=== PATIENT | female | born 1950 | race Caucasian/White ===

== ENCOUNTER → 2020-05-26 | Outpatient (CLI) | payer MEDICARE, MEDICAID | LOC: WOUNDCARE 08:15 | PROVIDERS: ATTEND Surgery | DX: E11.621 Type 2 diabetes mellitus with foot ulcer (principal); E11.42 Type 2 diabetes mellitus with diabetic polyneuropathy; E11.52 Type 2 diabetes mellitus with diabetic peripheral angiopathy with gangrene; I70.262 Atherosclerosis of native arteries of extremities with gangrene, left leg; L97.522 Non-pressure chronic ulcer of other part of left foot with fat layer exposed ==

== ENCOUNTER → 2020-05-30 | Outpatient (CLI) | payer MEDICARE, MEDICAID | LOC: WOUNDCARE 09:25 | PROVIDERS: ATTEND Surgery | DX: E11.621 Type 2 diabetes mellitus with foot ulcer (principal); E11.52 Type 2 diabetes mellitus with diabetic peripheral angiopathy with gangrene; E11.42 Type 2 diabetes mellitus with diabetic polyneuropathy; L97.522 Non-pressure chronic ulcer of other part of left foot with fat layer exposed; I70.262 Atherosclerosis of native arteries of extremities with gangrene, left leg | CPT/HCPCS: 11042 ==

== ENCOUNTER → 2020-06-06 | Outpatient (CLI) | payer MEDICARE, MEDICAID | LOC: WOUNDCARE 08:15 | PROVIDERS: ATTEND Surgery | DX: E11.621 Type 2 diabetes mellitus with foot ulcer (principal); E11.42 Type 2 diabetes mellitus with diabetic polyneuropathy; L97.522 Non-pressure chronic ulcer of other part of left foot with fat layer exposed; I70.245 Atherosclerosis of native arteries of left leg with ulceration of other part of foot ==

== ENCOUNTER → 2020-06-16 | Outpatient (CLI) | payer MEDICARE, MEDICAID | LOC: WOUNDCARE 08:15 | PROVIDERS: ATTEND Surgery | DX: E11.621 Type 2 diabetes mellitus with foot ulcer (principal); E11.42 Type 2 diabetes mellitus with diabetic polyneuropathy; L97.522 Non-pressure chronic ulcer of other part of left foot with fat layer exposed; I70.245 Atherosclerosis of native arteries of left leg with ulceration of other part of foot; E11.52 Type 2 diabetes mellitus with diabetic peripheral angiopathy with gangrene ==

== ENCOUNTER → 2020-07-04 | Outpatient (CLI) | payer MEDICARE, MEDICAID | LOC: WOUNDCARE 08:15 | PROVIDERS: ATTEND Surgery | DX: E11.621 Type 2 diabetes mellitus with foot ulcer (principal); E11.42 Type 2 diabetes mellitus with diabetic polyneuropathy; L97.522 Non-pressure chronic ulcer of other part of left foot with fat layer exposed; I70.245 Atherosclerosis of native arteries of left leg with ulceration of other part of foot; I96 Gangrene, not elsewhere classified ==

== ENCOUNTER → 2020-07-13 | Outpatient (CLI) | payer MEDICARE, MEDICAID | LOC: WOUNDCARE 11:05 | PROVIDERS: ATTEND Surgery | DX: E11.621 Type 2 diabetes mellitus with foot ulcer (principal); L97.522 Non-pressure chronic ulcer of other part of left foot with fat layer exposed; E11.42 Type 2 diabetes mellitus with diabetic polyneuropathy; E11.649 Type 2 diabetes mellitus with hypoglycemia without coma; I96 Gangrene, not elsewhere classified; H54.8 Legal blindness, as defined in USA | CPT/HCPCS: 11042; G0463 ==

== ENCOUNTER → 2020-07-21 | Outpatient (CLI) | payer MEDICARE, MEDICAID | LOC: WOUNDCARE 10:54 | PROVIDERS: ATTEND Surgery | DX: E11.621 Type 2 diabetes mellitus with foot ulcer (principal); E11.42 Type 2 diabetes mellitus with diabetic polyneuropathy; E11.65 Type 2 diabetes mellitus with hyperglycemia; I96 Gangrene, not elsewhere classified; L97.522 Non-pressure chronic ulcer of other part of left foot with fat layer exposed; H54.8 Legal blindness, as defined in USA | CPT/HCPCS: 99213 ==

== ENCOUNTER → 2020-11-21 | Outpatient (CLI) | payer MEDICARE, MEDICAID ==
[2020-11-21 11:18] LABS: BASOPHILS % (AUTO) 0 % (0-10); EOSINOPHILS # (AUTO) 0.4 10^3/uL (0.0-0.3); EOSINOPHILS % (AUTO) 3 % (0-10); HEMATOCRIT 39 % (35-52); HEMOGLOBIN 12.7 g/dL (11.5-16.0); LYMPHOCYTES # (AUTO) 4.3 10^3/uL (1.0-4.0); LYMPHOCYTES % (AUTO) 41 % (12-44); MEAN CORPUSCULAR HEMOGLOBIN 31 pg (25-34); MEAN CORPUSCULAR HGB CONC 33 g/dL (32-36); MEAN CORPUSCULAR VOLUME 96 fL (80-99); MEAN PLATELET VOLUME 10.2 fL (9.0-12.2); MONOCYTES # (AUTO) 0.6 10^3/uL (0.0-1.0); MONOCYTES % (AUTO) 6 % (0-12); NEUTROPHILS # (AUTO) 5.2 10^3/uL (1.8-7.8); NEUTROPHILS % (AUTO) 50 % (42-75); PLATELET COUNT 338 10^3/uL (130-400); WHITE BLOOD COUNT 10.5 10^3/uL (4.3-11.0)
--- NOTE | 2020-11-21 11:34 | Diagnostic Imaging Report ---
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 There is no evidence of an acute fracture. No focal bone destruction or periosteal reaction is identified. There is plantar calcaneal spurring. IMPRESSION: No acute osseous abnormality post great toe amputation. Dictated by: Dictated on workstation # [id number]
[2020-11-21 11:43] LABS: ALBUMIN 3.9 GM/DL (3.2-4.5); BILIRUBIN,TOTAL 0.4 MG/DL (0.1-1.0); CALCIUM 8.9 MG/DL (8.5-10.1); CREATININE SERUM 1.33 MG/DL (0.60-1.30); TOTAL PROTEIN 6.8 GM/DL (6.4-8.2)
== END ==
LOC: RAD 10:51
PROVIDERS: ATTEND Surgery
DX: E11.621 Type 2 diabetes mellitus with foot ulcer (principal)
CPT/HCPCS: 36415; 73630; 80053; 83036; 85025

== ENCOUNTER → 2020-11-21 | Outpatient (CLI) | payer MEDICARE, MEDICAID | LOC: WOUNDCARE 08:40 | PROVIDERS: ATTEND Surgery | DX: E11.621 Type 2 diabetes mellitus with foot ulcer (principal); E11.42 Type 2 diabetes mellitus with diabetic polyneuropathy; L97.522 Non-pressure chronic ulcer of other part of left foot with fat layer exposed; I70.245 Atherosclerosis of native arteries of left leg with ulceration of other part of foot | CPT/HCPCS: 11042 ==

== ENCOUNTER → 2020-12-08 | Outpatient (CLI) | payer MEDICARE, MEDICAID | LOC: WOUNDCARE 13:26 | PROVIDERS: ATTEND Surgery | DX: E11.621 Type 2 diabetes mellitus with foot ulcer (principal); E11.42 Type 2 diabetes mellitus with diabetic polyneuropathy; L97.522 Non-pressure chronic ulcer of other part of left foot with fat layer exposed; I70.235 Atherosclerosis of native arteries of right leg with ulceration of other part of foot; E11.52 Type 2 diabetes mellitus with diabetic peripheral angiopathy with gangrene | CPT/HCPCS: 11042; G0463 ==

== ENCOUNTER → 2020-12-15 | Outpatient (CLI) | payer MEDICARE, MEDICAID | LOC: WOUNDCARE 14:00 | PROVIDERS: ATTEND Surgery | DX: E11.621 Type 2 diabetes mellitus with foot ulcer (principal); L97.522 Non-pressure chronic ulcer of other part of left foot with fat layer exposed; E11.42 Type 2 diabetes mellitus with diabetic polyneuropathy; I96 Gangrene, not elsewhere classified; I70.245 Atherosclerosis of native arteries of left leg with ulceration of other part of foot | CPT/HCPCS: 11042; G0463 ==

== ENCOUNTER → 2020-12-22 | Outpatient (CLI) | payer MEDICARE, MEDICAID | LOC: WOUNDCARE 13:45 | PROVIDERS: ATTEND Surgery | DX: E11.621 Type 2 diabetes mellitus with foot ulcer (principal); E11.42 Type 2 diabetes mellitus with diabetic polyneuropathy; L97.522 Non-pressure chronic ulcer of other part of left foot with fat layer exposed; I70.245 Atherosclerosis of native arteries of left leg with ulceration of other part of foot | CPT/HCPCS: 99212 ==

== ENCOUNTER 2021-08-08 18:35 | Emergency (ER) | payer MEDICARE, MEDICAID ==
[2021-08-08 18:36] VITALS: BP 76/40
--- NOTE | 2021-08-08 18:51 | ED General ---
General Stated Complaint: SEIZURE,FALL History of Present Illness Date Seen by Provider: Aug 08, 2021 Time Seen by Provider: 18:51 Initial Comments Patient presenting to emergency department via EMS for evaluation of altered mental status. She is from a care home and reportedly has a history of seizures and may have had a seizure which was partially witnessed. Patient has a history of dementia on her care home paperwork but she appears quite confused as she is completely disoriented initially and she appears to have lost bowel and bladder continence. She is initially hypotensive as well with systolic blood pressures in the 60-70 range. Looking at her care home paperwork it appears that she is a full code and has a history of diabetes hypertension high cholesterol and dementia as well as seizures for which she takes Keppra. The 1st person a call as her contact is Justin and I spoke to [facility] about her presentation medical history and he says she usually is confused but she is able to say her name and give pertinent information when asked. Several minutes after her arrival went back and talked to her again and now she is alert and oriented to herself but is confused on why she is here in the emergency department as she does not know what happened. She is afebrile and has a normal heart rate but is slightly hypoxic with an oxygen saturation of 92% on 2 L and there is no indication that she is on oxygen at the care home. She does have intermittent cough but we are uncertain when that started. Allergies and Home Medications Allergies Coded Allergies: No Known Drug Allergies (Unverified , 08/08/21) Patient Home Medication List Home Medication List Reviewed: Yes Review of Systems Review of Systems Constitutional: no symptoms reported EENTM: no symptoms reported Respiratory: cough Cardiovascular: no symptoms reported Gastrointestinal: no symptoms reported Musculoskeletal: no symptoms reported Skin: no symptoms reported Psychiatric/Neurological: No Symptoms Reported All Other Systems Reviewed Negative Unless Noted: Yes Physical Exam Vital Signs Vital Signs - First Documented 08/08/21 18:36 Temp 36.0 Pulse 60 Resp 18 B/P (MAP) 76/40 (52) Pulse Ox 95 O2 Delivery Nasal Cannula Capillary Refill : Height, Weight, BMI Height: '" Weight: lbs. oz. kg; BMI Method: General Appearance: Other (Ill and confused appearing female) HEENT: Other (Cataracts that appear to be severe in her left eye with responsive pupil in the right eye) Neck: Supple Respiratory: No Respiratory Distress, Other (Coarse breath sounds bilaterally) Cardiovascular: Regular Rate, Rhythm, No Edema Gastrointestinal: Non Tender, Soft Back: Normal Inspection Extremity: No Pedal Edema, Slow Capillary Refill Neurologic/Psychiatric: Alert, No Motor/Sensory Deficits, Disoriented Skin: Warm/Dry Focused Exam Lactate Level 08/08/21 19:20: Lactic Acid Level 3.75*H Lactic Acid Level Laboratory Tests Test 08/08/21 19:20 Lactic Acid Level 3.75 MMOL/L (0.50-2.00) *H Progress/Results/Core Measures Suspected Sepsis SIRS Temperature: Pulse: Respiratory Rate: Laboratory Tests 08/08/21 19:20: White Blood Count 14.3H Blood Pressure / Mean: 08/08/21 19:20: Lactic Acid Level 3.75*H Laboratory Tests 08/08/21 19:12: Creatinine 1.71H, INR Comment 0.9, Total Bilirubin 0.5 08/08/21 19:20: Platelet Count 362 Results/Orders Lab Results Laboratory Tests Test 08/08/21 19:11 08/08/21 19:12 08/08/21 19:20 Range/Units Urine Color YELLOW Urine Clarity CLEAR Urine pH 7.0 5-9 Urine Specific [place] 1.010 L 1.016-1.022 Urine Protein NEGATIVE NEGATIVE Urine Glucose (UA) NEGATIVE NEGATIVE Urine Ketones NEGATIVE NEGATIVE Urine Nitrite NEGATIVE NEGATIVE Urine Bilirubin NEGATIVE NEGATIVE Urine Urobilinogen 0.2 < = 1.0 MG/DL Urine Leukocyte Esterase 1+ H NEGATIVE Urine RBC (Auto) TRACE-I H NEGATIVE Urine RBC 2-5 H /HPF Urine WBC 25-50 H /HPF Urine Squamous Epithelial Cells 2-5 /HPF Urine Crystals NONE /LPF Urine Bacteria TRACE /HPF Urine Casts NONE /LPF Urine Mucus NEGATIVE /LPF Urine Culture Indicated YES Prothrombin Time 12.9 12.2-14.7 SEC INR Comment 0.9 0.8-1.4 Activated Partial Thromboplast Time 24 24-35 SEC Sodium Level 140 135-145 MMOL/L Potassium Level 3.7 3.6-5.0 MMOL/L Chloride Level 99 98-107 MMOL/L Carbon Dioxide Level 22 21-32 MMOL/L Anion Gap 19 H 5-14 MMOL/L Blood Urea Nitrogen 31 H 7-18 MG/DL Creatinine 1.71 H 0.60-1.30 MG/DL Estimat Glomerular Filtration Rate 30 BUN/Creatinine Ratio 18 Glucose Level 156 H 70-105 MG/DL Calcium Level 9.8 8.5-10.1 MG/DL Corrected Calcium 9.9 8.5-10.1 MG/DL Total Bilirubin 0.5 0.1-1.0 MG/DL Aspartate Amino Transf (AST/SGOT) 49 H 5-34 U/L Alanine Aminotransferase (ALT/SGPT) 71 H 0-55 U/L Alkaline Phosphatase 80 40-136 U/L Troponin I < 0.30 <0.30 NG/ML Pro-B-Type Natriuretic Peptide 344.4 H <75.0 PG/ML Total Protein 6.7 6.4-8.2 GM/DL Albumin 3.9 3.2-4.5 GM/DL Lipase 43 8-78 U/L White Blood Count 14.3 H 4.3-11.0 10^3/uL Red Blood Count 3.98 3.80-5.11 10^6/uL Hemoglobin 12.4 11.5-16.0 g/dL Hematocrit 38 35-52 % Mean Corpuscular Volume 95 80-99 fL Mean Corpuscular Hemoglobin 31 25-34 pg Mean Corpuscular Hemoglobin Concent 33 32-36 g/dL Red Cell Distribution Width 14.0 10.0-14.5 % Platelet Count 362 130-400 10^3/uL Mean Platelet Volume 9.6 9.0-12.2 fL Neutrophils (%) (Auto) 50 42-75 % Lymphocytes (%) (Auto) 43 12-44 % Monocytes (%) (Auto) 5 0-12 % Eosinophils (%) (Auto) 1 0-10 % Basophils (%) (Auto) 0 0-10 % Neutrophils # (Auto) 7.1 1.8-7.8 X 10^3 Lymphocytes # (Auto) 6.2 H 1.0-4.0 X 10^3 Monocytes # (Auto) 0.7 0.0-1.0 X 10^3 Eosinophils # (Auto) 0.1 0.0-0.3 10^3/uL Basophils # (Auto) 0.1 0.0-0.1 10^3/uL Immature Granulocyte # (Auto) 0.1 0.0-0.1 10^3/uL Neutrophils % (Manual) 53 % Lymphocytes % (Manual) 10 % Monocytes % (Manual) 6 % Eosinophils % (Manual) 0 % Basophils % (Manual) 0 % Band Neutrophils 4 % Atypical Lymphocytes 27 % Platelet Estimate NORMAL Elliptocytes SLIGHT Lactic Acid Level 3.75 *H 0.50-2.00 MMOL/L My Orders Orders - AIDA MCNEIL DO Iv/Invasive Line Insertion .IV start (08/08/21 18:52) Cbc With Automated Diff (08/08/21 18:52) Comprehensive Metabolic Panel (08/08/21 18:52) Ekg Tracing (08/08/21 18:52) Troponin I Fs (08/08/21 18:52) Ua Culture If Indicated (08/08/21 18:52) Partial Thromboplastin Time (08/08/21 18:52) Probnp Fs (08/08/21 18:52) Protime With Inr (08/08/21 18:52) Ns Iv 1000 Ml (Sodium Chloride 0.9%) (08/08/21 19:00) Ct Head/Cervical Spine Wo (08/08/21 18:52) Blood Culture (08/08/21 19:04) Lactic Acid Analyzer (08/08/21 19:04) Lipase (08/08/21 19:04) Ct Chest/Abdomen/Pelvis Wo (08/08/21 19:16) Mora Cath (08/08/21 19:39) Levetiracetam Injection (Keppra Injectio (08/08/21 21:00) Blood Culture (08/08/21 19:20) Urine Culture (08/08/21 19:11) Ceftriaxone (Rocephin) (08/08/21 20:00) Manual Differential (08/08/21 19:20) Dexamethasone Injection (Decadron Inje (08/08/21 20:00) Levetiracetam Injection (Keppra Injectio (08/08/21 20:00) Azithromycin Injection (Zithromax Inject (08/08/21 20:15) Ns Iv 1000 Ml (Sodium Chloride 0.9%) (08/08/21 20:30) Lactated Ringers (Lr 1000 Ml Iv Solution (08/08/21 21:00) Ed Iv/Invasive Line Start (08/08/21 21:13) Medications Given in ED Current Medications Medications Dose Ordered Sig/Angie Route Start Time Stop Time Status Last Admin Dose Admin Azithromycin 500 mg/Sodium Chloride 250 ml @ 250 mls/hr ONCE ONCE IV 08/08/21 20:15 08/08/21 21:14 DC 08/08/21 20:35 250 MLS/HR Ceftriaxone Sodium 2000 mg/ Sodium Chloride 50 ml @ 100 mls/hr ONCE ONCE IV 08/08/21 20:00 08/08/21 20:29 DC 08/08/21 20:06 100 MLS/HR Dexamethasone Sodium Phosphate 10 mg ONCE ONCE IV 08/08/21 20:00 08/08/21 20:01 DC 08/08/21 20:06 10 MG Vital Signs/I&O 08/08/21 18:36 Temp 36.0 Pulse 60 Resp 18 B/P (MAP) 76/40 (52) Pulse Ox 95 O2 Delivery Nasal Cannula Capillary Refill : Progress Note : Progress Note Patient has abnormal work-up with signs of pneumonia on her CT scan in addition she has possible urinary tract infection with leukocytosis as well as lactic acidosis although the blood work may be abnormal due to her seizures. The CT scan shows a meningioma which the radiologist said is old and he thought that this could be calcification versus hemorrhage I spoke to the neurosurgeon Dr. Morse at [facility] and he said based off the Hounsfield units that this is most likely hemorrhage that likely caused her seizure. [facility] does not have neurology or neurosurgery available for treatment of this patient so I spoke to the brother Justin and he requested the patient be transferred to [facility]. Patient was given Keppra Decadron Rocephin Zithromax in addition to 3 L of fluid and she improved significantly as her systolic blood pressure has been at least 120 but her diastolic blood pressure has been in the lower range in the 50s to 60s but her map has been consistently above 65. She is perfusing her extremities well at this time and does not require pressors. Her mental status has continued to improve throughout her entire emergency department stay as well as she is not confused and continues to follow commands and is asking for something to eat and drink and she denies any complaints. After extensive discussion with Dr. Morse and Dr. Boyd they are willing to accept the patient to the ICU at [facility]. I did ask them regarding transport whether they felt that helicopter transfer is medically necessary and they agreed that it is not necessary given she has been improving throughout her emergency department stay and she is protecting her airway and is not requiring pressors. Of course there is always a small chance of decompensation but they said given that the hemorrhage is very small and she appears stable but they do not recommend helicopter transfer and the ground transfer is safe. Patient will be transferred to [facility] in guarded condition. Of note Covid is a possibility given her x-ray findings and that she is requiring 2 L of oxygen but we do not have the ability to do an in-house Covid test. [facility] will perform further Covid testing. Critical Care Note Critical Care Total Time (minutes) 45 Departure Impression Primary Impression: Hx of meningioma of the brain Additional Impressions: Intracranial hemorrhage Hypotension Qualified Codes: I95.9 - Hypotension, unspecified Renal insufficiency Leukocytosis Lactic acidosis Seizure Pneumonia UTI (urinary tract infection) Hypoxia Disposition: 02 XFER SHT-TRM HOSP Condition: Improved Transfer Transfer Reason: Exceeds level of care Time Spoke to Accepting Phy: 22:00 Transfer Facility: [facility] Method of Transfer: EMS Departure-Patient Inst. Referrals: ARTI MAO MD (PCP/Family) Primary Care Physician AIDA MCNEIL DO Aug 08, 2021 18:51
[2021-08-08] MEDS ORDERED: NS IV 1000 ML 1,000 ML IV SCH ×2 (19:00→20:30)
[2021-08-08 19:26] LABS: BILIRUBIN,URINE NEGATIVE (NEGATIVE); CLARITY,URINE CLEAR; COLOR,URINE YELLOW; GLUCOSE, URINE (UA) NEGATIVE (NEGATIVE); KETONES,URINE NEGATIVE (NEGATIVE); NITRITE,URINE NEGATIVE (NEGATIVE); PROTEIN,URINE NEGATIVE (NEGATIVE)
[2021-08-08 19:32] LABS: INR 0.9 (0.8-1.4); PROTHROMBIN TIME PATIENT 12.9 SEC (12.2-14.7)
[2021-08-08 19:45] LABS: BACTERIA,URINE TRACE /HPF; LEUKOCYTE ESTERASE ,URINE 1+ (NEGATIVE); WBC,URINE 25-50 /HPF
[2021-08-08 19:47] LABS: HEMATOCRIT 38 % (35-52); HEMOGLOBIN 12.4 g/dL (11.5-16.0); MEAN CORPUSCULAR HEMOGLOBIN 31 pg (25-34); MEAN CORPUSCULAR VOLUME 95 fL (80-99); WHITE BLOOD COUNT 14.3 10^3/uL (4.3-11.0)
[2021-08-08 19:48] LABS: BASOPHILS # (AUTO) 0.1 10^3/uL (0.0-0.1); BASOPHILS % (AUTO) 0 % (0-10); EOSINOPHILS # (AUTO) 0.1 10^3/uL (0.0-0.3); EOSINOPHILS % (AUTO) 1 % (0-10); LYMPHOCYTES # (AUTO) 6.2 X 10^3 (1.0-4.0); LYMPHOCYTES % (AUTO) 43 % (12-44); MEAN CORPUSCULAR HGB CONC 33 g/dL (32-36); MEAN PLATELET VOLUME 9.6 fL (9.0-12.2); MONOCYTES # (AUTO) 0.7 X 10^3 (0.0-1.0); MONOCYTES % (AUTO) 5 % (0-12); NEUTROPHILS # (AUTO) 7.1 X 10^3 (1.8-7.8); NEUTROPHILS % (AUTO) 50 % (42-75); PLATELET COUNT 362 10^3/uL (130-400)
[2021-08-08 19:55] LABS: BUN/CREATININE RATIO 18; CARBON DIOXIDE 22 MMOL/L (21-32); CHLORIDE 99 MMOL/L (98-107); CREATININE SERUM 1.71 MG/DL (0.60-1.30); GFR ESTIMATED 30; GLUCOSE 156 MG/DL (70-105); POTASSIUM 3.7 MMOL/L (3.6-5.0); SODIUM 140 MMOL/L (135-145)
[2021-08-08 19:56] LABS: ALANINE AMINOTRANSFERASE 71 U/L (0-55); ALBUMIN 3.9 GM/DL (3.2-4.5); ALKALINE PHOSPHATASE 80 U/L (40-136); BILIRUBIN,TOTAL 0.5 MG/DL (0.1-1.0); CALCIUM 9.8 MG/DL (8.5-10.1); LIPASE 43 U/L (8-78); TOTAL PROTEIN 6.7 GM/DL (6.4-8.2)
[2021-08-08 19:57] LABS: ATYPICAL LYMPHOCYTES 27 %; BAND NEUTROPHILS 4 %; BASOPHILS % (MANUAL) 0 %; EOSINOPHILS % (MANUAL) 0 %; LYMPHOCYTES % (MANUAL) 10 %; MONOCYTES % (MANUAL) 6 %; NEUTROPHILS % (MANUAL) 53 %; PLATELET ESTIMATE NORMAL
[2021-08-08 19:58] LABS: ELLIPT/OVALOCYTES SLIGHT
[2021-08-08] MEDS ORDERED: cefTRIAXone 2,000 MG in NS (IVPB) 50 ML IV ONE (20:00)
--- NOTE | 2021-08-08 20:03 | Diagnostic Imaging Report ---
PROCEDURE: CT head and CT cervical spine without contrast. TECHNIQUE: Multiple contiguous axial images were obtained through the brain and cervical spine without the use of intravenous contrast. Sagittal and coronal reformations through the cervical spine were then performed. Auto Exposure Controls were utilized during the CT exam to meet ALARA standards for radiation dose reduction. INDICATION: Seizures, altered mental status, head and neck injury COMPARISON: 12/28/2018 FINDINGS: CT HEAD: The ventricles and cortical sulci appear normal. There is a right-sided parietal approach ventricular shunt, with the tip to the left of midline near the anterior left lateral ventricle and frontal lobe. There is stable chronic thickening of the posterior calvarium. There is extensive calcification along the dura posteriorly which is stable. There is a calcification in the right temporal lobe. There is increased irregular hyperdensity in the right temporal lobe compared to the CT from 12/28/2018. The MRI brain from 03/25/2019 demonstrates an enhancing neoplasm consistent with meningioma with additional calcification since that time, although given the irregular amorphous nature, this is still concerning for intraparenchymal hemorrhage, measuring up to 2.4 x 1.9 x 1.7 cm in size. There is no significant midline shift or mass effect. There does appear to be mild edema about the hyperdensity in the right temporal lobe. No CT evidence of acute territorial ischemia is seen. The calvarium appears intact. Paranasal sinuses demonstrate no fluid levels. CT CERVICAL SPINE: Alignment of the cervical spine appears normal with no spondylolisthesis. There are severe degenerative changes at C3-C4, C4-C5, C5-C6 and mild degenerative changes elsewhere. No acute fracture is seen. There does appear to be spondylytic spinal canal stenosis. No bony fragments or hyperdense fluid collections are seen in the spinal canal. Soft tissues about the neck demonstrate no acute abnormality. There is calcific atherosclerosis. IMPRESSION: 1. Lesion at the anterior temporal lobe demonstrates a well-defined as well as amorphous irregular hyperdensity, likely calcification but it is concerning for underlying hemorrhage. This area corresponds with a known meningioma from 2019. This appears to be mildly increased in size since that exam and this would be better evaluated with MRI with and without contrast. 2. Right-sided ventricular shunt. No ventriculomegaly. Findings discussed with AIDA MCNEIL, by Dr. Rogers, on 08/08/2021 7:54 PM. Dictated by: Dictated on workstation # [id number]
--- NOTE | 2021-08-08 20:07 | Diagnostic Imaging Report ---
PROCEDURE: CT chest, abdomen, and pelvis without contrast. TECHNIQUE: Multiple contiguous axial images were obtained through the chest, abdomen, and pelvis without the use of intravenous contrast. Auto Exposure Controls were utilized during the CT exam to meet ALARA standards for radiation dose reduction. INDICATION: Seizures, altered mental status, trauma to the torso. COMPARISON: None FINDINGS: CT CHEST: The heart is normal in size. There is mild pericardial fluid without jalyn effusion seen. There is aortic atherosclerosis. Caliber appears normal. There is motion artifact throughout the exam. No mediastinal adenopathy is seen. There is no axillary adenopathy. There is no pleural effusion or pneumothorax. There are airspace opacities in the lung bases, left greater than right. There appears to be mild bronchiectasis and chronic scarring. No acute osseous abnormality is seen. CT ABDOMEN AND PELVIS: The liver demonstrates no focal lesions. Cholecystectomy clips are noted. The spleen appears normal. The pancreas is unremarkable. The adrenal glands appear normal. The kidneys are mildly atrophic with no hydronephrosis or calculi seen. There is marked aortic atherosclerosis. The aorta is normal in caliber. No lymphadenopathy is seen. There is a small fat-containing ventral hernia with no bowel involvement. The bowel loops are nondistended without obstruction. A Mora catheter is seen in the bladder. There is no free fluid or free air. The appendix is normal. No acute osseous abnormality is seen. There are degenerative changes in the spine. IMPRESSION: 1. No acute traumatic injury is seen in the chest, abdomen or pelvis. 2. Bilateral pulmonary opacities, may represent infection superimposed on chronic fibrotic change. Dictated by: Dictated on workstation # [id number]
[2021-08-08] MEDS ORDERED: AZITHROMYCIN INJECTION 500 MG in NS (IVPB) 250 ML IV ONE (20:15)
[2021-08-08] MEDS ORDERED: LACTATED RINGERS 1,000 ML IV SCH (21:00)
== END 2021-08-08 23:30 | disposition short-term general hospital (02) ==
LOC: EDUNIT# 18:35 → ER FS 18:36
DX: I62.9 Nontraumatic intracranial hemorrhage, unspecified (principal); I95.9 Hypotension, unspecified; N28.9 Disorder of kidney and ureter, unspecified; D72.829 Elevated white blood cell count, unspecified; J18.9 Pneumonia, unspecified organism; N39.0 Urinary tract infection, site not specified; R09.02 Hypoxemia; R56.9 Unspecified convulsions; I10 Essential (primary) hypertension; E11.9 Type 2 diabetes mellitus without complications; Z79.899 Other long term (current) drug therapy
CPT/HCPCS: 36415; 51702; 70450; 71250; 72125; 74176; 80053; 81000; 83605; 83690; 83880; 84484; 85007; 85027; 85610; 85730; 87040; 87077; 87088; 87186; 93005

== ENCOUNTER → 2021-09-26 | Outpatient (CLI) | payer MEDICARE, MEDICAID ==
[2021-09-26 18:08] LABS: BILIRUBIN,URINE NEGATIVE (NEGATIVE); CLARITY,URINE SL CLOUDY; COLOR,URINE YELLOW; GLUCOSE, URINE (UA) NEGATIVE (NEGATIVE); KETONES,URINE NEGATIVE (NEGATIVE); LEUKOCYTE ESTERASE ,URINE 2+ (NEGATIVE); NITRITE,URINE POSITIVE (NEGATIVE); PH,URINE 6.5 (5-9); PROTEIN,URINE NEGATIVE (NEGATIVE)
[2021-09-26 18:14] LABS: BACTERIA,URINE MODERATE /HPF; WBC,URINE 50-100 /HPF
[2021-09-26 18:15] LABS: HYALINE CASTS, URINE RARE /LPF; SQUAMOUS EPITHELIAL CELL,UR RARE /HPF
== END ==
LOC: PVFS 17:10
PROVIDERS: ATTEND Family Medicine
DX: Z01.89 Encounter for other specified special examinations (principal)
CPT/HCPCS: 81000; 87077; 87088; 87186

== ENCOUNTER 2023-05-02 20:33 | Inpatient (IN) | payer MEDICAID, MEDICARE ==
[~2023-05-02] VITALS: Ht 149.9 cm; Wt 69.2 kg
[2023-05-02] MEDS ORDERED: ACETAMINOPHEN 500 MG TABLET PO PRN (20:45)
[2023-05-02] MEDS ORDERED: CEFEPIME INJECTION 1,000 MG in NS (IVPB) 50 ML 50 ML IV ONE (20:45)
[2023-05-02] MEDS ORDERED: NS IV 1000 ML 1,000 ML IV SCH (20:45)
--- NOTE | 2023-05-02 20:47 | ED Fever ---
History of Present Illness General Chief Complaint: Post OP Complications/Pain Stated Complaint: FEVER Source: patient, family, EMS Exam Limitations: clinical condition History of Present Illness Date Seen by Provider: May 02, 2023 Time Seen by Provider: 20:35 Initial Comments 73-year-old female with past medical history of diabetes, legal blindness, peripheral vascular disease that had stenting in her legs done at [facility] recently coming in via EMS due to fever and altered mental status. Family noticed fever greater than 102 today. She has not been acting normal as well. They are concerned that she has a wound on her foot on the left side that has not been healing. Allergies and Home Medications Allergies Coded Allergies: No Known Drug Allergies (Unverified , 08/08/21) Patient Home Medication List Home Medication List Reviewed: Yes Review of Systems Review of Systems Constitutional: fever EENTM: no symptoms reported Respiratory: no symptoms reported Cardiovascular: no symptoms reported Gastrointestinal: no symptoms reported Genitourinary: no symptoms reported Musculoskeletal: see HPI Psychiatric/Neurological: See HPI Past Exwurpa-Lakfjn-Dscjac Hx Past Medical History Surgery/Hospitalization HX: stent in leg Surgeries: Yes Physical Exam Vital Signs - First Documented Capillary Refill : Height: '" Weight: lbs. oz. kg; BMI Method: General Appearance: other (Ill-appearing) Eyes: Bilateral Eye Other (Patient likely blind, eyes closed) HEENT: pharynx normal Neck: non-tender, full range of motion, supple, normal inspection Respiratory: chest non-tender, lungs clear, normal breath sounds, no respiratory distress, no accessory muscle use Cardiovascular: no edema, tachycardia Gastrointestinal: normal bowel sounds, non tender, soft; No distended, No guarding, No rebound Extremities: normal range of motion, no calf tenderness, other (Left foot on the plantar surface with a chronic wound with some erythema around it, no drainage noted) Neurologic/Psychiatric: no motor/sensory deficits, alert, other (Oriented to person only) Skin: normal color, warm/dry Focused Exam Lactate Level 05/02/23 20:36: Lactic Acid Level 2.21*H Lactic Acid Level Laboratory Tests Test 05/02/23 20:36 Lactic Acid Level 2.21 MMOL/L (0.50-2.00) *H Progress/Results/Core Measures Suspected Sepsis SIRS Temperature: Pulse: Respiratory Rate: Laboratory Tests 05/02/23 20:36: White Blood Count 16.7H Blood Pressure / Mean: 05/02/23 20:36: Lactic Acid Level 2.21*H Laboratory Tests 05/02/23 20:36: Creatinine 1.37H, INR Comment 1.0, Platelet Count 417H, Total Bilirubin 0.7 Results/Orders Lab Results Laboratory Tests Test 05/02/23 20:36 05/02/23 20:42 05/02/23 20:50 Range/Units White Blood Count 16.7 H 4.3-11.0 10^3/uL Red Blood Count 3.06 L 3.80-5.11 10^6/uL Hemoglobin 9.3 L 11.5-16.0 g/dL Hematocrit 29 L 35-52 % Mean Corpuscular Volume 95 80-99 fL Mean Corpuscular Hemoglobin 30 25-34 pg Mean Corpuscular Hemoglobin Concent 32 32-36 g/dL Red Cell Distribution Width 15.1 H 10.0-14.5 % Platelet Count 417 H 130-400 10^3/uL Mean Platelet Volume 10.4 9.0-12.2 fL Immature Granulocyte % (Auto) 1 % Neutrophils (%) (Auto) 92 H 42-75 % Lymphocytes (%) (Auto) 3 L 12-44 % Monocytes (%) (Auto) 4 0-12 % Eosinophils (%) (Auto) 0 0-10 % Basophils (%) (Auto) 0 0-10 % Neutrophils # (Auto) 15.3 H 1.8-7.8 10^3/uL Lymphocytes # (Auto) 0.5 L 1.0-4.0 10^3/uL Monocytes # (Auto) 0.7 0.0-1.0 10^3/uL Eosinophils # (Auto) 0.0 0.0-0.3 10^3/uL Basophils # (Auto) 0.0 0.0-0.1 10^3/uL Immature Granulocyte # (Auto) 0.2 H 0.0-0.1 10^3/uL Neutrophils % (Manual) 65 % Lymphocytes % (Manual) 5 % Monocytes % (Manual) 4 % Eosinophils % (Manual) 0 % Basophils % (Manual) 0 % Band Neutrophils 26 % Platelet Estimate INCREASED Percent Immature Platelet Fraction 2.0 0.0-7.6 % Polychromasia SLIGHT Hypochromasia 1+ Microcytosis 1+ Macrocytosis 1+ Elliptocytes SLIGHT Prothrombin Time 14.0 12.2-14.7 SEC INR Comment 1.0 0.8-1.4 Activated Partial Thromboplast Time 21 L 24-35 SEC Sodium Level 142 135-145 MMOL/L Potassium Level 3.7 3.6-5.0 MMOL/L Chloride Level 106 98-107 MMOL/L Carbon Dioxide Level 20 L 21-32 MMOL/L Anion Gap 16 H 5-14 MMOL/L Blood Urea Nitrogen 21 H 7-18 MG/DL Creatinine 1.37 H 0.60-1.30 MG/DL Estimat Glomerular Filtration Rate 41 BUN/Creatinine Ratio 15 Glucose Level 129 H 70-105 MG/DL Lactic Acid Level 2.21 *H 0.50-2.00 MMOL/L Calcium Level 8.7 8.5-10.1 MG/DL Corrected Calcium 9.7 8.5-10.1 MG/DL Total Bilirubin 0.7 0.1-1.0 MG/DL Aspartate Amino Transf (AST/SGOT) 37 H 5-34 U/L Alanine Aminotransferase (ALT/SGPT) 62 H 0-55 U/L Alkaline Phosphatase 75 40-136 U/L C-Reactive Protein 5.06 H <0.50 MG/DL Total Protein 6.4 6.4-8.2 GM/DL Albumin 2.8 L 3.2-4.5 GM/DL Influenza Type A (RT-PCR) Not Detected Not Detecte Influenza Type B (RT-PCR) Not Detected Not Detecte SARS-CoV-2 RNA (RT-PCR) Not Detected Not Detecte Urine Color YELLOW Urine Clarity CLOUDY Urine pH 6.0 5-9 Urine Specific Tyler 1.010 L 1.016-1.022 Urine Protein NEGATIVE NEGATIVE Urine Glucose (UA) NEGATIVE NEGATIVE Urine Ketones TRACE H NEGATIVE Urine Nitrite POSITIVE H NEGATIVE Urine Bilirubin NEGATIVE NEGATIVE Urine Urobilinogen 0.2 < = 1.0 MG/DL Urine Leukocyte Esterase 1+ H NEGATIVE Urine RBC (Auto) 1+ H NEGATIVE Urine RBC 5-10 H /HPF Urine WBC 50-100 H /HPF Urine Squamous Epithelial Cells 0-2 /HPF Urine Crystals NONE /LPF Urine Bacteria LARGE H /HPF Urine Casts PRESENT /LPF Urine Hyaline Casts 5-10 H /LPF Urine Mucus MODERATE H /LPF Urine Culture Indicated CULTURE PENDING My Orders Orders - LON LAUREANO MD Cbc With Automated Diff (05/02/23 20:40) Comprehensive Metabolic Panel (05/02/23 20:40) Blood Culture (05/02/23 20:40) Urinalysis (05/02/23 20:40) Urine Culture (05/02/23 20:40) Protime With Inr (05/02/23 20:40) Partial Thromboplastin Time (05/02/23 20:40) Chest 1 View Ap/Pa Only (05/02/23 20:40) Acetaminophen Tablet (Acetaminophen Ta (05/02/23 20:45) Ed Iv/Invasive Line Start (05/02/23 20:40) Ekg Tracing (05/02/23 20:40) Vital Signs Adult Sepsis Patie Q15M (05/02/23 20:40) O2 (05/02/23 20:40) Remove Rings In Anticipation O (05/02/23 20:40) Lactic Acid Analyzer (05/02/23 20:40) Influenza A And B By Pcr (05/02/23 20:40) Ns Iv 1000 Ml (Sodium Chloride 0.9%) (05/02/23 20:45) Cefepime Injection (Cefepime Injection) (05/02/23 20:45) Covid 19 Inhouse Test (05/02/23 20:40) Crp Fs (05/02/23 20:40) Foot 3 View Left (05/02/23 20:40) Catheter(Urinary) Insert & Ass 03,15 (05/02/23 20:47) Manual Differential (05/02/23 20:36) Ed Admission (Communication) (05/02/23 21:48) Medications Given in ED Current Medications Medications Dose Ordered Sig/Angie Route Start Time Stop Time Status Last Admin Dose Admin Acetaminophen 1,000 mg ONCE PRN PO 05/02/23 20:45 05/02/23 20:53 DC 05/02/23 20:53 1,000 MG Cefepime HCl 1000 mg/Sodium Chloride 50 ml @ 100 mls/hr ONCE ONCE IV 05/02/23 20:45 05/02/23 21:14 DC 05/02/23 20:54 100 MLS/HR Vital Signs/I&O 05/02/23 05/02/23 05/02/23 05/02/23 20:36 20:36 20:36 20:45 Temp 39.8 39.8 Pulse 115 115 119 Resp 28 28 21 B/P (MAP) 111/44 (66) 111/44 (66) 109/38 (61) Pulse Ox 90 90 90 92 O2 Delivery Room Air Nasal Cannula Nasal Cannula O2 Flow Rate 2.00 2.00 2.00 2.00 05/02/23 05/02/23 05/02/23 05/02/23 20:53 21:00 21:15 21:30 Temp 39.1 Pulse 111 108 100 Resp 27 22 21 B/P (MAP) 102/39 (60) 116/44 (68) 113/43 (66) Pulse Ox 92 92 92 O2 Delivery Nasal Cannula Nasal Cannula Nasal Cannula O2 Flow Rate 2.00 2.00 2.00 05/02/23 05/02/23 05/02/23 05/02/23 21:45 22:00 22:15 22:30 Temp 39.1 Pulse 95 90 87 87 Resp 24 26 25 25 B/P (MAP) 108/38 (61) 111/44 (66) 111/44 (66) 111/44 Pulse Ox 92 93 93 93 O2 Delivery Nasal Cannula Nasal Cannula Nasal Cannula Nasal Cannula O2 Flow Rate 2.00 2.00 2.00 2.00 2.00 05/02/23 05/02/23 05/02/23 23:00 23:12 23:14 Temp 37.0 Pulse 80 79 83 Resp 19 17 B/P (MAP) 108/48 (68) 108/48 (68) Pulse Ox 94 94 O2 Delivery Nasal Cannula Nasal Cannula O2 Flow Rate 4.00 4.00 05/03/23 00:00 Intake Total 1050 ml Balance 1050 ml Capillary Refill : Progress Note : Progress Note 73-year-old female with above history coming in due to fever and altered mental status. The patient was febrile and tachycardic on arrival. She was reportedly hypoxic per EMS and they placed her on 2 L nasal cannula. An IV was placed and basic labs were obtained including sepsis work-up. Lactic acid slightly elevated, white blood cell count elevated just under 17,000, CRP elevated, creatinine 1.3 which likely is her baseline when I review her prior labs. Chest x-ray with poor inspiratory effort, difficult to fully assess, potentially infiltrate versus pulmonary vascular congestion. Urinalysis obtained and certainly is infected. She was given cefepime empirically followed by IV fluids. She was given a total of 1000 of IV fluids in the ER, I would not want to give her more given her frail status, and I be concerned for respiratory issues. She seems to be euvolemic on reassessment as well. I contacted the physician production support supervisor, and the patient will be admitted to Dr. Hooper to the intensive care unit for further evaluation and management. I then contacted the ICU physician for signout. ECG Initial ECG Impression Date: May 02, 2023 Initial ECG Impression Time: 21:15 Initial ECG Rate: 105 Initial ECG Rhythm: S.Tach Comment Narrow QRS, normal axis, no STEMI Diagnostic Imaging Diagonstic Imaging: Xray (chest, left foot) Comments NAME: PATEL SABILLON MED REC#: [id number] PT STATUS: REG ER : 1950 PHYSICIAN: LON LAUREANO MD ADMIT DATE: 05/02/23/ER FS Draft Date of Exam:05/02/23 CHEST 1 VIEW AP/PA ONLY EXAM: Chest 1 view AP/PA only. INDICATION: Sepsis. COMPARISON: 12/28/2018. FINDINGS: Low lung volumes accentuate the heart size. Mild pulmonary vascular congestion. Left costophrenic angle is not entirely included on the [id number]. Atelectasis or infiltrate in the left lung base. No pleural effusion or pneumothorax. IMPRESSION: 1. Low lung volumes accentuate the cardiomegaly and pulmonary vascular congestion. 2. Atelectasis or infiltrate in the left lung base. Left costophrenic angle is not entirely included in the [id number]. Dictated on workstation # [id number] Dict: 05/02/232120 Trans: 05/02/232124 [facility] [id number] Interpreted by: ALEX ELIZABETH MD Electronically signed by: MIREYA [facility] [facility] [place], [place] NAME: PATEL SABILLON MED REC#: [id number] PT STATUS: REG ER : 1950 PHYSICIAN: LON LAUREANO MD ADMIT DATE: 05/02/23/ER FS Draft Date of Exam:05/02/23 FOOT 3 VIEW LEFT EXAM: Foot 3 view left INDICATION: Nonhealing foot wound. COMPARISON: Left foot radiographs 11/21/2020. FINDINGS/ IMPRESSION: 1. 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 2. Increasing lucencies about the distal aspect of the left 1st metatarsal suspicious for osteomyelitis. There is also a small amount of soft tissue gas overlying the left 1st metatarsal. 3. No fracture. Dictated on workstation # [id number] Dict: 05/02/232119 Trans: 05/02/232121 [facility] [id number] Interpreted by: ALEX ELIZABETH MD Electronically signed by: Departure Impression Primary Impression: Severe sepsis Additional Impression: Cystitis Disposition: 30 STILL A PATIENT Condition: Stable Admissions Decision to Admit Reason: Admit from ER (General) Decision to Admit/Date: May 02, 2023 Time/Decision to Admit Time: 21:45 Transfer Transfer Facility: [facility] Method of Transfer: EMS Departure-Patient Inst. Referrals: ARTI MAO MD (PCP/Family) Primary Care Physician LON LAUREANO MD May 02, 2023 20:47
[2023-05-02 21:18] LABS: BILIRUBIN,URINE NEGATIVE (NEGATIVE); CLARITY,URINE CLOUDY; COLOR,URINE YELLOW; GLUCOSE, URINE (UA) NEGATIVE (NEGATIVE); KETONES,URINE TRACE (NEGATIVE); LEUKOCYTE ESTERASE ,URINE 1+ (NEGATIVE); NITRITE,URINE POSITIVE (NEGATIVE); PROTEIN,URINE NEGATIVE (NEGATIVE)
--- NOTE | 2023-05-02 21:22 | Diagnostic Imaging Report ---
EXAM: Foot 3 view left INDICATION: Nonhealing foot wound. COMPARISON: Left foot radiographs 11/21/2020. FINDINGS/ IMPRESSION: 1. 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 2. Increasing lucencies about the distal aspect of the left 1st metatarsal suspicious for osteomyelitis. There is also a small amount of soft tissue gas overlying the left 1st metatarsal. 3. No fracture. Dictated by: Dictated on workstation # [id number]
[2023-05-02 21:26] LABS: BACTERIA,URINE LARGE /HPF; SQUAMOUS EPITHELIAL CELL,UR 0-2 /HPF; WBC,URINE 50-100 /HPF
--- NOTE | 2023-05-02 21:26 | Diagnostic Imaging Report ---
EXAM: Chest 1 view AP/PA only. INDICATION: Sepsis. COMPARISON: 12/28/2018. FINDINGS: Low lung volumes accentuate the heart size. Mild pulmonary vascular congestion. Left costophrenic angle is not entirely included on the [id number]. Atelectasis or infiltrate in the left lung base. No pleural effusion or pneumothorax. IMPRESSION: 1. Low lung volumes accentuate the cardiomegaly and pulmonary vascular congestion. 2. Atelectasis or infiltrate in the left lung base. Left costophrenic angle is not entirely included in the [id number]. Dictated by: Dictated on workstation # [id number]
[2023-05-02 21:27] LABS: BASOPHILS % (AUTO) 0 % (0-10); EOSINOPHILS % (AUTO) 0 % (0-10); HEMATOCRIT 29 % (35-52); HEMOGLOBIN 9.3 g/dL (11.5-16.0); LYMPHOCYTES # (AUTO) 0.5 10^3/uL (1.0-4.0); LYMPHOCYTES % (AUTO) 3 % (12-44); MEAN CORPUSCULAR HEMOGLOBIN 30 pg (25-34); MEAN CORPUSCULAR HGB CONC 32 g/dL (32-36); MEAN CORPUSCULAR VOLUME 95 fL (80-99); MEAN PLATELET VOLUME 10.4 fL (9.0-12.2); MONOCYTES # (AUTO) 0.7 10^3/uL (0.0-1.0); MONOCYTES % (AUTO) 4 % (0-12); NEUTROPHILS # (AUTO) 15.3 10^3/uL (1.8-7.8); NEUTROPHILS % (AUTO) 92 % (42-75); PLATELET COUNT 417 10^3/uL (130-400); WHITE BLOOD COUNT 16.7 10^3/uL (4.3-11.0)
[2023-05-02 21:28] LABS: BILIRUBIN,TOTAL 0.7 MG/DL (0.1-1.0); CALCIUM 8.7 MG/DL (8.5-10.1); CREATININE SERUM 1.37 MG/DL (0.60-1.30); POTASSIUM 3.7 MMOL/L (3.6-5.0); TOTAL PROTEIN 6.4 GM/DL (6.4-8.2)
[2023-05-02 21:29] LABS: ALBUMIN 2.8 GM/DL (3.2-4.5)
[2023-05-02 21:49] LABS: BAND NEUTROPHILS 26 %; BASOPHILS % (MANUAL) 0 %; EOSINOPHILS % (MANUAL) 0 %; LYMPHOCYTES % (MANUAL) 5 %; MONOCYTES % (MANUAL) 4 %; NEUTROPHILS % (MANUAL) 65 %
[2023-05-02 21:50] LABS: ELLIPT/OVALOCYTES SLIGHT; HYPOCHROMASIA 1+; MICROCYTOSIS 1+; PLATELET ESTIMATE INCREASED; POLYCHROMASIA SLIGHT
[2023-05-02] MEDS ORDERED: ONDANSETRON 4 MG ORAL DISSOLVE TABLET PO PRN (23:30)
[2023-05-02] MEDS ORDERED: ACETAMINOPHEN 325 MG TABLET PO PRN (23:30)
[2023-05-02] MEDS ORDERED: ONDANSETRON INJECTION 4 MG/2 ML (SDV) IV PRN (23:30)
[2023-05-02] MEDS ORDERED: LACTATED RINGERS 1,000 ML 1,000 ML IV ONE (23:37)
--- NOTE | 2023-05-02 23:38 | Tele-ICU Progress Note ---
Subjective Date Seen by a Provider: May 02, 2023 Subjective/Events-last exam This virtual visit was conducted using real time audio/video. Thank you for asking us to see this patient for critical care services due to urosepsis with AMS Recent events: Transferred from [place]. PMH: foot ulcer, ileal stent, DM. PE: VSS. O2 sat 96% on 2 LPM HEENT: No obvious masses, adenopathy or JVD. Chest: clear to auscultation. CV: RRR S1 S2 No murmur or added sounds. Abd: Non-tender. Bowel sounds Y. : Unremarkable. Mora Y. GAUGER CHIEF DELIVERY/psychiatric: Grossly intact. No obvious focal findings. Extremities: No edema. Capillary refill < 3 seconds. Skin: unremarkable. Results: Elevated WCC 16.2, BUN, 1.37, BG 129. Decreased Hb 9.3. CXR: poor quality, possible atel./ infilt. L base.. Available chart/ vitals / labs / images reviewed. Video assessment done using teleICU camera, rest of exam as per RN. A/P: Critical Care: critically ill patient. Cont. IVF, O2, abx, SSI, Madi., Discussed with SHAMIR Munoz and ER MD. Asked RN to reach out to eICU if any questions or concerns later. Time spent with patient/coordination of care with other health professionals (mins): 25 Sepsis Event Evaluation Height, Weight, BMI Height: '" Weight: lbs. oz. kg; BMI Method: Focused Exam Lactate Level 05/02/23 20:36: Lactic Acid Level 2.21*H Lactic Acid Level Laboratory Tests Test 05/02/23 20:36 Lactic Acid Level 2.21 MMOL/L (0.50-2.00) *H Exam Exam Patient acknowledged, consented, and participated in this virtual visit which was conducted using real time audio/video Vital Signs Date Time Temp Pulse Resp B/P (MAP) Pulse Ox O2 Delivery O2 Flow Rate FiO2 05/02/23 23:12 37.0 79 17 108/48 (68) 94 Nasal Cannula 4.00 05/02/23 22:15 87 25 111/44 (66) 93 Nasal Cannula 2.00 05/02/23 22:00 90 26 111/44 (66) 93 Nasal Cannula 2.00 05/02/23 21:45 95 24 108/38 (61) 92 Nasal Cannula 2.00 05/02/23 21:30 100 21 113/43 (66) 92 Nasal Cannula 2.00 05/02/23 21:15 108 22 116/44 (68) 92 Nasal Cannula 2.00 05/02/23 21:00 111 27 102/39 (60) 92 Nasal Cannula 2.00 05/02/23 20:53 39.1 05/02/23 20:45 119 21 109/38 (61) 92 Nasal Cannula 2.00 05/02/23 20:36 90 Nasal Cannula 2.00 05/02/23 20:36 39.8 115 28 111/44 (66) 90 Room Air 2.00 Height & Weight Height: '" Weight: lbs. oz. kg; BMI Method: General Appearance: No Apparent Distress, Obese Capillary Refill: Less Than 3 Seconds Peripheral Pulses: 1+ Dorsalis Pedis (R), 1+ Left Dors-Pedis (L) (See free text.) Gastrointestinal: normal bowel sounds, non tender, soft; No distended, No guarding, No rebound Results Lab Laboratory Tests 05/02/23 20:36 Assessment/Plan Assessment/Plan See free text. Critical Care: Critically Ill Patient GRAEME IRVING MD May 02, 2023 23:38
[2023-05-02] MEDS: LACTATED RINGERS 1,000 ML 1,000 ML IV SCH (23:43)
[2023-05-03 05:11] LABS: BASOPHILS % (AUTO) 0 % (0-10); EOSINOPHILS % (AUTO) 0 % (0-10); HEMATOCRIT 24 % (35-52); HEMOGLOBIN 7.4 g/dL (11.5-16.0); LYMPHOCYTES # (AUTO) 0.5 10^3/uL (1.0-4.0); LYMPHOCYTES % (AUTO) 3 % (12-44); MEAN CORPUSCULAR HEMOGLOBIN 30 pg (25-34); MEAN CORPUSCULAR HGB CONC 31 g/dL (32-36); MEAN CORPUSCULAR VOLUME 97 fL (80-99); MEAN PLATELET VOLUME 10.6 fL (9.0-12.2); MONOCYTES # (AUTO) 0.2 10^3/uL (0.0-1.0); MONOCYTES % (AUTO) 1 % (0-12); NEUTROPHILS # (AUTO) 13.5 10^3/uL (1.8-7.8); NEUTROPHILS % (AUTO) 95 % (42-75); PLATELET COUNT 319 10^3/uL (130-400); WHITE BLOOD COUNT 14.3 10^3/uL (4.3-11.0)
[2023-05-03] MEDS: LACTATED RINGERS 1,000 ML 1,000 ML IV SCH (05:24)
[2023-05-03] MEDS: CEFEPIME INJECTION 1,000 MG in NS (IVPB) 50 ML 50 ML IV SCH ×3 (05:25→21:17)
[2023-05-03 05:31] LABS: ALBUMIN 2.6 GM/DL (3.2-4.5); BILIRUBIN,TOTAL 0.6 MG/DL (0.1-1.0); CALCIUM 7.8 MG/DL (8.5-10.1); CREATININE SERUM 1.2 MG/DL (0.60-1.30); POTASSIUM 3.7 MMOL/L (3.6-5.0); TOTAL PROTEIN 5.7 GM/DL (6.4-8.2)
[2023-05-03] MEDS: inSUlin ASPART 1 UNIT/0.01 ML (PER UNIT) SC SCH ×4 (05:32→21:17)
[2023-05-03] MEDS ORDERED: NS IV 500 ML 500 ML IV PRN (05:45)
[2023-05-03] MEDS ORDERED: POTASSIUM CHLORIDE 20 MEQ TABLET PO SCH (06:00)
[2023-05-03] MEDS ORDERED: POTASSIUM CL 10MEQ/50ML IVPB 50 ML IV SCH (06:00)
[2023-05-03 06:01] LABS: PHOSPHORUS 3.9 MG/DL (2.3-4.7)
[2023-05-03 06:03] LABS: MAGNESIUM 1.9 MG/DL (1.6-2.4)
[2023-05-03] MEDS: MAGNESIUM 1 GM/100 ML IVPB 100 ML IV SCH ×3 (06:04→07:53)
[2023-05-03] MEDS ORDERED: POTASSIUM CHLORIDE 20 MEQ TABLET PO ONE (08:00)
--- NOTE | 2023-05-03 08:53 | History & Physical ---
HPI History of Present Illness: 73 yo female admitted to hospital for concern for severe sepsis, brought from nursing facility. Patient states she is feeling okay. She is not able to provide any history. She knows her name, but any other questions I ask that require more than yes or no, she says "I don't know". Per ER notes, she recently had revascu larization procedure at [facility] and has nonhealing wound on left foot as well as altered mental status. Source: patient Exam Limitations: clinical condition Date seen by provider: May 03, 2023 Time Seen by Provider: 08:45 Attending Physician Timi Issa MD PCP Admitting Physician: Olegario Hooper MD Attending Physician: Olegario Hooper MD Consult Date of Admission May 02, 2023 at 23:15 Home Medications Home Medications Reviewed patient Home Medication Reconciliation performed by pharmacy medication reconciliations agricultural research technician and/or nursing. Patients Allergies have been reviewed. Allergies Coded Allergies: No Known Drug Allergies (Unverified , 08/08/21) [id number] Hx Patient Social History Smoking Status: Never a Smoker Alcohol Use?: No Immunizations Up To Date Influenza Vaccine Up-to-Date: Yes; Up-to-Date First/Initial COVID19 Vaccinat: Unknown status Past Medical History PMHx: (unable to obtain from patient, obtained from outpatient clinic notes) Meningioma Hydrocephalus Blind HTN HLD Chronic pain Mixed stress and urge incontinence Fecal incontinence Esophagitis DMII CKD Bipolar disorder Epilepsy Peripheral neuropathy Dementia Atrial flutter Peripheral arterial disease SurgHx: Cataract Left leg vascular procedure Left great toe amputation Family Medical History Significant Family History: No Pertinent Family Hx Review of Systems ([facility]) Constitutional: other (unable to obtain) Reviewed Test Results Reviewed Test Results Lab Laboratory Tests Test 05/02/23 20:36 05/02/23 20:42 05/02/23 20:50 05/02/23 23:51 Range/Units White Blood Count 16.7 H 4.3-11.0 10^3/uL Red Blood Count 3.06 L 3.80-5.11 10^6/uL Hemoglobin 9.3 L 11.5-16.0 g/dL Hematocrit 29 L 35-52 % Mean Corpuscular Volume 95 80-99 fL Mean Corpuscular Hemoglobin 30 25-34 pg Mean Corpuscular Hemoglobin Concent 32 32-36 g/dL Red Cell Distribution Width 15.1 H 10.0-14.5 % Platelet Count 417 H 130-400 10^3/uL Mean Platelet Volume 10.4 9.0-12.2 fL Immature Granulocyte % (Auto) 1 % Neutrophils (%) (Auto) 92 H 42-75 % Lymphocytes (%) (Auto) 3 L 12-44 % Monocytes (%) (Auto) 4 0-12 % Eosinophils (%) (Auto) 0 0-10 % Basophils (%) (Auto) 0 0-10 % Neutrophils # (Auto) 15.3 H 1.8-7.8 10^3/uL Lymphocytes # (Auto) 0.5 L 1.0-4.0 10^3/uL Monocytes # (Auto) 0.7 0.0-1.0 10^3/uL Eosinophils # (Auto) 0.0 0.0-0.3 10^3/uL Basophils # (Auto) 0.0 0.0-0.1 10^3/uL Immature Granulocyte # (Auto) 0.2 H 0.0-0.1 10^3/uL Neutrophils % (Manual) 65 % Lymphocytes % (Manual) 5 % Monocytes % (Manual) 4 % Eosinophils % (Manual) 0 % Basophils % (Manual) 0 % Band Neutrophils 26 % Platelet Estimate INCREASED Percent Immature Platelet Fraction 2.0 0.0-7.6 % Polychromasia SLIGHT Hypochromasia 1+ Microcytosis 1+ Macrocytosis 1+ Elliptocytes SLIGHT Prothrombin Time 14.0 12.2-14.7 SEC INR Comment 1.0 0.8-1.4 Activated Partial Thromboplast Time 21 L 24-35 SEC Sodium Level 142 135-145 MMOL/L Potassium Level 3.7 3.6-5.0 MMOL/L Chloride Level 106 98-107 MMOL/L Carbon Dioxide Level 20 L 21-32 MMOL/L Anion Gap 16 H 5-14 MMOL/L Blood Urea Nitrogen 21 H 7-18 MG/DL Creatinine 1.37 H 0.60-1.30 MG/DL Estimat Glomerular Filtration Rate 41 BUN/Creatinine Ratio 15 Glucose Level 129 H 70-105 MG/DL Lactic Acid Level 2.21 *H 0.93 0.50-2.00 MMOL/L Calcium Level 8.7 8.5-10.1 MG/DL Corrected Calcium 9.7 8.5-10.1 MG/DL Total Bilirubin 0.7 0.1-1.0 MG/DL Aspartate Amino Transf (AST/SGOT) 37 H 5-34 U/L Alanine Aminotransferase (ALT/SGPT) 62 H 0-55 U/L Alkaline Phosphatase 75 40-136 U/L C-Reactive Protein 5.06 H <0.50 MG/DL Total Protein 6.4 6.4-8.2 GM/DL Albumin 2.8 L 3.2-4.5 GM/DL Influenza Type A (RT-PCR) Not Detected Not Detecte Influenza Type B (RT-PCR) Not Detected Not Detecte SARS-CoV-2 RNA (RT-PCR) Not Detected Not Detecte Urine Color YELLOW Urine Clarity CLOUDY Urine pH 6.0 5-9 Urine Specific [place] 1.010 L 1.016-1.022 Urine Protein NEGATIVE NEGATIVE Urine Glucose (UA) NEGATIVE NEGATIVE Urine Ketones TRACE H NEGATIVE Urine Nitrite POSITIVE H NEGATIVE Urine Bilirubin NEGATIVE NEGATIVE Urine Urobilinogen 0.2 < = 1.0 MG/DL Urine Leukocyte Esterase 1+ H NEGATIVE Urine RBC (Auto) 1+ H NEGATIVE Urine RBC 5-10 H /HPF Urine WBC 50-100 H /HPF Urine Squamous Epithelial Cells 0-2 /HPF Urine Crystals NONE /LPF Urine Bacteria LARGE H /HPF Urine Casts PRESENT /LPF Urine Hyaline Casts 5-10 H /LPF Urine Mucus MODERATE H /LPF Urine Culture Indicated CULTURE PENDING Test 05/03/23 01:15 05/03/23 04:40 05/03/23 05:32 05/03/23 10:30 Range/Units Glucometer 129 H 116 H 87 70-110 MG/DL White Blood Count 14.3 H 4.3-11.0 10^3/uL Red Blood Count 2.47 L 3.80-5.11 10^6/uL Hemoglobin 7.4 #L 11.5-16.0 g/dL Hematocrit 24 L 35-52 % Mean Corpuscular Volume 97 80-99 fL Mean Corpuscular Hemoglobin 30 25-34 pg Mean Corpuscular Hemoglobin Concent 31 L 32-36 g/dL Red Cell Distribution Width 15.4 H 10.0-14.5 % Platelet Count 319 130-400 10^3/uL Mean Platelet Volume 10.6 9.0-12.2 fL Immature Granulocyte % (Auto) 1 % Neutrophils (%) (Auto) 95 H 42-75 % Lymphocytes (%) (Auto) 3 L 12-44 % Monocytes (%) (Auto) 1 0-12 % Eosinophils (%) (Auto) 0 0-10 % Basophils (%) (Auto) 0 0-10 % Neutrophils # (Auto) 13.5 H 1.8-7.8 10^3/uL Lymphocytes # (Auto) 0.5 L 1.0-4.0 10^3/uL Monocytes # (Auto) 0.2 0.0-1.0 10^3/uL Eosinophils # (Auto) 0.0 0.0-0.3 10^3/uL Basophils # (Auto) 0.0 0.0-0.1 10^3/uL Immature Granulocyte # (Auto) 0.1 0.0-0.1 10^3/uL Sodium Level 142 135-145 MMOL/L Potassium Level 3.7 3.6-5.0 MMOL/L Chloride Level 112 H 98-107 MMOL/L Carbon Dioxide Level 22 21-32 MMOL/L Anion Gap 8 5-14 MMOL/L Blood Urea Nitrogen 20 H 7-18 MG/DL Creatinine 1.20 0.60-1.30 MG/DL Estimat Glomerular Filtration Rate 48 BUN/Creatinine Ratio 17 Glucose Level 121 H 70-105 MG/DL Calcium Level 7.8 L 8.5-10.1 MG/DL Corrected Calcium 8.9 8.5-10.1 MG/DL Phosphorus Level 3.9 2.3-4.7 MG/DL Magnesium Level 1.9 1.6-2.4 MG/DL Total Bilirubin 0.6 0.1-1.0 MG/DL Aspartate Amino Transf (AST/SGOT) 33 5-34 U/L Alanine Aminotransferase (ALT/SGPT) 52 0-55 U/L Alkaline Phosphatase 65 40-136 U/L Total Protein 5.7 L 6.4-8.2 GM/DL Albumin 2.6 L 3.2-4.5 GM/DL Radiology CXR 05/02/23: IMPRESSION: 1. Low lung volumes accentuate the cardiomegaly and pulmonary vascular congestion. 2. Atelectasis or infiltrate in the left lung base. Left costophrenic angle is not entirely included in the [id number]. Left foot xray 05/02/23: FINDINGS/ IMPRESSION: 1. 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 2. Increasing lucencies about the distal aspect of the left 1st metatarsal suspicious for osteomyelitis. There is also a small amount of soft tissue gas overlying the left 1st metatarsal. 3. No fracture. Physical Exam-([facility]C) Physical Exam Vital Signs VS - Last 72 Hours, by Label 05/02/23 05/02/23 05/02/23 05/02/23 20:36 20:36 20:36 20:45 Temp 39.8 39.8 Pulse 115 115 119 Resp 28 28 21 B/P (MAP) 111/44 (66) 111/44 (66) 109/38 (61) Pulse Ox 90 90 90 92 O2 Delivery Room Air Nasal Cannula Nasal Cannula O2 Flow Rate 2.00 2.00 2.00 2.00 05/02/23 05/02/23 05/02/23 05/02/23 20:53 21:00 21:15 21:30 Temp 39.1 Pulse 111 108 100 Resp 27 22 21 B/P (MAP) 102/39 (60) 116/44 (68) 113/43 (66) Pulse Ox 92 92 92 O2 Delivery Nasal Cannula Nasal Cannula Nasal Cannula O2 Flow Rate 2.00 2.00 2.00 05/02/23 05/02/23 05/02/23 05/02/23 21:45 22:00 22:15 22:30 Temp 39.1 Pulse 95 90 87 87 Resp 24 26 25 25 B/P (MAP) 108/38 (61) 111/44 (66) 111/44 (66) 111/44 Pulse Ox 92 93 93 93 O2 Delivery Nasal Cannula Nasal Cannula Nasal Cannula Nasal Cannula O2 Flow Rate 2.00 2.00 2.00 2.00 2.00 05/02/23 05/02/23 05/02/23 05/02/23 23:00 23:12 23:14 23:30 Temp 37.0 Pulse 80 79 83 78 Resp 19 17 19 B/P (MAP) 108/48 (68) 108/48 (68) 87/55 (66) Pulse Ox 94 94 95 O2 Delivery Nasal Cannula Nasal Cannula Nasal Cannula O2 Flow Rate 4.00 4.00 4.00 05/02/23 05/03/23 05/03/23 05/03/23 23:46 00:00 00:30 01:00 Pulse 76 72 70 Resp 19 14 B/P (MAP) 91/40 (57) 88/41 (57) Pulse Ox 98 99 O2 Delivery Nasal Cannula Nasal Cannula Nasal Cannula O2 Flow Rate 4.00 4.00 4.00 05/03/23 05/03/23 05/03/23 05/03/23 01:00 02:00 03:00 04:00 Pulse 63 60 60 Resp 16 13 12 B/P (MAP) 96/43 (60) 94/42 (59) 91/44 (60) Pulse Ox 98 98 98 94 O2 Delivery Nasal Cannula Nasal Cannula Nasal Cannula Nasal Cannula O2 Flow Rate 4.00 4.00 4.00 4.00 05/03/23 05/03/23 05/03/23 05/03/23 04:00 05:00 05:28 05:30 Temp 36.2 Pulse 61 59 Resp 16 15 B/P (MAP) 100/50 (67) 103/52 (69) Pulse Ox 94 95 O2 Delivery Nasal Cannula Nasal Cannula Nasal Cannula O2 Flow Rate 4.00 4.00 2.00 05/03/23 05/03/23 05/03/23 05/03/23 06:00 06:49 07:00 07:00 Pulse 59 60 59 Resp 15 20 B/P (MAP) 103/52 (69) 96/49 (66) Pulse Ox 95 97 94 O2 Delivery Nasal Cannula Nasal Cannula Nasal Cannula O2 Flow Rate 2.00 2.00 2.00 05/03/23 05/03/23 05/03/23 05/03/23 08:00 08:00 08:00 09:00 Temp 35.9 Pulse 69 70 Resp 16 22 B/P (MAP) 128/58 (98) 130/71 (86) Pulse Ox 95 94 O2 Delivery Nasal Cannula Nasal Cannula Nasal Cannula O2 Flow Rate 2.00 2.00 2.00 05/03/23 05/03/23 05/03/23 10:00 11:59 12:24 Temp 36.5 Pulse 98 89 91 Resp 13 15 B/P (MAP) 113/78 (90) 130/58 (82) Pulse Ox 92 O2 Delivery Nasal Cannula Room Air O2 Flow Rate 2.00 Capillary Refill : Less Than 3 Seconds General Appearance: no apparent distress HEENT: other (left eye cloudy) Respiratory: rales (bibasilar) Cardiovascular: regular rate, rhythm, no murmur Gastrointestinal: normal bowel sounds, soft; No distended; tenderness (mild diffuse) Extremities: no pedal edema Neurologic/Psychiatric: alert, other (oriented to self only, moving all extremities) Skin: other (left first metatarsal head wound, dry, mild erythema to site of first toe amputation, no drainage, fluctuance) Assessment/Plan Assessment/Plan Admission Status: Inpatient Order (span 2 midnights) Reason for Inpatient Admission: Severe sepsis (1) Severe sepsis Status: Acute Assessment & Plan: Suspect secondary to UTI, also possible pneumonia, possible osteomyelitis. Started on cefepime and doxy, will change doxy to vancomycin due to possible osteomyelitis. Initially with leukocytosis, fever, lactic acidosis, acute on chronic renal insuffiency and elevated LFTs, all of which are improved today. (2) Diabetic foot ulcer Status: Chronic Assessment & Plan: Evaluated by wound nurse, has been seeing Dr. Restrepo outpatient. Wound itself doesn't appear infected, but xray with possible underlying osteo. Will get MRI. Qualifiers: Qualified Codes: E11.621 - Type 2 diabetes mellitus with foot ulcer; L97.521 - Non-pressure chronic ulcer of other part of left foot limited to breakdown of skin (3) UTI (urinary tract infection) Status: Acute Assessment & Plan: Cefepime. Culture pending. Qualifiers: Qualified Codes: N39.0 - Urinary tract infection, site not specified; R31.9 - Hematuria, unspecified (4) Pneumonia Status: Acute Assessment & Plan: Possible, on cefepime and vancomycin for multiple possible infection sources as above. Supplemental oxygen as needed. Qualifiers: Qualified Codes: J18.9 - Pneumonia, unspecified organism (5) CKD (chronic kidney disease) Status: Chronic Qualifiers: (6) Diabetes Status: Chronic Qualifiers: (7) Hypertension Status: Chronic Qualifiers: Qualified Codes: I10 - Essential (primary) hypertension (8) Hyperlipidemia Status: Chronic (9) Peripheral neuropathy Status: Chronic (10) Peripheral arterial disease Status: Chronic (11) Dementia Status: Chronic Assessment & Plan: Uncertain baseline, no family at bedside at time of exam. Treat infection and monitor closely. (12) DVT prophylaxis Status: Acute Assessment & Plan: Enoxaparin OLEGARIO HOOPER MD May 03, 2023 08:52
[2023-05-03] MEDS ORDERED: DOXYCYCLINE INJECTION 100 MG in NS (IVPB) 100 ML 100 ML IV SCH (09:00)
[2023-05-03] MEDS ORDERED: VANCOMYCIN INJECTION 0.1 MG in NS (IVPB) 250 ML 250 ML IV SCH (09:00)
[2023-05-03] MEDS ORDERED: VANCOMYCIN 1500MG/300ML PREMIX IV SCH (09:30)
[2023-05-03] MEDS: ENOXAPARIN 40 MG/0.4 ML SYRINGE SC SCH (09:57)
[2023-05-03] MEDS ORDERED: ACET-2267 PO (10:58)
[2023-05-03] MEDS ORDERED: LUTE20TA PO (10:58)
[2023-05-03] MEDS ORDERED: EZET10TA49 PO (10:58)
[2023-05-03] MEDS ORDERED: MEMA5TAB43 PO (10:58)
[2023-05-03] MEDS ORDERED: GABA300C PO (10:58)
[2023-05-03] MEDS ORDERED: GLMP2T PO (10:58)
[2023-05-03] MEDS ORDERED: GUAI100L13 PO (10:58)
[2023-05-03] MEDS ORDERED: CALC300T4 PO (10:58)
[2023-05-03] MEDS ORDERED: LOSA50TA63 PO (10:58)
[2023-05-03] MEDS ORDERED: GLUC1TAB21 PO (10:58)
[2023-05-03] MEDS ORDERED: ATOR40TA70 PO (10:58)
[2023-05-03] MEDS ORDERED: DIPH25TA65 PO (10:58)
[2023-05-03] MEDS ORDERED: FAMO20TA5 PO (10:58)
[2023-05-03] MEDS ORDERED: ALPR0.254 PO (10:58)
[2023-05-03] MEDS ORDERED: GUAI400T86 PO (10:58)
[2023-05-03] MEDS ORDERED: OMEG100032 PO (10:58)
[2023-05-03] MEDS ORDERED: FURO20TA4 PO (10:58)
[2023-05-03] MEDS ORDERED: ASPI-1238 PO (10:58)
[2023-05-03] MEDS ORDERED: LOPE-175 PO (10:58)
[2023-05-03] MEDS ORDERED: FLAX10004 PO (10:58)
[2023-05-03] MEDS ORDERED: MAGN400O7 PO (10:58)
[2023-05-03] MEDS ORDERED: BETA1TAB15 PO (10:58)
[2023-05-03] MEDS ORDERED: MULT-1136 PO (10:58)
[2023-05-03] MEDS ORDERED: CLOP75TA28 PO (10:58)
[2023-05-03] MEDS ORDERED: L. A1CAP11 PO (10:58)
[2023-05-03] MEDS ORDERED: BENZ-36 PO (10:58)
[2023-05-03] MEDS ORDERED: CALC1CAP21 PO (10:58)
[2023-05-03] MEDS ORDERED: PSYL3.4P5 PO (10:58)
[2023-05-03] MEDS ORDERED: TRAZ150T72 PO (10:58)
[2023-05-03] MEDS ORDERED: LEVE750T5 PO (10:58)
[2023-05-03] MEDS ORDERED: TRAM50TA3 PO (10:58)
[2023-05-03] MEDS ORDERED: CITA20TA9 PO (10:58)
--- NOTE | 2023-05-03 11:14 | Tele-ICU Progress Note ---
Subjective Date Seen by a Provider: May 03, 2023 Time Seen by a Provider: 11:13 Subjective/Events-last exam (Tele-ICU Physician , Progress Note ) Service provided via interactive audio and video telecommunications E-CARE system to a patient admitted to ICU bed in [facility]. Patient is seen today due to persistent need of ICU care Available chart/ vitals / labs / Images reviewed Video assessment done using teleICU camera, rest of exam as per RN Discussed with RN Events overnight : Afebrile hemodynamically stable Respiratory - 2 l I/O =+ Drips: ns Pressors- no Hospital course: (05/02) 73yF Admit cystitis, + UTI, non healing foot wound A/P Sepsis - received IVF , abx started - improved Anemia - no active bleeding , suspect delitional, received LR >3 L IVF Hypoxia - on 2 L UTI. cystitis - on abx DM II - ISS non healing foot wound - as per wound team Lines : periph , (Central Line Necessity Reviewed) Mora: 05/02 OG: Nutrition: po Analgesia: Anxiety/ delirium VTE Prophylaxis: kenyon Stress Ulcer Prophylaxis: Plans in collaboration with bedside consultants and IM MDs. Discussed with RN to reach out if any questions or concerns Case and care daily discussed on multidisciplinary rounds ( RN, PharmD, Broadcast Systems Engineer , Respiratory Therapy, skid worker ) A total of 20 minutes of critical care time was devoted to this patient today, required to treat and/or prevent further deterioration of critical care condition ( as above ) . I am remotely monitoring this patient from another state. I am unable to do the bedside exam, and history/physical and pertinent information is taken from other notes in the computer and bedside staff. Sepsis Event Evaluation Height, Weight, BMI Height: '" Weight: lbs. oz. kg; 33.19 BMI Method: Focused Exam Lactate Level 05/02/23 20:36: Lactic Acid Level 2.21*H 05/02/23 23:51: Lactic Acid Level 0.93 Exam Exam Patient acknowledged, consented, and participated in this virtual visit which wa s conducted using real time audio/video Vital Signs Date Time Temp Pulse Resp B/P (MAP) Pulse Ox O2 Delivery O2 Flow Rate FiO2 05/03/23 10:00 98 13 113/78 (90) Nasal Cannula 2.00 05/03/23 09:00 70 22 130/71 (86) Nasal Cannula 2.00 05/03/23 08:00 94 Nasal Cannula 2.00 05/03/23 08:00 69 16 128/58 (98) 95 Nasal Cannula 2.00 05/03/23 08:00 35.9 05/03/23 07:00 59 20 96/49 (66) 94 Nasal Cannula 2.00 05/03/23 07:00 60 05/03/23 06:49 97 Nasal Cannula 2.00 05/03/23 06:00 59 15 103/52 (69) 95 Nasal Cannula 2.00 05/03/23 05:30 36.2 05/03/23 05:28 Nasal Cannula 2.00 05/03/23 05:00 59 15 103/52 (69) 95 Nasal Cannula 4.00 05/03/23 04:00 61 16 100/50 (67) 94 Nasal Cannula 4.00 05/03/23 04:00 94 Nasal Cannula 4.00 05/03/23 03:00 60 12 91/44 (60) 98 Nasal Cannula 4.00 05/03/23 02:00 60 13 94/42 (59) 98 Nasal Cannula 4.00 05/03/23 01:00 63 16 96/43 (60) 98 Nasal Cannula 4.00 05/03/23 01:00 70 05/03/23 00:30 72 14 88/41 (57) 99 Nasal Cannula 4.00 05/03/23 00:00 76 19 91/40 (57) 98 Nasal Cannula 4.00 05/02/23 23:46 Nasal Cannula 4.00 05/02/23 23:30 78 19 87/55 (66) 95 Nasal Cannula 4.00 05/02/23 23:14 83 05/02/23 23:12 37.0 79 17 108/48 (68) 94 Nasal Cannula 4.00 05/02/23 23:00 80 19 108/48 (68) 94 Nasal Cannula 4.00 05/02/23 22:30 39.1 87 25 111/44 93 Nasal Cannula 2.00 2.00 05/02/23 22:15 87 25 111/44 (66) 93 Nasal Cannula 2.00 05/02/23 22:00 90 26 111/44 (66) 93 Nasal Cannula 2.00 05/02/23 21:45 95 24 108/38 (61) 92 Nasal Cannula 2.00 05/02/23 21:30 100 21 113/43 (66) 92 Nasal Cannula 2.00 05/02/23 21:15 108 22 116/44 (68) 92 Nasal Cannula 2.00 05/02/23 21:00 111 27 102/39 (60) 92 Nasal Cannula 2.00 05/02/23 20:53 39.1 05/02/23 20:45 119 21 109/38 (61) 92 Nasal Cannula 2.00 05/02/23 20:36 90 Nasal Cannula 2.00 05/02/23 20:36 39.8 115 28 111/44 (66) 90 2.00 05/02/23 20:36 39.8 115 28 111/44 (66) 90 Room Air 2.00 I & O 05/03/23 06:59 Intake Total 2275 ml Output Total 260 ml Balance 2015 ml Height & Weight Height: '" Weight: lbs. oz. kg; 33.19 BMI Method: General Appearance: No Apparent Distress, Obese Capillary Refill: Less Than 3 Seconds Peripheral Pulses: 1+ Dorsalis Pedis (R), 1+ Left Dors-Pedis (L) (See free text.) Gastrointestinal: normal bowel sounds, soft; No distended; tenderness (mild diffuse) Results Lab Laboratory Tests 05/02/23 20:36 05/03/23 04:40 Assessment/Plan Assessment/Plan 1 ELSY FREEMAN MD May 03, 2023 11:14
[2023-05-03] MEDS ORDERED: guaiFENesin SYRUP 100 MG/5 ML 10 ML PO PRN (15:00)
[2023-05-03] MEDS ORDERED: FAMOTIDINE 20 MG TABLET PO PRN (15:00)
[2023-05-03] MEDS ORDERED: diphenhydrAMINE 25 MG TABLET PO PRN (15:00)
[2023-05-03] MEDS ORDERED: BENZONATATE 100 MG CAPSULE PO PRN (15:00)
[2023-05-03] MEDS ORDERED: NON-FORMULARY MEDICATION 1 EA EA (Guaifenesin 400 MG) PO PRN (15:00)
[2023-05-03] MEDS ORDERED: MILK OF MAGNESIA 400 MG/5 ML 30 ML UDC PO PRN (15:00)
[2023-05-03] MEDS ORDERED: PSYLLIUM POWDER PACKET PO PRN (15:00)
[2023-05-03] MEDS ORDERED: CALCIUM CARBONATE 500 MG CHEW TABLET PO PRN (15:30)
[2023-05-03] MEDS: ALPRAZolam 0.25 MG TABLET PO PRN (15:44)
[2023-05-03] MEDS: GABAPENTIN 300 MG CAPSULE PO SCH (18:11)
[2023-05-03] MEDS: OMEGA 3 (FISH OIL) 1000 MG CAP PO SCH (18:11)
[2023-05-03] MEDS: LevETIRAcetam 500 MG TABLET PO SCH (18:11)
[2023-05-03] MEDS: MEMANTINE 5 MG TABLET PO SCH (21:16)
[2023-05-03] MEDS: traZODone 150 MG (DESYREL) TABLET PO SCH (21:17)
[2023-05-04] MEDS: CEFEPIME INJECTION 1,000 MG in NS (IVPB) 50 ML 50 ML IV SCH ×3 (05:50→21:48)
[2023-05-04 06:13] LABS: BASOPHILS % (AUTO) 0 % (0-10); EOSINOPHILS # (AUTO) 0.1 10^3/uL (0.0-0.3); EOSINOPHILS % (AUTO) 1 % (0-10); HEMATOCRIT 23 % (35-52); HEMOGLOBIN 7.2 g/dL (11.5-16.0); LYMPHOCYTES # (AUTO) 1.9 10^3/uL (1.0-4.0); LYMPHOCYTES % (AUTO) 17 % (12-44); MEAN CORPUSCULAR HEMOGLOBIN 30 pg (25-34); MEAN CORPUSCULAR HGB CONC 31 g/dL (32-36); MEAN CORPUSCULAR VOLUME 97 fL (80-99); MEAN PLATELET VOLUME 10.7 fL (9.0-12.2); MONOCYTES # (AUTO) 0.5 10^3/uL (0.0-1.0); MONOCYTES % (AUTO) 4 % (0-12); NEUTROPHILS # (AUTO) 8.6 10^3/uL (1.8-7.8); NEUTROPHILS % (AUTO) 78 % (42-75); PLATELET COUNT 295 10^3/uL (130-400); WHITE BLOOD COUNT 11.1 10^3/uL (4.3-11.0)
[2023-05-04 06:36] LABS: ALBUMIN 2.6 GM/DL (3.2-4.5); BILIRUBIN,TOTAL 0.5 MG/DL (0.1-1.0); CALCIUM 7.4 MG/DL (8.5-10.1); CREATININE SERUM 1.09 MG/DL (0.60-1.30); MAGNESIUM 2.2 MG/DL (1.6-2.4); PHOSPHORUS 2.4 MG/DL (2.3-4.7); POTASSIUM 3.4 MMOL/L (3.6-5.0); TOTAL PROTEIN 5.6 GM/DL (6.4-8.2)
[2023-05-04] MEDS: MAGNESIUM 1 GM/100 ML IVPB 100 ML IV SCH (06:50)
[2023-05-04] MEDS: THERAPEUTIC MULTIVITAMIN W/MINERALS TABLET PO SCH (06:55)
[2023-05-04] MEDS: inSUlin ASPART 1 UNIT/0.01 ML (PER UNIT) SC SCH ×4 (06:55→21:48)
--- NOTE | 2023-05-04 07:06 | Progress Note ---
EDUARDO GALAN MD 05/04/23 0706: Subjective Subjective/Events-last exam No acute events overnight. Pt reports doing well this morning. No complaints. Review of Systems General: No Chills, No Night Sweats, No Fatigue, No Malaise, No Appetite, No Other HEENT: No Head Aches, No Visual Changes, No Eye Pain, No Ear Pain, No Dysphasia, No Sinus Congestion, No Post Nasal Drip, No Sore Throat, No Other Pulmonary: No Dyspnea, No Cough, No Pleuritic Chest Pain, No Other Cardiovascular: No: Chest Pain, Palpitations, Orthopnea, Paroxysmal Noc. Dyspnea, Edema, Lt Headedness, Other Gastrointestinal: No: Nausea, Vomiting, Abdominal Pain, Diarrhea, Constipation, Melena, Hematochezia, Other Genitourinary: No Dysuria, No Frequency, No Incontinence, No Hematuria, No Retention, No Other Musculoskeletal: No: other, neck pain, shoulder pain, arm pain, back pain, hand pain, leg pain, foot pain Neurological: No: Weakness, Numbness, Incoordination, Change in speech, Confusion, Seizures, Other Focused Exam Lactate Level 05/02/23 20:36: Lactic Acid Level 2.21*H 05/02/23 23:51: Lactic Acid Level 0.93 Objective Exam Last Set of Vital Signs Vital Signs Date Time Temp Pulse Resp B/P (MAP) Pulse Ox O2 Delivery O2 Flow Rate FiO2 05/04/23 04:43 36.9 72 16 129/69 (89) 90 Room Air 05/03/23 10:00 2.00 Capillary Refill : Less Than 3 Seconds I&O Intake and Output 05/04/23 00:00 Intake Total 2385 ml Output Total 660 ml Balance 1725 ml Intake Oral 835 ml IV Total 1550 ml Output Urine Total 660 ml General: Alert, Cooperative, No Acute Distress HEENT: Atraumatic, EOMI (right eye only. Unable to complete exam on R) Neck: Supple Lungs: Clear to Auscultation Heart: Regular Rate, No Murmurs Abdomen: Soft, No Tenderness Extremities: No Edema, Normal Pulses Skin: Other (No erythema of LLE, clean dry dressing over 1st toe removal site) Neuro: Normal Speech, Other (allodynia of feet BL) Results/Procedures Lab Laboratory Tests 05/03/23 10:30: Glucometer 87 05/03/23 16:57: Glucometer 149H 05/03/23 21:10: Glucometer 105 05/04/23 05:35: White Blood Count 11.1H, Red Blood Count 2.38L, Hemoglobin 7.2L, Hematocrit 23L, Mean Corpuscular Volume 97, Mean Corpuscular Hemoglobin 30, Mean Corpuscular Hemoglobin Concent 31L, Red Cell Distribution Width 15.6H, Platelet Count 295, Mean Platelet Volume 10.7, Immature Granulocyte % (Auto) 1, Neutrophils (%) (Auto) 78H, Lymphocytes (%) (Auto) 17, Monocytes (%) (Auto) 4, Eosinophils (%) (Auto) 1, Basophils (%) (Auto) 0, Neutrophils # (Auto) 8.6H, Lymphocytes # (Auto) 1.9, Monocytes # (Auto) 0.5, Eosinophils # (Auto) 0.1, Basophils # (Auto) 0.0, Immature Granulocyte # (Auto) 0.1, Sodium Level 138, Potassium Level 3.4L, Chloride Level 110H, Carbon Dioxide Level 19L, Anion Gap 9, Blood Urea Nitrogen 15, Creatinine 1.09, Estimat Glomerular Filtration Rate 54, BUN/Creatinine Ratio 14, Glucose Level 162H, Calcium Level 7.4L, Corrected Calcium 8.5, Phosphorus Level 2.4, Magnesium Level 2.2, Total Bilirubin 0.5, Aspartate Amino Transf (AST/SGOT) 31, Alanine Aminotransferase (ALT/SGPT) 43, Alkaline Phosphatase 57, Total Protein 5.6L, Albumin 2.6L Microbiology 05/02/23 MRSA Screen - Final, Complete MRSA not isolated 05/02/23 Blood Culture - Preliminary, Resulted Escherichia coli Radiology CXR 05/02/23: IMPRESSION: 1. Low lung volumes accentuate the cardiomegaly and pulmonary vascular congestion. 2. Atelectasis or infiltrate in the left lung base. Left costophrenic angle is not entirely included in the [id number]. Left foot xray 05/02/23: FINDINGS/ IMPRESSION: 1. 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 2. Increasing lucencies about the distal aspect of the left 1st metatarsal suspicious for osteomyelitis. There is also a small amount of soft tissue gas overlying the left 1st metatarsal. 3. No fracture. Assessment/Plan Assessment/Plan (1) Severe sepsis Status: Acute Assessment & Plan: Suspect secondary to UTI, also possible pneumonia, possible osteomyelitis. Started on cefepime and doxy, will change doxy to vancomycin due to possible osteomyelitis. Initially with leukocytosis, fever, lactic acidosis, acute on chronic renal insuffiency and elevated LFTs, all of which are improved today. (2) Diabetic foot ulcer Status: Chronic Assessment & Plan: Evaluated by wound nurse, has been seeing Dr. Restrepo outpatient. Wound itself doesn't appear infected, but xray with possible under lying osteomyelitis. Obtain ESR, further evaluation of oseto. picture. Plan for MRI 05/06. Qualifiers: Qualified Codes: E11.621 - Type 2 diabetes mellitus with foot ulcer; L97.521 - Non-pressure chronic ulcer of other part of left foot limited to breakdown of skin (3) UTI (urinary tract infection) Status: Acute Assessment & Plan: Cefepime. Culture pending. Qualifiers: Qualified Codes: N39.0 - Urinary tract infection, site not specified; R31.9 - Hematuria, unspecified (4) Pneumonia Status: Acute Assessment & Plan: Possible, on cefepime and vancomycin for multiple possible infection sources as above. Supplemental oxygen as needed. Qualifiers: Qualified Codes: J18.9 - Pneumonia, unspecified organism (5) CKD (chronic kidney disease) Status: Chronic Qualifiers: (6) Diabetes Status: Chronic Qualifiers: (7) Hypertension Status: Chronic Qualifiers: Qualified Codes: I10 - Essential (primary) hypertension (8) Hyperlipidemia Status: Chronic (9) Peripheral neuropathy Status: Chronic (10) Peripheral arterial disease Status: Chronic (11) Dementia Status: Chronic Assessment & Plan: Uncertain baseline, no family at bedside at time of exam. Treat infection and monitor closely. (12) DVT prophylaxis Status: Acute Assessment & Plan: Enoxaparin RHONA WATTERS MD 05/05/23 1209: Addendum Physician Addendum Addendum I personally performed the schroeder portions of the visit, discussed case with resident and concur with resident documentation of history, physical exam, assessment and treatment plan unless otherwise noted. Progress 12:09 EDUARDO GALAN MD May 04, 2023 07:06 RHONA WATTERS MD May 05, 2023 12:09
[2023-05-04 07:25] VITALS: BP 115/54
[2023-05-04] MEDS ORDERED: NON-FORMULARY MEDICATION 1 EA EA (Vit A/Vit C/Vit E/Zinc/Copper (Preservision Areds Tablet PO SCH (09:00)
[2023-05-04] MEDS: MEMANTINE 5 MG TABLET PO SCH ×2 (09:39→21:48)
[2023-05-04] MEDS: CALCIUM CARBONATE 600 MG +VITAMIN D TABLET PO SCH (09:40)
[2023-05-04] MEDS: CITALOPRAM 20 MG TABLET PO SCH (09:40)
[2023-05-04] MEDS: ASPIRIN enteric coated 81MG TABLET PO SCH (09:40)
[2023-05-04] MEDS: CLOPIDOGREL 75 MG TABLET PO SCH (09:40)
[2023-05-04] MEDS: VANCOMYCIN 1 GM/NS 250 ML IVPB IV SCH ×2 (09:41)
[2023-05-04] MEDS: FUROSEMIDE 20 MG TABLET PO SCH (09:41)
[2023-05-04] MEDS: LACTOBACILLUS ACIDOPHILUS (PROBIOTIC) CAPSULE PO SCH (09:41)
[2023-05-04] MEDS: ENOXAPARIN 40 MG/0.4 ML SYRINGE SC SCH (09:41)
[2023-05-04] MEDS: GABAPENTIN 300 MG CAPSULE PO SCH ×3 (09:46→18:39)
[2023-05-04] MEDS: OMEGA 3 (FISH OIL) 1000 MG CAP PO SCH ×3 (09:46→18:39)
[2023-05-04] MEDS: LevETIRAcetam 500 MG TABLET PO SCH ×2 (09:47→18:39)
[2023-05-04 11:20] VITALS: BP 129/66
[2023-05-04 15:38] VITALS: BP 109/62
[2023-05-04 19:31] VITALS: BP 117/65
[2023-05-04] MEDS: traZODone 150 MG (DESYREL) TABLET PO SCH (21:48)
[2023-05-04 23:44] VITALS: BP 124/72
[2023-05-05 03:18] VITALS: BP 120/74
[2023-05-05] MEDS: inSUlin ASPART 1 UNIT/0.01 ML (PER UNIT) SC SCH ×4 (05:21→20:37)
[2023-05-05] MEDS: CEFEPIME INJECTION 1,000 MG in NS (IVPB) 50 ML 50 ML IV SCH ×3 (05:24→20:38)
[2023-05-05] MEDS: THERAPEUTIC MULTIVITAMIN W/MINERALS TABLET PO SCH (05:25)
[2023-05-05 06:06] LABS: BASOPHILS % (AUTO) 0 % (0-10); EOSINOPHILS # (AUTO) 0.1 10^3/uL (0.0-0.3); EOSINOPHILS % (AUTO) 1 % (0-10); HEMATOCRIT 26 % (35-52); HEMOGLOBIN 8.2 g/dL (11.5-16.0); LYMPHOCYTES # (AUTO) 1.8 10^3/uL (1.0-4.0); LYMPHOCYTES % (AUTO) 29 % (12-44); MEAN CORPUSCULAR HEMOGLOBIN 30 pg (25-34); MEAN CORPUSCULAR HGB CONC 31 g/dL (32-36); MEAN CORPUSCULAR VOLUME 96 fL (80-99); MEAN PLATELET VOLUME 10.5 fL (9.0-12.2); MONOCYTES # (AUTO) 0.4 10^3/uL (0.0-1.0); MONOCYTES % (AUTO) 7 % (0-12); NEUTROPHILS # (AUTO) 3.8 10^3/uL (1.8-7.8); NEUTROPHILS % (AUTO) 62 % (42-75); PLATELET COUNT 312 10^3/uL (130-400); WHITE BLOOD COUNT 6.1 10^3/uL (4.3-11.0)
[2023-05-05 06:22] LABS: ERYTHROCYTE SEDIMENTATION RATE > 140 MM/HR (0-30)
[2023-05-05 06:24] LABS: ALBUMIN 2.8 GM/DL (3.2-4.5); BILIRUBIN,TOTAL 0.6 MG/DL (0.1-1.0); CALCIUM 7.9 MG/DL (8.5-10.1); CREATININE SERUM 0.96 MG/DL (0.60-1.30); MAGNESIUM 2.1 MG/DL (1.6-2.4); PHOSPHORUS 2.7 MG/DL (2.3-4.7); POTASSIUM 3.7 MMOL/L (3.6-5.0)
[2023-05-05] MEDS: MAGNESIUM 1 GM/100 ML IVPB 100 ML IV SCH (06:25)
[2023-05-05 06:36] LABS: VANCOMYCIN,TROUGH 15.6 UG/ML (10.0-20.0)
--- NOTE | 2023-05-05 06:50 | Progress Note ---
EDUARDO GALAN MD 05/05/23 0650: Subjective Subjective/Events-last exam No acute events overnight. Pt reports feeling well today. She reports that she does not normally have a rodríguez catheter in place. Focused Exam Lactate Level 05/02/23 20:36: Lactic Acid Level 2.21*H 05/02/23 23:51: Lactic Acid Level 0.93 Objective Exam Last Set of Vital Signs Vital Signs Date Time Temp Pulse Resp B/P (MAP) Pulse Ox O2 Delivery O2 Flow Rate FiO2 05/05/23 03:18 36.8 61 18 120/74 (89) 90 Room Air 05/04/23 11:58 0.00 Capillary Refill : Less Than 3 Seconds I&O Intake and Output 05/05/23 00:00 Intake Total 2030 ml Output Total 3250 ml Balance -1220 ml Intake Oral 2030 ml Output Urine Total 3250 ml # Bowel Movements 2 General: Alert, Cooperative, No Acute Distress HEENT: Atraumatic Neck: Supple Lungs: Clear to Auscultation Heart: Regular Rate, No Murmurs Abdomen: No Tenderness Extremities: No Edema, Other (Dry dressing over left great toe site; no erythema) Neuro: Normal Speech Psych/Mental Status: Mental Status NL Results/Procedures Lab Laboratory Tests 05/04/23 10:48: Glucometer 158H 05/04/23 15:34: Glucometer 138H 05/04/23 20:39: Glucometer 198H 05/05/23 05:16: White Blood Count 6.1, Red Blood Count 2.71L, Hemoglobin 8.2L, Hematocrit 26L, Mean Corpuscular Volume 96, Mean Corpuscular Hemoglobin 30, Mean Corpuscular Hemoglobin Concent 31L, Red Cell Distribution Width 15.2H, Platelet Count 312, Mean Platelet Volume 10.5, Immature Granulocyte % (Auto) 1, Neutrophils (%) (Auto) 62, Lymphocytes (%) (Auto) 29, Monocytes (%) (Auto) 7, Eosinophils (%) (Auto) 1, Basophils (%) (Auto) 0, Neutrophils # (Auto) 3.8, Lymphocytes # (Auto) 1.8, Monocytes # (Auto) 0.4, Eosinophils # (Auto) 0.1, Basophils # (Auto) 0.0, Immature Granulocyte # (Auto) 0.0, Erythrocyte Sedimentation Rate > 140H, Sodium Level 142, Potassium Level 3.7, Chloride Level 114H, Carbon Dioxide Level 23, Anion Gap 5, Blood Urea Nitrogen 11, Creatinine 0.96, Estimat Glomerular Filtration Rate 63, BUN/Creatinine Ratio 11, Glucose Level 102, Calcium Level 7.9L, Corrected Calcium 8.9, Phosphorus Level 2.7, Magnesium Level 2.1, Total Bilirubin 0.6, Aspartate Amino Transf (AST/SGOT) 38H, Alanine Aminotransferase (ALT/SGPT) 56H, Alkaline Phosphatase 60, Total Protein 6.0L, Albumin 2.8L, Vancomycin Level Trough 15.6 05/05/23 05:17: Glucometer 101 Microbiology 05/02/23 MRSA Screen - Final, Complete MRSA not isolated 05/02/23 Urine Culture - Final, Complete Escherichia coli Aerococcus urinaehominis 05/02/23 Blood Culture - Preliminary, Resulted Escherichia coli Radiology CXR 05/02/23: IMPRESSION: 1. Low lung volumes accentuate the cardiomegaly and pulmonary vascular congestion. 2. Atelectasis or infiltrate in the left lung base. Left costophrenic angle is not entirely included in the [id number]. Left foot xray 05/02/23: FINDINGS/ IMPRESSION: 1. 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 2. Increasing lucencies about the distal aspect of the left 1st metatarsal suspicious for osteomyelitis. There is also a small amount of soft tissue gas overlying the left 1st metatarsal. 3. No fracture. Assessment/Plan Assessment/Plan (1) Severe sepsis Status: Acute Assessment & Plan: Suspect secondary to UTI, also possible pneumonia, possible osteomyelitis. Started on cefepime and doxy, will change doxy to vancomycin due to possible osteomyelitis. Initially with leukocytosis, fever, lactic acidosis, acute on chronic renal insuffiency and elevated LFTs, all of which are improved today. Pt has remained afebrile for the last 24 hrs. (2) Diabetic foot ulcer Status: Chronic Assessment & Plan: Evaluated by wound nurse, has been seeing Dr. Restrepo outpatient. Wound itself doesn't appear infected, but xray with possible underlying osteomyelitis. Obtain ESR, further evaluation of oseto. picture. Plan for MRI 05/06. Pt may need 6wk IV abx therapy vs orthopedic consult Qualifiers: Qualified Codes: E11.621 - Type 2 diabetes mellitus with foot ulcer; L97.521 - Non-pressure chronic ulcer of other part of left foot limited to breakdown of skin (3) UTI (urinary tract infection) Status: Acute Assessment & Plan: Cefepime. Culture pending. Qualifiers: Qualified Codes: N39.0 - Urinary tract infection, site not specified; R31.9 - Hematuria, unspecified (4) Pneumonia Status: Acute Assessment & Plan: Possible, on cefepime and vancomycin for multiple possible infection sources as above. Supplemental oxygen as needed. Qualifiers: Qualified Codes: J18.9 - Pneumonia, unspecified organism (5) CKD (chronic kidney disease) Status: Chronic Qualifiers: (6) Diabetes Status: Chronic Qualifiers: (7) Hypertension Status: Chronic Qualifiers: Qualified Codes: I10 - Essential (primary) hypertension (8) Hyperlipidemia Status: Chronic (9) Peripheral neuropathy Status: Chronic (10) Dementia Status: Chronic Assessment & Plan: Uncertain baseline, no family at bedside at time of exam. Treat infection and monitor closely. (11) DVT prophylaxis Status: Acute Assessment & Plan: Enoxaparin Addendum Physician Addendum Progress 12:27 RHONA WATTERS MD 05/05/23 1227: Addendum Physician Addendum Addendum I personally performed the schroeder portions of the visit, discussed case with resident and concur with resident documentation of history, physical exam, assessment and treatment plan unless otherwise noted Progress 12:27 EDUARDO GALAN MD May 05, 2023 06:50 RHONA WATTERS MD May 05, 2023 12:27
[2023-05-05] MEDS ORDERED: TROUGH ORDER-PHARMACY XX ONE (07:00)
[2023-05-05 07:35] VITALS: BP 149/81
[2023-05-05] MEDS: VANCOMYCIN 1 GM/NS 250 ML IVPB IV SCH ×2 (09:47)
[2023-05-05] MEDS: OMEGA 3 (FISH OIL) 1000 MG CAP PO SCH ×3 (09:47→17:52)
[2023-05-05] MEDS: GABAPENTIN 300 MG CAPSULE PO SCH ×3 (09:47→17:52)
[2023-05-05] MEDS: CLOPIDOGREL 75 MG TABLET PO SCH (09:48)
[2023-05-05] MEDS: ASPIRIN enteric coated 81MG TABLET PO SCH (09:48)
[2023-05-05] MEDS: MEMANTINE 5 MG TABLET PO SCH ×2 (09:48→20:37)
[2023-05-05] MEDS: LACTOBACILLUS ACIDOPHILUS (PROBIOTIC) CAPSULE PO SCH (09:48)
[2023-05-05] MEDS: FUROSEMIDE 20 MG TABLET PO SCH (09:48)
[2023-05-05] MEDS: CITALOPRAM 20 MG TABLET PO SCH (09:48)
[2023-05-05] MEDS: CALCIUM CARBONATE 600 MG +VITAMIN D TABLET PO SCH (09:48)
[2023-05-05] MEDS: LevETIRAcetam 500 MG TABLET PO SCH ×2 (09:48→17:52)
[2023-05-05] MEDS: ENOXAPARIN 40 MG/0.4 ML SYRINGE SC SCH (09:48)
[2023-05-05 11:25] VITALS: BP 144/76
[2023-05-05 15:46] VITALS: BP 131/61
[2023-05-05 19:45] VITALS: BP 143/65
[2023-05-05] MEDS: traZODone 150 MG (DESYREL) TABLET PO SCH (20:38)
[2023-05-05 23:26] VITALS: BP 127/62
[2023-05-06 03:35] VITALS: BP 144/72
[2023-05-06] MEDS: CEFEPIME INJECTION 1,000 MG in NS (IVPB) 50 ML 50 ML IV SCH (05:25)
[2023-05-06] MEDS: inSUlin ASPART 1 UNIT/0.01 ML (PER UNIT) SC SCH ×4 (05:26→21:05)
[2023-05-06 05:47] LABS: BASOPHILS % (AUTO) 0 % (0-10); EOSINOPHILS # (AUTO) 0.1 10^3/uL (0.0-0.3); EOSINOPHILS % (AUTO) 1 % (0-10); HEMATOCRIT 27 % (35-52); HEMOGLOBIN 8.5 g/dL (11.5-16.0); LYMPHOCYTES # (AUTO) 1.7 10^3/uL (1.0-4.0); LYMPHOCYTES % (AUTO) 28 % (12-44); MEAN CORPUSCULAR HEMOGLOBIN 31 pg (25-34); MEAN CORPUSCULAR HGB CONC 32 g/dL (32-36); MEAN CORPUSCULAR VOLUME 96 fL (80-99); MEAN PLATELET VOLUME 10.3 fL (9.0-12.2); MONOCYTES # (AUTO) 0.4 10^3/uL (0.0-1.0); MONOCYTES % (AUTO) 6 % (0-12); NEUTROPHILS # (AUTO) 3.8 10^3/uL (1.8-7.8); NEUTROPHILS % (AUTO) 63 % (42-75); PLATELET COUNT 320 10^3/uL (130-400); WHITE BLOOD COUNT 5.9 10^3/uL (4.3-11.0)
[2023-05-06 06:01] LABS: ALBUMIN 2.9 GM/DL (3.2-4.5); BILIRUBIN,TOTAL 0.7 MG/DL (0.1-1.0); CALCIUM 8.2 MG/DL (8.5-10.1); CREATININE SERUM 0.95 MG/DL (0.60-1.30); POTASSIUM 3.8 MMOL/L (3.6-5.0); TOTAL PROTEIN 5.9 GM/DL (6.4-8.2)
[2023-05-06] MEDS: MAGNESIUM 1 GM/100 ML IVPB 100 ML IV SCH (06:13)
[2023-05-06] MEDS: THERAPEUTIC MULTIVITAMIN W/MINERALS TABLET PO SCH (06:23)
[2023-05-06 07:26] VITALS: BP 145/73
--- NOTE | 2023-05-06 08:31 | Diagnostic Imaging Report ---
Exam: MRI left elbow without contrast. Date: May 06, 2023. Indication: 73-year-old female, ulcer in the region of the left great toe. Comparison: Left foot radiographs August 26, 2018. Technique: Multiple noncontrast MRI sequences of the foot were obtained. Findings: There is a skin defect volarly located at the level of the first metatarsal head consistent with provided history of skin ulcer in this region. There is a thin fluid tract extending towards the first metatarsal head and adjacent abnormal signal in the soft tissues. There is T1 marrow signal loss and loss of bone involving the first metatarsal head with marrow signal abnormalities in the first metatarsal extending to the level of the proximal metaphysis approximately 11 mm distal to the base of the first metatarsal. There is a fluid collection surrounding the distal aspect of the first metatarsal likely reflecting abscess measuring approximately 2.1 x 2.4 cm in size as measured on sagittal STIR sequence image 6. There is no additional site of abnormal marrow edema. There is no acute fracture. There is no additional site of osteomyelitis. The joint spaces are well preserved. There is no joint effusion. There is no evidence of septic arthritis. The Lisfranc ligament proper is intact. There is no evidence of tenosynovitis. There is fatty atrophy of the imaged foot musculature most likely reflecting polyneuropathy. Impression: 1. Findings consistent with osteomyelitis of the first metatarsal extending from the level of the metatarsal head to approximately 11 mm distal to the base of the first metatarsal. 2. Abscess surrounding the distal margin of the first metatarsal measuring approximately 2.1 x 2.4 cm in size. 3. No evidence of tenosynovitis. 4. No evidence of septic arthritis. 5. Diffuse fatty muscle atrophy likely reflecting polyneuropathy. Dictated by: Dictated on workstation # [id number]
[2023-05-06] MEDS: CLOPIDOGREL 75 MG TABLET PO SCH (08:45)
[2023-05-06] MEDS: CITALOPRAM 20 MG TABLET PO SCH (08:45)
[2023-05-06] MEDS: LACTOBACILLUS ACIDOPHILUS (PROBIOTIC) CAPSULE PO SCH (08:45)
[2023-05-06] MEDS: ASPIRIN enteric coated 81MG TABLET PO SCH (08:46)
[2023-05-06] MEDS: MEMANTINE 5 MG TABLET PO SCH ×2 (08:46→21:09)
[2023-05-06] MEDS: FUROSEMIDE 20 MG TABLET PO SCH (08:46)
[2023-05-06] MEDS: ENOXAPARIN 40 MG/0.4 ML SYRINGE SC SCH (08:47)
[2023-05-06] MEDS: GABAPENTIN 300 MG CAPSULE PO SCH ×3 (08:53→16:21)
[2023-05-06] MEDS: OMEGA 3 (FISH OIL) 1000 MG CAP PO SCH ×3 (08:53→16:21)
[2023-05-06] MEDS: CALCIUM CARBONATE 600 MG +VITAMIN D TABLET PO SCH (09:00)
[2023-05-06] MEDS: LevETIRAcetam 500 MG TABLET PO SCH ×2 (09:01→16:22)
[2023-05-06 11:37] VITALS: BP 142/78
[2023-05-06] MEDS: CEPHALEXIN 250 MG CAPSULE PO SCH ×3 (12:33→21:10)
--- NOTE | 2023-05-06 13:30 | Progress Note - Hospitalist ---
CLARK 05/06/23 1330: Subjective HPI/CC On Admission Date Seen by Provider: May 06, 2023 Time Seen by Provider: 11:00 CC: Severe sepsis Subjective/Events-last exam Patient said she was feeling okay today and did not feel pain but she was A&O x 1. She was confused about where she was and why she was here, but did remember her name. Her left foot ulcer still was not healing well but patient had no complaints. She seemed slightly agitated but was still willing to answer questions. When she was visited a second time she was hungry and ordering food. Review of Systems General: No Chills, No Night Sweats; Fatigue, Appetite Pulmonary: No Dyspnea, No Cough Cardiovascular: No: Chest Pain Gastrointestinal: Abdominal Pain; No: Nausea, Vomiting, Diarrhea, Constipation Neurological: Weakness (weak in both her legs ) Objective Exam Vital Signs Vital Signs Date Time Temp Pulse Resp B/P (MAP) Pulse Ox O2 Delivery O2 Flow Rate FiO2 05/06/23 11:37 37.0 67 18 142/78 (99) 98 Room Air 05/05/23 23:26 0.00 0.00 Capillary Refill : Less Than 3 Seconds General Appearance: No Apparent Distress, Chronically ill, Obese Respiratory: Chest Non Tender, Lungs Clear, Normal Breath Sounds, No Accessory Muscle Use, No Respiratory Distress Cardiovascular: No Edema, No JVD, No Murmur, Normal Peripheral Pulses Neurologic/Psychiatric: Alert, Disoriented, Sensory Deficit (decreased sensation on lower extremities ) Skin: Normal Color, Warm/Dry Results/Procedures Lab Laboratory Tests 05/06/23 05:15 Patient resulted labs reviewed. Assessment/Plan Assessment and Plan Assess & Plan/Chief Complaint Assessment: Sepsis 2/2 UTI - improved, wbc normal T2DM -diabetic foot ulcer CKD Blind HTN HLD PAD epilepsy bipolar disorder Plan: continue antibiotic tx monitor ulcer ANA RUSSELL DO 05/07/23 3323: Supervisory-Addendum Brief Verification & Attestation Participated in pt care: history, MDM, physical Personally performed: exam, history, MDM, supervision of care Care discussed with: Medical Student Procedures: n/a Results interpretation: Verified all documentation Verification and Attestation of Medical Student E/M Service A medical student performed and documented this service in my presence. I reviewed and verified all information documented by the medical student and made modifications to such information, when appropriate. I personally performed the physical exam and medical decision making. Ana Russell, May 07, 2023,04:53 CLARK May 06, 2023 13:30 ANA RUSSELL DO May 07, 2023 04:53
[2023-05-06] MEDS ORDERED: cefTRIAXone INJECTION 2,000 MG in NS (IVPB) 50 ML 50 ML IV SCH (14:00)
[2023-05-06 15:34] VITALS: BP 116/57
[2023-05-06 19:33] VITALS: BP 128/53
[2023-05-06] MEDS: traZODone 150 MG (DESYREL) TABLET PO SCH (21:09)
[2023-05-06 23:30] VITALS: BP 127/74
[2023-05-07 03:30] VITALS: BP 120/75
[2023-05-07 05:32] LABS: BASOPHILS % (AUTO) 0 % (0-10); EOSINOPHILS # (AUTO) 0.1 10^3/uL (0.0-0.3); EOSINOPHILS % (AUTO) 2 % (0-10); HEMATOCRIT 28 % (35-52); HEMOGLOBIN 8.5 g/dL (11.5-16.0); LYMPHOCYTES # (AUTO) 1.6 10^3/uL (1.0-4.0); LYMPHOCYTES % (AUTO) 33 % (12-44); MEAN CORPUSCULAR HEMOGLOBIN 30 pg (25-34); MEAN CORPUSCULAR HGB CONC 31 g/dL (32-36); MEAN CORPUSCULAR VOLUME 97 fL (80-99); MEAN PLATELET VOLUME 10.2 fL (9.0-12.2); MONOCYTES # (AUTO) 0.4 10^3/uL (0.0-1.0); MONOCYTES % (AUTO) 8 % (0-12); NEUTROPHILS # (AUTO) 2.6 10^3/uL (1.8-7.8); NEUTROPHILS % (AUTO) 56 % (42-75); PLATELET COUNT 332 10^3/uL (130-400); WHITE BLOOD COUNT 4.7 10^3/uL (4.3-11.0)
[2023-05-07 05:49] LABS: BILIRUBIN,TOTAL 0.6 MG/DL (0.1-1.0); CALCIUM 8.3 MG/DL (8.5-10.1); CREATININE SERUM 0.98 MG/DL (0.60-1.30); MAGNESIUM 1.9 MG/DL (1.6-2.4); PHOSPHORUS 3.7 MG/DL (2.3-4.7); POTASSIUM 3.7 MMOL/L (3.6-5.0); TOTAL PROTEIN 5.8 GM/DL (6.4-8.2)
[2023-05-07] MEDS: MAGNESIUM 1 GM/100 ML IVPB 100 ML IV SCH (05:52)
[2023-05-07] MEDS: inSUlin ASPART 1 UNIT/0.01 ML (PER UNIT) SC SCH ×4 (05:53→20:30)
[2023-05-07] MEDS: THERAPEUTIC MULTIVITAMIN W/MINERALS TABLET PO SCH ×2 (05:56→22:39)
[2023-05-07 07:40] VITALS: BP 144/73
[2023-05-07] MEDS: CALCIUM CARBONATE 600 MG +VITAMIN D TABLET PO SCH (08:30)
[2023-05-07] MEDS: LACTOBACILLUS ACIDOPHILUS (PROBIOTIC) CAPSULE PO SCH (08:30)
[2023-05-07] MEDS: CITALOPRAM 20 MG TABLET PO SCH (08:31)
[2023-05-07] MEDS: FUROSEMIDE 20 MG TABLET PO SCH (08:31)
[2023-05-07] MEDS: ASPIRIN enteric coated 81MG TABLET PO SCH (08:31)
[2023-05-07] MEDS: CEPHALEXIN 250 MG CAPSULE PO SCH ×4 (08:32→20:30)
[2023-05-07] MEDS: CLOPIDOGREL 75 MG TABLET PO SCH (08:32)
[2023-05-07] MEDS: MEMANTINE 5 MG TABLET PO SCH ×2 (08:32→20:30)
[2023-05-07] MEDS: ENOXAPARIN 40 MG/0.4 ML SYRINGE SC SCH (08:33)
[2023-05-07] MEDS: LevETIRAcetam 500 MG TABLET PO SCH ×2 (08:37→17:12)
[2023-05-07] MEDS: GABAPENTIN 300 MG CAPSULE PO SCH ×3 (08:37→17:12)
[2023-05-07] MEDS: OMEGA 3 (FISH OIL) 1000 MG CAP PO SCH ×3 (08:39→17:13)
--- NOTE | 2023-05-07 09:26 | Physician Query-Final Dx ---
HALLIE JIM 05/07/23 0926: Final Diagnosis Give Final Diagnosis Please give Final Diagnosis The medical record reflects the following clinical scenario: History/Risk factors: Admitted for sepsis documented to be due to UTI but also has a nonhealing wound to left foot Clinical Findings: Admission WBC 14.3, admission chest x-ray with "atelectasis or infiltrate in the left lung base", RR on admission 28 was mostly above 20 for first 24 hours was on 2 to 4 L oxygen for first 24 to 48 hours, documentation of nonproductive cough, admission temperature 39.8 remain above 39 for several hours then decreased to normal range Treatment: normal saline 1 L, cefepime IV IV vancomycin was added also later added ceftriaxone and cephalexin Question: Is pneumonia a clinically valid diagnosis? "Possible Pneumonia" was documented in the H&P and an additional progress note with no further documentation of pneumonia in the medical record. If yes, please document in the Progress Notes and Discharge Summary. Yes, pneumonia clinically valid, condition resolved No, pneumonia ruled out Other, with explanation of clinical findings Undetermined, no explanation for clinical findings In responding to this query, please exercise your independent professional judgment. The purpose of this communication is to more accurately reflect the complexity of your patients condition. The fact that a question is asked does not imply that any particular answer is desired or expected. Thank you for your timely response to this clarification. Hallie Jim MSN, RN Clinical Special Agent [email or web address] JANIA RUSSELL DO 05/07/23 1111: Final Diagnosis Give Final Diagnosis No PNA HALLIE JIM May 07, 2023 09:26 JANIA RUSSELL DO May 07, 2023 11:11
--- NOTE | 2023-05-07 09:37 | Physician Query-Final Dx ---
HALLIE JIM 05/07/23 0937: Final Diagnosis Give Final Diagnosis Please give Final Diagnosis The medical record reflects the following clinical evidence: Clinical Indicators: Documentation admitted with altered mental status, GCS on admission per nursing assessment was 13 and documenting confusion initially, which did improve to 15 and no confusion after treatment Risk Factor(s): Sepsis with UTI positive urine and blood cultures for E. coli, fevers Treatment: Neuro monitoring, IV fluids and IV antibiotics Metabolic encephalopathy, present on admission, resolved Other explanation of clinical findings Unable to determine (no explanation for clinical findings) Please clarify and document your clinical opinion in the progress notes and discharge summary including the definitive and/or presumptive diagnosis, (suspected or probable), related to the above clinical findings. Please include clinical findings supporting your diagnosis. Hallie Jim, MSN, RN Clinical Wrapper Opener [phone] [email or web address] JANIA RUSSELL DO 05/07/23 1111: Final Diagnosis Give Final Diagnosis metabolic encephalopathy HALLIE IJM May 07, 2023 09:37 JANIA RUSSELL DO May 07, 2023 11:11
--- NOTE | 2023-05-07 11:04 | Consultation - Surgery ---
FLOR WARRENITE 05/07/23 1104: History of Present Illness History of Present Illness Patient Consulted On(ramiro/time) 05/07/23 11:02 Date Seen by Provider: May 07, 2023 Time Seen by Provider: 10:45 History of Present Illness Tara is a 73yo female who, according to ED notes, presented on 05/02 to the ED with AMS, UTI, & fever, and concern for sepsis. There was also concern for L big toe amputation healing. When speaking with her, she was AAOx2. She was not able to provide a complete history. She did say that her L foot was bothering her - right now it is a 3/10, with rest it is a 2/10, and with use it is a 6/10. She does not know her allergies, medications or past medical history, but denies alcohol, drug, and tobacco use. She states she lives in a home of which she does not remember the name. According to chart, pt has a hx of diabetes, peripheral neuropathy, PAD, dementia, meningioma of the brain. XRay of L foot on 05/02 no fracture but increased lucency of distal aspect of first metatarsal and soft tissue gas. LE MRI 05/06 showed concern for osteomyelitis and abscess Pt denies CP, SOB, N/V, headache LE MRI from 05/06: Impression: 1. Findings consistent with osteomyelitis of the first metatarsal extending from the level of the metatarsal head to approximately 11 mm distal to the base of the first metatarsal. 2. Abscess surrounding the distal margin of the first metatarsal measuring approximately 2.1 x 2.4 cm in size. 3. No evidence of tenosynovitis. 4. No evidence of septic arthritis. 5. Diffuse fatty muscle atrophy likely reflecting polyneuropathy Allergies and Home Medications Allergies Coded Allergies: No Known Drug Allergies (Unverified , 08/08/21) Patient Home Medication List Home Medication List Reviewed: No ALPRAZolam (ALPRAZolam) 0.25 Mg Tablet, 0.25 MG PO Q8H PRN for ANXIETY, (Reported) Entered as Reported by: CHANTELLE VERDIN on 05/03/23 1058 Last Action: Continued Acetaminophen (Tylenol Extra Strength) 500 Mg Tablet, 500 MG PO Q4- 6H PRN for PAIN-MILD (1-4) OR TEMPATURE, (Reported) Entered as Reported by: CHANTELLE VERDIN on 05/03/231057 Last Action: Reviewed Aspirin (Aspirin EC) 81 Mg Tablet.dr, 81 MG PO DAILY, (Reported) Entered as Reported by: CHANTELLE VERDIN on 05/03/231057 Last Action: Continued Atorvastatin Calcium (Atorvastatin Calcium) 40 Mg Tablet, 40 MG PO HS, (Reported) Entered as Reported by: CHANTELLE VERDIN on 05/03/231057 Last Action: Continued Benzonatate (Benzonatate) 100 Mg Capsule, 100 MG PO Q8H PRN for COUGH, (Reported) Entered as Reported by: CHANTELLE VERDIN on 05/03/231057 Last Action: Continued Calcium Carbonate (Tums) 300 Mg Calcium (750 Mg) Tab.chew, 2 EA PO Q4H PRN for GAS/INDIGESTION, (Reported) Entered as Reported by: CHANTELLE VERDIN on 05/03/231057 Last Action: Converted Calcium Carbonate/Vitamin D3 (Calcium 600 + Vit D 400 Softgl) 600 Mg Calcium-10 Mcg (400 Unit) Capsule, 1 EACH PO DAILY, (Reported) Entered as Reported by: CHANTELLE VERDIN on 05/03/231057 Last Action: Converted Citalopram Hydrobromide (Citalopram HBr) 20 Mg Tablet, 20 MG PO DAILY, (Reported) Entered as Reported by: CHANTELLE VERDIN on 05/03/231057 Last Action: Continued Clopidogrel Bisulfate (Clopidogrel) 75 Mg Tablet, 75 MG PO DAILY, (Reported) Entered as Reported by: CHANTELLE VERDIN on 05/03/231057 Last Action: Continued Diphenhydramine HCl (Benadryl Allergy) 25 Mg Tablet, 25 MG PO Q6H PRN for ITCHING, (Reported) Entered as Reported by: CHANTELLE VERDIN on 05/03/231057 Last Action: Continued Ezetimibe (Ezetimibe) 10 Mg Tablet, 10 MG PO HS, (Reported) Entered as Reported by: CHANTELLE VERDIN on 05/03/231057 Last Action: Continued Famotidine (Famotidine) 20 Mg Tablet, 20 MG PO DAILY PRN for INDIGESTION, (Reported) Entered as Reported by: CHANTELLE VERDIN on 05/03/231057 Last Action: Continued Flaxseed Oil (Flaxseed Oil) 1,000 Mg Capsule, 1,000 MG PO DAILY, (Reported) Entered as Reported by: CHANTELLE VERDIN on 05/03/231057 Last Action: Held Furosemide (Furosemide) 20 Mg Tablet, 20 MG PO DAILY, (Reported) Entered as Reported by: CHANTELLE VERDIN on 05/03/231057 Last Action: Continued Gabapentin (Neurontin) 300 Mg Capsule, 300 MG PO 0800,1200,1700, (Reported) Entered as Reported by: CHANTELLE VERDIN on 05/03/231057 Last Action: Continued Glimepiride (Amaryl) 2 Mg Tab, 2 MG PO DAILY, (Reported) Entered as Reported by: CHANTELLE VERDIN on 05/03/231057 Last Action: Held Gluc Martinez/Chondro Martinez A/Vit C/Mn (Glucosamine Chondroitin Tab) 750 Mg-600 Mg-55 Mg- 5 Mg Tablet, 1 EACH PO BID, (Reported) Entered as Reported by: CHANTELLE VERDIN on 05/03/231057 Last Action: Held Guaifenesin (Guaifenesin) 400 Mg Tablet, 400 MG PO Q4H PRN for COUGH/CONGESTION, (Reported) Entered as Reported by: CHANTELLE VERDIN on 05/03/231057 Last Action: Converted Guaifenesin (Guaifenesin) 100 Mg/5 Ml Liquid, 5 ML PO Q4H PRN for COUGH/CONGESTION, (Reported) Entered as Reported by: CHANTELLE VERDIN on 05/03/231057 Last Action: Continued L. Acidophilus/Pectin, Mogul (Acidophilus Capsule) 7.5 Mg (30 Million Cell)-100 Mg Capsule, 2 EACH PO DAILY, (Reported) Entered as Reported by: CHANTELLE VERDIN on 05/03/231057 Last Action: Converted Levetiracetam (Levetiracetam) 750 Mg Tablet, 750 MG PO 0800,1700, (Reported) Entered as Reported by: CHANTELLE VERDIN on 05/03/231057 Last Action: Converted Loperamide HCl (Imodium A-D) 2 Mg Capsule, 2 MG PO Q6H PRN for DIARRHEA, (Reported) Entered as Reported by: CHANTELLE VERDIN on 05/03/231057 Last Action: Held Losartan Potassium (Losartan Potassium) 50 Mg Tablet, 50 MG PO DAILY, (Reported) Entered as Reported by: CHANTELLE VERDIN on 05/03/231057 Last Action: Held Lutein (Lutein) 20 Mg Tablet, 20 MG PO DAILY, (Reported) Entered as Reported by: CHANTELLE VERDIN on 05/03/231057 Last Action: Held Magnesium Hydroxide (Milk of Magnesia) 400 Mg/5 Ml Oral.susp, 30 ML PO DAILY PRN for CONSTIPATION-7TH LINE, (Reported) Entered as Reported by: CHANTELLE VERDIN on 05/03/231057 Last Action: Continued Memantine HCl (Memantine HCl) 5 Mg Tablet, 5 MG PO BID, (Reported) Entered as Reported by: CHANTELLE VERDIN on 05/03/231057 Last Action: Continued Multivitamin (Multivitamin) 1 Each Tablet, 1 EACH PO DAILY, (Reported) Entered as Reported by: CHANTELLE VERDIN on 05/03/231057 Last Action: Converted Hanson-3/Dha/Epa/Fish Oil (Fish Oil 1,000 mg Softgel) 1,000 Mg (120 Mg-180 Mg) Capsule, 1,000 MG PO 0800,1200,1700, (Reported) Entered as Reported by: CHANTELLE VERDIN on 05/03/231057 Last Action: Continued Psyllium Husk/Aspartame (Metamucil Fiber Singles Packet) 3.4 Gram Powd.pack, 3.4 GM PO DAILY PRN for CONSTIPATION, (Reported) Entered as Reported by: CHANTELLE VERDIN on 05/03/231057 Last Action: Continued Tramadol HCl (Tramadol HCl) 50 Mg Tablet, 50 MG PO Q6H PRN for PAIN-MODERATE (5- 7), (Reported) Entered as Reported by: CHANTELLE VERDIN on 05/03/231057 Last Action: Continued Trazodone HCl (Trazodone HCl) 150 Mg Tablet, 150 MG PO HS, (Reported) Entered as Reported by: CHANTELLE VERDIN on 05/03/231057 Last Action: Continued Vit A/Vit C/Vit E/Zinc/Copper (Preservision Areds Tablet) 2,148-113 Tablet, 1 EACH PO DAILY, (Reported) Entered as Reported by: CHANTELLE VERDIN on 8/18/23 1058 Last Action: Converted Past Wxkvemn-Nakhsr-Zzwtdl Hx Patient Social History Smoking Status: Never a Smoker Alcohol Use?: No Surgeries History of Surgeries: Yes Surgeries: Amputation (L great toe amputation), Eye Surgery (cataract surgery), Vascular Surgery (L leg vascular procedure) Respiratory History of Respiratory Disorde: No Cardiovascular History of Cardiac Disorders: Yes Cardiac Disorders: High Cholesterol, Hypertension, Irregular Heartbeat (atrial flutter) Neurological History of Neurological Disord: Yes (hydrocephalus) Neurological Disorders: Brain Tumor (meningioma), Dementia, Neuropathy (peripheral neuropathy) Genitourinary History of Genitourinary Disor: Yes (chronic kidney disease, mixed stress and urge incontinence) Gastrointestinal History of Gastrointestinal Di: Yes (fecal incontinence) Gastrointestinal Disorders: Esophagitis Musculoskeletal History of Musculoskeletal Dis: No Endocrine History of Endocrine Disorders: Yes Endocrine Disorders: Diabetes, Insulin dep HEENT History of HEENT Disorders: Yes HEENT Disorders: Cataract Loss of Vision: Bilateral (legal blindness) Cancer Cancer: Brain (meningioma) Psychosocial History of Psychiatric Problem: Yes Behavioral Health Disorders: Bipolar Family Medical History Significant Family History: No Pertinent Family Hx, Heart Disease Review of Systems-General Constitutional: No diaphoresis, No dizziness EENTM: No ear discharge, No ear pain Respiratory: No cough, No dyspnea on exertion Cardiovascular: No chest pain, No syncope Gastrointestinal: No abdominal pain, No constipation Genitourinary: No discharge, No hesitancy Musculoskeletal: No gout, No muscle cramps Skin: No change in color, No change in hair/nails Psychiatric/Neurological: Pre-Existing Deficit (dementia, bipolar) Physical Exam-General Problems Physical Exam Vital Signs Vital Signs - First Documented Capillary Refill : Less Than 3 Seconds General Appearance: mild distress, other (disoriented) HEENT: PERRL/EOMI, pharynx normal Neck: non-tender, full range of motion, normal inspection Respiratory: normal breath sounds, no accessory muscle use Cardiovascular: no JVD; No bradycardia Peripheral Pulses: 2+ Dorsalis Pedis (R), 2+ Left Dors-Pedis (L) Gastrointestinal: non tender, soft Back: no CVA tenderness, no vertebral tenderness Extremities: No normal inspection (amputation of L toe, warm to touch 2 'puncture' looking sites, no erytema, L5 numbness at toe stump) Neurologic/Psychiatric: no motor/sensory deficits (L5 sensation absent at great toe, s1 intact BL), alert Skin: normal color, warm/dry Lymphatic: no adenopathy Data Review Labs Laboratory Tests 05/06/23 15:20: Glucometer 131H 05/07/23 04:55: White Blood Count 4.7, Red Blood Count 2.86L, Hemoglobin 8.5L, Hematocrit 28L, Mean Corpuscular Volume 97, Mean Corpuscular Hemoglobin 30, Mean Corpuscular Hemoglobin Concent 31L, Red Cell Distribution Width 14.9H, Platelet Count 332, Mean Platelet Volume 10.2, Immature Granulocyte % (Auto) 1, Neutrophils (%) (Auto) 56, Lymphocytes (%) (Auto) 33, Monocytes (%) (Auto) 8, Eosinophils (%) (Auto) 2, Basophils (%) (Auto) 0, Neutrophils # (Auto) 2.6, Lymphocytes # (Auto) 1.6, Monocytes # (Auto) 0.4, Eosinophils # (Auto) 0.1, Basophils # (Auto) 0.0, Immature Granulocyte # (Auto) 0.0, Sodium Level 144, Potassium Level 3.7, Chloride Level 112H, Carbon Dioxide Level 22, Anion Gap 10, Blood Urea Nitrogen 12, Creatinine 0.98, Estimat Glomerular Filtration Rate 62, BUN/Creatinine Ratio 12, Glucose Level 106H, Calcium Level 8.3L, Corrected Calcium 9.1, Phosphorus Level 3.7, Magnesium Level 1.9, Total Bilirubin 0.6, Aspartate Amino Transf (AST/SGOT) 39H, Alanine Aminotransferase (ALT/SGPT) 58H, Alkaline Phosphatase 65, Total Protein 5.8L, Albumin 3.0L 05/07/23 10:51: Glucometer 192H Microbiology 05/02/23 MRSA Screen - Final, Complete MRSA not isolated 05/02/23 Urine Culture - Final, Complete Escherichia coli Aerococcus urinaehominis 05/02/23 Blood Culture - Final, Complete Escherichia coli Assessment/Plan Assessment/Plan Assessment/Plan PMHx: (unable to obtain from patient, obtained from outpatient clinic notes) Meningioma Hydrocephalus Blind HTN HLD Chronic pain Mixed stress and urge incontinence Fecal incontinence Esophagitis DMII CKD Bipolar disorder Epilepsy Peripheral neuropathy Dementia Atrial flutter Peripheral arterial disease IV abx surgical debridement discontinue aspirin and plavix for preop JAIMIE SCOTT DO 05/07/23 1537: History of Present Illness History of Present Illness History of Present Illness Consult requested by Dr. Sanders for osteomyelitis of first metatarsal of left foot. 74 year old female, poor historian, with previous amputation of left great toe. Has ulcer plantar surface of foot. MRI from yesterday demonstrating abscess and osteomyelitis of the 1st metatarsal. No family at bedside. On antibiotics and 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 Allergies and Home Medications Allergies Coded Allergies: No Known Drug Allergies (Unverified , 08/08/21) Patient Home Medication List Home Medication List Reviewed: Yes ALPRAZolam (ALPRAZolam) 0.25 Mg Tablet, 0.25 MG PO Q8H PRN for ANXIETY, (Reported) Entered as Reported by: CHANTELLE VERDIN on 05/03/231057 Last Action: Continued Acetaminophen (Tylenol Extra Strength) 500 Mg Tablet, 500 MG PO Q4- 6H PRN for PAIN-MILD (1-4) OR TEMPATURE, (Reported) Entered as Reported by: CHANTELLE VERDIN on 05/03/231057 Last Action: Reviewed Aspirin (Aspirin EC) 81 Mg Tablet.dr, 81 MG PO DAILY, (Reported) Entered as Reported by: CHANTELLE VERDIN on 05/03/231057 Last Action: Continued Atorvastatin Calcium (Atorvastatin Calcium) 40 Mg Tablet, 40 MG PO HS, (Reported) Entered as Reported by: CHANTELLE VERDIN on 05/03/231057 Last Action: Continued Benzonatate (Benzonatate) 100 Mg Capsule, 100 MG PO Q8H PRN for COUGH, (Report ed) Entered as Reported by: CHANTELLE VERDIN on 05/03/231057 Last Action: Continued Calcium Carbonate (Tums) 300 Mg Calcium (750 Mg) Tab.chew, 2 EA PO Q4H PRN for GAS/INDIGESTION, (Reported) Entered as Reported by: CHANTELLE VERDIN on 05/03/231057 Last Action: Converted Calcium Carbonate/Vitamin D3 (Calcium 600 + Vit D 400 Softgl) 600 Mg Calcium-10 Mcg (400 Unit) Capsule, 1 EACH PO DAILY, (Reported) Entered as Reported by: CHANTELLE VERDIN on 05/03/231057 Last Action: Converted Citalopram Hydrobromide (Citalopram HBr) 20 Mg Tablet, 20 MG PO DAILY, (Reported) Entered as Reported by: CHANTELLE VERDIN on 05/03/231057 Last Action: Continued Clopidogrel Bisulfate (Clopidogrel) 75 Mg Tablet, 75 MG PO DAILY, (Reported) Entered as Reported by: CHANTELLE VERDIN on 05/03/231057 Last Action: Continued Diphenhydramine HCl (Benadryl Allergy) 25 Mg Tablet, 25 MG PO Q6H PRN for ITCHING, (Reported) Entered as Reported by: CHANTELLE VERDIN on 05/03/231057 Last Action: Continued Ezetimibe (Ezetimibe) 10 Mg Tablet, 10 MG PO HS, (Reported) Entered as Reported by: CHANTELLE VERDIN on 05/03/231057 Last Action: Continued Famotidine (Famotidine) 20 Mg Tablet, 20 MG PO DAILY PRN for INDIGESTION, (Reported) Entered as Reported by: CHANTELLE VERDIN on 05/03/231057 Last Action: Continued Flaxseed Oil (Flaxseed Oil) 1,000 Mg Capsule, 1,000 MG PO DAILY, (Reported) Entered as Reported by: CHANTELLE VERDIN on 05/03/231057 Last Action: Held Furosemide (Furosemide) 20 Mg Tablet, 20 MG PO DAILY, (Reported) Entered as Reported by: CHANTELLE VERDIN on 05/03/231057 Last Action: Continued Gabapentin (Neurontin) 300 Mg Capsule, 300 MG PO 0800,1200,1700, (Reported) Entered as Reported by: CHANTELLE VERDIN on 05/03/231057 Last Action: Continued Glimepiride (Amaryl) 2 Mg Tab, 2 MG PO DAILY, (Reported) Entered as Reported by: CHANTELLE VERDIN on 05/03/231057 Last Action: Held Gluc Martinez/Chondro Martinez A/Vit C/Mn (Glucosamine Chondroitin Tab) 750 Mg-600 Mg-55 Mg- 5 Mg Tablet, 1 EACH PO BID, (Reported) Entered as Reported by: CHANTELLE VERDIN on 05/03/231057 Last Action: Held Guaifenesin (Guaifenesin) 400 Mg Tablet, 400 MG PO Q4H PRN for COUGH/CONGESTION, (Reported) Entered as Reported by: CHANTELLE VERDIN on 05/03/231057 Last Action: Converted Guaifenesin (Guaifenesin) 100 Mg/5 Ml Liquid, 5 ML PO Q4H PRN for COUGH/CONGESTION, (Reported) Entered as Reported by: CHANTELLE VERDIN on 05/03/231057 Last Action: Continued L. Acidophilus/Pectin, Mogul (Acidophilus Capsule) 7.5 Mg (30 Million Cell)-100 Mg Capsule, 2 EACH PO DAILY, (Reported) Entered as Reported by: CHANTELLE VERDIN on 05/03/231057 Last Action: Converted Levetiracetam (Levetiracetam) 750 Mg Tablet, 750 MG PO 0800,1700, (Reported) Entered as Reported by: CHANTELLE VERDIN on 05/03/231057 Last Action: Converted Loperamide HCl (Imodium A-D) 2 Mg Capsule, 2 MG PO Q6H PRN for DIARRHEA, (Reported) Entered as Reported by: CHANTELLE VERDIN on 05/03/231057 Last Action: Held Losartan Potassium (Losartan Potassium) 50 Mg Tablet, 50 MG PO DAILY, (Reported) Entered as Reported by: CHANTELLE VERDIN on 05/03/231057 Last Action: Held Lutein (Lutein) 20 Mg Tablet, 20 MG PO DAILY, (Reported) Entered as Reported by: CHANTELLE VERDIN on 05/03/231057 Last Action: Held Magnesium Hydroxide (Milk of Magnesia) 400 Mg/5 Ml Oral.susp, 30 ML PO DAILY PRN for CONSTIPATION-7TH LINE, (Reported) Entered as Reported by: CHANTELLE VERDIN on 05/03/231057 Last Action: Continued Memantine HCl (Memantine HCl) 5 Mg Tablet, 5 MG PO BID, (Reported) Entered as Reported by: CHANTELLE VERDIN on 05/03/231057 Last Action: Continued Multivitamin (Multivitamin) 1 Each Tablet, 1 EACH PO DAILY, (Reported) Entered as Reported by: CHANTELLE VERDIN on 05/03/231057 Last Action: Converted Hanson-3/Dha/Epa/Fish Oil (Fish Oil 1,000 mg Softgel) 1,000 Mg (120 Mg-180 Mg) Capsule, 1,000 MG PO 0800,1200,1700, (Reported) Entered as Reported by: CHANTELLE VERDIN on 05/03/231057 Last Action: Continued Psyllium Husk/Aspartame (Metamucil Fiber Singles Packet) 3.4 Gram Powd.pack, 3.4 GM PO DAILY PRN for CONSTIPATION, (Reported) Entered as Reported by: CHANTELLE VERDIN on 05/03/231057 Last Action: Continued Tramadol HCl (Tramadol HCl) 50 Mg Tablet, 50 MG PO Q6H PRN for PAIN-MODERATE (5- 7), (Reported) Entered as Reported by: CHANTELLE VERDIN on 05/03/231057 Last Action: Continued Trazodone HCl (Trazodone HCl) 150 Mg Tablet, 150 MG PO HS, (Reported) Entered as Reported by: CHANTELLE VERDIN on 05/03/231057 Last Action: Continued Vit A/Vit C/Vit E/Zinc/Copper (Preservision Areds Tablet) 2,148-113 Tablet, 1 EACH PO DAILY, (Reported) Entered as Reported by: CHANTELLE VERDIN on 05/03/231057 Last Action: Converted Past Zkrzunr-Penrgm-Bnjvad Hx Reviewed Nursing Assessment Reviewed/Agree w Nursing PMH: Yes Family Medical History Significant Family History: No Pertinent Family Hx, Heart Disease Review of Systems-General ROS-Unable to Obtain: poor historian Constitutional: No diaphoresis, No dizziness EENTM: No ear discharge, No ear pain Respiratory: No cough, No dyspnea on exertion Cardiovascular: No chest pain, No syncope Gastrointestinal: No abdominal pain, No constipation Genitourinary: No discharge, No hesitancy Musculoskeletal: No gout, No muscle cramps Skin: No change in color, No change in hair/nails Psychiatric/Neurological: Denies Pre-Existing Deficit (dementia, bipolar) All Other Systems Reviewed Negative Unless Noted: Yes (Negative excepted noted.) Physical Exam-General Problems Physical Exam General Appearance: no apparent distress, other (slight confusion); No mild distress HEENT: PERRL/EOMI, normal ENT inspection Neck: non-tender, supple Respiratory: chest non-tender, no respiratory distress, no accessory muscle use Cardiovascular: regular rate, rhythm, no JVD Gastrointestinal: non tender, soft Rectal: deferred Back: no CVA tenderness, no vertebral tenderness Extremities: No normal inspection (amputation of L great toe, warm to touch, plantar surface with 2 small open ulcer with drainage. no erytema, L5 numbness at toe stump) Neurologic/Psychiatric: alert, normal mood/affect Skin: normal color, warm/dry Lymphatic: no adenopathy Assessment/Plan Assessment/Plan Assessment/Plan left foot 1st metatarsal osteomyelitis with abscess and ulcer history of left great toe amputation PAD alf current use of 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 Continue IV abx. feel needs ampuatation of the left 1st ray and drainage of abscess higher risk for bleeding due to 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 will need wound care since wound will be open. obtain consent npo aftermidnight. Supervisory-Addendum Brief Verification & Attestation Participated in pt care: history, MDM, physical Personally performed: exam, history, MDM, supervision of care Care discussed with: Medical Student Procedures: n/a Results interpretation: Verified all documentation Verification and Attestation of Medical Student E/M Service A medical student performed and documented this service in my presence. I reviewed and verified all information documented by the medical student and made modifications to such information, when appropriate. I personally performed the physical exam and medical decision making. Jaimie Scott, May 07, 2023,15:49 ANGE WARREN May 07, 2023 11:04 JAIMIE SCOTT DO May 07, 2023 15:37
[2023-05-07 11:33] VITALS: BP 103/58
--- NOTE | 2023-05-07 13:46 | Progress Note - Hospitalist ---
ESCAMILLA,HET 05/07/23 1346: Subjective HPI/CC On Admission Date Seen by Provider: May 07, 2023 Time Seen by Provider: 11:15 CC: Severe sepsis Subjective/Events-last exam Patient was less confused today and was sitting in a chair eating breakfast when I met her. When asked about any symptoms or pain she denied everything. Did not want to engage in conversation too much. Review of Systems General: No Chills, No Night Sweats; Fatigue; No Malaise; Appetite HEENT: No Head Aches Pulmonary: No Dyspnea, No Cough Cardiovascular: No: Chest Pain Gastrointestinal: Constipation; No: Nausea, Vomiting, Abdominal Pain, Diarrhea Genitourinary: No Dysuria, No Incontinence, No Hematuria Objective Exam Vital Signs Vital Signs Date Time Temp Pulse Resp B/P (MAP) Pulse Ox O2 Delivery O2 Flow Rate FiO2 05/07/23 11:33 36.5 68 14 103/58 (73) 96 Room Air 05/05/23 23:26 0.00 0.00 Capillary Refill : Less Than 3 Seconds General Appearance: No Apparent Distress Respiratory: Chest Non Tender, Lungs Clear, Normal Breath Sounds, No Accessory Muscle Use, No Respiratory Distress Cardiovascular: Regular Rate, Rhythm, No Edema, No Murmur Neurologic/Psychiatric: Alert, Oriented x3 Results/Procedures Lab Laboratory Tests 05/07/23 04:55 Patient resulted labs reviewed. Assessment/Plan Assessment and Plan Assess & Plan/Chief Complaint Assessment: Sepsis 2/2 UTI - improved, wbc normal T2DM -diabetic foot ulcer, osteomyelitis in Left 1st metatarsal CKD Blind HTN HLD PAD epilepsy bipolar disorder atrial flutter hydrocephalus meningioma Plan: continue antibiotic tx monitor ulcer ANA RUSSELL DO 05/07/23 1938: Assessment/Plan Assessment and Plan Assess & Plan/Chief Complaint OR tomorrow per Dr Boyd Supervisory-Addendum Brief Verification & Attestation Participated in pt care: history, MDM, physical Personally performed: exam, history, MDM, supervision of care Care discussed with: Medical Student Procedures: n/a Results interpretation: Verified all documentation Verification and Attestation of Medical Student E/M Service A medical student performed and documented this service in my presence. I reviewed and verified all information documented by the medical student and made modifications to such information, when appropriate. I personally performed the physical exam and medical decision making. Ana Russell, May 07, 2023,19:38 CLARK May 07, 2023 13:46 ANA RUSSELL DO May 07, 2023 19:38
[2023-05-07 19:17] VITALS: BP 115/66
[2023-05-07] MEDS: traZODone 150 MG (DESYREL) TABLET PO SCH (20:30)
[2023-05-07 23:05] VITALS: BP 111/65
[2023-05-08] VITALS (10 sets, daily range): BP systolic 91–152; BP diastolic 56–77
[2023-05-08 05:44] LABS: BASOPHILS % (AUTO) 0 % (0-10); EOSINOPHILS # (AUTO) 0.1 10^3/uL (0.0-0.3); EOSINOPHILS % (AUTO) 2 % (0-10); HEMATOCRIT 29 % (35-52); LYMPHOCYTES # (AUTO) 1.7 10^3/uL (1.0-4.0); LYMPHOCYTES % (AUTO) 32 % (12-44); MEAN CORPUSCULAR HEMOGLOBIN 31 pg (25-34); MEAN CORPUSCULAR HGB CONC 31 g/dL (32-36); MEAN CORPUSCULAR VOLUME 98 fL (80-99); MONOCYTES # (AUTO) 0.4 10^3/uL (0.0-1.0); MONOCYTES % (AUTO) 9 % (0-12); NEUTROPHILS # (AUTO) 2.9 10^3/uL (1.8-7.8); NEUTROPHILS % (AUTO) 57 % (42-75); PLATELET COUNT 364 10^3/uL (130-400); WHITE BLOOD COUNT 5.2 10^3/uL (4.3-11.0)
[2023-05-08] MEDS: inSUlin ASPART 1 UNIT/0.01 ML (PER UNIT) SC SCH ×4 (05:58→20:21)
[2023-05-08 06:03] LABS: ALBUMIN 3.2 GM/DL (3.2-4.5); BILIRUBIN,TOTAL 0.6 MG/DL (0.1-1.0); CALCIUM 8.3 MG/DL (8.5-10.1); CREATININE SERUM 1.06 MG/DL (0.60-1.30); MAGNESIUM 1.8 MG/DL (1.6-2.4); PHOSPHORUS 3.6 MG/DL (2.3-4.7); POTASSIUM 3.6 MMOL/L (3.6-5.0); TOTAL PROTEIN 6.2 GM/DL (6.4-8.2)
[2023-05-08] MEDS: MAGNESIUM 1 GM/100 ML IVPB 100 ML IV SCH ×3 (06:18→07:39)
--- NOTE | 2023-05-08 07:49 | Progress Note - Surgery ---
ANGE WARREN 05/08/23 0749: Subjective Date Seen by a Provider: May 08, 2023 Time Seen by a Provider: 07:15 Subjective/Events-last exam Tara says she had a bad night and was not able to sleep. When asked she remembered that she is having surgery to 'cut her foot off' today. She has been NPO since midnight and has had 1 void on her own last night. L foot looks the same as yesterday - possibly slight more erythematous.She wanted to get up and move to her chair and was able to move slowly on her own with little help. She is blind. hx diabetes, peripheral neuropathy, PAD, L great toe amputation Pt denies CP, SOB, N/V Review of Systems General: No Chills, No Night Sweats HEENT: No Head Aches, No Eye Pain Pulmonary: No Dyspnea, No Cough Cardiovascular: No: Chest Pain, Palpitations Gastrointestinal: No: Nausea, Vomiting Genitourinary: No Dysuria, No Frequency Musculoskeletal: No: neck pain, shoulder pain Neurological: No: Weakness, Change in speech Focused Exam Respiratory: Chest Non Tender, Lungs Clear Cardiovascular: Regular Rate, Rhythm, No JVD Peripheral Pulses: 2+ Dorsalis Pedis (R), 2+ Left Dors-Pedis (L) Skin: normal color, warm/dry Objective Exam Vital Signs Date Time Temp Pulse Resp B/P (MAP) Pulse Ox O2 Delivery O2 Flow Rate FiO2 05/08/23 07:06 36.6 65 18 137/75 (95) 96 Room Air 05/08/23 03:28 36.4 66 18 125/67 (86) 95 Room Air 0.00 0.00 05/07/23 23:05 36.6 73 18 111/65 (80) 97 Room Air 05/07/23 20:30 92 Room Air 05/07/23 19:17 36.7 80 18 115/66 (82) 92 Room Air 05/07/23 11:33 36.5 68 14 103/58 (73) 96 Room Air 05/07/23 09:04 Room Air I & O 05/08/23 07:00 Intake Total 2020 ml Output Total 1225 ml Balance 795 ml Capillary Refill : Less Than 3 Seconds General Appearance: No Apparent Distress, Chronically ill HEENT: TMs Normal, Normal ENT Inspection, Pharynx Normal Neck: Full Range of Motion, Normal Inspection Respiratory: Chest Non Tender, Lungs Clear, Normal Breath Sounds, No Accessory Muscle Use, No Respiratory Distress Cardiovascular: Regular Rate, Rhythm, No Edema, No Murmur Peripheral Pulses: 2+ Radial Pulses (R), 2+ Radial Pulses (L) Gastrointestinal: non tender, soft Neurologic/Psychiatric: Alert, No Motor/Sensory Deficits (L5 at great toe - numbness of stump) Skin: Normal Color, Warm/Dry Lymphatic: No Adenopathy Results Lab Laboratory Tests 05/07/23 10:51: Glucometer 192H 05/07/23 16:28: Glucometer 116H 05/07/23 19:16: Glucometer 167H 05/08/23 05:23: White Blood Count 5.2, Red Blood Count 2.92L, Hemoglobin 9.0L, Hematocrit 29L, Mean Corpuscular Volume 98, Mean Corpuscular Hemoglobin 31, Mean Corpuscular Hemoglobin Concent 31L, Red Cell Distribution Width 15.8H, Platelet Count 364, Mean Platelet Volume 10.0, Immature Granulocyte % (Auto) 1, Neutrophils (%) (Auto) 57, Lymphocytes (%) (Auto) 32, Monocytes (%) (Auto) 9, Eosinophils (%) (Auto) 2, Basophils (%) (Auto) 0, Neutrophils # (Auto) 2.9, Lymphocytes # (Auto) 1.7, Monocytes # (Auto) 0.4, Eosinophils # (Auto) 0.1, Basophils # (Auto) 0.0, Immature Granulocyte # (Auto) 0.1 05/08/23 05:29: Sodium Level 142, Potassium Level 3.6, Chloride Level 110H, Carbon Dioxide Level 24, Anion Gap 8, Blood Urea Nitrogen 13, Creatinine 1.06, Estimat Glomerular Filtration Rate 56, BUN/Creatinine Ratio 12, Glucose Level 123H, Calcium Level 8.3L, Corrected Calcium 8.9, Phosphorus Level 3.6, Magnesium Level 1.8, Total Bilirubin 0.6, Aspartate Amino Transf (AST/SGOT) 41H, Alanine Aminotransferase (ALT/SGPT) 60H, Alkaline Phosphatase 67, Total Protein 6.2L, Albumin 3.2 05/08/23 05:32: Glucometer 118H Microbiology 05/02/23 MRSA Screen - Final, Complete MRSA not isolated 05/02/23 Urine Culture - Final, Complete Escherichia coli Aerococcus urinaehominis 05/02/23 Blood Culture - Final, Complete Escherichia coli Assessment/Plan Assessment/Plan Assessment/Plan left foot 1st metatarsal osteomyelitis with abscess and ulcer history of left great toe amputation 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 Continue IV abx. ampuatation of the left 1st ray and drainage of abscess today higher risk for bleeding due to 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 will need wound care since wound will be open. npo JAIMIE BOYD DO 05/08/23 1345: Subjective Subjective/Events-last exam Fatigued. NPO. Ready for surgery. No other complaints. Denies n/v fever sweats chills shortness of breath or chest pain. Objective Exam General Appearance: No Apparent Distress, Anxious HEENT: Normal ENT Inspection, Pharynx Normal Neck: Full Range of Motion, Normal Inspection, Non Tender Respiratory: Chest Non Tender, No Accessory Muscle Use, No Respiratory Distress Cardiovascular: Regular Rate, Rhythm, No JVD Gastrointestinal: non tender, soft Extremity: Other (left great toe absent) Neurologic/Psychiatric: Alert, Normal Mood/Affect Skin: Normal Color, Warm/Dry Lymphatic: No Adenopathy Assessment/Plan Assessment/Plan Assessment/Plan left foot 1st metatarsal osteomyelitis with abscess and ulcer history of left great toe amputation 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 Continue IV abx. amputation of the left 1st ray and drainage of abscess today higher risk for bleeding due to 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 will need wound care since wound will be open. npo Supervisory-Addendum Brief Verification & Attestation Participated in pt care: history, MDM, physical Personally performed: exam, history, MDM, supervision of care Care discussed with: Medical Student Procedures: n/a Results interpretation: Verified all documentation Verification and Attestation of Medical Student E/M Service A medical student performed and documented this service in my presence. I reviewed and verified all information documented by the medical student and made modifications to such information, when appropriate. I personally performed the physical exam and medical decision making. Jaimie Boyd, May 08, 2023,12:00 ANGE WARREN May 08, 2023 07:49 JAIMIE BOYD DO May 08, 2023 13:45
[2023-05-08] MEDS ORDERED: LACTATED RINGERS 1,000 ML 1,000 ML IV PRN (09:45)
[2023-05-08] MEDS: OMEGA 3 (FISH OIL) 1000 MG CAP PO SCH ×3 (09:54→17:43)
[2023-05-08] MEDS: GABAPENTIN 300 MG CAPSULE PO SCH ×3 (09:54→17:43)
[2023-05-08] MEDS: CITALOPRAM 20 MG TABLET PO SCH (09:55)
[2023-05-08] MEDS: CLOPIDOGREL 75 MG TABLET PO SCH (09:55)
[2023-05-08] MEDS: LACTOBACILLUS ACIDOPHILUS (PROBIOTIC) CAPSULE PO SCH (09:55)
[2023-05-08] MEDS: CEPHALEXIN 250 MG CAPSULE PO SCH ×4 (09:55→20:02)
[2023-05-08] MEDS: LevETIRAcetam 500 MG TABLET PO SCH ×2 (09:55→17:43)
[2023-05-08] MEDS: CALCIUM CARBONATE 600 MG +VITAMIN D TABLET PO SCH (09:55)
[2023-05-08] MEDS: MEMANTINE 5 MG TABLET PO SCH ×2 (09:56→20:02)
[2023-05-08] MEDS: FUROSEMIDE 20 MG TABLET PO SCH (09:56)
[2023-05-08] MEDS: ASPIRIN enteric coated 81MG TABLET PO SCH (09:56)
[2023-05-08] MEDS: ENOXAPARIN 40 MG/0.4 ML SYRINGE SC SCH (09:57)
[2023-05-08] MEDS ORDERED: LIDOCAINE 1% INJ 20 ML VIAL ONE (11:37)
[2023-05-08] MEDS ORDERED: BUPIVACAINE 0.5% 10 ML VIAL ONE (11:37)
[2023-05-08] MEDS ORDERED: fentaNYL INJECTION 100 MCG/2 ML VIAL ONE (12:34)
[2023-05-08] MEDS ORDERED: MIDAZOLAM INJ 2 MG/2 ML VIAL ONE (12:34)
[2023-05-08] MEDS ORDERED: ceFAZolin INJECTION 0 MG ONE (12:53)
--- NOTE | 2023-05-08 13:02 | Progress Note - Hospitalist ---
ANDIJOSE DAVID 05/08/23 1302: Subjective HPI/CC On Admission Date Seen by Provider: May 08, 2023 Time Seen by Provider: 11:45 CC: Severe sepsis Subjective/Events-last exam Patient was sitting on chair when I came in. She mentioned terrible sleep because people kept coming in and disturbing her. She dismissed all questions I asked her and replied "No" before I even finished the question. Surgery consult mentioned a bowel movement this morning. Review of Systems General: No Chills, No Night Sweats, No Malaise; Appetite HEENT: No Ear Pain, No Dysphasia Pulmonary: No Dyspnea, No Cough Cardiovascular: No: Chest Pain, Palpitations Gastrointestinal: No: Nausea, Vomiting, Abdominal Pain, Diarrhea, Constipation Genitourinary: No Dysuria Objective Exam Vital Signs Vital Signs Date Time Temp Pulse Resp B/P (MAP) Pulse Ox O2 Delivery O2 Flow Rate FiO2 05/08/23 11:09 36.5 68 18 127/77 (94) 95 Room Air 05/08/23 03:28 0.00 0.00 Capillary Refill : Less Than 3 Seconds General Appearance: No Apparent Distress Respiratory: Chest Non Tender, Lungs Clear, Normal Breath Sounds, No Accessory Muscle Use, No Respiratory Distress Cardiovascular: No Edema, No Murmur Gastrointestinal: Normal Bowel Sounds, Non Tender, Soft Results/Procedures Lab Laboratory Tests 05/08/23 05:23 05/08/23 05:29 Patient resulted labs reviewed. Assessment/Plan Assessment and Plan Assess & Plan/Chief Complaint Assessment: Sepsis 2/2 UTI - improved, wbc normal T2DM -diabetic foot ulcer, osteomyelitis in Left 1st metatarsal CKD Blind HTN HLD PAD anemia of chronic disease epilepsy bipolar disorder atrial flutter hydrocephalus meningioma Plan: continue antibiotic tx monitor ulcer surgery for osteomyelitis ANA URSSELL DO 05/08/23 2011: Subjective Subjective/Events-last exam Patient doing well We will have wound incision and drainage today No more pain Objective Exam General Appearance: No Apparent Distress, WD/WN, Chronically ill Assessment/Plan Assessment and Plan Assess & Plan/Chief Complaint Incision and drainage today Supervisory-Addendum Brief Verification & Attestation Participated in pt care: history, MDM, physical Personally performed: exam, history, MDM, supervision of care Care discussed with: Medical Student Procedures: n/a Results interpretation: Verified all documentation Verification and Attestation of Medical Student E/M Service A medical student performed and documented this service in my presence. I reviewed and verified all information documented by the medical student and made modifications to such information, when appropriate. I personally performed the physical exam and medical decision making. Ana Russell, May 08, 2023,20:10 CLARK May 08, 2023 13:02 ANA RUSSELL DO May 08, 2023 20:11
[2023-05-08] MEDS ORDERED: LIDOCAINE 1% INJ 20 ML VIAL IJ ONE (13:14)
[2023-05-08] MEDS ORDERED: ceFAZolin INJECTION 1,000 MG ONE (13:24)
[2023-05-08] MEDS ORDERED: ONDANSETRON INJECTION 4 MG/2 ML (SDV) IVP PRN (13:30)
[2023-05-08] MEDS ORDERED: morphine INJ 10 MG/ML 1ML (SYR OR VIAL) IVP ONE (13:30)
--- NOTE | 2023-05-08 13:30 | Anesthesia-General Post-Op ---
MAC Patient Condition Mental Status/LOC: Same as Preop Cardiovascular: Satisfactory Nausea/Vomiting: Absent Respiratory: Satisfactory Pain: Controlled Complications: Absent Post Op Complications Complications None Follow Up Care/Instructions Patient Instructions None needed. Anesthesiology Discharge Order Discharge Order Patient is doing well, no complaints, stable vital signs, no apparent adverse anesthesia problems. No complications reported per nursing. GAL WATSON CRNA May 08, 2023 13:30
[2023-05-08] MEDS ORDERED: BUPIVACAINE 0.5% 10 ML VIAL INJ ONE (14:00)
[2023-05-08] MEDS ORDERED: ceFAZolin 1,000 MG VIAL IV ONE (14:00)
[2023-05-08] MEDS: traZODone 150 MG (DESYREL) TABLET PO SCH (20:02)
--- NOTE | 2023-05-08 22:25 | OPERATIVE REPORT ---
DATE OF SERVICE: 05/08/2023 PREOPERATIVE DIAGNOSIS: Osteomyelitis of the left first ray with abscess. POSTOPERATIVE DIAGNOSIS: Osteomyelitis of the left first ray with abscess. PROCEDURE: Left first ray amputation. An ultrasound-guided 20-gauge midline insertion in the left ankle block. SURGEON: Jaimie Boyd DO ANESTHESIA: General. ESTIMATED BLOOD LOSS: Minimal. COMPLICATIONS: None. INDICATIONS: The patient is a 73-year-old female with a previous great toe amputation. She had an MRI with the left first metatarsal consistent with osteomyelitis and also abscess. She also is needing peripheral venous access and so it has been [ ] a midline be placed. Consent was signed in chart. DESCRIPTION OF PROCEDURE: The patient was prepped and draped in sterile fashion. Timeout was performed. A left ankle block was performed. Local anesthetic was infiltrated into the posterior aspect of the medial and lateral malleolus. [ ] across the top of the dorsum of the foot. Once the anesthetic effect took place, the #15 blade scalpel was used to make an incision on the medial aspect of the foot. Cautery was used to dissect down through subcutaneous tissues. The first metatarsal was encountered. The bone had multiple fractures and a deformity to it. Cautery was used to dissect around it all the way down to the base, which was then completely removed. The wound was irrigated with copious amounts of irrigation and hemostasis was achieved. The wound was then packed with iodoform and sterile bandage was applied. The patient was prepped and draped in sterile fashion. The ultrasound was used to locate the cephalic vein, which the 20-gauge midline catheter was inserted and got a flash. The wire was then inserted and the catheter was then advanced over the wire. This was then accessed and flushed without difficulty. The catheter was then secured. The patient tolerated the procedure well without any complications. She was taken to recovery room in stable condition. Job ID: [id number] DocumentID: [id number] Dictated Date: 05/08/2023 14:04:31 Online User Experience Strategist Date: 05/08/2023 22:23:00 Dictated By: JAIMIE BOYD DO
[2023-05-09 04:49] VITALS: BP 144/62
[2023-05-09 05:09] LABS: BASOPHILS % (AUTO) 0 % (0-10); EOSINOPHILS # (AUTO) 0.1 10^3/uL (0.0-0.3); EOSINOPHILS % (AUTO) 1 % (0-10); HEMATOCRIT 29 % (35-52); HEMOGLOBIN 9.2 g/dL (11.5-16.0); LYMPHOCYTES # (AUTO) 1.7 10^3/uL (1.0-4.0); LYMPHOCYTES % (AUTO) 26 % (12-44); MEAN CORPUSCULAR HEMOGLOBIN 31 pg (25-34); MEAN CORPUSCULAR HGB CONC 31 g/dL (32-36); MEAN CORPUSCULAR VOLUME 98 fL (80-99); MEAN PLATELET VOLUME 9.9 fL (9.0-12.2); MONOCYTES # (AUTO) 0.4 10^3/uL (0.0-1.0); MONOCYTES % (AUTO) 6 % (0-12); NEUTROPHILS # (AUTO) 4.2 10^3/uL (1.8-7.8); NEUTROPHILS % (AUTO) 66 % (42-75); PLATELET COUNT 339 10^3/uL (130-400); WHITE BLOOD COUNT 6.4 10^3/uL (4.3-11.0)
[2023-05-09 05:20] LABS: POTASSIUM 3.8 MMOL/L (3.6-5.0)
[2023-05-09 05:21] LABS: CALCIUM 8.2 MG/DL (8.5-10.1)
[2023-05-09 05:22] LABS: TOTAL PROTEIN 5.9 GM/DL (6.4-8.2)
[2023-05-09 05:24] LABS: BILIRUBIN,TOTAL 0.6 MG/DL (0.1-1.0)
[2023-05-09 05:26] LABS: CREATININE SERUM 0.94 MG/DL (0.60-1.30); PHOSPHORUS 3.2 MG/DL (2.3-4.7)
[2023-05-09] MEDS: inSUlin ASPART 1 UNIT/0.01 ML (PER UNIT) SC SCH ×4 (05:26→20:46)
[2023-05-09 05:30] LABS: MAGNESIUM 2.1 MG/DL (1.6-2.4)
[2023-05-09] MEDS: MAGNESIUM 1 GM/100 ML IVPB 100 ML IV SCH (05:34)
[2023-05-09] MEDS: THERAPEUTIC MULTIVITAMIN W/MINERALS TABLET PO SCH (06:05)
[2023-05-09 07:27] VITALS: BP 133/73
--- NOTE | 2023-05-09 07:52 | Progress Note - Surgery ---
ANGE WARREN 05/09/23 0752: Subjective Date Seen by a Provider: May 09, 2023 Time Seen by a Provider: 07:15 Subjective/Events-last exam Tara was sitting in chair with feet up. She states she is not in any pain. Foot was re-wrapped by nursing staff twice overnight. Mild bleeding through sock and change of dressing at 7am. Review of Systems General: No Chills, No Night Sweats HEENT: No Head Aches, No Eye Pain Pulmonary: No Dyspnea, No Cough Gastrointestinal: No: Nausea, Vomiting Genitourinary: No Dysuria, No Frequency Musculoskeletal: No: neck pain, shoulder pain Neurological: No: Weakness, Change in speech Objective Exam Vital Signs Date Time Temp Pulse Resp B/P (MAP) Pulse Ox O2 Delivery O2 Flow Rate FiO2 05/09/23 07:27 36.6 89 18 133/73 (93) Room Air 05/09/23 04:49 36.7 74 20 144/62 (89) 92 Room Air 05/08/23 23:57 36.8 75 20 150/65 (93) 94 Room Air 05/08/23 20:18 36.4 76 20 126/57 (80) 93 Room Air 05/08/23 20:08 97 Room Air 05/08/23 15:51 36.4 76 18 116/63 (80) 97 Room Air 05/08/23 14:06 36.0 56 18 135/74 (94) 96 Room Air 05/08/23 13:50 Room Air 05/08/23 13:40 36.4 16 152/58 (89) 93 Room Air 05/08/23 13:35 OxyMask 2.00 05/08/23 13:30 14 114/57 (76) 96 OxyMask 2.00 05/08/23 13:21 36.4 16 91/56 (68) 96 OxyMask 3.00 05/08/23 13:21 OxyMask 3.00 05/08/23 11:09 36.5 68 18 127/77 (94) 95 Room Air 05/08/23 08:30 92 Room Air I & O 05/09/23 07:00 Intake Total 1182 ml Output Total 200 ml Balance 982 ml Capillary Refill : Less Than 3 Seconds General Appearance: No Apparent Distress, WD/WN, Chronically ill HEENT: Normal ENT Inspection, Pharynx Normal Neck: Full Range of Motion, Normal Inspection, Non Tender Respiratory: Chest Non Tender, No Accessory Muscle Use, No Respiratory Distress Cardiovascular: Regular Rate, Rhythm, No JVD Peripheral Pulses: 2+ Radial Pulses (R), 2+ Radial Pulses (L) Gastrointestinal: non tender, soft Extremity: Other (wound looks clean, mild erythema and bleeding) Neurologic/Psychiatric: Alert, Normal Mood/Affect Skin: Normal Color, Warm/Dry Lymphatic: No Adenopathy Results Lab Laboratory Tests 05/08/23 10:31: Glucometer 121H 05/08/23 15:29: Glucometer 115H 05/08/23 20:09: Glucometer 154H 05/09/23 05:03: White Blood Count 6.4, Red Blood Count 2.99L, Hemoglobin 9.2L, Hematocrit 29L, Mean Corpuscular Volume 98, Mean Corpuscular Hemoglobin 31, Mean Corpuscular Hemoglobin Concent 31L, Red Cell Distribution Width 15.9H, Platelet Count 339, Mean Platelet Volume 9.9, Immature Granulocyte % (Auto) 0, Neutrophils (%) (Auto) 66, Lymphocytes (%) (Auto) 26, Monocytes (%) (Auto) 6, Eosinophils (%) (Auto) 1, Basophils (%) (Auto) 0, Neutrophils # (Auto) 4.2, Lymphocytes # (Auto) 1.7, Monocytes # (Auto) 0.4, Eosinophils # (Auto) 0.1, Basophils # (Auto) 0.0, Immature Granulocyte # (Auto) 0.0, Sodium Level 143, Potassium Level 3.8, Chloride Level 110H, Carbon Dioxide Level 24, Anion Gap 9, Blood Urea Nitrogen 11, Creatinine 0.94, Estimat Glomerular Filtration Rate 65, BUN/Creatinine Ratio 12, Glucose Level 101, Calcium Level 8.2L, Corrected Calcium 9.0, Phosphorus Level 3.2, Magnesium Level 2.1, Total Bilirubin 0.6, Aspartate Amino Transf (AST/SGOT) 41H, Alanine Aminotransferase (ALT/SGPT) 58H, Alkaline Phosphatase 70, Total Protein 5.9L, Albumin 3.0L Microbiology 05/07/23 MRSA Screen - Final, Complete MRSA not isolated 05/02/23 Urine Culture - Final, Complete Escherichia coli Aerococcus urinaehominis 05/02/23 Blood Culture - Final, Complete Escherichia coli Assessment/Plan Assessment/Plan Assessment/Plan left foot 1st metatarsal osteomyelitis with abscess and ulcer amputation of the left 1st ray and drainage of abscess yesterday history of left great toe amputation PAD 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 Continue IV abx pain control higher risk for bleeding due to 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 wound care regular diet JAIMIE BOYD DO 05/09/231924: Subjective Subjective/Events-last exam Doing well. Pain controlled. Denies any new complaints. Denies n/v fever sweats chills shortness of breath or chest pain. Objective Exam General Appearance: No Apparent Distress, Chronically ill HEENT: Normal ENT Inspection, Pharynx Normal Neck: Full Range of Motion Respiratory: Chest Non Tender, No Accessory Muscle Use, No Respiratory Distress Cardiovascular: Regular Rate, Rhythm, No JVD Gastrointestinal: non tender, soft Extremity: Other (wound looks clean, mild erythema and slight bleeding ooze.) Neurologic/Psychiatric: Alert, Normal Mood/Affect Skin: Normal Color, Warm/Dry Lymphatic: No Adenopathy Assessment/Plan Assessment/Plan Assessment/Plan left foot 1st metatarsal osteomyelitis with abscess and ulcer amputation of the left 1st ray and drainage of abscess yesterday history of left great toe amputation PAD 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 Continue IV abx pain control higher risk for bleeding due to 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 wound care regular diet Supervisory-Addendum Brief Verification & Attestation Participated in pt care: history, MDM, physical Personally performed: exam, history, MDM, supervision of care Care discussed with: Medical Student Procedures: n/a Results interpretation: Verified all documentation Verification and Attestation of Medical Student E/M Service A medical student performed and documented this service in my presence. I reviewed and verified all information documented by the medical student and made modifications to such information, when appropriate. I personally performed the physical exam and medical decision making. Jaimie Boyd, May 09, 2023,19:25 ANGE WARREN May 09, 2023 07:52 JAIMIE BOYD DO May 09, 2023 19:25
[2023-05-09] MEDS: OMEGA 3 (FISH OIL) 1000 MG CAP PO SCH ×3 (08:01→17:16)
[2023-05-09] MEDS: CALCIUM CARBONATE 600 MG +VITAMIN D TABLET PO SCH (08:01)
[2023-05-09] MEDS: LACTOBACILLUS ACIDOPHILUS (PROBIOTIC) CAPSULE PO SCH (08:01)
[2023-05-09] MEDS: ASPIRIN enteric coated 81MG TABLET PO SCH (08:01)
[2023-05-09] MEDS: LevETIRAcetam 500 MG TABLET PO SCH ×2 (08:01→17:16)
[2023-05-09] MEDS: CITALOPRAM 20 MG TABLET PO SCH (08:01)
[2023-05-09] MEDS: GABAPENTIN 300 MG CAPSULE PO SCH ×3 (08:01→17:16)
[2023-05-09] MEDS: MEMANTINE 5 MG TABLET PO SCH ×2 (08:01→20:47)
[2023-05-09] MEDS: CEPHALEXIN 250 MG CAPSULE PO SCH ×2 (08:01→11:44)
[2023-05-09] MEDS: CLOPIDOGREL 75 MG TABLET PO SCH (08:02)
[2023-05-09] MEDS: FUROSEMIDE 20 MG TABLET PO SCH (08:02)
[2023-05-09] MEDS: ENOXAPARIN 40 MG/0.4 ML SYRINGE SC SCH (08:02)
[2023-05-09] MEDS ORDERED: HYPOCHLOROUS ACID/NaCl WOUND SOLN 250 ML IR PRN (11:00)
[2023-05-09 11:23] VITALS: BP 112/64
--- NOTE | 2023-05-09 11:38 | Progress Note - Hospitalist ---
Subjective HPI/CC On Admission Date Seen by Provider: May 09, 2023 Time Seen by Provider: 11:00 CC: Severe sepsis Subjective/Events-last exam Patient sleeping in recliner No falls Wound VAC will be placed by wound care physician No pain is reported Review of Systems General: Fatigue, Malaise Objective Exam Vital Signs Vital Signs Date Time Temp Pulse Resp B/P (MAP) Pulse Ox O2 Delivery O2 Flow Rate FiO2 05/09/23 21:03 Room Air 05/09/23 19:50 36.5 70 18 113/72 (86) 94 05/08/23 13:35 2.00 Capillary Refill : Less Than 3 Seconds General Appearance: No Apparent Distress, WD/WN, Chronically ill Respiratory: Lungs Clear, Normal Breath Sounds Cardiovascular: Regular Rate, Rhythm Results/Procedures Lab Laboratory Tests 05/09/23 05:03 Patient resulted labs reviewed. Assessment/Plan Assessment and Plan Assess & Plan/Chief Complaint Assessment: Foot wound status post incision and drainage will place wound VAC on today Cellulitis with abscess Plan: Add Levaquin Wound VAC Wound care physician appreciated Critical Care Critically Ill Patient JANIA RUSSELL DO May 09, 2023 11:38
[2023-05-09] MEDS: LevoFLOXacin 750 MG TABLET PO SCH (12:25)
--- NOTE | 2023-05-09 14:23 | Wound Care Assessment ---
Wound Care Assessment Date Seen by Provider: May 09, 2023 Time Seen by Provider: 12:00 Chief Complaint Surgical wound HPI This 73 year old patient was admitted to the hospital with sepsis symptoms. She was found to have E.Coli bacteremia as well as Osteomyelitis of stump site. She does have a remote h/o osteomyelitis to her 1 toe/MT. She had surgery (L. 1 ray amputation) per Dr. Boyd on 05-08-23. She has been dressing with packing but unfortunately, she is removing the packing. Maria Elena is blind, ambulatory and with poor insight (possible intellectual disability). She has a h/o difficulty with compliance in follow up and wound care. She lives in an assisted living facility in [facility] which will prove of minimal assistance with frequent dressing changes. We will attempt a wound vac while she is admitted to see if this will stay in place so that home health could do dressing changes 3 times weekly upon d/c home with follow up at wound care in [facility]. Her healing will be complicated by underlying DM2, difficulty with off loading, PEM, neuropathy, obesity, anemia and her mental status issues. If she fails wound vac, perhaps hydrofera blue on WMF would be a reasonable alternative as an outpatient. Past Medical History: Admits Diabetes Type II, Admits Peripheral Artery Disease Blindness, Obesity, peripheral neuropathy, Anemia, PEM, meningioma, hydrocephalus, seizure d/o, dementia Smoking Status: Never a Smoker Recreational Drug Use: No Alcohol Use: Denies Use Review of Systems Other systems Unable to obtain due to mental status. All history obtained from records Exam Vital Signs Date Time Temp Pulse Resp B/P (MAP) Pulse Ox O2 Delivery O2 Flow Rate FiO2 05/09/23 11:23 36.6 72 18 112/64 (80) 95 Room Air 05/08/23 13:35 2.00 Capillary Refill : Less Than 3 Seconds General Appearance: no apparent distress, obese HEENT: other (Blind) Neck: full range of motion Respiratory: no respiratory distress, no accessory muscle use Extremities: non-tender, normal inspection Neurologic/Psychiatric: other (Unable to assess, patient declines to participate in conversation) Skin: normal color, warm/dry Wound assessment: 6x3x2.7cm. The epithelialization is none. There is no tunneling or undermining. Drainage is large and serosanguinous. Granulation is none. Necrotic is small and slough. Margins flat. Bone exposed and appears viable Results Laboratory Tests 05/08/23 15:29: Glucometer 115H 05/08/23 20:09: Glucometer 154H 05/09/23 05:03: White Blood Count 6.4, Red Blood Count 2.99L, Hemoglobin 9.2L, Hematocrit 29L, Mean Corpuscular Volume 98, Mean Corpuscular Hemoglobin 31, Mean Corpuscular Hemoglobin Concent 31L, Red Cell Distribution Width 15.9H, Platelet Count 339, Mean Platelet Volume 9.9, Immature Granulocyte % (Auto) 0, Neutrophils (%) (A uto) 66, Lymphocytes (%) (Auto) 26, Monocytes (%) (Auto) 6, Eosinophils (%) (Auto) 1, Basophils (%) (Auto) 0, Neutrophils # (Auto) 4.2, Lymphocytes # (Auto) 1.7, Monocytes # (Auto) 0.4, Eosinophils # (Auto) 0.1, Basophils # (Auto) 0.0, Immature Granulocyte # (Auto) 0.0, Sodium Level 143, Potassium Level 3.8, Chloride Level 110H, Carbon Dioxide Level 24, Anion Gap 9, Blood Urea Nitrogen 11, Creatinine 0.94, Estimat Glomerular Filtration Rate 65, BUN/Creatinine Ratio 12, Glucose Level 101, Calcium Level 8.2L, Corrected Calcium 9.0, Phosphorus Level 3.2, Magnesium Level 2.1, Total Bilirubin 0.6, Aspartate Amino Transf (AST/SGOT) 41H, Alanine Aminotransferase (ALT/SGPT) 58H, Alkaline Phosphatase 70, Total Protein 5.9L, Albumin 3.0L 05/09/23 10:46: Glucometer 199H Microbiology 05/08/23 Gram Stain - Final, Resulted 05/08/23 Anaerobic Culture, Resulted Pending 05/08/23 Surgical Culture - Preliminary, Resulted No growth 05/07/23 MRSA Screen - Final, Complete MRSA not isolated 05/02/23 Urine Culture - Final, Complete Escherichia coli Aerococcus urinaehominis 05/02/23 Blood Culture - Final, Complete Escherichia coli Microbiology 05/08/23 Gram Stain - Final, Resulted 05/08/23 Anaerobic Culture, Resulted Pending 05/08/23 Surgical Culture - Preliminary, Resulted No growth 05/07/23 MRSA Screen - Final, Complete MRSA not isolated Assessment/Plan/Dx Assessment: 1. S/p L 1 MT ray amputation for osteomyelitis/abscess 2. WG3 diabetic foot ulcer 3. Obesity 4. h/o PAD with recent stenting (reported) 5. Anemia 6. PEM 7. E.Coli bacteremia 8. Noncompliance due to mental status Plan: 1. Trial of wound vac. If this is tolerated, would likely be the best option for outpatient care due to transportation and facility limitations with dressing changes. She will need wound care follow up upon discharge. Six weeks of antibiotics recommended. We do not have bone cultures with clear organism. Levaquin reasonable (milind. in light of E. Coli bacteremia) 2. As above. Good glycemic control recommended 3. Per primary physician 4. Per primary team 5. Per primary team 6. On protein supplementation 7. Likely urinary source. Levaquin reasonable 8. Will need close follow up on discharge home. MORENO ROSENTHAL MD May 09, 2023 14:23
[2023-05-09 15:30] VITALS: BP 105/64
[2023-05-09 19:50] VITALS: BP 113/72
[2023-05-09] MEDS: traZODone 150 MG (DESYREL) TABLET PO SCH (20:47)
[2023-05-10 00:22] VITALS: BP 134/63
[2023-05-10] MEDS: inSUlin ASPART 1 UNIT/0.01 ML (PER UNIT) SC SCH ×4 (05:48→21:03)
[2023-05-10] MEDS: THERAPEUTIC MULTIVITAMIN W/MINERALS TABLET PO SCH (05:52)
[2023-05-10] MEDS: MAGNESIUM 1 GM/100 ML IVPB 100 ML IV SCH (07:44)
[2023-05-10 07:58] VITALS: BP 143/63
[2023-05-10] MEDS: ENOXAPARIN 40 MG/0.4 ML SYRINGE SC SCH (08:39)
[2023-05-10] MEDS: CLOPIDOGREL 75 MG TABLET PO SCH (08:39)
[2023-05-10] MEDS: CALCIUM CARBONATE 600 MG +VITAMIN D TABLET PO SCH (08:39)
[2023-05-10] MEDS: FUROSEMIDE 20 MG TABLET PO SCH (08:39)
[2023-05-10] MEDS: LACTOBACILLUS ACIDOPHILUS (PROBIOTIC) CAPSULE PO SCH (08:39)
[2023-05-10] MEDS: ASPIRIN enteric coated 81MG TABLET PO SCH (08:39)
[2023-05-10] MEDS: CITALOPRAM 20 MG TABLET PO SCH (08:39)
[2023-05-10] MEDS: MEMANTINE 5 MG TABLET PO SCH ×2 (08:39→21:02)
[2023-05-10] MEDS: GABAPENTIN 300 MG CAPSULE PO SCH ×3 (08:43→17:51)
[2023-05-10] MEDS: LevETIRAcetam 500 MG TABLET PO SCH ×2 (08:43→17:51)
[2023-05-10] MEDS: OMEGA 3 (FISH OIL) 1000 MG CAP PO SCH ×3 (08:43→17:50)
[2023-05-10] MEDS ORDERED: LevoFLOXacin 750 MG TABLET PO SCH (11:00)
[2023-05-10 11:58] VITALS: BP 131/61
--- NOTE | 2023-05-10 11:58 | Progress Note - Hospitalist ---
Subjective HPI/CC On Admission Date Seen by Provider: May 10, 2023 Time Seen by Provider: 12:00 CC: Severe sepsis Subjective/Events-last exam Patient doing about the same Labs reviewed Wound VAC tolerated Discharge plan on Saturday Objective Exam Vital Signs Vital Signs Date Time Temp Pulse Resp B/P (MAP) Pulse Ox O2 Delivery O2 Flow Rate FiO2 05/10/23 15:58 37.0 62 18 121/58 (79) 93 Room Air 05/08/23 13:35 2.00 Capillary Refill : Less Than 3 Seconds General Appearance: No Apparent Distress, WD/WN, Chronically ill Respiratory: Lungs Clear Cardiovascular: Regular Rate, Rhythm Results/Procedures Lab Patient resulted labs reviewed. Assessment/Plan Assessment and Plan Assess & Plan/Chief Complaint Assessment: Foot wound status post incision and drainage now on wound VAC Cellulitis with abscess Low vision Plan: Add Levaquin Wound VAC Wound care physician appreciated Critical Care Critically Ill Patient JANIA RUSSELL DO May 10, 2023 11:58
--- NOTE | 2023-05-10 13:54 | Progress Note - Surgery ---
ANGE WARREN 05/10/23 1354: Subjective Time Seen by a Provider: 11:00 Subjective/Events-last exam Tara is doing well - moved from bed to chair. 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 She denies any foot pain. Dressing was changed to wound V.A.C. and was changed at time of visit. Wound is clean and dry. Healing well. Pt denies SOB, CP, dysuria, fever Review of Systems General: No Chills, No Night Sweats HEENT: No Head Aches, No Eye Pain Pulmonary: No Dyspnea, No Cough Cardiovascular: No: Chest Pain, Palpitations Gastrointestinal: No: Nausea, Vomiting Genitourinary: No Dysuria, No Frequency Musculoskeletal: No: neck pain, shoulder pain Neurological: No: Weakness, Change in speech Objective Exam Vital Signs Date Time Temp Pulse Resp B/P (MAP) Pulse Ox O2 Delivery O2 Flow Rate FiO2 05/10/23 11:58 36.9 69 18 131/61 (84) 92 Room Air 05/10/23 08:00 Room Air 05/10/23 07:58 36.8 67 20 143/63 (89) 92 Room Air 05/10/23 00:22 36.3 71 21 134/63 (86) 96 Room Air 05/09/23 21:03 Room Air 05/09/23 19:50 36.5 70 18 113/72 (86) 94 Room Air 05/09/23 15:30 37.0 78 18 105/64 (78) 96 Room Air I & O 05/10/23 07:00 Intake Total 2362 ml Balance 2362 ml Capillary Refill : Less Than 3 Seconds General Appearance: No Apparent Distress, Chronically ill HEENT: Normal ENT Inspection, Pharynx Normal Neck: Full Range of Motion, Non Tender Respiratory: Lungs Clear, Normal Breath Sounds Cardiovascular: Regular Rate, Rhythm, No JVD Peripheral Pulses: 2+ Radial Pulses (R), 2+ Radial Pulses (L) Gastrointestinal: non tender, soft Extremity: Other (wound looks clean, mild erythema, some bloody fluid into VAC canister) Neurologic/Psychiatric: Alert, Normal Mood/Affect Skin: Normal Color, Warm/Dry Lymphatic: No Adenopathy Results Lab Laboratory Tests 05/09/23 15:30: Glucometer 104 05/09/23 20:30: Glucometer 198H 05/10/23 05:28: Glucometer 138H 05/10/23 11:43: Glucometer 152H Microbiology 05/08/23 Gram Stain - Final, Resulted 05/08/23 Anaerobic Culture, Resulted Pending 05/08/23 Surgical Culture - Preliminary, Resulted No growth 05/07/23 MRSA Screen - Final, Complete MRSA not isolated 05/02/23 Urine Culture - Final, Complete Escherichia coli Aerococcus urinaehominis 05/02/23 Blood Culture - Final, Complete Escherichia coli Assessment/Plan Assessment/Plan Assessment/Plan left foot 1st metatarsal osteomyelitis with abscess and ulcer amputation of the left 1st ray and drainage of abscess yesterday history of left great toe amputation 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 Continue abx pain control higher risk for bleeding due to 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 wound care VAC regular diet JAIMIE BOYD DO 05/10/23 1552: Subjective Date Seen by a Provider: May 10, 2023 Subjective/Events-last exam Doing well. Pain controlled. Wound vac left foot. No complaints at this time. Denies n/v fever sweats chills shortness of breath or chest pain. Objective Exam General Appearance: No Apparent Distress, Chronically ill HEENT: Normal ENT Inspection, Pharynx Normal Neck: Full Range of Motion, Non Tender Respiratory: Chest Non Tender, No Accessory Muscle Use, No Respiratory Distress Cardiovascular: Regular Rate, Rhythm, No JVD Gastrointestinal: non tender, soft Extremity: Non Tender, Other (wound looks clean, minimal erythema, some bloody fluid into VAC canister) Neurologic/Psychiatric: Alert, Normal Mood/Affect Skin: Normal Color, Warm/Dry Lymphatic: No Adenopathy Assessment/Plan Assessment/Plan Assessment/Plan left foot 1st metatarsal osteomyelitis with abscess and ulcer amputation of the left 1st ray and drainage of abscess yesterday history of left great toe amputation PAD 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 Continue abx pain control higher risk for bleeding due to 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 wound care -VAC regular diet Supervisory-Addendum Brief Verification & Attestation Participated in pt care: history, MDM, physical Personally performed: exam, history, MDM, supervision of care Care discussed with: Medical Student Procedures: n/a Results interpretation: Verified all documentation Verification and Attestation of Medical Student E/M Service A medical student performed and documented this service in my presence. I reviewed and verified all information documented by the medical student and made modifications to such information, when appropriate. I personally performed the physical exam and medical decision making. Jaimie Boyd, May 10, 2023,15:52 ANGE WARREN May 10, 2023 13:54 JAIMIE BOYD DO May 10, 2023 15:52
[2023-05-10 15:58] VITALS: BP 121/58
[2023-05-10 20:27] VITALS: BP 131/60
[2023-05-10] MEDS: traZODone 150 MG (DESYREL) TABLET PO SCH (21:02)
[2023-05-11] VITALS: BP 146/65
[2023-05-11 04:00] VITALS: BP 139/65
[2023-05-11 05:47] LABS: BASOPHILS % (AUTO) 0 % (0-10); EOSINOPHILS # (AUTO) 0.1 10^3/uL (0.0-0.3); EOSINOPHILS % (AUTO) 2 % (0-10); HEMATOCRIT 30 % (35-52); HEMOGLOBIN 9.2 g/dL (11.5-16.0); LYMPHOCYTES # (AUTO) 1.6 10^3/uL (1.0-4.0); LYMPHOCYTES % (AUTO) 35 % (12-44); MEAN CORPUSCULAR HEMOGLOBIN 31 pg (25-34); MEAN CORPUSCULAR HGB CONC 31 g/dL (32-36); MEAN CORPUSCULAR VOLUME 98 fL (80-99); MEAN PLATELET VOLUME 9.7 fL (9.0-12.2); MONOCYTES # (AUTO) 0.4 10^3/uL (0.0-1.0); MONOCYTES % (AUTO) 8 % (0-12); NEUTROPHILS # (AUTO) 2.4 10^3/uL (1.8-7.8); NEUTROPHILS % (AUTO) 53 % (42-75); PLATELET COUNT 332 10^3/uL (130-400); WHITE BLOOD COUNT 4.6 10^3/uL (4.3-11.0)
[2023-05-11] MEDS: inSUlin ASPART 1 UNIT/0.01 ML (PER UNIT) SC SCH ×4 (05:48→21:07)
[2023-05-11 05:59] LABS: ALBUMIN 3.2 GM/DL (3.2-4.5); POTASSIUM 3.6 MMOL/L (3.6-5.0)
[2023-05-11 06:01] LABS: CALCIUM 8.7 MG/DL (8.5-10.1)
[2023-05-11 06:02] LABS: TOTAL PROTEIN 6.2 GM/DL (6.4-8.2)
[2023-05-11 06:03] LABS: BILIRUBIN,TOTAL 0.6 MG/DL (0.1-1.0)
[2023-05-11] MEDS: THERAPEUTIC MULTIVITAMIN W/MINERALS TABLET PO SCH (06:04)
[2023-05-11 06:05] LABS: PHOSPHORUS 3.8 MG/DL (2.3-4.7)
[2023-05-11 06:06] LABS: CREATININE SERUM 1.08 MG/DL (0.60-1.30)
[2023-05-11 06:09] LABS: MAGNESIUM 1.7 MG/DL (1.6-2.4)
--- NOTE | 2023-05-11 06:19 | Progress Note - Hospitalist ---
Subjective HPI/CC On Admission Date Seen by Provider: May 11, 2023 Time Seen by Provider: 11:00 CC: Severe sepsis Subjective/Events-last exam No major problems RN has no concerns Reviewed meds and labs Maintain on Levaquin Wound VAC tolerated Review of Systems General: Fatigue, Malaise Neurological: Confusion Objective Exam Vital Signs Vital Signs Date Time Temp Pulse Resp B/P (MAP) Pulse Ox O2 Delivery O2 Flow Rate FiO2 05/11/23 11:16 36.8 73 20 129/63 (85) 93 Room Air 05/08/23 13:35 2.00 Capillary Refill : Less Than 3 Seconds General Appearance: No Apparent Distress, WD/WN, Chronically ill Respiratory: Lungs Clear, Normal Breath Sounds Cardiovascular: Regular Rate, Rhythm Results/Procedures Lab Laboratory Tests 05/11/23 05:25 Patient resulted labs reviewed. Assessment/Plan Assessment and Plan Assess & Plan/Chief Complaint Assessment: Foot wound status post incision and drainage now on wound VAC Cellulitis with abscess Low vision Plan: Add Levaquin Wound VAC Wound care physician appreciated Critical Care Critically Ill Patient JANIA RUSSELL DO May 11, 2023 06:19
[2023-05-11] MEDS: MAGNESIUM 1 GM/100 ML IVPB 100 ML IV SCH ×5 (06:38→09:55)
[2023-05-11 07:17] VITALS: BP 152/65
--- NOTE | 2023-05-11 07:45 | Progress Note - Surgery ---
ANGE WARREN 05/11/23 0745: Subjective Date Seen by a Provider: May 11, 2023 Time Seen by a Provider: 07:00 Subjective/Events-last exam Tara is doing well, sitting up in chair. She denies pain in her foot and still has VAC dressing. She is in good spirits and says her night was as good as can be expected. Pt has not had bowel movement since 05/06. Urinating in bathroom with help. Abdomen is soft and non-distended. Pt. denies SOB, CP, N/V, dysuria Review of Systems General: No Chills, No Night Sweats HEENT: No Head Aches, No Eye Pain Pulmonary: No Dyspnea, No Cough Cardiovascular: No: Chest Pain, Palpitations Gastrointestinal: No: Nausea, Vomiting Genitourinary: No Dysuria, No Frequency Musculoskeletal: No: neck pain, shoulder pain Neurological: No: Weakness, Change in speech Objective Exam Vital Signs Date Time Temp Pulse Resp B/P (MAP) Pulse Ox O2 Delivery O2 Flow Rate FiO2 05/11/23 07:17 36.7 63 18 152/65 (94) 93 Room Air 05/11/23 04:00 37.3 69 18 139/65 (89) 95 Room Air 05/11/23 00:00 36.8 64 18 146/65 (92) 91 Room Air 05/10/23 20:40 Room Air 05/10/23 20:27 36.8 56 17 131/60 (83) 93 Room Air 05/10/23 15:58 37.0 62 18 121/58 (79) 93 Room Air 05/10/23 11:58 36.9 69 18 131/61 (84) 92 Room Air 05/10/23 08:00 Room Air 05/10/23 07:58 36.8 67 20 143/63 (89) 92 Room Air I & O 05/11/23 07:00 Intake Total 1336 ml Output Total 1050 ml Balance 286 ml Capillary Refill : Less Than 3 Seconds General Appearance: No Apparent Distress, WD/WN, Chronically ill HEENT: Normal ENT Inspection, Pharynx Normal Neck: Full Range of Motion, Non Tender Respiratory: Lungs Clear Cardiovascular: Regular Rate, Rhythm Peripheral Pulses: 2+ Radial Pulses (R), 2+ Radial Pulses (L) Gastrointestinal: non tender, soft Extremity: Non Tender, Other (wound is covered with VAC, no complaint of pain) Neurologic/Psychiatric: Alert, Normal Mood/Affect Skin: Normal Color, Warm/Dry Lymphatic: No Adenopathy Results Lab Laboratory Tests 05/10/23 11:43: Glucometer 152H 05/10/23 16:01: Glucometer 144H 05/10/23 20:32: Glucometer 119H 05/11/23 05:25: Glucometer 124H, White Blood Count 4.6, Red Blood Count 3.02L, Hemoglobin 9.2L, Hematocrit 30L, Mean Corpuscular Volume 98, Mean Corpuscular Hemoglobin 31, Mean Corpuscular Hemoglobin Concent 31L, Red Cell Distribution Width 16.9H, Platelet Count 332, Mean Platelet Volume 9.7, Immature Granulocyte % (Auto) 1, Neutrophils (%) (Auto) 53, Lymphocytes (%) (Auto) 35, Monocytes (%) (Auto) 8, Eosinophils (%) (Auto) 2, Basophils (%) (Auto) 0, Neutrophils # (Auto) 2.4, Lymphocytes # (Auto) 1.6, Monocytes # (Auto) 0.4, Eosinophils # (Auto) 0.1, Basophils # (Auto) 0.0, Immature Granulocyte # (Auto) 0.0, Sodium Level 142, Potassium Level 3.6, Chloride Level 110H, Carbon Dioxide Level 22, Anion Gap 10, Blood Urea Nitrogen 12, Creatinine 1.08, Estimat Glomerular Filtration Rate 55, BUN/Creatinine Ratio 11, Glucose Level 118H, Calcium Level 8.7, Corrected Calcium 9.3, Phosphorus Level 3.8, Magnesium Level 1.7, Total Bilirubin 0.6, Aspartate Amino Transf (AST/SGOT) 28, Alanine Aminotransferase (ALT/SGPT) 42, Alkaline Phosphatase 72, Total Protein 6.2L, Albumin 3.2 Microbiology 05/08/23 Gram Stain - Final, Resulted 05/08/23 Anaerobic Culture - Preliminary, Resulted No anaerobes isolated 05/08/23 Surgical Culture - Preliminary, Resulted No growth 05/07/23 MRSA Screen - Final, Complete MRSA not isolated 05/02/23 Urine Culture - Final, Complete Escherichia coli Aerococcus urinaehominis 05/02/23 Blood Culture - Final, Complete Escherichia coli Assessment/Plan Assessment/Plan Assessment/Plan left foot 1st metatarsal osteomyelitis with abscess and ulcer S/P amputation of the left 1st ray and drainage of abscess history of left great toe amputation 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 Continue abx pain control higher risk for bleeding due to 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 wound care -VAC regular diet JAIMIE BOYD DO 05/11/23 1248: Subjective Subjective/Events-last exam Wound vac in place. Pain controlled. No new complaints. Denies n/v fever sweats chills shortness of breath or chest pain. Objective Exam General Appearance: No Apparent Distress, Chronically ill HEENT: Normal ENT Inspection Neck: Full Range of Motion, Non Tender Respiratory: Chest Non Tender, No Accessory Muscle Use, No Respiratory Distress Cardiovascular: Regular Rate, Rhythm, No JVD Gastrointestinal: non tender, soft Extremity: Non Tender, Other (wound VAC in place) Neurologic/Psychiatric: Alert, Normal Mood/Affect Skin: Normal Color, Warm/Dry Lymphatic: No Adenopathy Assessment/Plan Assessment/Plan Assessment/Plan left foot 1st metatarsal osteomyelitis with abscess and ulcer S/P amputation of the left 1st ray and drainage of abscess history of left great toe amputation 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 Continue abx pain control higher risk for bleeding due to 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 wound care -VAC regular diet Supervisory-Addendum Brief Verification & Attestation Participated in pt care: history, MDM, physical Personally performed: exam, history, MDM, supervision of care Care discussed with: Medical Student Procedures: n/a Results interpretation: Verified all documentation Verification and Attestation of Medical Student E/M Service A medical student performed and documented this service in my presence. I reviewed and verified all information documented by the medical student and made modifications to such information, when appropriate. I personally performed the physical exam and medical decision making. Jaimie Boyd, May 11, 2023,12:46 ANGE WARREN May 11, 2023 07:45 JAIMIE BOYD DO May 11, 2023 12:48
[2023-05-11] MEDS: LevETIRAcetam 500 MG TABLET PO SCH ×2 (09:56→18:11)
[2023-05-11] MEDS: GABAPENTIN 300 MG CAPSULE PO SCH ×3 (09:56→18:11)
[2023-05-11] MEDS: CALCIUM CARBONATE 600 MG +VITAMIN D TABLET PO SCH (09:56)
[2023-05-11] MEDS: LACTOBACILLUS ACIDOPHILUS (PROBIOTIC) CAPSULE PO SCH (09:56)
[2023-05-11] MEDS: OMEGA 3 (FISH OIL) 1000 MG CAP PO SCH ×3 (09:56→18:12)
[2023-05-11] MEDS: ASPIRIN enteric coated 81MG TABLET PO SCH (09:56)
[2023-05-11] MEDS: FUROSEMIDE 20 MG TABLET PO SCH (09:56)
[2023-05-11] MEDS: CITALOPRAM 20 MG TABLET PO SCH (09:56)
[2023-05-11] MEDS: MEMANTINE 5 MG TABLET PO SCH ×2 (09:56→19:44)
[2023-05-11] MEDS: CLOPIDOGREL 75 MG TABLET PO SCH (09:56)
[2023-05-11] MEDS: ENOXAPARIN 40 MG/0.4 ML SYRINGE SC SCH (09:57)
[2023-05-11 11:16] VITALS: BP 129/63
[2023-05-11] MEDS: LevoFLOXacin 750 MG TABLET PO SCH (11:42)
[2023-05-11 15:46] VITALS: BP 150/66
[2023-05-11 19:37] VITALS: BP 126/79
[2023-05-11] MEDS: traZODone 150 MG (DESYREL) TABLET PO SCH (19:43)
[2023-05-11] MEDS: MELATONIN 3 MG TABLET PO PRN (19:43)
[2023-05-12] VITALS (7 sets, daily range): BP systolic 126–147; BP diastolic 60–82
[2023-05-12] MEDS: inSUlin ASPART 1 UNIT/0.01 ML (PER UNIT) SC SCH ×4 (05:48→21:18)
[2023-05-12] MEDS: THERAPEUTIC MULTIVITAMIN W/MINERALS TABLET PO SCH (05:49)
--- NOTE | 2023-05-12 06:20 | Progress Note - Hospitalist ---
Subjective HPI/CC On Admission Date Seen by Provider: May 12, 2023 Time Seen by Provider: 11:00 CC: Severe sepsis Subjective/Events-last exam Patient doing well Denies any complaints Reviewed meds Objective Exam Vital Signs Vital Signs Date Time Temp Pulse Resp B/P (MAP) Pulse Ox O2 Delivery O2 Flow Rate FiO2 05/12/23 12:25 37.0 87 19 126/68 (87) 92 Room Air 05/12/23 04:00 2.00 Capillary Refill : Less Than 3 Seconds General Appearance: No Apparent Distress, WD/WN, Chronically ill Respiratory: Lungs Clear Cardiovascular: Regular Rate, Rhythm Results/Procedures Lab Patient resulted labs reviewed. Assessment/Plan Assessment and Plan Assess & Plan/Chief Complaint Assessment: Foot wound status post incision and drainage now on wound VAC Cellulitis with abscess Low vision Plan: Add Levaquin Wound VAC Wound care physician appreciated Critical Care Critically Ill Patient JANIA RUSSELL DO May 12, 2023 06:20
[2023-05-12] MEDS: MAGNESIUM 1 GM/100 ML IVPB 100 ML IV SCH (07:23)
--- NOTE | 2023-05-12 07:27 | Progress Note - Surgery ---
ANGE WARREN 05/12/23726: Subjective Date Seen by a Provider: May 12, 2023 Time Seen by a Provider: 07:00 Subjective/Events-last exam Tara is doing fine - was lying in bed. She denies foot pain. Still has VAC dressing and levofloxacin was added to her regimen. She is able to move from her bed to chair (with help due to blindness). Pt denies CP, SOB, N/V Objective Exam Vital Signs Date Time Temp Pulse Resp B/P (MAP) Pulse Ox O2 Delivery O2 Flow Rate FiO2 05/12/23 04:00 36.5 68 16 147/82 (103) 96 Nasal Cannula 2.00 05/12/23 00:00 37.5 79 18 134/61 (85) 92 Nasal Cannula 2.00 05/11/23 19:45 Room Air 05/11/23 19:37 37.4 102 20 126/79 (95) 92 Room Air 05/11/23 15:46 37.4 90 19 150/66 (94) 93 Room Air 05/11/23 11:16 36.8 73 20 129/63 (85) 93 Room Air 05/11/23 08:00 Room Air I & O 05/12/23 07:00 Intake Total 2470 ml Output Total 300 ml Balance 2170 ml Capillary Refill : Less Than 3 Seconds General Appearance: No Apparent Distress, WD/WN, Chronically ill HEENT: Normal ENT Inspection Neck: Full Range of Motion, Non Tender Respiratory: Lungs Clear, Normal Breath Sounds Cardiovascular: Regular Rate, Rhythm Peripheral Pulses: 2+ Radial Pulses (R), 2+ Radial Pulses (L) Gastrointestinal: non tender, soft Extremity: Non Tender, Other (VAC dressing on L foot, no lymphedema or lymphangitis) Neurologic/Psychiatric: Alert, Normal Mood/Affect Skin: Normal Color, Warm/Dry Lymphatic: No Adenopathy Results Lab Laboratory Tests 05/11/23 10:21: Glucometer 250H 05/11/23 11:25: Glucometer 169H 05/11/23 16:00: Glucometer 125H 05/11/23 20:26: Glucometer 190H 05/12/23 05:36: Glucometer 160H 05/12/23 06:26: Magnesium Level 2.1 Microbiology 05/08/23 Gram Stain - Final, Resulted 05/08/23 Anaerobic Culture - Preliminary, Resulted No anaerobes isolated 05/08/23 Surgical Culture - Final, Resulted No growth 05/07/23 MRSA Screen - Final, Complete MRSA not isolated 05/02/23 Urine Culture - Final, Complete Escherichia coli Aerococcus urinaehominis 05/02/23 Blood Culture - Final, Complete Escherichia coli Assessment/Plan Assessment/Plan Assessment/Plan left foot 1st metatarsal osteomyelitis with abscess and ulcer S/P amputation of the left 1st ray and drainage of abscess history of left great toe amputation 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 Continue abx pain control higher risk for bleeding due to 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 wound care -VAC regular diet JAIMIE BOYD DO 05/13/23 1556: Subjective Subjective/Events-last exam No complaints. wound vac functioning. Denies n/v fever sweats chills shortness of breath or chest pain. Objective Exam General Appearance: No Apparent Distress, Chronically ill HEENT: PERRL/EOMI, Normal ENT Inspection Neck: Full Range of Motion, Non Tender Respiratory: Chest Non Tender, No Accessory Muscle Use, No Respiratory Distress Cardiovascular: Regular Rate, Rhythm, No JVD Gastrointestinal: non tender, soft Extremity: Non Tender, Other (VAC dressing on L foot, no lymphedema or lymphangitis) Neurologic/Psychiatric: Alert, Normal Mood/Affect Skin: Normal Color, Warm/Dry Lymphatic: No Adenopathy Assessment/Plan Assessment/Plan Assessment/Plan left foot 1st metatarsal osteomyelitis with abscess and ulcer S/P amputation of the left 1st ray and drainage of abscess history of left great toe amputation 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 Continue abx pain control higher risk for bleeding due to 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 wound care -VAC regular diet Supervisory-Addendum Brief Verification & Attestation Participated in pt care: history, MDM, physical Personally performed: exam, history, MDM, supervision of care Care discussed with: Medical Student Procedures: n/a Results interpretation: Verified all documentation Verification and Attestation of Medical Student E/M Service A medical student performed and documented this service in my presence. I reviewed and verified all information documented by the medical student and made modifications to such information, when appropriate. I personally performed the physical exam and medical decision making. Jaimie Boyd, May 12, 2023,12:56 ANGE WARREN May 12, 2023 07:27 JAIMIE BOYD DO May 13, 2023 15:56
[2023-05-12] MEDS: OMEGA 3 (FISH OIL) 1000 MG CAP PO SCH ×3 (07:53→16:40)
[2023-05-12] MEDS: CLOPIDOGREL 75 MG TABLET PO SCH (07:53)
[2023-05-12] MEDS: LACTOBACILLUS ACIDOPHILUS (PROBIOTIC) CAPSULE PO SCH (07:53)
[2023-05-12] MEDS: FUROSEMIDE 20 MG TABLET PO SCH (07:53)
[2023-05-12] MEDS: CITALOPRAM 20 MG TABLET PO SCH (07:53)
[2023-05-12] MEDS: ASPIRIN enteric coated 81MG TABLET PO SCH (07:53)
[2023-05-12] MEDS: ENOXAPARIN 40 MG/0.4 ML SYRINGE SC SCH (07:53)
[2023-05-12] MEDS: MEMANTINE 5 MG TABLET PO SCH ×2 (07:53→19:28)
[2023-05-12] MEDS: GABAPENTIN 300 MG CAPSULE PO SCH ×3 (07:53→16:40)
[2023-05-12] MEDS: LevETIRAcetam 500 MG TABLET PO SCH ×2 (07:53→16:40)
[2023-05-12] MEDS: CALCIUM CARBONATE 600 MG +VITAMIN D TABLET PO SCH (07:53)
[2023-05-12] MEDS: ALPRAZolam 0.25 MG TABLET PO PRN (19:28)
[2023-05-12] MEDS: traZODone 150 MG (DESYREL) TABLET PO SCH (19:28)
[2023-05-12] MEDS: MELATONIN 3 MG TABLET PO PRN (19:28)
[2023-05-13] MEDS: THERAPEUTIC MULTIVITAMIN W/MINERALS TABLET PO SCH (05:06)
[2023-05-13] MEDS: inSUlin ASPART 1 UNIT/0.01 ML (PER UNIT) SC SCH ×4 (05:06→21:05)
--- NOTE | 2023-05-13 07:41 | Progress Note - Surgery ---
ANGE WARREN 05/13/23 0741: Subjective Date Seen by a Provider: May 13, 2023 Time Seen by a Provider: 07:15 Subjective/Events-last exam Tara up and sitting in chair. No complaints of L foot pain. Wound VAC on. Mild cough while in room. Plan to review dressing change with custodial nurse tomorrow. Home likely. Pt denies N/V, SOB, CP Review of Systems General: No Chills, No Night Sweats HEENT: No Head Aches, No Eye Pain Pulmonary: No Dyspnea; Cough (slight) Cardiovascular: No: Chest Pain, Palpitations Gastrointestinal: No: Nausea, Vomiting Genitourinary: No Dysuria, No Frequency Musculoskeletal: No: neck pain, shoulder pain Neurological: No: Weakness, Change in speech Objective Exam Vital Signs Date Time Temp Pulse Resp B/P (MAP) Pulse Ox O2 Delivery O2 Flow Rate FiO2 05/12/23 23:34 37.4 98 20 138/64 (88) 93 Room Air 05/12/23 20:01 37.6 103 20 135/60 (85) 92 Room Air 05/12/23 19:30 Room Air 05/12/23 16:22 37.5 87 18 127/60 (82) 90 Room Air 05/12/23 12:25 37.0 87 19 126/68 (87) 92 Room Air 05/12/23 08:00 Room Air 05/12/23 08:00 37.5 83 19 128/70 (89) 90 Room Air I & O 05/13/23 07:00 Intake Total 3160 ml Output Total 300 ml Balance 2860 ml Capillary Refill : Less Than 3 Seconds General Appearance: No Apparent Distress, WD/WN, Chronically ill HEENT: Normal ENT Inspection Neck: Full Range of Motion, Non Tender Respiratory: Chest Non Tender, No Accessory Muscle Use, No Respiratory Distress Cardiovascular: Regular Rate, Rhythm Peripheral Pulses: 2+ Radial Pulses (R), 2+ Radial Pulses (L) Gastrointestinal: non tender, soft Extremity: Non Tender, Other (VAC dressing on L foot, no lymphedema or lymphangitis) Neurologic/Psychiatric: Alert, Normal Mood/Affect Skin: Normal Color, Warm/Dry Lymphatic: No Adenopathy Results Lab Laboratory Tests 05/12/23 10:48: Glucometer 197H 05/12/23 16:30: Glucometer 140H 05/12/23 20:10: Glucometer 244H 05/13/23 05:03: Glucometer 138H Microbiology 05/08/23 Gram Stain - Final, Resulted 05/08/23 Anaerobic Culture - Preliminary, Resulted No anaerobes isolated 05/08/23 Surgical Culture - Final, Resulted No growth 05/07/23 MRSA Screen - Final, Complete MRSA not isolated 05/02/23 Urine Culture - Final, Complete Escherichia coli Aerococcus urinaehominis 05/02/23 Blood Culture - Final, Complete Escherichia coli Assessment/Plan Assessment/Plan Assessment/Plan left foot 1st metatarsal osteomyelitis with abscess and ulcer S/P amputation of the left 1st ray and drainage of abscess history of left great toe amputation 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 pain control higher risk for bleeding due to 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 wound care -VAC regular diet home likely tomorrow JAIMIE BOYD DO 05/13/23 1558: Subjective Subjective/Events-last exam No new complaints, except slight cough. Wound vac in place. To be changed later today. Objective Exam General Appearance: No Apparent Distress, WD/WN, Chronically ill HEENT: PERRL/EOMI, Normal ENT Inspection Neck: Full Range of Motion, Non Tender Respiratory: Chest Non Tender, No Accessory Muscle Use, No Respiratory Distress Cardiovascular: Regular Rate, Rhythm, No JVD Gastrointestinal: non tender, soft Extremity: Non Tender, Other (VAC dressing on L foot, no lymphedema or lymphangitis) Neurologic/Psychiatric: Alert, Normal Mood/Affect Skin: Normal Color, Warm/Dry Lymphatic: No Adenopathy Assessment/Plan Assessment/Plan Assessment/Plan left foot 1st metatarsal osteomyelitis with abscess and ulcer S/P amputation of the left 1st ray and drainage of abscess history of left great toe amputation 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 pain control higher risk for bleeding due to 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 wound care -VAC regular diet home soon Supervisory-Addendum Brief Verification & Attestation Participated in pt care: history, MDM, physical Personally performed: exam, history, MDM, supervision of care Care discussed with: Medical Student Procedures: n/a Results interpretation: Verified all documentation Verification and Attestation of Medical Student E/M Service A medical student performed and documented this service in my presence. I reviewed and verified all information documented by the medical student and made modifications to such information, when appropriate. I personally performed the physical exam and medical decision making. Jaimie Boyd, May 13, 2023,15:58 ANGE WARREN May 13, 2023 07:41 JAIMIE BOYD DO May 13, 2023 15:58
[2023-05-13 08:42] VITALS: BP 132/77
[2023-05-13] MEDS: FUROSEMIDE 20 MG TABLET PO SCH (09:29)
[2023-05-13] MEDS: CALCIUM CARBONATE 600 MG +VITAMIN D TABLET PO SCH (09:29)
[2023-05-13] MEDS: MEMANTINE 5 MG TABLET PO SCH ×2 (09:29→19:59)
[2023-05-13] MEDS: ENOXAPARIN 40 MG/0.4 ML SYRINGE SC SCH (09:29)
[2023-05-13] MEDS: LACTOBACILLUS ACIDOPHILUS (PROBIOTIC) CAPSULE PO SCH (09:29)
[2023-05-13] MEDS: ASPIRIN enteric coated 81MG TABLET PO SCH (09:30)
[2023-05-13] MEDS: LevETIRAcetam 500 MG TABLET PO SCH ×2 (09:30→17:28)
[2023-05-13] MEDS: GABAPENTIN 300 MG CAPSULE PO SCH ×3 (09:30→17:28)
[2023-05-13] MEDS: CLOPIDOGREL 75 MG TABLET PO SCH (09:30)
[2023-05-13] MEDS: OMEGA 3 (FISH OIL) 1000 MG CAP PO SCH ×3 (09:30→17:28)
[2023-05-13] MEDS: ALPRAZolam 0.25 MG TABLET PO PRN (09:30)
[2023-05-13] MEDS: CITALOPRAM 20 MG TABLET PO SCH (09:33)
--- NOTE | 2023-05-13 10:59 | Progress Note ---
Subjective Subjective/Events-last exam Patient states that she is ready to get out of the hospital. Pain well controlled. Tolerating PO diet. Wound vac in place Review of Systems General: Fatigue Pulmonary: No Dyspnea, No Cough Cardiovascular: Edema; No: Chest Pain, Palpitations Gastrointestinal: No: Nausea, Vomiting, Abdominal Pain, Diarrhea Neurological: Weakness, Incoordination, Confusion Objective Exam Last Set of Vital Signs Vital Signs Date Time Temp Pulse Resp B/P (MAP) Pulse Ox O2 Delivery O2 Flow Rate FiO2 05/13/23 08:42 37.4 97 20 132/77 (95) 92 Room Air 05/12/23 04:00 2.00 Capillary Refill : Less Than 3 Seconds I&O Intake and Output 05/13/23 00:00 Intake Total 3260 ml Output Total 600 ml Balance 2660 ml Intake Oral 3260 ml Output Urine Total 600 ml # Voids 6 General: Alert, No Acute Distress Lungs: Clear to Auscultation, Normal Air Movement Heart: Regular Rate, No Murmurs Abdomen: Normal Bowel Sounds, Soft, No Tenderness Extremities: Other (Wound vac in place on Right foot) Neuro: Normal Speech Results/Procedures Lab Laboratory Tests 05/12/23 16:30: Glucometer 140H 05/12/23 20:10: Glucometer 244H 05/13/23 05:03: Glucometer 138H 05/13/23 08:01: Magnesium Level 1.6 Microbiology 05/08/23 Gram Stain - Final, Resulted 05/08/23 Anaerobic Culture - Preliminary, Resulted No anaerobes isolated 05/08/23 Surgical Culture - Final, Resulted No growth 05/07/23 MRSA Screen - Final, Complete MRSA not isolated 05/02/23 Urine Culture - Final, Complete Escherichia coli Aerococcus urinaehominis 05/02/23 Blood Culture - Final, Complete Escherichia coli Radiology CXR 05/02/23: IMPRESSION: 1. Low lung volumes accentuate the cardiomegaly and pulmonary vascular congestion. 2. Atelectasis or infiltrate in the left lung base. Left costophrenic angle is not entirely included in the [id number]. Left foot xray 05/02/23: FINDINGS/ IMPRESSION: 1. 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 2. Increasing lucencies about the distal aspect of the left 1st metatarsal suspicious for osteomyelitis. There is also a small amount of soft tissue gas overlying the left 1st metatarsal. 3. No fracture. Assessment/Plan Assessment/Plan (1) Severe sepsis Status: Resolved Assessment & Plan: Suspect secondary to UTI, also possible pneumonia, possible osteomyelitis. Started on cefepime and doxy, will change doxy to vancomycin due to possible osteomyelitis. Initially with leukocytosis, fever, lactic acidosis, acute on chronic renal insuffiency and elevated LFTs, all of which are improved today. Pt has remained afebrile for the last 24 hrs. 05/13: S/p Right great toe amputuation, wound vac in place (2) Diabetic foot ulcer Status: Chronic Assessment & Plan: Evaluated by wound nurse, has been seeing Dr. Restrepo outpatient. Wound itself doesn't appear infected, but xray with possible underlying osteomyelitis. Obtain ESR, further evaluation of oseto. picture. Plan for MRI 05/06. Pt may need 6wk IV abx therapy vs orthopedic consult Qualifiers: Qualified Codes: E11.621 - Type 2 diabetes mellitus with foot ulcer; L97.521 - Non-pressure chronic ulcer of other part of left foot limited to breakdown of skin (3) UTI (urinary tract infection) Status: Resolved Assessment & Plan: Cefepime. Culture pending. Qualifiers: Qualified Codes: N39.0 - Urinary tract infection, site not specified; R31.9 - Hematuria, unspecified (4) Pneumonia Status: Acute Assessment & Plan: Possible, on cefepime and vancomycin for multiple possible infection sources as above. Supplemental oxygen as needed. 05/13: On RA Qualifiers: Qualified Codes: J18.9 - Pneumonia, unspecified organism (5) CKD (chronic kidney disease) Status: Chronic Qualifiers: (6) Diabetes Status: Chronic Qualifiers: (7) Hypertension Status: Chronic Qualifiers: Qualified Codes: I10 - Essential (primary) hypertension (8) Hyperlipidemia Status: Chronic Qualifiers: Qualified Codes: E78.49 - Other hyperlipidemia (9) Peripheral neuropathy Status: Chronic (10) Dementia Status: Chronic Assessment & Plan: Uncertain baseline, no family at bedside at time of exam. Treat infection and monitor closely. (11) DVT prophylaxis Status: Acute Assessment & Plan: Enoxaparin SHIKHA SANTOS MD May 13, 2023 10:59
[2023-05-13] MEDS: MAGNESIUM 1 GM/100 ML IVPB 100 ML IV SCH (11:21)
[2023-05-13] MEDS: LevoFLOXacin 750 MG TABLET PO SCH (12:41)
[2023-05-13 16:00] VITALS: BP 127/80
[2023-05-13] MEDS: traZODone 150 MG (DESYREL) TABLET PO SCH (19:59)
[2023-05-13 23:35] VITALS: BP 129/73
[2023-05-14] MEDS: MAGNESIUM 1 GM/100 ML IVPB 100 ML IV SCH (06:24)
[2023-05-14] MEDS: inSUlin ASPART 1 UNIT/0.01 ML (PER UNIT) SC SCH ×2 (06:24→11:24)
[2023-05-14] MEDS: THERAPEUTIC MULTIVITAMIN W/MINERALS TABLET PO SCH (06:24)
--- NOTE | 2023-05-14 07:13 | Progress Note - Surgery ---
ANGE WARREN 05/14/23 0713: Subjective Date Seen by a Provider: May 14, 2023 Time Seen by a Provider: 07:00 Subjective/Events-last exam Tara lying in bed. No new complaints. No L foot pain. VAC dressing changed yesterday. residential nurse learned dressing change. Home soon. PT denies N/V, SOB, CP Review of Systems General: No Chills, No Night Sweats HEENT: No Head Aches, No Eye Pain Pulmonary: No Dyspnea, No Cough Cardiovascular: No: Chest Pain, Palpitations Gastrointestinal: No: Nausea, Vomiting Genitourinary: No Dysuria, No Frequency Musculoskeletal: No: neck pain, shoulder pain Neurological: No: Weakness, Change in speech Objective Exam Vital Signs Date Time Temp Pulse Resp B/P (MAP) Pulse Ox O2 Delivery O2 Flow Rate FiO2 05/13/23 23:35 36.5 94 17 129/73 (91) 94 Room Air 05/13/23 20:00 Room Air 05/13/23 16:00 36.6 75 17 127/80 (96) 93 Room Air 05/13/23 08:42 37.4 97 20 132/77 (95) 92 Room Air 05/13/23 08:00 Room Air I & O 05/14/23 07:00 Intake Total 2620 ml Balance 2620 ml Capillary Refill : Less Than 3 Seconds General Appearance: No Apparent Distress, WD/WN, Chronically ill HEENT: PERRL/EOMI, Normal ENT Inspection Neck: Full Range of Motion, Non Tender Respiratory: Chest Non Tender, No Accessory Muscle Use, No Respiratory Distress Cardiovascular: Regular Rate, Rhythm, No JVD Peripheral Pulses: 2+ Radial Pulses (R), 2+ Radial Pulses (L) Gastrointestinal: non tender, soft Extremity: Non Tender, Other (VAC dressing on L foot, no lymphedema or lymphangitis) Neurologic/Psychiatric: Alert, Normal Mood/Affect Skin: Normal Color, Warm/Dry Lymphatic: No Adenopathy Results Lab Laboratory Tests 05/13/23 08:01: Magnesium Level 1.6 05/13/23 11:20: Glucometer 153H 05/13/23 17:37: Glucometer 196H 05/13/23 20:50: Glucometer 203H 05/14/23 05:08: Magnesium Level 1.6 05/14/23 05:45: Glucometer 214H Microbiology 05/08/23 Gram Stain - Final, Complete 05/08/23 Anaerobic Culture - Final, Complete No anaerobes isolated 05/08/23 Surgical Culture - Final, Complete No growth 05/07/23 MRSA Screen - Final, Complete MRSA not isolated 05/02/23 Urine Culture - Final, Complete Escherichia coli Aerococcus urinaehominis 05/02/23 Blood Culture - Final, Complete Escherichia coli Assessment/Plan Assessment/Plan Assessment/Plan left foot 1st metatarsal osteomyelitis with abscess and ulcer S/P amputation of the left 1st ray and drainage of abscess history of left great toe amputation 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 pain control higher risk for bleeding due to 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 wound care -VAC regular diet home soon JAIMIE BOYD DO 05/14/23 1343: Subjective Subjective/Events-last exam No new complaints. Wound vac in place. Denies n/v fever sweats chills shortness of breath or chest pain. Objective Exam General Appearance: No Apparent Distress, Chronically ill HEENT: PERRL/EOMI, Normal ENT Inspection Neck: Full Range of Motion, Non Tender Respiratory: Chest Non Tender, No Accessory Muscle Use, No Respiratory Distress Cardiovascular: Regular Rate, Rhythm, No JVD Gastrointestinal: non tender, soft Extremity: Normal Inspection, Non Tender, Other (VAC dressing on L foot) Neurologic/Psychiatric: Alert, Normal Mood/Affect Skin: Normal Color, Warm/Dry Lymphatic: No Adenopathy Assessment/Plan Assessment/Plan Assessment/Plan left foot 1st metatarsal osteomyelitis with abscess and ulcer S/P amputation of the left 1st ray and drainage of abscess history of left great toe amputation 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 pain control higher risk for bleeding due to 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 wound care -VAC regular diet home soon Supervisory-Addendum Brief Verification & Attestation Participated in pt care: history, MDM, physical Personally performed: exam, history, MDM, supervision of care Care discussed with: Medical Student Procedures: n/a Results interpretation: Verified all documentation Verification and Attestation of Medical Student E/M Service A medical student performed and documented this service in my presence. I reviewed and verified all information documented by the medical student and made modifications to such information, when appropriate. I personally performed the physical exam and medical decision making. Jaimie Boyd, May 14, 2023,13:42 ANGE WARREN May 14, 2023 07:13 JAIMIE BOYD DO May 14, 2023 13:43
[2023-05-14 07:46] VITALS: BP 124/74
[2023-05-14] MEDS: CITALOPRAM 20 MG TABLET PO SCH (08:16)
[2023-05-14] MEDS: LACTOBACILLUS ACIDOPHILUS (PROBIOTIC) CAPSULE PO SCH (08:16)
[2023-05-14] MEDS: CLOPIDOGREL 75 MG TABLET PO SCH (08:16)
[2023-05-14] MEDS: FUROSEMIDE 20 MG TABLET PO SCH (08:16)
[2023-05-14] MEDS: LevETIRAcetam 500 MG TABLET PO SCH (08:16)
[2023-05-14] MEDS: CALCIUM CARBONATE 600 MG +VITAMIN D TABLET PO SCH (08:16)
[2023-05-14] MEDS: ASPIRIN enteric coated 81MG TABLET PO SCH (08:16)
[2023-05-14] MEDS: OMEGA 3 (FISH OIL) 1000 MG CAP PO SCH ×2 (08:16→11:36)
[2023-05-14] MEDS: MEMANTINE 5 MG TABLET PO SCH (08:16)
[2023-05-14] MEDS: GABAPENTIN 300 MG CAPSULE PO SCH ×2 (08:16→11:36)
[2023-05-14] MEDS: ENOXAPARIN 40 MG/0.4 ML SYRINGE SC SCH (08:17)
[2023-05-14 11:40] VITALS: BP 178/71
--- NOTE | 2023-05-14 11:59 | Discharge Summary ---
Diagnosis/Chief Complaint Date of Admission May 02, 2023 at 23:15 Date of Discharge 05/14/23 Admission Diagnosis Admission Diagnosis See problem list Discharge Diagnosis See problem list Problems/Diagnosis: (1) Severe sepsis Assessment & Plan: Suspect secondary to UTI, also possible pneumonia, possible osteomyelitis. Started on cefepime and doxy, will change doxy to vancomycin due to possible osteomyelitis. Initially with leukocytosis, fever, lactic acidosis, acute on chronic renal insuffiency and elevated LFTs, all of which are improved today. Pt has remained afebrile for the last 24 hrs. Status: Resolved Resolution Date/Time: 05/10/23 @ 11:54 (2) Diabetic foot ulcer Assessment & Plan: Evaluated by wound nurse, has been seeing Dr. Restrepo outpatient. Wound itself doesn't appear infected, but xray with possible underlying osteomyelitis. Obtain ESR, further evaluation of oseto. picture. Plan for MRI 05/06. Pt may need 6wk IV abx therapy vs orthopedic consult 05/14: - s/p amputation, currently has wound vac in place, wound care nurse has provided education to facility, will have outpatient wound care appt with Dr Colon Qualifiers: Qualified Codes: E11.621 - Type 2 diabetes mellitus with foot ulcer; L97.521 - Non-pressure chronic ulcer of other part of left foot limited to breakdown of skin Status: Chronic (3) UTI (urinary tract infection) Assessment & Plan: Cefepime. Culture pending. Qualifiers: Qualified Codes: N39.0 - Urinary tract infection, site not specified; R31.9 - Hematuria, unspecified Status: Resolved Resolution Date/Time: 05/10/23 @ 11:55 (4) Pneumonia Assessment & Plan: Possible, on cefepime and vancomycin for multiple possible infection sources as above. Supplemental oxygen as needed. Qualifiers: Qualified Codes: J18.9 - Pneumonia, unspecified organism Status: Acute (5) CKD (chronic kidney disease) Qualifiers: Status: Chronic (6) Diabetes Qualifiers: Status: Chronic (7) Hypertension Qualifiers: Qualified Codes: I10 - Essential (primary) hypertension Status: Chronic (8) Hyperlipidemia Qualifiers: Qualified Codes: E78.49 - Other hyperlipidemia Status: Chronic (9) Peripheral neuropathy Status: Chronic (10) Dementia Assessment & Plan: Uncertain baseline, no family at bedside at time of exam. Treat infection and monitor closely. 05/14: Patient at baseline and ready to get out of hospital Status: Chronic (11) DVT prophylaxis Assessment & Plan: Enoxaparin Status: Acute Chief Complaint/HPI Chief Complaint/HPI 73 yo female admitted to hospital for concern for severe sepsis, brought from nursing facility. Patient states she is feeling okay. She is not able to provide any history. She knows her name, but any other questions I ask that require more than yes or no, she says "I don't know". Per ER notes, she recently had revascularization procedure at [place] and has nonhealing wound on left foot as well as altered mental status. Discharge Summary-Simple/Stand Consultations General Surgery Wound Care Discharge Physical Examination Allergies: Coded Allergies: No Known Drug Allergies (Unverified , 08/08/21) Vitals & I&Os Vital Sign - Last 12Hours Date Time Temp Pulse Resp B/P (MAP) Pulse Ox O2 Delivery O2 Flow Rate FiO2 05/14/23 11:40 37.2 100 16 178/71 (106) 91 Room Air 05/12/23 04:00 2.00 Intake and Output 05/14/23 00:00 Intake Total 2220 ml Balance 2220 ml General Appearance: Alert, Oriented X3, No Acute Distress Respiratory: Clear to Auscultation, Normal Air Movement Cardiovascular: Regular Rate, No Murmurs Abdominal: Normal Bowel Sounds, Soft, No Tenderness, No Masses Extremities: No Edema, No Tenderness/Swelling Neuro: Normal Speech, Cranial Nerves 3-12 NL Psych/Mental Status: Mental Status NL, Mood NL Hospital Course See final discharge diagnosis. Radiology Reviewed CXR 05/02/23: IMPRESSION: 1. Low lung volumes accentuate the cardiomegaly and pulmonary vascular congestion. 2. Atelectasis or infiltrate in the left lung base. Left costophrenic angle is not entirely included in the [id number]. Left foot xray 05/02/23: FINDINGS/ IMPRESSION: 1. 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 2. Increasing lucencies about the distal aspect of the left 1st metatarsal suspicious for osteomyelitis. There is also a small amount of soft tissue gas overlying the left 1st metatarsal. 3. No fracture. Discharge Condition at discharge stable Instructions to patient/family Please see electronic discharge instructions given to patient. Discharge Medications Reviewed and agree with Discharge Medication list on patient's Discharge I nstruction sheet SHIKHA SANTOS MD May 14, 2023 11:59
[2023-05-14] MEDS ORDERED: SODI475I IR (12:14)
[2023-05-14] MEDS ORDERED: LEVO750T PO (12:14)
--- NOTE | 2023-05-14 12:15 | Discharge Summary ---
Discharge [facility] Discharge Medications New, Converted or Re-Newed RX: Transmitted to Pharmacy New Medications: Levofloxacin (Levofloxacin) 750 Mg Tablet 750 MG PO Q48H, #7 TAB Sodium Chlor/Hypochlorous Acid (Vashe Wound Therapy Solution) 0.033 % Irrig.soln 10 ML IR UD PRN for DRESSING CHANGE, #100 ML Continued Medications: Acetaminophen (Tylenol Extra Strength) 500 Mg Tablet 500 MG PO Q4- 6H PRN for PAIN-MILD (1-4) OR TEMPATURE, TAB ALPRAZolam (ALPRAZolam) 0.25 Mg Tablet 0.25 MG PO Q8H PRN for ANXIETY, TAB Aspirin (Aspirin EC) 81 Mg Tablet.dr 81 MG PO DAILY, TAB Atorvastatin Calcium (Atorvastatin Calcium) 40 Mg Tablet 40 MG PO HS, TAB Benzonatate (Benzonatate) 100 Mg Capsule 100 MG PO Q8H PRN for COUGH, CAP Calcium Carbonate (Tums) 300 Mg Calcium (750 Mg) Tab.chew 2 EA PO Q4H PRN for GAS/INDIGESTION, TAB Calcium Carbonate/Vitamin D3 (Calcium 600 + Vit D 400 Softgl) 600 Mg Calcium-10 Mcg (400 Unit) Capsule 1 EACH PO DAILY, CAP Citalopram Hydrobromide (Citalopram HBr) 20 Mg Tablet 20 MG PO DAILY, TAB Clopidogrel Bisulfate (Clopidogrel) 75 Mg Tablet 75 MG PO DAILY, TAB Diphenhydramine HCl (Benadryl Allergy) 25 Mg Tablet 25 MG PO Q6H PRN for ITCHING, TAB Ezetimibe (Ezetimibe) 10 Mg Tablet 10 MG PO HS, TAB Famotidine (Famotidine) 20 Mg Tablet 20 MG PO DAILY PRN for INDIGESTION, TAB Flaxseed Oil (Flaxseed Oil) 1,000 Mg Capsule 1000 MG PO DAILY, CAP Furosemide (Furosemide) 20 Mg Tablet 20 MG PO DAILY, TAB Gabapentin (Neurontin) 300 Mg Capsule 300 MG PO 0800,1200,1700, CAP Gluc Martinez/Chondro Martinez A/Vit C/Mn (Glucosamine Chondroitin Tab) 750 Mg-600 Mg-55 Mg- 5 Mg Tablet 1 EACH PO BID, TAB Guaifenesin (Guaifenesin) 400 Mg Tablet 400 MG PO Q4H PRN for COUGH/CONGESTION, TAB Guaifenesin (Guaifenesin) 100 Mg/5 Ml Liquid 5 ML PO Q4H PRN for COUGH/CONGESTION, EA L. Acidophilus/Pectin, [place] (Acidophilus Capsule) 7.5 Mg (30 Million Cell)-100 Mg Capsule 2 EACH PO DAILY, CAP Levetiracetam (Levetiracetam) 750 Mg Tablet 750 MG PO 0800,1700, TAB Loperamide HCl (Imodium A-D) 2 Mg Capsule 2 MG PO Q6H PRN for DIARRHEA, CAP Lutein (Lutein) 20 Mg Tablet 20 MG PO DAILY, TAB Magnesium Hydroxide (Milk of Magnesia) 400 Mg/5 Ml Oral.susp 30 ML PO DAILY PRN for CONSTIPATION-7TH LINE, ML Memantine HCl (Memantine HCl) 5 Mg Tablet 5 MG PO BID, TAB Multivitamin (Multivitamin) 1 Each Tablet 1 EACH PO DAILY, TAB Parthenon-3/Dha/Epa/Fish Oil (Fish Oil 1,000 mg Softgel) 1,000 Mg (120 Mg-180 Mg) Capsule 1000 MG PO 0800,1200,1700, CAP Psyllium Husk/Aspartame (Metamucil Fiber Singles Packet) 3.4 Gram Powd.pack 3.4 GM PO DAILY PRN for CONSTIPATION, EACH Tramadol HCl (Tramadol HCl) 50 Mg Tablet 50 MG PO Q6H PRN for PAIN-MODERATE (5-7), TAB Trazodone HCl (Trazodone HCl) 150 Mg Tablet 150 MG PO HS, TAB Vit A/Vit C/Vit E/Zinc/Copper (Preservision Areds Tablet) 2,148-113 Tablet 1 EACH PO DAILY, TAB Discontinued Medications: Glimepiride (Amaryl) 2 Mg Tab 2 MG PO DAILY, TAB Losartan Potassium (Losartan Potassium) 50 Mg Tablet 50 MG PO DAILY, TAB Patient Instructions Goal/Follow Up Appt: Wendy PCP 1 week Keep appt with wound care doctor Activity & Diet Discharge Diet: ADA Diet Activity as Tolerated: Yes SHIKHA SANTOS MD May 14, 2023 12:15
[2023-05-14 16:30] VITALS: BP 178/71
== END 2023-05-14 16:30 | DRG 853 ==
LOC: EDUNIT# 20:33 → ER FS 20:34 → ICU 23:15 → 4TH 05-03 17:16
PROVIDERS: ADMIT Family Medicine; ATTEND Family Medicine
PROC: 0Y6N0Z4 Detachment at Left Foot, Complete 1st Ray, Open Approach (ICD-10-PCS; principal; 2023-05-08 12:36)
DX: A41.51 Sepsis due to Escherichia coli [E. coli] (principal); G93.41 Metabolic encephalopathy; J18.9 Pneumonia, unspecified organism; T87.44 Infection of amputation stump, left lower extremity; M86.9 Osteomyelitis, unspecified; I48.92 Unspecified atrial flutter; E46 Unspecified protein-calorie malnutrition; G91.9 Hydrocephalus, unspecified; R65.20 Severe sepsis without septic shock; N30.90 Cystitis, unspecified without hematuria; E11.42 Type 2 diabetes mellitus with diabetic polyneuropathy; E11.51 Type 2 diabetes mellitus with diabetic peripheral angiopathy without gangrene; E11.22 Type 2 diabetes mellitus with diabetic chronic kidney disease; I12.9 Hypertensive chronic kidney disease with stage 1 through stage 4 chronic kidney disease, or unspecified chronic kidney disease; N18.9 Chronic kidney disease, unspecified; Z79.84 Long term (current) use of oral hypoglycemic drugs; Z20.822 Contact with and (suspected) exposure to COVID-19; H54.8 Legal blindness, as defined in USA; E11.69 Type 2 diabetes mellitus with other specified complication; E11.621 Type 2 diabetes mellitus with foot ulcer; L97.529 Non-pressure chronic ulcer of other part of left foot with unspecified severity; Z68.30 Body mass index [BMI] 30.0-30.9, adult; E66.9 Obesity, unspecified; D63.8 Anemia in other chronic diseases classified elsewhere; D32.0 Benign neoplasm of cerebral meninges
CPT/HCPCS: 36415; 51702; 71045; 73630; 80053; 80202; 81000; 82947; 83605; 83735; 84100; 85007; 85025; 85027; 85610; 85652; 85730; 86141; 87040; 87070; 87075; 87077; 87081; 87088; 87186; 87205; 87636; 88305; 88311; 93005; 96365; 96367; 96368

== ENCOUNTER 2023-05-20 09:28 | Inpatient (IN) | payer MEDICARE, MEDICAID ==
[~2023-05-20] VITALS: Ht 149.9 cm; Wt 76.2 kg
[2023-05-20] VITALS (9 sets, daily range): BP systolic 96–147; BP diastolic 53–79
[~2023-05-20 09:28] MED LIST: ACET-2267 PO; ALPR0.254 PO; ASPI-1238 PO; ATOR40TA70 PO; BENZ-36 PO; BETA1TAB15 PO; CALC1CAP21 PO; CALC300T4 PO; CITA20TA9 PO; CLOP75TA28 PO; DIPH25TA65 PO; EZET10TA49 PO; FAMO20TA5 PO; FLAX10004 PO; FURO20TA4 PO; GABA300C PO; GLMP2T PO; GLUC1TAB21 PO; GUAI100L13 PO; GUAI400T86 PO; L. A1CAP11 PO; LEVE750T5 PO; LEVO750T PO; LOPE-175 PO; LOSA50TA63 PO; LUTE20TA PO; MAGN400O7 PO; MEMA5TAB43 PO; MULT-1136 PO; OMEG100032 PO; PSYL3.4P5 PO; SODI475I IR; TRAM50TA3 PO; TRAZ150T72 PO
--- NOTE | 2023-05-20 09:41 | ED General ---
General Chief Complaint: Fever-Adult/Adol Stated Complaint: FEVER Source of Information: Patient, EMS, Old Records, RN/MD Exam Limitations: No Limitations History of Present Illness Date Seen by Provider: May 20, 2023 Time Seen by Provider: 09:29 Initial Comments 73-year-old female with past medical history of diabetes, dementia, blindness, chronic wound to her left foot c/b osteomyelitis now s/p partial amputatiotn with a wound VAC, and recent urosepsis coming in via EMS from her her care facility due to fever. Reportedly her temperature was 100.7 this morning. She received Tylenol at 8 AM. She denies any pain, she did not feel like she had a fever, she denies any cough, although she is coughing while she states this, no nausea, vomiting, diarrhea, rash, or any other concerns. She believes she is getting her wound VAC changed every other day. She states her foot feels well and only hurts when she tries to walk on it. Of note, she has been on antibiotics since May 02. She finished her last dose of Levaquin yesterday. Allergies and Home Medications Allergies Coded Allergies: Tetracyclines (Verified Allergy, Unknown, 05/20/23) Patient Home Medication List Home Medication List Reviewed: Yes ALPRAZolam (ALPRAZolam) 0.25 Mg Tablet, 0.25 MG PO Q8H PRN for ANXIETY, (Reported) Entered as Reported by: CHANTELLE VERDIN on 05/03/23 1058 Acetaminophen (Tylenol Extra Strength) 500 Mg Tablet, 500 MG PO Q4- 6H PRN for PAIN-MILD (1-4) OR TEMPATURE, (Reported) Entered as Reported by: CHANTELLE VERDIN on 05/03/23 1058 Aspirin (Aspirin EC) 81 Mg Tablet.dr, 81 MG PO DAILY, (Reported) Entered as Reported by: CHANTELLE VERDIN on 05/03/23 1058 Atorvastatin Calcium (Atorvastatin Calcium) 40 Mg Tablet, 40 MG PO HS, (Reported) Entered as Reported by: CHANTELLE VERDIN on 05/03/23 1058 Benzonatate (Benzonatate) 100 Mg Capsule, 100 MG PO Q8H PRN for COUGH, (Reported) Entered as Reported by: CHANTELLE VERDIN on 05/03/23 1058 Calcium Carbonate (Tums) 300 Mg Calcium (750 Mg) Tab.chew, 2 EA PO Q4H PRN for GAS/INDIGESTION, (Reported) Entered as Reported by: CHANTELLE VERDIN on 05/03/231057 Calcium Carbonate/Vitamin D3 (Calcium 600 + Vit D 400 Softgl) 600 Mg Calcium-10 Mcg (400 Unit) Capsule, 1 EACH PO DAILY, (Reported) Entered as Reported by: CHANTELLE VERDIN on 05/03/231057 Citalopram Hydrobromide (Citalopram HBr) 20 Mg Tablet, 20 MG PO DAILY, (Reported) Entered as Reported by: CHANTELLE VERDIN on 05/03/231057 Clopidogrel Bisulfate (Clopidogrel) 75 Mg Tablet, 75 MG PO DAILY, (Reported) Entered as Reported by: CHANTELLE VERDIN on 05/03/231057 Diphenhydramine HCl (Benadryl Allergy) 25 Mg Tablet, 25 MG PO Q6H PRN for ITCHING, (Reported) Entered as Reported by: CHANTELLE VERDIN on 05/03/231057 Ezetimibe (Ezetimibe) 10 Mg Tablet, 10 MG PO HS, (Reported) Entered as Reported by: CHANTELLE VERDIN on 05/03/231057 Famotidine (Famotidine) 20 Mg Tablet, 20 MG PO DAILY PRN for INDIGESTION, (Reported) Entered as Reported by: CHANTELLE VERDIN on 05/03/231057 Flaxseed Oil (Flaxseed Oil) 1,000 Mg Capsule, 1,000 MG PO DAILY, (Reported) Entered as Reported by: CHANTELLE VERDIN on 05/03/231057 Furosemide (Furosemide) 20 Mg Tablet, 20 MG PO DAILY, (Reported) Entered as Reported by: CHANTELLE VERDIN on 05/03/231057 Gabapentin (Neurontin) 300 Mg Capsule, 300 MG PO 0800,1200,1700, (Reported) Entered as Reported by: CHANTELLE VERDIN on 05/03/231057 Gluc Martinez/Chondro Martinez A/Vit C/Mn (Glucosamine Chondroitin Tab) 750 Mg-600 Mg-55 Mg- 5 Mg Tablet, 1 EACH PO BID, (Reported) Entered as Reported by: CHANTELLE VERDIN on 05/03/231057 Guaifenesin (Guaifenesin) 400 Mg Tablet, 400 MG PO Q4H PRN for COUGH/CONGESTION, (Reported) Entered as Reported by: CHANTELLE VERDIN on 05/03/23 105 Guaifenesin (Guaifenesin) 100 Mg/5 Ml Liquid, 5 ML PO Q4H PRN for COUGH/CONGESTION, (Reported) Entered as Reported by: CHANTELLE VERDIN on 05/03/23 105 L. Acidophilus/Pectin, Plumas (Acidophilus Capsule) 7.5 Mg (30 Million Cell)-100 Mg Capsule, 2 EACH PO DAILY, (Reported) Entered as Reported by: CHANTELLE VERDIN on 05/03/23 105 Levetiracetam (Levetiracetam) 750 Mg Tablet, 750 MG PO 0800,1700, (Reported) Entered as Reported by: CHANTELLE VERDIN on 05/03/23 105 Levofloxacin (Levofloxacin) 750 Mg Tablet, 750 MG PO Q48H Prescribed by: SHIKHA SANTOS on 05/14/23 1214 Loperamide HCl (Imodium A-D) 2 Mg Capsule, 2 MG PO Q6H PRN for DIARRHEA, (Reported) Entered as Reported by: CHANTELLE VERDIN on 05/03/23 105 Lutein (Lutein) 20 Mg Tablet, 20 MG PO DAILY, (Reported) Entered as Reported by: CHANTELLE VERDIN on 05/03/23 105 Magnesium Hydroxide (Milk of Magnesia) 400 Mg/5 Ml Oral.susp, 30 ML PO DAILY PRN for CONSTIPATION-7TH LINE, (Reported) Entered as Reported by: CHANTELLE VERDIN on 05/03/23 105 Memantine HCl (Memantine HCl) 5 Mg Tablet, 5 MG PO BID, (Reported) Entered as Reported by: CHANTELLE VERDIN on 05/03/23 105 Multivitamin (Multivitamin) 1 Each Tablet, 1 EACH PO DAILY, (Reported) Entered as Reported by: CHANTELLE VERDIN on 05/03/23 105 [place]-3/Dha/Epa/Fish Oil (Fish Oil 1,000 mg Softgel) 1,000 Mg (120 Mg-180 Mg) Capsule, 1,000 MG PO 0800,1200,1700, (Reported) Entered as Reported by: CHANTELLE VERDIN on 05/03/23 105 Psyllium Husk/Aspartame (Metamucil Fiber Singles Packet) 3.4 Gram Powd.pack, 3.4 GM PO DAILY PRN for CONSTIPATION, (Reported) Entered as Reported by: CHANTELLE VERDIN on 05/03/23 1058 Sodium Chlor/Hypochlorous Acid (Vashe Wound Therapy Solution) 0.033 % Irrig.soln, 10 ML IR UD PRN for DRESSING CHANGE Prescribed by: SHIKHA SANTOS on 05/14/23 1214 Tramadol HCl (Tramadol HCl) 50 Mg Tablet, 50 MG PO Q6H PRN for PAIN-MODERATE (5- 7), (Reported) Entered as Reported by: CHANTELLE VERDIN on 05/03/23 1058 Trazodone HCl (Trazodone HCl) 150 Mg Tablet, 150 MG PO HS, (Reported) Entered as Reported by: CHANTELLE VERDIN on 05/03/23 1058 Vit A/Vit C/Vit E/Zinc/Copper (Preservision Areds Tablet) 2,148-113 Tablet, 1 EACH PO DAILY, (Reported) Entered as Reported by: CHANTELLE VERDIN on 05/03/23 105 Discontinued Medications Glimepiride (Amaryl) 2 Mg Tab, 2 MG PO DAILY, (Reported) Entered as Reported by: CHANTELLE VERDIN on 05/03/23 105 Losartan Potassium (Losartan Potassium) 50 Mg Tablet, 50 MG PO DAILY, (Reported) Entered as Reported by: CHANTELLE VERDIN on 05/03/23 1058 Review of Systems Review of Systems Constitutional: fever EENTM: no symptoms reported Respiratory: no symptoms reported Cardiovascular: no symptoms reported Gastrointestinal: no symptoms reported Genitourinary: no symptoms reported Musculoskeletal: see HPI Skin: no symptoms reported Psychiatric/Neurological: No Symptoms Reported Hematologic/Lymphatic: No Symptoms Reported Past Akqvube-Exblwd-Nlnnbj Hx Patient Social History Substance use?: No Immunizations Up To Date First/Initial COVID19 Vaccinat: Unknown status Past Medical History Surgery/Hospitalization HX: stent in leg Surgeries: Yes Amputation, Eye Surgery, Vascular Surgery Respiratory: No Currently Using CPAP: No Currently Using BIPAP: No Cardiac: Yes High Cholesterol, Hypertension, Irregular Heartbeat Neurological: Yes (hydrocephalus) Brain Tumor, Dementia, Neuropathy Genitourinary: Yes (chronic kidney disease, mixed stress and urge incontinence) Gastrointestinal: Yes (fecal incontinence) Esophagitis Musculoskeletal: No Endocrine: Yes Diabetes, Insulin dep HEENT: Yes Cataract Loss of Vision: Bilateral Brain Psychosocial: Yes Bipolar Family Medical History No Pertinent Family Hx, Heart Disease Physical Exam Vital Signs Vital Signs - First Documented 05/20/23 09:32 Temp 37.2 Pulse 96 Resp 18 B/P (MAP) 128/59 (82) Pulse Ox 93 O2 Delivery Room Air Capillary Refill : Height, Weight, BMI Height: '" Weight: lbs. oz. kg; 31.28 BMI Method: General Appearance: No Apparent Distress, WD/WN Eyes: Bilateral Eye Normal Inspection HEENT: Normal ENT Inspection, Pharynx Normal Neck: Full Range of Motion, Normal Inspection, Non Tender, Supple Respiratory: Chest Non Tender, Lungs Clear, Normal Breath Sounds, No Accessory Muscle Use, No Respiratory Distress Cardiovascular: Regular Rate, Rhythm, Normal Peripheral Pulses Gastrointestinal: Normal Bowel Sounds, Non Tender, Soft; No Distended, No Guarding Back: Normal Inspection, No CVA Tenderness Extremity: Normal Capillary Refill, Normal Range of Motion, Non Tender, No Calf Tenderness, No Pedal Edema, Other (Wound VAC to left foot with good suction) Neurologic/Psychiatric: Alert, No Motor/Sensory Deficits, Normal Mood/Affect, Other (Oriented to person and place, does not know the date) Skin: Normal Color, Warm/Dry Focused Exam Lactate Level 05/20/23 09:38: Lactic Acid Level 2.95*H Lactic Acid Level Laboratory Tests Test 05/20/23 09:38 Lactic Acid Level 2.95 MMOL/L (0.50-2.00) *H Progress/Results/Core Measures Suspected Sepsis SIRS Temperature: Pulse: Respiratory Rate: Laboratory Tests 05/20/23 09:39: White Blood Count 5.6 Blood Pressure / Mean: 05/20/23 09:38: Lactic Acid Level 2.95*H Laboratory Tests 05/20/23 09:39: Creatinine 1.33H, INR Comment 1.0, Platelet Count 374, Total Bilirubin 0.5 Results/Orders Lab Results Laboratory Tests Test 05/20/23 09:38 05/20/23 09:39 05/20/23 09:50 05/20/23 10:15 Range/Units Lactic Acid Level 2.95 *H 0.50-2.00 MMOL/L White Blood Count 5.6 4.3-11.0 10^3/uL Red Blood Count 3.27 L 3.80-5.11 10^6/uL Hemoglobin 10.0 L 11.5-16.0 g/dL Hematocrit 32 L 35-52 % Mean Corpuscular Volume 98 80-99 fL Mean Corpuscular Hemoglobin 31 25-34 pg Mean Corpuscular Hemoglobin Concent 31 L 32-36 g/dL Red Cell Distribution Width 16.2 H 10.0-14.5 % Platelet Count 374 130-400 10^3/uL Mean Platelet Volume 9.8 9.0-12.2 fL Immature Granulocyte % (Auto) 0 % Neutrophils (%) (Auto) 54 42-75 % Lymphocytes (%) (Auto) 38 12-44 % Monocytes (%) (Auto) 7 0-12 % Eosinophils (%) (Auto) 0 0-10 % Basophils (%) (Auto) 0 0-10 % Neutrophils # (Auto) 3.0 1.8-7.8 10^3/uL Lymphocytes # (Auto) 2.1 1.0-4.0 10^3/uL Monocytes # (Auto) 0.4 0.0-1.0 10^3/uL Eosinophils # (Auto) 0.0 0.0-0.3 10^3/uL Basophils # (Auto) 0.0 0.0-0.1 10^3/uL Immature Granulocyte # (Auto) 0.0 0.0-0.1 10^3/uL Percent Immature Platelet Fraction 1.5 0.0-7.6 % Erythrocyte Sedimentation Rate 88 H 0-30 MM/HR Prothrombin Time 14.1 12.2-14.7 SEC INR Comment 1.0 0.8-1.4 Activated Partial Thromboplast Time 28 24-35 SEC Sodium Level 137 135-145 MMOL/L Potassium Level 4.2 3.6-5.0 MMOL/L Chloride Level 99 98-107 MMOL/L Carbon Dioxide Level 24 21-32 MMOL/L Anion Gap 14 5-14 MMOL/L Blood Urea Nitrogen 15 7-18 MG/DL Creatinine 1.33 H 0.60-1.30 MG/DL Estimat Glomerular Filtration Rate 43 BUN/Creatinine Ratio 11 Glucose Level 219 H 70-105 MG/DL Calcium Level 9.0 8.5-10.1 MG/DL Corrected Calcium 9.6 8.5-10.1 MG/DL Total Bilirubin 0.5 0.1-1.0 MG/DL Aspartate Amino Transf (AST/SGOT) 26 5-34 U/L Alanine Aminotransferase (ALT/SGPT) 24 0-55 U/L Alkaline Phosphatase 77 40-136 U/L C-Reactive Protein 12.42 H <0.50 MG/DL Pro-B-Type Natriuretic Peptide 343.0 H <125.0 PG/ML Total Protein 6.6 6.4-8.2 GM/DL Albumin 3.2 3.2-4.5 GM/DL Influenza Type A (RT-PCR) Not Detected Not Detecte Influenza Type B (RT-PCR) Not Detected Not Detecte SARS-CoV-2 RNA (RT-PCR) Detected H Not Detecte Urine Color YELLOW Urine Clarity CLEAR Urine pH 7.0 5-9 Urine Specific [place] 1.010 L 1.016-1.022 Urine Protein NEGATIVE NEGATIVE Urine Glucose (UA) NEGATIVE NEGATIVE Urine Ketones NEGATIVE NEGATIVE Urine Nitrite NEGATIVE NEGATIVE Urine Bilirubin NEGATIVE NEGATIVE Urine Urobilinogen 0.2 < = 1.0 MG/DL Urine Leukocyte Esterase NEGATIVE NEGATIVE Urine RBC (Auto) NEGATIVE NEGATIVE Urine RBC 2-5 H /HPF Urine WBC 2-5 /HPF Urine Squamous Epithelial Cells 2-5 /HPF Urine Crystals NONE /LPF Urine Bacteria NEGATIVE /HPF Urine Casts NONE /LPF Urine Mucus NEGATIVE /LPF Urine Culture Indicated CULTURE PENDING Test 05/20/23 10:49 Range/Units My Orders Orders - LON LAUREANO MD Influenza A And B By Pcr (05/20/23 09:36) Covid 19 Inhouse Test (05/20/23 09:36) Cbc With Automated Diff (05/20/23 09:36) Comprehensive Metabolic Panel (05/20/23 09:36) Blood Culture (05/20/23 09:36) Sputum Culture (05/20/23 09:36) Urinalysis (05/20/23 09:36) Urine Culture (05/20/23 09:36) Protime With Inr (05/20/23 09:36) Partial Thromboplastin Time (05/20/23 09:36) Chest 1 View Ap/Pa Only (05/20/23 09:36) Ed Iv/Invasive Line Start (05/20/23 09:36) Vital Signs Adult Sepsis Patie Q15M (05/20/23 09:36) O2 (05/20/23 09:36) Remove Rings In Anticipation O (05/20/23 09:36) Lactic Acid Analyzer (05/20/23 09:36) Cefepime Injection (Cefepime Injection) (05/20/23 09:45) Erythrocyte Sedimentation Rate (05/20/23 09:36) Crp Fs (05/20/23 09:36) Foot 3 View Left (05/20/23 09:36) Straight Cath For Spec.-Adult (05/20/23 09:50) Ns Iv 1000 Ml (Ns Iv 1000 Ml) (05/20/23 09:51) Probnp Fs (05/20/23 10:16) Dexamethasone Injection (Dexamethasone (05/20/23 10:45) Arterial Blood Gas (05/20/23 10:46) Ed Admission (Communication) (05/20/23 10:47) Medications Given in ED Current Medications Medications Dose Ordered Sig/Angie Route Start Time Stop Time Status Last Admin Dose Admin Cefepime HCl 1000 mg/Sodium Chloride 50 ml @ 100 mls/hr ONCE ONCE IV 05/20/23 09:45 05/20/23 10:14 DC 05/20/23 10:14 100 MLS/HR Dexamethasone Sodium Phosphate 6 mg ONCE ONCE IV 05/20/23 10:45 05/20/23 10:46 DC 05/20/23 11:00 6 MG Vital Signs/I&O 05/20/23 09:32 Temp 37.2 Pulse 96 Resp 18 B/P (MAP) 128/59 (82) Pulse Ox 93 O2 Delivery Room Air Capillary Refill : Progress Note : Progress Note 73-year-old female coming in via EMS due to fever. ABCs were intact and vitals are stable on presentation. Initial blood pressure 1 teens over 40s. Second blood pressure 89 over 40s. An IV was placed and she was given a bolus of IV fluids as well as cefepime. Chest x-ray ordered and interpreted by me showing bibasilar infiltrates versus likely atelectasis as well. Labs were significant for normal white blood cell count, slightly elevated lactic acid, slightly elevated creatinine which she does have CKD, urinalysis without evidence of infection, elevated CRP. X-ray of the left foot with no new signs of osteomy elitis now that she is post partial amputation. COVID test was positive and this does fit her symptoms. She has had a productive cough while in the ER as well. Oxygen went as low as 84% and she has needed to between 2 to 3 L oxygen to maintain her saturation. I contacted Dr. Sanders who will admit her under inpatient status to the cardiac stepdown unit for further evaluation and management. Diagnostic Imaging Diagonstic Imaging: Xray (chest and left foot) Comments [facility] [place] [place] NAME: PATEL SABILLON [facility] REC#: [id number] PT STATUS: REG ER : 1950 PHYSICIAN: LON LAUREANO MD ADMIT DATE: 05/20/23/ER FS Draft Date of Exam:05/20/23 CHEST 1 VIEW AP/PA ONLY INDICATION: Fever. TIME OF EXAM: 9:43 AM. COMPARISON: Correlation is made with the prior chest of 05/02/2023. FINDINGS: The heart is enlarged. There appear to be bibasilar infiltrates or atelectasis. No effusion or pneumothorax is identified. IMPRESSION: Cardiomegaly with bibasilar infiltrates or atelectasis. Dictated on workstation # [id number] Dict: 05/20/23 1018 Trans: 05/20/[address] [place] [address] [phone] Interpreted by: JOSE VERGARA MD Electronically signed by: [facility] [place] NAME: PATEL SABILLON [facility] REC#: [id number] PT STATUS: REG ER : 1950 PHYSICIAN: LON LAUREANO MD ADMIT DATE: 05/20/23/ER FS Draft Date of Exam:05/20/23 FOOT 3 VIEW LEFT INDICATION: Fever, questioned osteomyelitis. EXAMINATION: Left foot on 05/20/2023. COMPARISON: 05/02/2023. FINDINGS: There are post-amputation changes at the base of the 1st metatarsal. Overlying soft tissue irregularity is likely post operative. A few densities in the residual soft tissues are likely small residual osseous fragments. There is no destructive change within the residual osseous structures. No fractures or dislocations. Diffuse soft tissue prominence is noted. IMPRESSION: Post amputation changes as noted. If there is concern for osteomyelitis, an MRI would be recommended. Dictated on workstation # [id number] Dict: 05/20/23 1011 Trans: 05/20/23 1025 [id number] Interpreted by: MALLY GOFF MD Electronically signed by: Departure Impression Primary Impression: COVID-19 Additional Impression: Respiratory failure Qualified Codes: J96.01 - Acute respiratory failure with hypoxia Disposition: 30 STILL A PATIENT Condition: Stable Admissions Decision to Admit Reason: Admit from ER (General) Decision to Admit/Date: May 20, 2023 Time/Decision to Admit Time: 10:45 Departure-Patient Inst. Referrals: ARTI MAO MD (PCP/Family) Primary Care Physician LON LAUREANO MD May 20, 2023 09:41
[2023-05-20] MEDS ORDERED: CEFEPIME INJECTION 1,000 MG in NS (IVPB) 50 ML 50 ML IV ONE (09:45)
[2023-05-20] MEDS ORDERED: NS IV 1000 ML 1,000 ML IV STA (09:51)
[2023-05-20 09:56] LABS: BASOPHILS % (AUTO) 0 % (0-10); EOSINOPHILS % (AUTO) 0 % (0-10); HEMATOCRIT 32 % (35-52); LYMPHOCYTES # (AUTO) 2.1 10^3/uL (1.0-4.0); LYMPHOCYTES % (AUTO) 38 % (12-44); MEAN CORPUSCULAR HEMOGLOBIN 31 pg (25-34); MEAN CORPUSCULAR HGB CONC 31 g/dL (32-36); MEAN CORPUSCULAR VOLUME 98 fL (80-99); MEAN PLATELET VOLUME 9.8 fL (9.0-12.2); MONOCYTES # (AUTO) 0.4 10^3/uL (0.0-1.0); MONOCYTES % (AUTO) 7 % (0-12); NEUTROPHILS % (AUTO) 54 % (42-75); PLATELET COUNT 374 10^3/uL (130-400); WHITE BLOOD COUNT 5.6 10^3/uL (4.3-11.0)
[2023-05-20 10:22] LABS: BILIRUBIN,TOTAL 0.5 MG/DL (0.1-1.0); CREATININE SERUM 1.33 MG/DL (0.60-1.30); POTASSIUM 4.2 MMOL/L (3.6-5.0); PROTHROMBIN TIME PATIENT 14.1 SEC (12.2-14.7)
[2023-05-20 10:23] LABS: ALBUMIN 3.2 GM/DL (3.2-4.5); TOTAL PROTEIN 6.6 GM/DL (6.4-8.2)
--- NOTE | 2023-05-20 10:24 | Diagnostic Imaging Report ---
INDICATION: Fever. TIME OF EXAM: 9:43 AM. COMPARISON: Correlation is made with the prior chest of 05/02/2023. FINDINGS: The heart is enlarged. There appear to be bibasilar infiltrates or atelectasis. No effusion or pneumothorax is identified. IMPRESSION: Cardiomegaly with bibasilar infiltrates or atelectasis. Dictated by: Dictated on workstation # [id number]
--- NOTE | 2023-05-20 10:26 | Diagnostic Imaging Report ---
INDICATION: Fever, questioned osteomyelitis. EXAMINATION: Left foot on 05/20/2023. COMPARISON: 05/02/2023. FINDINGS: There are post-amputation changes at the base of the 1st metatarsal. Overlying soft tissue irregularity is likely post operative. A few densities in the residual soft tissues are likely small residual osseous fragments. There is no destructive change within the residual osseous structures. No fractures or dislocations. Diffuse soft tissue prominence is noted. IMPRESSION: Post amputation changes as noted. If there is concern for osteomyelitis, an MRI would be recommended. Dictated by: Dictated on workstation # [id number]
[2023-05-20 10:29] LABS: BILIRUBIN,URINE NEGATIVE (NEGATIVE); CLARITY,URINE CLEAR; COLOR,URINE YELLOW; GLUCOSE, URINE (UA) NEGATIVE (NEGATIVE); KETONES,URINE NEGATIVE (NEGATIVE); LEUKOCYTE ESTERASE ,URINE NEGATIVE (NEGATIVE); NITRITE,URINE NEGATIVE (NEGATIVE); PROTEIN,URINE NEGATIVE (NEGATIVE)
[2023-05-20 10:35] LABS: BACTERIA,URINE NEGATIVE /HPF
[2023-05-20] MEDS ORDERED: dexAMETHasone INJ 10 MG/ML 1 ML VIAL IV ONE (10:45)
[2023-05-20 11:02] LABS: ERYTHROCYTE SEDIMENTATION RATE 88 MM/HR (0-30)
[2023-05-20 11:32] LABS: ALLENS TEST OK; INSPIRED O2 2L; PATIENT TEMP 99; VENTILATOR NO
[2023-05-20 11:33] LABS: ABG BASE EXCESS 4.4 MMOL/L (-2.5-2.5); ABG OXYGEN SATURATION 96 % (94-100); ABG PCO2 39 MMHG (35-45); ABG PH 7.47 (7.37-7.43); ABG PO2 75 MMHG (79-93); ABG TCO2 29.6 MMOL/L (21.0-31.0)
--- NOTE | 2023-05-20 12:51 | History & Physical-Hospitalist ---
History of Present Illness HPI/Chief Complaint CC: COVID induced acute respiratory failure HPI: This is a 73yoWF clinic patient of [facility] who resides [place] and is low vision who is known to us due to recent severe sepsis from UTI and foot cellulitis maintained on woundvac recently after recent DC from hospital who presented to the ER in [facility] with AMS and found to have hypoxia from COVID. Currently she is hungry and will be placed on protocol COVID meds. Source: patient, RN/MD Exam Limitations: clinical condition Date Seen 05/20/23 Time Seen by a Provider: 13:00 Attending Physician Timi Issa MD PCP Admitting Physician: Ana Sanders DO Attending Physician: Ana Sanders DO Referring Physician Date of Admission May 20, 2023 at 12:30 Home Medications & Allergies Home Medications Reviewed patient Home Medication Reconciliation performed by pharmacy medication reconciliations management technician and/or nursing. Patients Allergies have been reviewed. Allergies Allergies Coded Allergies Tetracyclines (Verified Allergy, Unknown, 05/20/23) Past Ouxmjiu-Ndxsxa-Nunxhi Hx Patient Social History Marrital Status: single Employed/Student: unemployed Tobacco Use?: No Smoking Status: Unknown if Ever Smoked Use of E-Cig and/or Vaping dev: No Substance use?: No Alcohol Use?: No Pt feels they are or have been: No Immunizations Up To Date First/Initial COVID19 Vaccinat: Unknown status Second COVID19 Vaccination Aureliano: Unknown status Tetanus Booster (TDap): Unknown Hepatitis A: No Hepatitis B: No Current Status Advance Directives: No Primary Language: Djib[place]ian Preferred Spoken Language: [place]iboutian Past Medical History Surgeries: Amputation, Eye Surgery, Vascular Surgery Currently Using CPAP: No Currently Using BIPAP: No High Cholesterol, Hypertension, Irregular Heartbeat Brain Tumor, Dementia, Neuropathy Esophagitis Diabetes, Insulin dep Cataract Loss of Vision: Bilateral Brain Bipolar PMHx: (unable to obtain from patient, obtained from outpatient clinic notes) Meningioma Hydrocephalus Blind HTN HLD Chronic pain Mixed stress and urge incontinence Fecal incontinence Esophagitis DMII CKD Bipolar disorder Epilepsy Peripheral neuropathy Dementia Atrial flutter Peripheral arterial disease SurgHx: Cataract Left leg vascular procedure Left great toe amputation Family Medical History No Pertinent Family Hx, Heart Disease Review of Systems ROS-Unable to Obtain: lethargy Constitutional: see HPI Physical Exam Physical Exam Vital Signs Vital Signs - First Documented 05/20/23 05/20/23 09:32 11:53 Temp 37.2 Pulse 96 Resp 18 B/P (MAP) 128/59 (82) Pulse Ox 93 O2 Delivery Room Air O2 Flow Rate 2.00 Capillary Refill : Less Than 3 Seconds Height, Weight, BMI Height: '" Weight: lbs. oz. kg; 31.28 BMI Method: General Appearance: No Apparent Distress, WD/WN, Chronically ill Respiratory: No Accessory Muscle Use, No Respiratory Distress, Decreased Breath Sounds Cardiovascular: Regular Rate, Rhythm Neurologic/Psychiatric: Alert, Oriented x3, Depressed Affect, Disoriented Results Results/Procedures Labs Laboratory Tests 05/20/23 09:39 Patient resulted labs reviewed. Assessment/Plan Admission Diagnosis Assessment: COVID induced acute respiratory failure Low vision Recent UTI with sepsis but no evidence of infection of urine today Hypoxia Debilitated Plan: IV abx IV decadron IVF gentle Admission Status: Inpatient Order (span 2 midnights) Reason for Inpatient Admission: COVID induced resp failure ANA SANDERS DO May 20, 2023 12:51
[2023-05-20] MEDS ORDERED: MELATONIN 3 MG TABLET PO PRN (13:00)
[2023-05-20] MEDS ORDERED: ANTACID SUSPENSION 30 ML UDC PO PRN (13:00)
[2023-05-20] MEDS ORDERED: guaiFENesin SYRUP 100 MG/5 ML 10 ML PO PRN (13:00)
[2023-05-20] MEDS ORDERED: HYDROmorphone INJECTION 2 MG/ML VIAL IV PRN (13:00)
[2023-05-20] MEDS ORDERED: diphenhydrAMINE INJ 50 MG/ML VIAL IVP PRN (13:00)
[2023-05-20] MEDS ORDERED: LACTULOSE SYRUP 10GM/15ML 30ML UDC PO PRN (13:00)
[2023-05-20] MEDS ORDERED: oxyCODONE IMMEDIATE RELEASE 5 MG TABLET PO PRN (13:00)
[2023-05-20] MEDS ORDERED: ONDANSETRON 4 MG ORAL DISSOLVE TABLET PO PRN (13:00)
[2023-05-20] MEDS ORDERED: AZITHROMYCIN INJECTION 500 MG in NS (IVPB) 250 ML 250 ML IV SCH (13:00)
[2023-05-20] MEDS ORDERED: diphenhydrAMINE 25 MG TABLET PO PRN (13:00)
[2023-05-20] MEDS ORDERED: ONDANSETRON INJECTION 4 MG/2 ML (SDV) IV PRN (13:00)
[2023-05-20] MEDS ORDERED: BISACODYL 10 MG SUPPOSITORY PR PRN (13:00)
[2023-05-20] MEDS ORDERED: ACETAMINOPHEN 325 MG TABLET PO PRN (13:00)
[2023-05-20] MEDS: NS IV 1000 ML 1,000 ML IV SCH (13:22)
[2023-05-20] MEDS: ENOXAPARIN 40 MG/0.4 ML SYRINGE SC SCH (13:22)
[2023-05-20] MEDS ORDERED: RT-ALBUTEROL HFA 8.5 GM INHALER IH PRN (14:15)
[2023-05-20] MEDS: inSUlin ASPART 1 UNIT/0.01 ML (PER UNIT) SC SCH ×2 (16:32→20:14)
[2023-05-20] MEDS: DOCUSATE SODIUM 100 MG CAPSULE PO SCH (20:12)
[2023-05-21] VITALS (7 sets, daily range): BP systolic 95–135; BP diastolic 54–74
[2023-05-21] MEDS: NS IV 1000 ML 1,000 ML IV SCH ×3 (04:24→20:23)
[2023-05-21 05:23] LABS: BASOPHILS % (AUTO) 0 % (0-10); EOSINOPHILS % (AUTO) 0 % (0-10); HEMATOCRIT 31 % (35-52); HEMOGLOBIN 9.6 g/dL (11.5-16.0); LYMPHOCYTES # (AUTO) 1.3 10^3/uL (1.0-4.0); LYMPHOCYTES % (AUTO) 26 % (12-44); MEAN CORPUSCULAR HEMOGLOBIN 30 pg (25-34); MEAN CORPUSCULAR HGB CONC 31 g/dL (32-36); MEAN CORPUSCULAR VOLUME 97 fL (80-99); MEAN PLATELET VOLUME 9.9 fL (9.0-12.2); MONOCYTES # (AUTO) 0.4 10^3/uL (0.0-1.0); MONOCYTES % (AUTO) 9 % (0-12); NEUTROPHILS # (AUTO) 3.1 10^3/uL (1.8-7.8); NEUTROPHILS % (AUTO) 64 % (42-75); PLATELET COUNT 297 10^3/uL (130-400); WHITE BLOOD COUNT 4.8 10^3/uL (4.3-11.0)
[2023-05-21] MEDS: inSUlin ASPART 1 UNIT/0.01 ML (PER UNIT) SC SCH ×4 (05:45→20:42)
[2023-05-21 06:09] LABS: BILIRUBIN,TOTAL 0.3 MG/DL (0.1-1.0); CALCIUM 8.2 MG/DL (8.5-10.1); CREATININE SERUM 1.04 MG/DL (0.60-1.30); POTASSIUM 3.8 MMOL/L (3.6-5.0); TOTAL PROTEIN 6.2 GM/DL (6.4-8.2)
[2023-05-21] MEDS: DOCUSATE SODIUM 100 MG CAPSULE PO SCH ×2 (08:42→20:23)
[2023-05-21] MEDS ORDERED: dexAMETHasone INJ 10 MG/ML 1 ML VIAL IV SCH (09:00)
--- NOTE | 2023-05-21 09:46 | Progress Note - Hospitalist ---
PAULASMILEY 05/21/2346: Subjective HPI/CC On Admission Date Seen by Provider: May 21, 2023 Time Seen by Provider: 08:45 CC: COVID induced acute respiratory failure HPI: This is a 73yoWF clinic patient of [facility] who resides at [place] and is low vision who is known to us due to recent severe sepsis from UTI and foot cellulitis maintained on woundvac recently after recent DC from hospital who presented to the ER in [facility] with AMS and found to have hypoxia from COVID. Currently she is hungry and will be placed on protocol COVID meds. Patient is also constipated, not being able to recall her last bowel movement. Subjective/Events-last exam 05/21/2023: Tara is a 73 y/o female that is in hospital due to continued COVID induced acute respiratory failure. Tara states that she is breathing well, denies any SOB, and is feeling better. She is also constipated but denies wanting any medications for this. She cannot recall the last time that she had a BM. Tara has acute cellulitis in L-foot on the distal dorsal aspect. There is a wound-vac in place for this along with ABX. She denies any pain in her foot. Nurse is going to consult the wound nurse today about how to proceed. Focused Exam Lactate Level 05/20/23 09:38: Lactic Acid Level 2.95*H 05/20/23 11:37: Lactic Acid Level 1.28 Respiratory: No Accessory Muscle Use, No Respiratory Distress; Wheezing Cardiovascular: Bradycardia; No Diastolic Murmur, No Systolic Murmur, No Irregularly Irregular Capillary Refill: Less Than 3 Seconds Skin: normal color; No diaphoresis, No jaundice Within 3hrs of presentation: Admin ABX, Blood cultures prior to ABX's, Focus exam, Lactate level Objective Exam Vital Signs Vital Signs Date Time Temp Pulse Resp B/P (MAP) Pulse Ox O2 Delivery O2 Flow Rate FiO2 05/21/23 08:00 97 Nasal Cannula 2.00 05/21/23 08:00 36.0 64 16 123/60 (81) Capillary Refill : Less Than 3 Seconds General Appearance: No Apparent Distress HEENT: No Pale Conjunctivae (L), No Pale Conjunctivae (R) Neck: No JVD Respiratory: No Accessory Muscle Use, No Stridor; Wheezing Cardiovascular: Bradycardia; No Diastolic Murmur, No Systolic Murmur, No Irregularly Irregular, No Tachycardia Gastrointestinal: Mass (LLQ fullness) Extremity: Swelling, Other (Wound-vac on dorsal aspect of L-foot) Neurologic/Psychiatric: Alert, Oriented x3, Sensory Deficit (blind) Results/Procedures Lab Laboratory Tests 05/21/23 04:40 Patient resulted labs reviewed. ABG: reviewed elevated pH, decreased O2, and elevated bicarb. Lactic acid reviewed Imaging: Reviewed Imaging Films Assessment/Plan Assessment and Plan Assess & Plan/Chief Complaint 05/21/2023: Assessment: * COVID-19 with acute respiratory failure * Cystitis * Constipation * L-Foot Cellulitis/Wound-Vac * DVT Prophylaxis Plan: For respiratory concerns, continue to support oxygenation with supplemental O2 via nasal cannula. Patient currently using 2L, this can be elevated if O2 saturation changes or if patient notes any respiratory distress. Continue decadron for COVID-19 and to reduce chance of respiratory decompensation. For cystitis, continue of cefepime and azithromycin while culture is pending. If culture comes back and reveals lack of coverage, modulate ABX to cover etiology of infection. Monitor for any changes in mental status, fever, or complaints of pain from patient. For foot concerns, continue ABX for cellulitis and using the wound-vac. 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 Diagnosis/Problems Diagnosis/Problems (1) COVID-19 Onset Date: ~ 05/20/2023 Status: Acute Assessment & Plan: Continue oxygen supplementation with 2L of 100% O2 via nasal cannula Continue dexamethasone (2) Respiratory failure Status: Acute Assessment & Plan: continue treating for covid and monitor for signs of respiratory distress and elevate care if necessary. Qualifiers: (3) Constipation Status: Acute Assessment & Plan: Patient denies wanting any treatment despite noting how constipation is abnormal for her. Qualifiers: Qualified Codes: K59.01 - Slow transit constipation (4) Cystitis Onset Date: ~ 05/20/2023 Status: Acute Assessment & Plan: Continue ABX and modify treatment plan if urine culture supports different ABX choice (5) Left foot amputee Status: Chronic (6) Diabetic foot ulcer Status: Acute Assessment & Plan: Continue ABX Qualifiers: Qualified Codes: E11.621 - Type 2 diabetes mellitus with foot ulcer; L97.428 - Non-pressure chronic ulcer of left heel and midfoot with other specified severity (7) Diabetes Status: Chronic Assessment & Plan: Continue Insulin Aspart as directed (8) DVT prophylaxis Status: Acute Assessment & Plan: Continue enoxaparin due to limited ambulation and risk (9) halfway resident Status: Chronic Clinical Quality Measures Admission Status Admission Status: Inpatient Order (span 2 midnights) Reason for Inpatient Admission: COVID infection along with need for continued oxygen support due to comorbidities. ABX treatment for cystitis/foot ulcer DVT/VTE Prophylaxis Comfirm.Dx Mechanical not ordered: Pharmacological PPX Sepsis: Within 3hrs of presentation: Admin fluids, Admin ABX, Blood cultures prior to ABX's, Focus exam, Lactate level Pneumonia: HCAP with risk for mulit-drug: [facility] Resident ANA RUSSELL DO 05/21/232113: Subjective Subjective/Events-last exam Patient doing a little better Eating and drinking well Wound VAC changed per wound care team Review of Systems General: Fatigue, Malaise Objective Exam General Appearance: No Apparent Distress, WD/WN, Chronically ill Respiratory: Lungs Clear, Normal Breath Sounds Cardiovascular: Regular Rate, Rhythm Neurologic/Psychiatric: Alert, Oriented x3 Assessment/Plan Assessment and Plan Assess & Plan/Chief Complaint Acute hypoxic respiratory failure due to COVID Moved down to fourth floor Supervisory-Addendum Brief Verification & Attestation Participated in pt care: history, MDM, physical Personally performed: exam, history, MDM, supervision of care Care discussed with: Medical Student Procedures: n/a Results interpretation: Verified all documentation Verification and Attestation of Medical Student E/M Service A medical student performed and documented this service in my presence. I reviewed and verified all information documented by the medical student and made modifications to such information, when appropriate. I personally performed the physical exam and medical decision making. Ana Russell May 21, 2023,21:14 SMILEY MITCHELL May 21, 2023 09:46 ANA RUSSELL DO May 21, 2023 21:14
[2023-05-21] MEDS: CEFEPIME INJECTION 2,000 MG in NS (IVPB) 50 ML 50 ML IV SCH (10:37)
[2023-05-21] MEDS ORDERED: HYPOCHLOROUS ACID/NaCl WOUND SOLN 250 ML IR SCH (11:15)
--- NOTE | 2023-05-21 11:30 | Wound Care Assessment ---
Wound Care Assessment Date Seen by Provider: May 21, 2023 Time Seen by Provider: 11:23 Chief Complaint Surgical wound HPI This 73 year old returns to our facility with COVID-19 infection. On last admit she underwent L. 1 ray amputation for L. 1 MT osteomyelitis and abscess. She was discharged home on wound vac therapy. 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 She appears to be tolerating her wound vac well. She is due for a dressing change today. Measurements appear slightly improved from last discharge. We will continue with wound vac during her stay again. Past Medical History: Admits Diabetes Type II, Admits Peripheral Artery Disease Smoking Status: Unknown if Ever Smoked Recreational Drug Use: No Alcohol Use: Denies Use Review of Systems Other systems Limited ROS due to mental status Exam Vital Signs Date Time Temp Pulse Resp B/P (MAP) Pulse Ox O2 Delivery O2 Flow Rate FiO2 05/21/23 08:00 97 Nasal Cannula 2.00 05/21/23 08:00 36.0 64 16 123/60 (81) Capillary Refill : Less Than 3 Seconds General Appearance: obese HEENT: other (Blind) Neck: full range of motion Respiratory: no respiratory distress, no accessory muscle use Extremities: no pedal edema Neurologic/Psychiatric: alert, normal mood/affect Skin: normal color, warm/dry Wound Assessment: 1. L. 1 MTH surgical wound: 6x2x2.5cm. The epithelialization is none. There is no tunneling or undermining. Drainage is large and serosanguinous. Granulation is medium and pink. Necrotic is medium and slough. Margins flat. Bone is exposed. Results Laboratory Tests 05/20/23 11:30: Blood Gas Puncture Site RT WRIST, Blood Gas Patient Temperature 99, Arterial Blood pH 7.47H, Arterial Blood Partial Pressure CO2 39, Arterial Blood Partial Pressure O2 75L, Arterial Blood HCO3 28H, Arterial Blood Total CO2 29.6, Arterial Blood Oxygen Saturation 96, Arterial Blood Base Excess 4.4H, Philip Test OK, Blood Gas Ventilator Setting NO, Blood Gas Inspired Oxygen 2L 05/20/23 11:37: Lactic Acid Level 1.28 05/20/23 16:28: Glucometer 269H 05/20/23 20:09: Glucometer 338H 05/21/23 04:40: White Blood Count 4.8, Red Blood Count 3.20L, Hemoglobin 9.6L, Hematocrit 31L, Mean Corpuscular Volume 97, Mean Corpuscular Hemoglobin 30, Mean Corpuscular Hemoglobin Concent 31L, Red Cell Distribution Width 15.5H, Platelet Count 297, Mean Platelet Volume 9.9, Immature Granulocyte % (Auto) 0, Neutrophils (%) (Auto) 64, Lymphocytes (%) (Auto) 26, Monocytes (%) (Auto) 9, Eosinophils (%) (Auto) 0, Basophils (%) (Auto) 0, Neutrophils # (Auto) 3.1, Lymphocytes # (Auto) 1.3, Monocytes # (Auto) 0.4, Eosinophils # (Auto) 0.0, Basophils # (Auto) 0.0, Immature Granulocyte # (Auto) 0.0, Sodium Level 140, Potassium Level 3.8, Chloride Level 109H, Carbon Dioxide Level 21, Anion Gap 10, Blood Urea Nitrogen 15, Creatinine 1.04, Estimat Glomerular Filtration Rate 57, BUN/Creatinine Ratio 14, Glucose Level 162H, Calcium Level 8.2L, Corrected Calcium 9.0, Total Bilirubin 0.3, Aspartate Amino Transf (AST/SGOT) 32, Alanine Aminotransferase (ALT/SGPT) 31, Alkaline Phosphatase 61, Total Protein 6.2L, Albumin 3.0L 05/21/23 05:45: Glucometer 150H 05/21/23 10:35: Glucometer 176H Microbiology 05/20/23 Gram Stain, Resulted Pending 05/20/23 Sputum Culture - Preliminary, Resulted Usual upper respiratory becca 05/20/23 Urine Culture - Preliminary, Resulted NO GROWTH Microbiology 05/20/23 Gram Stain, Resulted Pending 05/20/23 Sputum Culture - Preliminary, Resulted Usual upper respiratory becca 05/20/23 Urine Culture - Preliminary, Resulted NO GROWTH Assessment/Plan/Dx Assessment: 1. Surgical wound 2. Recent WG3 DFU L. 1 MTH/toe 3. DM2 4. Obesity 5. PAD 6. Anemia 7. PEM 8. Intellectual disability 9. COVID 19 infection Plan: 1. Cleanse with Vashe. Wound vac with white foam to base. 2. Defer to primary team. Discharged home on Levaquin 3. Good glycemic control is warranted for wound healing 4. Defer to primary 5. Defer to primary 6. Defer to primary 7. Defer to primary 8. Defer to primary 9. Defer to primary MORENO ROSENTHAL MD May 21, 2023 11:30
[2023-05-21] MEDS: AZITHROMYCIN 250 MG TABLET PO SCH (12:48)
[2023-05-21] MEDS: ENOXAPARIN 40 MG/0.4 ML SYRINGE SC SCH ×2 (12:48→12:49)
[2023-05-22 00:11] VITALS: BP 122/76
[2023-05-22 03:49] VITALS: BP 132/61
[2023-05-22] MEDS: inSUlin ASPART 1 UNIT/0.01 ML (PER UNIT) SC SCH ×2 (05:23→10:58)
[2023-05-22 08:19] LABS: BASOPHILS % (AUTO) 0 % (0-10); EOSINOPHILS % (AUTO) 0 % (0-10); HEMATOCRIT 31 % (35-52); HEMOGLOBIN 9.9 g/dL (11.5-16.0); LYMPHOCYTES # (AUTO) 2.2 10^3/uL (1.0-4.0); LYMPHOCYTES % (AUTO) 33 % (12-44); MEAN CORPUSCULAR HEMOGLOBIN 30 pg (25-34); MEAN CORPUSCULAR HGB CONC 32 g/dL (32-36); MEAN CORPUSCULAR VOLUME 95 fL (80-99); MEAN PLATELET VOLUME 9.4 fL (9.0-12.2); MONOCYTES # (AUTO) 0.5 10^3/uL (0.0-1.0); MONOCYTES % (AUTO) 7 % (0-12); NEUTROPHILS # (AUTO) 3.9 10^3/uL (1.8-7.8); NEUTROPHILS % (AUTO) 59 % (42-75); PLATELET COUNT 360 10^3/uL (130-400); WHITE BLOOD COUNT 6.7 10^3/uL (4.3-11.0)
[2023-05-22 08:30] VITALS: BP 144/70
[2023-05-22 08:41] LABS: BILIRUBIN,TOTAL 0.4 MG/DL (0.1-1.0); CALCIUM 8.3 MG/DL (8.5-10.1); CREATININE SERUM 0.92 MG/DL (0.60-1.30); POTASSIUM 3.9 MMOL/L (3.6-5.0)
[2023-05-22] MEDS: DOCUSATE SODIUM 100 MG CAPSULE PO SCH ×2 (08:48→20:45)
[2023-05-22] MEDS: dexAMETHasone 6 MG TABLET PO SCH (08:50)
[2023-05-22] MEDS ORDERED: LEVO750T PO (10:12)
[2023-05-22] MEDS: CEFEPIME INJECTION 2,000 MG in NS (IVPB) 50 ML 50 ML IV SCH (10:55)
[2023-05-22 12:30] VITALS: BP 123/106
[2023-05-22] MEDS: AZITHROMYCIN 250 MG TABLET PO SCH (12:54)
[2023-05-22] MEDS: ENOXAPARIN 40 MG/0.4 ML SYRINGE SC SCH (12:55)
[2023-05-22] MEDS ORDERED: PSYLLIUM POWDER PACKET PO PRN (13:15)
[2023-05-22] MEDS ORDERED: ACETAMINOPHEN 500 MG TABLET PO PRN (13:15)
[2023-05-22] MEDS ORDERED: LOPERAMIDE 2 MG CAPSULE PO PRN (13:15)
[2023-05-22] MEDS ORDERED: diphenhydrAMINE 25 MG TABLET PO PRN (13:15)
[2023-05-22] MEDS ORDERED: MILK OF MAGNESIA 400 MG/5 ML 30 ML UDC PO PRN (13:15)
[2023-05-22] MEDS ORDERED: CALCIUM CARBONATE PO PRN (13:15)
[2023-05-22] MEDS ORDERED: guaiFENesin SYRUP 100 MG/5 ML 10 ML PO PRN (13:15)
[2023-05-22] MEDS ORDERED: FAMOTIDINE 20 MG TABLET PO PRN (13:15)
[2023-05-22] MEDS ORDERED: NON-FORMULARY MEDICATION 1 EA EA (Guaifenesin 400 MG) PO PRN (13:15)
[2023-05-22] MEDS ORDERED: BENZONATATE 100 MG CAPSULE PO PRN (13:15)
[2023-05-22] MEDS ORDERED: ALPRAZolam 0.25 MG TABLET PO PRN (13:15)
[2023-05-22] MEDS ORDERED: CALCIUM CARBONATE 500 MG CHEW TABLET PO PRN (13:30)
[2023-05-22] MEDS: LevETIRAcetam 500 MG TABLET PO SCH (16:54)
[2023-05-22] MEDS: GABAPENTIN 300 MG CAPSULE PO SCH (16:54)
[2023-05-22] MEDS ORDERED: NON-FORMULARY MEDICATION 1 EA EA (Levetiracetam 750 MG) PO SCH (17:00)
[2023-05-22] MEDS: MEMANTINE 5 MG TABLET PO SCH (20:45)
[2023-05-22] MEDS: traZODone 150 MG (DESYREL) TABLET PO SCH (20:45)
[2023-05-22 20:48] VITALS: BP 148/65
[2023-05-23] VITALS (7 sets, daily range): BP systolic 130–150; BP diastolic 60–67
[2023-05-23] MEDS: THERAPEUTIC MULTIVITAMIN W/MINERALS TABLET PO SCH (06:12)
[2023-05-23 08:16] LABS: BASOPHILS % (AUTO) 0 % (0-10); EOSINOPHILS % (AUTO) 0 % (0-10); HEMATOCRIT 31 % (35-52); HEMOGLOBIN 9.5 g/dL (11.5-16.0); LYMPHOCYTES # (AUTO) 2.2 10^3/uL (1.0-4.0); LYMPHOCYTES % (AUTO) 38 % (12-44); MEAN CORPUSCULAR HEMOGLOBIN 30 pg (25-34); MEAN CORPUSCULAR HGB CONC 31 g/dL (32-36); MEAN CORPUSCULAR VOLUME 97 fL (80-99); MEAN PLATELET VOLUME 9.4 fL (9.0-12.2); MONOCYTES # (AUTO) 0.5 10^3/uL (0.0-1.0); MONOCYTES % (AUTO) 8 % (0-12); NEUTROPHILS # (AUTO) 3.1 10^3/uL (1.8-7.8); NEUTROPHILS % (AUTO) 53 % (42-75); PLATELET COUNT 354 10^3/uL (130-400); WHITE BLOOD COUNT 5.8 10^3/uL (4.3-11.0)
[2023-05-23 08:26] LABS: ALBUMIN 2.9 GM/DL (3.2-4.5); POTASSIUM 3.5 MMOL/L (3.6-5.0)
[2023-05-23] MEDS: FUROSEMIDE 20 MG TABLET PO SCH (08:27)
[2023-05-23] MEDS: CALCIUM CARBONATE 600 MG +VITAMIN D TABLET PO SCH (08:27)
[2023-05-23] MEDS: DOCUSATE SODIUM 100 MG CAPSULE PO SCH ×2 (08:27→21:04)
[2023-05-23] MEDS: dexAMETHasone 6 MG TABLET PO SCH (08:27)
[2023-05-23] MEDS: CLOPIDOGREL 75 MG TABLET PO SCH (08:27)
[2023-05-23] MEDS: MEMANTINE 5 MG TABLET PO SCH ×2 (08:27→21:04)
[2023-05-23] MEDS: GABAPENTIN 300 MG CAPSULE PO SCH ×3 (08:27→17:23)
[2023-05-23] MEDS: CITALOPRAM 20 MG TABLET PO SCH (08:27)
[2023-05-23] MEDS: LevETIRAcetam 500 MG TABLET PO SCH ×2 (08:27→17:24)
[2023-05-23] MEDS: ASPIRIN enteric coated 81MG TABLET PO SCH (08:27)
[2023-05-23 08:28] LABS: CALCIUM 8.3 MG/DL (8.5-10.1)
[2023-05-23 08:29] LABS: TOTAL PROTEIN 5.6 GM/DL (6.4-8.2)
[2023-05-23 08:31] LABS: BILIRUBIN,TOTAL 0.5 MG/DL (0.1-1.0)
[2023-05-23 08:32] LABS: CREATININE SERUM 0.88 MG/DL (0.60-1.30)
[2023-05-23] MEDS ORDERED: NON-FORMULARY MEDICATION 1 EA EA (Calcium Carbonate/Vitamin D3 (Calcium 600 + Vit D 400 So PO SCH (09:00)
[2023-05-23] MEDS ORDERED: NON-FORMULARY MEDICATION 1 EA EA (Vit A/Vit C/Vit E/Zinc/Copper (Preservision Areds Tablet PO SCH (09:00)
[2023-05-23] MEDS ORDERED: NON-FORMULARY MEDICATION 1 EA EA (Lutein 20 MG) PO SCH (09:00)
[2023-05-23] MEDS ORDERED: LevoFLOXacin 750 MG TABLET PO SCH (11:00)
--- NOTE | 2023-05-23 12:20 | Progress Note - Hospitalist ---
Subjective HPI/CC On Admission Date Seen by Provider: May 23, 2023 Time Seen by Provider: 12:00 CC: COVID induced acute respiratory failure HPI: This is a 73yoWF clinic patient of [facility] who resides at [place] and is low vision who is known to us due to recent severe sepsis from UTI and foot cellulitis maintained on woundvac recently after recent DC from hospital who presented to the ER in [place] with AMS and found to have hypoxia from COVID. Currently she is hungry and will be placed on protocol COVID meds. Patient is also constipated, not being able to recall her last bowel movement. Subjective/Events-last exam Patient doing about the same Assisted living can't take her back for a while Reviewed meds and labs Objective Exam Vital Signs Vital Signs Date Time Temp Pulse Resp B/P (MAP) Pulse Ox O2 Delivery O2 Flow Rate FiO2 05/24/23 04:17 67 18 155/65 (95) 94 Room Air 05/23/23 19:41 36.4 05/22/23 20:48 1.00 Capillary Refill : Less Than 3 Seconds General Appearance: No Apparent Distress, WD/WN, Chronically ill Respiratory: Lungs Clear, Normal Breath Sounds Cardiovascular: Regular Rate, Rhythm Neurologic/Psychiatric: Alert, Oriented x3 Results/Procedures Lab Laboratory Tests 05/23/23 08:00 Patient resulted labs reviewed. Imaging: Reviewed Imaging Films Assessment/Plan Assessment and Plan Assess & Plan/Chief Complaint Assessment: COVID infection Foot osteomyelitis Low vision Plan: Supportive care Antibiotics Clinical Quality Measures DVT/VTE Prophylaxis Comfirm.Dx Mechanical not ordered: Pharmacological PPX Pneumonia: HCAP with risk for mulit-drug: Penitentiary Resident JANIA RUSSELL DO May 23, 2023 12:20
[2023-05-23] MEDS: ENOXAPARIN 40 MG/0.4 ML SYRINGE SC SCH (14:04)
[2023-05-23] MEDS: traZODone 150 MG (DESYREL) TABLET PO SCH (21:04)
[2023-05-24] VITALS: BP 137/63
[2023-05-24 04:17] VITALS: BP 155/65
[2023-05-24 05:13] LABS: BASOPHILS % (AUTO) 0 % (0-10); EOSINOPHILS % (AUTO) 0 % (0-10); HEMATOCRIT 31 % (35-52); HEMOGLOBIN 9.8 g/dL (11.5-16.0); LYMPHOCYTES # (AUTO) 1.9 10^3/uL (1.0-4.0); LYMPHOCYTES % (AUTO) 36 % (12-44); MEAN CORPUSCULAR HEMOGLOBIN 30 pg (25-34); MEAN CORPUSCULAR HGB CONC 32 g/dL (32-36); MEAN CORPUSCULAR VOLUME 95 fL (80-99); MEAN PLATELET VOLUME 9.2 fL (9.0-12.2); MONOCYTES # (AUTO) 0.4 10^3/uL (0.0-1.0); MONOCYTES % (AUTO) 8 % (0-12); NEUTROPHILS % (AUTO) 56 % (42-75); PLATELET COUNT 330 10^3/uL (130-400); WHITE BLOOD COUNT 5.4 10^3/uL (4.3-11.0)
[2023-05-24 05:23] LABS: POTASSIUM 3.8 MMOL/L (3.6-5.0)
[2023-05-24 05:24] LABS: CALCIUM 8.4 MG/DL (8.5-10.1)
[2023-05-24 05:25] LABS: TOTAL PROTEIN 5.7 GM/DL (6.4-8.2)
[2023-05-24 05:27] LABS: BILIRUBIN,TOTAL 0.4 MG/DL (0.1-1.0)
[2023-05-24 05:29] LABS: CREATININE SERUM 0.92 MG/DL (0.60-1.30)
[2023-05-24] MEDS: THERAPEUTIC MULTIVITAMIN W/MINERALS TABLET PO SCH (05:53)
[2023-05-24 07:45] VITALS: BP 146/67
--- NOTE | 2023-05-24 08:01 | Progress Note - Hospitalist ---
Subjective HPI/CC On Admission Date Seen by Provider: May 24, 2023 Time Seen by Provider: 11:00 CC: COVID induced acute respiratory failure HPI: This is a 73yoWF clinic patient of [facility] who resides at [place] and is low vision who is known to us due to recent severe sepsis from UTI and foot cellulitis maintained on woundvac recently after recent DC from hospital who presented to the ER in [facility] with AMS and found to have hypoxia from COVID. Currently she is hungry and will be placed on protocol COVID meds. Patient is also constipated, not being able to recall her last bowel movement. Objective Exam Vital Signs Vital Signs Date Time Temp Pulse Resp B/P (MAP) Pulse Ox O2 Delivery O2 Flow Rate FiO2 05/24/23 08:00 Room Air 05/24/23 07:45 36.9 64 17 146/67 (93) 93 05/22/23 20:48 1.00 Capillary Refill : Less Than 3 Seconds Results/Procedures Lab Laboratory Tests 05/24/23 04:52 Patient resulted labs reviewed. Imaging: Reviewed Imaging Films Assessment/Plan Assessment and Plan Assess & Plan/Chief Complaint Assessment: COVID infection Foot osteomyelitis Low vision Plan: Supportive care Antibiotics Clinical Quality Measures DVT/VTE Prophylaxis Comfirm.Dx Mechanical not ordered: Pharmacological PPX Pneumonia: HCAP with risk for mulit-drug: Detention Resident JANIA RUSSELL DO May 24, 2023 08:01
--- NOTE | 2023-05-24 08:06 | Physician Query-Final Dx ---
HALLIE JIM 05/24/23 0806: Final Diagnosis Give Final Diagnosis Please give Final Diagnosis The medical record reflects the following clinical evidence: Clinical Indicators: Admission VS/Labs: HR 96, RR 18, BP 128/59, SpO2 93% sat on room air, T 37.2, WBC 5.6, lactic acid 2.95 then 1.28 COVID-19 positive, "Acute Respiratory failure" Risk Factor(s): Covid 19, Recent Hospitalization for Sepsis due to UTI, DM with Wounds with Osteomylitis Treatment: ER/Day of admission: Cefepime IV, Dexamethasone IV, Azithromycin IV, Normal saline 2 L Sepsis, unspecified organism, present on admission Other explanation of clinical findings Unable to determine (no explanation for clinical findings) Please clarify and document your clinical opinion in the progress notes and discharge summary including the definitive and/or presumptive diagnosis, (suspected or probable), related to the above clinical findings. Please include clinical findings supporting your diagnosis. Hallie Jim, MSN, RN [employer] [phone] JANIA RUSSELL DO 05/24/23 0949: Final Diagnosis Give Final Diagnosis sepsis HALLIE JIM May 24, 2023 08:06 JANIA RUSSELL DO May 24, 2023 09:49
[2023-05-24] MEDS: CALCIUM CARBONATE 600 MG +VITAMIN D TABLET PO SCH (09:39)
[2023-05-24] MEDS: FUROSEMIDE 20 MG TABLET PO SCH (09:39)
[2023-05-24] MEDS: MEMANTINE 5 MG TABLET PO SCH (09:40)
[2023-05-24] MEDS: dexAMETHasone 6 MG TABLET PO SCH (09:40)
[2023-05-24] MEDS: LevETIRAcetam 500 MG TABLET PO SCH (09:40)
[2023-05-24] MEDS: ASPIRIN enteric coated 81MG TABLET PO SCH (09:40)
[2023-05-24] MEDS: GABAPENTIN 300 MG CAPSULE PO SCH (09:40)
[2023-05-24] MEDS: CLOPIDOGREL 75 MG TABLET PO SCH (09:40)
[2023-05-24] MEDS: CITALOPRAM 20 MG TABLET PO SCH (09:40)
[2023-05-24] MEDS: DOCUSATE SODIUM 100 MG CAPSULE PO SCH (09:40)
--- NOTE | 2023-05-24 09:46 | Discharge Summary ---
Discharge Summary Hospital Course Was the Problem List Reviewed?: Yes Problems/Dx: (1) COVID-19 Status: Acute (2) Respiratory failure Status: Acute Qualifiers: (3) Constipation Status: Acute Qualifiers: Qualified Codes: K59.01 - Slow transit constipation (4) Cystitis Status: Acute (5) Left foot amputee Status: Chronic (6) Diabetic foot ulcer Status: Acute Qualifiers: Qualified Codes: E11.621 - Type 2 diabetes mellitus with foot ulcer; L97.428 - Non-pressure chronic ulcer of left heel and midfoot with other specified severity (7) Diabetes Status: Chronic (8) DVT prophylaxis Status: Acute (9) detention resident Status: Chronic Hospital Course Date of Admission: May 20, 2023 at 12:30 Admission Diagnosis : Family Physician/Provider: Timi Issa MD Date of Discharge: 05/24/23 Discharge Diagnosis: [ ] Hospital Course: Patient had an uneventful hospital course for COVID infection causing acute hypoxic respiratory failure. She was maintained on antibiotics for wound osteomyelitis per wound care physician. Due to COVID and assisted living restrictions she was placed on swing bed to complete her COVID isolation. Labs and Pending Lab Test: Laboratory Tests 05/24/23 04:52: White Blood Count 5.4, Red Blood Count 3.24L, Hemoglobin 9.8L, Hematocrit 31L, Mean Corpuscular Volume 95, Mean Corpuscular Hemoglobin 30, Mean Corpuscular Hemoglobin Concent 32, Red Cell Distribution Width 15.9H, Platelet Count 330, Mean Platelet Volume 9.2, Immature Granulocyte % (Auto) 1, Neutrophils (%) (Auto) 56, Lymphocytes (%) (Auto) 36, Monocytes (%) (Auto) 8, Eosinophils (%) (Auto) 0, Basophils (%) (Auto) 0, Neutrophils # (Auto) 3.0, Lymphocytes # (Auto) 1.9, Monocytes # (Auto) 0.4, Eosinophils # (Auto) 0.0, Basophils # (Auto) 0.0, Immature Granulocyte # (Auto) 0.0, Sodium Level 139, Potassium Level 3.8, Chloride Level 109H, Carbon Dioxide Level 20L, Anion Gap 10, Blood Urea Nitrogen 16, Creatinine 0.92, Estimat Glomerular Filtration Rate 67, BUN/Creatinine Ratio 17, Glucose Level 114H, Calcium Level 8.4L, Corrected Calcium 9.2, Total Bilirubin 0.4, Aspartate Amino Transf (AST/SGOT) 21, Alanine Aminotransferase (ALT/SGPT) 32, Alkaline Phosphatase 61, Total Protein 5.7L, Albumin 3.0L Microbiology 05/20/23 Gram Stain - Final, Resulted 05/20/23 Sputum Culture - Preliminary, Resulted Usual upper respiratory becca 05/20/23 Urine Culture - Final, Complete NO GROWTH 05/20/23 Blood Culture - Preliminary, Resulted No growth Home Meds Active Reported Levofloxacin 750 Mg Tablet 750 Mg PO Q48H FILLED 05-14-2023 #03/29 DAY SUPPLY Aspirin EC (Aspirin) 81 Mg Tablet.dr 81 Mg PO DAILY Clopidogrel (Clopidogrel Bisulfate) 75 Mg Tablet 75 Mg PO DAILY Benadryl Allergy (Diphenhydramine HCl) 25 Mg Tablet 25 Mg PO Q6H PRN Benzonatate 100 Mg Capsule 100 Mg PO Q8H PRN ALPRAZolam 0.25 Mg Tablet 0.25-0.5 Mg PO Q8H PRN TAKES 1 TO 2 (0.25MG) TABS Tramadol HCl 50 Mg Tablet 50 Mg PO Q6H PRN Imodium A-D (Loperamide HCl) 2 Mg Capsule 2 Mg PO Q6H PRN Famotidine 20 Mg Tablet 20 Mg PO DAILY PRN Tylenol Extra Strength (Acetaminophen) 500 Mg Tablet 500 Mg PO Q4- 6H PRN Guaifenesin 100 Mg/5 Ml Liquid 5 Ml PO Q4H PRN Guaifenesin 400 Mg Tablet 400 Mg PO Q4H PRN Tums (Calcium Carbonate) 300 Mg Calcium (750 Mg) Tab.chew 2 Ea PO Q4H PRN Milk of Magnesia (Magnesium Hydroxide) 400 Mg/5 Ml Oral.susp 30 Ml PO DAILY PRN Metamucil Fiber Singles Packet (Psyllium Husk/Aspartame) 3.4 Gram Powd.pack 3.4 Gm PO DAILY PRN Memantine HCl 5 Mg Tablet 5 Mg PO BID Atorvastatin Calcium 40 Mg Tablet 40 Mg PO HS Lutein 20 Mg Tablet 20 Mg PO DAILY Furosemide 20 Mg Tablet 20 Mg PO DAILY Ezetimibe 10 Mg Tablet 10 Mg PO HS Citalopram HBr (Citalopram Hydrobromide) 20 Mg Tablet 20 Mg PO DAILY Calcium 600 + Vit D 400 Softgl (Calcium Carbonate/Vitamin D3) 600 Mg Calcium-10 Mcg (400 Unit) Capsule 1 Each PO DAILY Levetiracetam 750 Mg Tablet 750 Mg PO 0800,1700 Trazodone HCl 150 Mg Tablet 150 Mg PO HS Neurontin (Gabapentin) 300 Mg Capsule 300 Mg PO 0800,1200,1700 Preservision Areds Tablet (Vit A/Vit C/Vit E/Zinc/Copper) 2,148-113 Tablet 1 Each PO DAILY Assessment/Pt Instructions PCP in 1 week Discharge Planning: <30 minutes discharge planning Discharge Instructions Discharge Diet: No Restrictions Discharge Physical Examination Vital Signs Vital Signs Date Time Temp Pulse Resp B/P (MAP) Pulse Ox O2 Delivery O2 Flow Rate FiO2 05/24/23 08:00 Room Air 05/24/23 07:45 36.9 64 17 146/67 (93) 93 05/22/23 20:48 1.00 General Appearance: No Apparent Distress, WD/WN, Chronically ill Allergies: Coded Allergies: Tetracyclines (Verified Allergy, Unknown, 05/20/23) Discharge Summary Date of Admission May 20, 2023 at 12:30 Date of Discharge Discharge Date: May 24, 2023 Admission Diagnosis Assessment: COVID induced acute respiratory failure Low vision Recent UTI with sepsis but no evidence of infection of urine today Hypoxia Debilitated Plan: IV abx IV decadron IVF gentle Discharge Diagnosis Assessment: COVID infection Foot osteomyelitis Low vision Plan: Supportive care Antibiotics (1) COVID-19 Onset Date: ~ 05/20/2023 Status: Acute Assessment & Plan: Continue oxygen supplementation with 2L of 100% O2 via nasal cannula Continue dexamethasone (2) Respiratory failure Status: Acute Assessment & Plan: continue treating for covid and monitor for signs of respiratory distress and elevate care if necessary. Qualifiers: (3) Constipation Status: Acute Assessment & Plan: Patient denies wanting any treatment despite noting how constipation is abnormal for her. Qualifiers: Qualified Codes: K59.01 - Slow transit constipation (4) Cystitis Onset Date: ~ 05/20/2023 Status: Acute Assessment & Plan: Continue ABX and modify treatment plan if urine culture supports different ABX choice (5) Left foot amputee Status: Chronic (6) Diabetic foot ulcer Status: Acute Assessment & Plan: Continue ABX Qualifiers: Qualified Codes: E11.621 - Type 2 diabetes mellitus with foot ulcer; L97.428 - Non-pressure chronic ulcer of left heel and midfoot with other specified severity (7) Diabetes Status: Chronic Assessment & Plan: Continue Insulin Aspart as directed (8) DVT prophylaxis Status: Acute Assessment & Plan: Continue enoxaparin due to limited ambulation and risk (9) detention resident Status: Chronic Clinical Quality Measures DVT/VTE Prophylaxis Comfirm.Dx Mechanical not ordered: Pharmacological PPX Pneumonia: HCAP with risk for mulit-drug: [facility] Resident JANIA RUSSELL DO May 24, 2023 09:46
== END 2023-05-24 10:32 | disposition swing bed (61) | DRG 871 ==
LOC: EDUNIT# 09:28 → ER FS 09:29 → CSD 12:30 → 4TH 05-22 14:48
PROVIDERS: ADMIT Internal Medicine; ATTEND Internal Medicine
PROC: 8E0ZXY6 Isolation (ICD-10-PCS; principal; 2023-05-20)
DX: A41.89 Other specified sepsis (principal); J96.01 Acute respiratory failure with hypoxia; U07.1 COVID-19; N30.00 Acute cystitis without hematuria; L97.428 Non-pressure chronic ulcer of left heel and midfoot with other specified severity; M86.8X7 Other osteomyelitis, ankle and foot; E46 Unspecified protein-calorie malnutrition; K59.01 Slow transit constipation; E11.621 Type 2 diabetes mellitus with foot ulcer; H54.3 Unqualified visual loss, both eyes; R53.81 Other malaise; E11.69 Type 2 diabetes mellitus with other specified complication; E66.9 Obesity, unspecified; E11.51 Type 2 diabetes mellitus with diabetic peripheral angiopathy without gangrene; F79 Unspecified intellectual disabilities; Z79.82 Long term (current) use of aspirin; Z79.899 Other long term (current) drug therapy; E78.00 Pure hypercholesterolemia, unspecified; F03.90 Unspecified dementia, unspecified severity, without behavioral disturbance, psychotic disturbance, mood disturbance, and anxiety; E11.40 Type 2 diabetes mellitus with diabetic neuropathy, unspecified; N18.9 Chronic kidney disease, unspecified; E11.22 Type 2 diabetes mellitus with diabetic chronic kidney disease; I12.9 Hypertensive chronic kidney disease with stage 1 through stage 4 chronic kidney disease, or unspecified chronic kidney disease; F31.9 Bipolar disorder, unspecified; Z68.33 Body mass index [BMI] 33.0-33.9, adult; D63.1 Anemia in chronic kidney disease
CPT/HCPCS: 36410; 36415; 51702; 71045; 73630; 76937; 80053; 81000; 82805; 82947; 83605; 83880; 85025; 85610; 85652; 85730; 86141; 87040; 87070; 87088; 87205; 87636; 94760

== ENCOUNTER 2023-05-24 09:22 | Inpatient (IN) | payer MEDICARE, MEDICAID ==
[~2023-05-24] VITALS: Ht 149.9 cm; Wt 76.2 kg
[2023-05-24] MEDS ORDERED: LOPERAMIDE 2 MG CAPSULE PO PRN (10:45)
[2023-05-24] MEDS ORDERED: diphenhydrAMINE INJ 50 MG/ML VIAL IVP PRN (10:45)
[2023-05-24] MEDS ORDERED: oxyCODONE IMMEDIATE RELEASE 5 MG TABLET PO PRN (10:45)
[2023-05-24] MEDS ORDERED: CALCIUM CARBONATE 500 MG CHEW TABLET PO PRN (10:45)
[2023-05-24] MEDS ORDERED: PSYLLIUM POWDER PACKET PO PRN (10:45)
[2023-05-24] MEDS ORDERED: ACETAMINOPHEN 325 MG TABLET PO PRN (10:45)
[2023-05-24] MEDS ORDERED: diphenhydrAMINE 25 MG TABLET PO PRN ×2 (10:45→11:30)
[2023-05-24] MEDS ORDERED: FAMOTIDINE 20 MG TABLET PO PRN (10:45)
[2023-05-24] MEDS ORDERED: BISACODYL 10 MG SUPPOSITORY PR PRN (10:45)
[2023-05-24] MEDS ORDERED: LACTULOSE SYRUP 10GM/15ML 30ML UDC PO PRN (10:45)
[2023-05-24] MEDS ORDERED: ONDANSETRON INJECTION 4 MG/2 ML (SDV) IV PRN (10:45)
[2023-05-24] MEDS ORDERED: ACETAMINOPHEN 500 MG TABLET PO PRN (10:45)
[2023-05-24] MEDS ORDERED: ENOXAPARIN 40 MG/0.4 ML SYRINGE SC SCH (10:45)
[2023-05-24] MEDS ORDERED: MILK OF MAGNESIA 400 MG/5 ML 30 ML UDC PO PRN (10:45)
[2023-05-24] MEDS ORDERED: ONDANSETRON 4 MG ORAL DISSOLVE TABLET PO PRN (10:45)
[2023-05-24] MEDS ORDERED: HYDROmorphone INJECTION 2 MG/ML VIAL IV PRN (10:45)
[2023-05-24] MEDS ORDERED: guaiFENesin SYRUP 100 MG/5 ML 10 ML PO PRN (10:45)
[2023-05-24] MEDS ORDERED: ANTACID SUSPENSION 30 ML UDC PO PRN (10:45)
[2023-05-24] MEDS ORDERED: BENZONATATE 100 MG CAPSULE PO PRN (10:45)
--- OUTSIDE RECORDS SUMMARY | 2023-05-24 11:07 | XMS REPORT | Clinical Summary ---
Author Author [facility] Organization [facility] Address Unknown Phone Unavailable Care Team Providers Care Music Orchestrator Name Role Phone Timi Issa MD PCP Allergies Active Allergy Reactions Criticality Noted Date Comments Tetracyclines Rash Low 08/09/2021 Medications Medication Sig Dispensed Refills Start Date End Date Status acetaminophen (TYLENOL) 325 MG tablet Take 2 tablets (650 mg total) by mouth every 6 (six) hours as needed for pain. 0 08/16/2021 Active atorvastatin (LIPITOR) 40 MG tablet Take 1 tablet (40 mg total) by mouth nightly. 0 08/16/2021 Active citalopram (CELEXA) 10 mg tablet Take 2 tablets (20 mg total) by mouth daily. 0 08/16/2021 Active gabapentin (NEURONTIN) 300 MG capsule Take 1 capsule (300 mg total) by mouth 3 (three) times a day. 0 08/16/2021 Active losartan (COZAAR) 50 MG tablet Take 1 tablet (50 mg total) by mouth daily. 0 08/16/2021 Active trazodone (DESYREL) 100 MG tablet Take 1 tablet (100 mg total) by mouth nightly as needed for sleep. 0 08/16/2021 Active metformin (GLUCOPHAGE) 500 mg tablet Take 1 tablet (500 mg total) by mouth 2 (two) times a day with meals. 0 08/16/2021 Active levETIRAcetam (KEPPRA) 750 MG tabletIndications:par tial epilepsy treatment adjunct Take 1 tablet (750 mg total) by mouth 2 (two) times a day. 60 tablet 2 08/16/2021 Active Active Problems Problem Noted Date Diagnosed Date Abnormal thyroid function test 08/14/2021 Overview: Very mildly elevated T4 and very mildly decreased TSH. Does have tremor and some confusion. Will order thyrotropin receptor antibodies and will consult endocrinology at this time. Last Assessment & Plan: Very mildly elevated T4 and very mildly decreased TSH. Does have tremor and some confusion. Will order thyrotropin receptor antibodies and will consult endocrinology at this time. Endo recommends repeating labs outpatient in 4 weeks Acute encephalopathy 08/14/2021 Diabetic polyneuropathy 08/14/2021 Tremor 08/14/2021 Dysphagia 08/13/2021 Last Assessment & Plan: Since arrival to the floor - concerns for dysphagia. Likely had aspiration event the evening of 08/12 Speech evaluated - s/p video swallow and passed - advanced diet Dyslipidemia 08/12/2021 Last Assessment & Plan: Reports taking medication for this Trying to get home medication list Seizure 08/12/2021 Last Assessment & Plan: Patient with witnessed seizure by EMS at facility. No known prior seizure history. Unclear if UTI, meningioma, hemorrhage, etc caused seizure - neurology consulted - currently on keppra, continue Prolonged EEG without seizure noted but she remains altered cognitively and has new tremor Meningioma 08/09/2021 Last Assessment & Plan: MRI showed a R lateral sphenoid wing meningioma with calcification and hemorrhage within it and some edema She has had this Meningioma since NSG recommends 6 month follow up ICH (intracerebral hemorrhage) 08/09/2021 Last Assessment & Plan: Noted associated with meningioma. NS consulted. Reported to be stable. Essential hypertension 08/09/2021 Last Assessment & Plan: Stable. Monitor Type 2 diabetes mellitus 08/09/2021 Last Assessment & Plan: A1C 6.4. with neuropathy and prior toe amputations Patient reports taking oral medications Will monitor for now on SSI and consistent carb diet Currently not requiring any correction - also states she is on gabapentin 300 mg TID for neuropathy Bradycardia 08/09/2021 Family History Medical History Relation Name Comments Heart disease Father No Known Problems Mother "old age - at 97" Relation Name Status Comments Father Mother Social History Tobacco Use Types Packs/Day Years Used Date Smoking Tobacco: Never Smokeless Tobacco: Never Alcohol Use Standard Drinks/Week Comments Never 0 (1 standard drink = 0.6 oz pur e alcohol) PHQ-2 Answer Date Recorded Part 1 Score: 0 08/12/2021 [facility] Transportation Needs Answer Date R ecorded Transportation Needs Not on file In the next 24 hours or afte r discharge, are you in a situation where housing, food, or transportation is a concern, or does the patient demonstrate the inability to care for self that could result in imminent harm No 08/12 [facility] Food Insecurity Answer Date Record ed Food Insecurity Not on file In the next 24 hours or afte r discharge, are you in a situation where housing, food, or transportation is a concern, or does the patient demonstrate the inability to care for self that could result in imminent harm No 08/12 [facility] Housing Answer Date Recorded Housing Insecurity Not on file In the next 24 hours or afte r discharge, are you in a situation where housing, food, or transportation is a concern, or does the patient demonstrate the inability to care for self that could result in imminent harm No 08/12 Sex and Gender Information Value Date Recorded Sex Assigned at Not on file Gender Identity Not on file Sexual Orientation Not on file Last Filed Vital Signs Vital Sign Reading Time Taken Comments Blood Pressure 141/58 08/16/2021 12:13 PM AUTOMOTIVE ENGINEER Notified Ivon BARK[place] Pulse 86 08/16/2021 12:13 PM AUTOMOTIVE ENGINEER Temperature 37.4 C (99.3 F) 08/16/2021 1 2:13 PM AUTOMOTIVE ENGINEER Respiratory Rate 18 08/16/2021 12:1 3 PM AUTOMOTIVE ENGINEER Oxygen Saturation 96% 08/16/2021 12: 13 PM AUTOMOTIVE ENGINEER Inhaled Oxygen Concentration - - Weight 79.4 kg (175 lb) 08/16/2021 6:0 7 AM AUTOMOTIVE ENGINEER Height 149.9 cm (4' 11") 08/12/2021 12: 31 AM AUTOMOTIVE ENGINEER Body Mass Index 35.35 08/12/2021 12:31 AM AUTOMOTIVE ENGINEER Plan of Treatment Health Maintenance Due Date Last Done Comments Colonoscopy 1952 Colorectal Cancer Screening 1952 Diabetes Mellitus Ophthalmol ogy Exam 1952 FIT-DNA 1952 Fecal Occult Blood or FIT 1952 Hepatitis C Screen 1952 Sigmoidoscopy 1952 Td/Tdap# 1952 Diabetes Mellitus Foot Exam 1962 Mammogram Screening 2002 Zoster Vaccine# (2 of 3) 11/11/2012 09/16/2012, 02/15 Depression Screening PHQ-9 # 2017 Osteoporosis Screening 2017 Pneumococcal Vaccine: 65+ Ye ars (3 - PPSV23 or PCV20) 2017 05/24/2015, 09/16/2011 COVID-19 Vaccine (3 - Modern a series) 01/10/2021 11/15/2020, 10/18/2020 Diabetes Mellitus Hemoglobin A1C 02/06/2022 08/09/20 21 Lipid Screening 08/09/2022 08/09/2021 Fall Risk Assessment # 08/16/2022 08/16/2021 Advance Care Planning Conversation# 09/16/2022 Kidney Health DM (eGFR + uACR) 09/16/2022 Medicare Annual Wellness 09/16/2022 Social Determinants of Health# 09/16/2022 Influenza Vaccine (#1) 2023 8, 10/03/2017, 06/15/2016, Additional history exists Advance Directives For more information, please contact: [phone] Latest Code Status on File Code Status Date Activated Date Inactivated Comments Full Code 08/09/2021 1:04 AM Care Teams Music Orchestrator Relationship Specialty Start Date End Date Timi Issa MD [address] [place] [address] Komal Guzman [place] [id number] PCP - General Family Medicine 08/08/21
--- OUTSIDE RECORDS SUMMARY | 2023-05-24 11:08 | XMS REPORT | Encounter Summary ---
Author Author [facility] Organization [facility] Address Unknown Phone Unavailable Care Team Providers Care Chinese Teacher Name Role Phone Timi Issa MD PCP [phone] Encounter Details Date Type Department Care Team Description 11/08/2021 Telephone [facility] [address] [place] [id number] Lena Chaney RN Social History Tobacco Use Types Packs/Day Years Used Date Smoking Tobacco: Never Smokeless Tobacco: Never Alcohol Use Standard Drinks/Week Comments Never 0 (1 standard drink = 0.6 oz pur e alcohol) PHQ-2 Answer Date Recorded Part 1 Score: 0 08/12/2021 [facility] Transportation Needs Answer Date R ecorded Transportation Needs Not on file In the next 24 hours or afte r discharge, are you in a situation where housing, food, or transportation is a concern, or does the patient demonstrate the inability to care for self that could result in imminent harm No 08/12 [facility] Food Insecurity Answer Date Record ed Food Insecurity Not on file In the next 24 hours or afte r discharge, are you in a situation where housing, food, or transportation is a concern, or does the patient demonstrate the inability to care for self that could result in imminent harm No 08/12 [facility] Housing Answer Date Recorded Housing Insecurity Not [...] on file Sexual Orientation Not on file documented as of this encounter Miscellaneous Notes * Telephone Encounter - Lena Chaney RN - 11/08/2021 12:00 PM UTILITY DIVISION PROJECT MANAGER Images from the original note were not included. [facility] Skylar completed with caregiver, Karen. 90 Day Modified [place] PT Survey Call Attempt : [place] Survey call #1 (11/08/21 1159) 90 Day Modified [place] Score: 4-Moderately severe disability: unable to walk without assist (11/08/21 1159) ITY DIVISION PROJECT MANAGER documented in this encounter Plan of Treatment Not on file documented as of this encounter Visit Diagnoses Not on filedocumented in this encounter Care Teams Chinese Teacher Relationship Specialty Start Date End Date Timi Issa MD [address] [place] [id number] PCP - General Family Medicine 08/08/21 documented as of this encounter
--- OUTSIDE RECORDS SUMMARY | 2023-05-24 11:09 | XMS REPORT | Encounter Summary ---
Author Author [facility] Organization [facility] Address Unknown Phone Unavailable Care Team Providers Care Campaign Worker Name Role Phone Timi Issa MD PCP [phone] Encounter Details Date Type Department Care Team Description 08/08/2021 9:45 PM HISTOLOGY AIDE Imaging Appointment [facility] Social History Tobacco Use Types Packs/Day Years Used Date Smoking Tobacco: Never Assessed PHQ-2 Answer Date Recorded Part 1 Score: 0 08/12/[address] [facility] Transportation Needs Answer Date R ecorded Transportation Needs Not on file In the next 24 hours or afte r discharge, are you in a situation where housing, food, or transportation is a concern, or does the patient demonstrate the inability to care for self that could result in imminent harm No 08/[address] [facility] Food Insecurity Answer Date Record ed Food Insecurity Not on file In the next 24 hours or afte r discharge, are you in a situation where housing, food, or transportation is a concern, or does the patient demonstrate the inability to care for self that could result in imminent harm No 08/[address] [facility] Housing Answer Date Recorded Housing Insecurity Not [...] on file documented as of this encounter Plan of Treatment Not on file documented as of this encounter Procedures Procedure Name Priority Date/Time Associated Diagnosis Comments CT HEAD OUTSIDE IMAGES FOR PACS Routine 08/08/2021 9:43 PM HISTOLOGY AIDE Trauma documented in this encounter Results * CT Outside images for PACS Head (08/08/2021 9:43 PM HISTOLOGY AIDE) Ordering D No DO IMG OUTSIDE IMAGES Performing Organization Address City/State/ZIP Co [place]s Phone Number [facility] documented in this encounter Visit Diagnoses Diagnosis Trauma Injury, other and unspecified, unspecified site documented in this encounter Care Teams Campaign Worker Relationship Specialty Start Date End Date Timi Issa MD [address] [place] [id number] PCP - General Family Medicine 08/08/21 documented as of this encounter
--- OUTSIDE RECORDS SUMMARY | 2023-05-24 11:09 | XMS REPORT | Encounter Summary ---
Author Author [facility] Organization [facility] Address Unknown Phone Unavailable Care Team Providers Care Lumber Yard Worker Name Role Phone Timi Issa MD PCP [phone] Encounter Details Date Type Department Care Team Description 08/08/2021 8:50 PM CMO Imaging Appointment [facility] Social History Tobacco Use Types Packs/Day Years Used Date Smoking Tobacco: Never Assessed PHQ-2 Answer Date Recorded Part 1 Score: 0 08/12/2021 [facility] Transportation Needs Answer Date R ecorded Transportation Needs Not on file In the next 24 hours or afte r discharge, are you in a situation where housing, food, or transportation is a concern, or does the patient demonstrate the inability to care for self that could result in imminent harm No 08/12 [facility] Food Insecurity Answer Date Record ed Food Insecurity Not on file In the next 24 hours or afte r discharge, are you in a situation where housing, food, or transportation is a concern, or does the patient demonstrate the inability to care for self that could result in imminent harm No 08/12 [facility] Housing Answer Date Recorded Housing Insecurity [...] Name Priority Date/Time Associated Diagnosis Comments CT CHEST OUTSIDE IMAGES FOR PACS Routine 08/08/2021 8:41 PM CMO Trauma documented in this encounter Results * CT Outside images for PACS Chest (08/08/2021 8:41 PM CMO) Ordering D No DO IMG OUTSIDE IMAGES Performing Organization Address City/State/ZIP Co [place] Phone Number [facility] documented in this encounter Visit Diagnoses Diagnosis Trauma Injury, other and unspecified, unspecified site documented in this encounter Care Teams Lumber Yard Worker Relationship Specialty Start Date End Date Timi Issa MD [address] [place] [id number] PCP - General Family Medicine 08/08/21 documented as of this encounter
--- OUTSIDE RECORDS SUMMARY | 2023-05-24 11:09 | XMS REPORT | Encounter Summary ---
Author Author [facility] Organization [facility] Address Unknown Phone Unavailable Care Team Providers Care Personnel Associate Name Role Phone Timi Issa MD PCP [phone] Encounter Details Date Type Department Care Team Description 08/08/2021 8:45 PM JAVA SOFTWARE Imaging Appointment [facility] Social History Tobacco Use Types Packs/Day Years Used Date Smoking Tobacco: Never Assessed PHQ-2 Answer Date Recorded Part 1 Score: 0 08/12/2021 [facility] Transportation Needs Answer Date R ecorded Transportation Needs Not on file In the next 24 hours or afte r discharge, are you in a situation where housing, food, or transportation is a concern, or does the patient demonstrate the inability to care for self that could result in imminent harm No 08/12 [facility] Food Insecurity Answer Date Record ed Food Insecurity Not on file In the next 24 hours or afte r discharge, are you in a situation where housing, food, or transportation is a concern, or does the patient demonstrate the inability to care for self that could result in imminent harm No 08/12 [facility] Housing Answer Date Recorded Housing Insecurity [...] HEAD OUTSIDE IMAGES FOR PACS Routine 08/08/2021 8:41 PM JAVA SOFTWARE Trauma documented in this encounter Results * CT Outside images for PACS Head (08/08/2021 8:41 PM JAVA SOFTWARE) Ordering D No DO IMG OUTSIDE IMAGES Performing Organization Address City/State/ZIP [place] Phone Number [facility] documented in this encounter Visit Diagnoses Diagnosis Trauma Injury, other and unspecified, unspecified site documented in this encounter Care Teams Personnel Associate Relationship Specialty Start Date End Date Timi Issa MD [address] [place] [id number] PCP - General Family Medicine 08/08/21 documented as of this encounter
--- OUTSIDE RECORDS SUMMARY | 2023-05-24 11:09 | XMS REPORT | Encounter Summary ---
Author Author [facility] Organization [facility] Address Unknown Phone Unavailable Care Team Providers Care Construction Rep Name Role Phone Timi Issa MD PCP [phone] Reason for Referral * MRI/CAT/PET Scan (Routine) - Canceled Specialty Diagnoses / Procedures Referred By Contac t Referred To Contact Diagnoses Brain mass Procedures MRI Head w wo contrast Lyn Taylor PA [address] [facility] [address] [place] [address] Referral ID Status Reason Start Date Expiration Date V isits Requested Visits Authorized [id number] Canceled 08/11/2021 08/11/2022 1 1 REPAIR TECHNICIAN Encounter Details Date Type Department Care Team Description 08/11/2021 Orders Only [facility] [address] [facility] [address] [place] [address] Lyn Taylor PA [address] [facility] [address] [place] [address] Brain mass (Primary Dx) Social History Tobacco Use Types Packs/Day Years Used Date Smoking Tobacco: Never Smokeless Tobacco: Never Alcohol Use Standard Drinks/Week Comments Never 0 (1 standard drink = 0.6 oz pur e alcohol) PHQ-2 Answer Date Recorded Part 1 Score: 0 08/12/2021 [facility] Transportation Needs Answer Date R ecorded Transportation Needs Not on file In the next 24 hours or afte r discharge, are you in a situation where housing, food, or transportation is a concern, or does the patient demonstrate the inability to care for self that could result in imminent harm No 08/12 [facility] Food Insecurity Answer Date Record ed Food Insecurity Not on file In the next 24 hours or afte r discharge, are you in a situation where housing, food, or transportation is a concern, or does the patient demonstrate the inability to care for self that could result in imminent harm No 08/12 [facility] Housing Answer Date Recorded Housing Insecurity [...] as of this encounter Plan of Treatment Scheduled Orders Name Type Priority Associated Diagnoses Orde r Schedule MRI Head w wo contrast Imaging Routine Brain mass 1 Occurrences starting 08/11/2021 until 08/11/2022 documented as of this encounter Visit Diagnoses Diagnosis Brain mass- Primary Unspecified condition of brain documented in this encounter Care Teams Construction Rep Relationship Specialty Start Date End Date Timi Issa MD [address] [place] [address] PCP - General Family Medicine 08/08/21 documented as of this encounter
--- OUTSIDE RECORDS SUMMARY | 2023-05-24 11:13 | XMS REPORT | Referral Summary ---
Author Author Via [facility] Organization Via [facility] Address Unknown Phone Unavailable Care Team Providers Care Alternative Medicine Practitioner Name Role Phone Sven Wen PCP Encounter VC Date(s): 01/17/15 - 01/17/15 [facility] [address] [place] [address] Discharge Diagnosis: Hypertension Discharge Diagnosis: Fatigue Discharge Disposition: 01-Home or Self Care Attending Physician: Medhat Allen MD Admitting Physician: Ari Denney DO Vital Signs Most recent to oldest [Reference Range]: 1 Temperature Oral [35.8-37.3 degC] 37.8 d egC *HI* (01/17/15 8:19 AM) Peripheral Pulse Rate [60-100 bpm] 60 bp m (01/17/15 8:19 AM) Respiratory Rate [14-20 br/min] 16 br/mi n (01/17/15 8:19 AM) Blood Pressure [90-140/60-90 mmHg] 100/6 0mmHg (01/17/15 8:19 AM) Problem List Condition Effective Dates Status Health Status Inform ant Chronic back pain(Confirmed) Active Depression(Confirmed) Active Fibromyalgia(Confirmed) Active Bilateral foot pain(Confirmed) Active History of bladder cancer(Confirmed) Active History of colon polyps(Confirmed) Active Hyperlipidemia(Confirmed) Active Hypertension(Confirmed) Active Elevated fasting glucose(Confirmed) Active Insomnia(Confirmed) Active Obesity(Confirmed) Active patien t Allergies, Adverse Reactions, Alerts Substance Reaction Severity Status tetracycline Eczema (rash) Active Medications Faviola Allergy 180 mg, Oral, Daily, 0 Refill(s) Start Date: 01/17/15 Status: Ordered Calcium 600+D oral tablet 1 tabs, Oral, TID, 0 Refill(s) Start Date: 01/17/15 Status: Ordered Centrum Silver oral tablet 1 tabs, Oral, BID, 0 Refill(s) Start Date: 01/17/15 Status: Ordered cinnamon 1,000 mg, Oral, BID, 0 Refill(s) Start Date: 01/17/15 Status: Ordered citalopram 20 mg oral tablet 1 tabs, Oral, Daily, # 90 tabs, 0 Refill(s) Start Date: 01/18/15 Status: Ordered Colace 100 mg oral capsule 1 caps, Oral, BID, as needed for constipation, 0 Refill(s) Start Date: 01/17/15 Status: Ordered Fish Oil oral capsule 1 caps, Oral, BID, 0 Refill(s) Start Date: 01/17/15 Status: Ordered gabapentin 600 mg oral tablet 600 mg 1 tabs, Oral, TID, Changed to 90 day supply per patient request, # 270 tabs, 0 Refill(s), Pharmacy: [facility], 1 tabs Oral TID,Instr:Changed to 90 day supply per patient request Start Date: 03/28/15 Status: Ordered garlic oral capsule 1,000 mg, Oral, Daily, 0 Refill(s) Start Date: 01/17/15 Status: Ordered glucosamine 1,500 mg, Oral, Daily, 0 Refill(s) Start Date: 01/17/15 Status: Ordered losartan-hydrochlorothiazide 100 mg-25 mg oral tablet 1 tabs, Oral, Daily, # 90 tabs, 0 Refill(s), Pharmacy: [facility] Start Date: 03/25/15 Status: Ordered magnesium oxide 400 mg (241.3 mg elemental magnesium) oral tablet 1 tabs, Oral, Daily, 0 Refill(s) Start Date: 01/17/15 Status: Ordered oxaprozin 600 mg oral tablet 1 tabs, Oral, BID, 0 Refill(s) Start Date: 01/17/15 Status: Ordered traZODone 100 mg oral tablet 1 tabs, Oral, Bedtime (once a day), 0 Refill(s) Start Date: 01/17/15 Status: Ordered ursodiol 300 mg oral capsule 1 caps, Oral, TID, # 270 caps, 0 Refill(s) Start Date: 01/18/15 Status: Ordered Vitamin C 100 mg, Oral, Daily, 0 Refill(s) Start Date: 01/17/15 Status: Ordered vitamin E 100 Intl_Units, Oral, Daily, 0 Refill(s) Start Date: 01/17/15 Status: Ordered Welchol 625 mg oral tablet 3 tabs, Oral, BID, # 540 tabs, 0 Refill(s) Start Date: 01/18/15 Status: Ordered Zetia 10 mg oral tablet 1 tabs, Oral, Daily, # 90 tabs, 0 Refill(s) Start Date: 01/18/15 Status: Ordered Results Hematology Most recent to oldest [Reference Range]: 1 WBC [4.8-10.8 10*3/uL] 7.4 10*3/uL (01/17/15 9:30 AM) RBC [4.00-5.20 10*6/uL] 4.53 10*6/uL (01/17/15 9:30 AM) Hgb [12.0-16.0 gm/dL] 13.8 gm/dL (01/17/15 9:30 AM) Hct [37.0-47.0 %] 42.2 % (01/17/15 9:30 AM) MCV [82.0-99.0 fL] 93.2 fL (01/17/15 9:30 AM) MCH [27.0-32.0 pg] 30.5 pg (01/17/15 9:30 AM) MCHC [32.0-36.0 gm/dL] 32.7 gm/dL (01/17/15 9:30 AM) RDW [11.5-14.5 %] 13.0 % (01/17/15 9:30 AM) Platelet [150-400 10*3/uL] 361 10*3/uL (01/17/15 9:30 AM) MPV [8.8-14.8 fL] 10.3 fL (01/17/15 9:30 AM) Chemistry Most recent to oldest [Reference Range]: 1 Sodium Lvl [135-144 mEq/L] 143 mEq/L (01/17/15 9:30 AM) Potassium Lvl [3.5-5.2 mEq/L] 4.2 mEq/L (01/17/15 9:30 AM) Chloride [99-111 mEq/L] 106 mEq/L (01/17/15 9:30 AM) CO2 [22-31 mEq/L] 27 mEq/L (01/17/15 9:30 AM) AGAP [3-20] 10 (01/17/15 9:30 AM) BUN [10-20 mg/dL] 17 mg/dL (01/17/15 9:30 AM) Glucose Lvl [70-99 mg/dL] 110 mg/dL *HI* (01/17/15 930 AM) Creatinine Lvl [0.57-1.11 mg/dL] 0.79 mg /dL (01/17/15 9:30 AM) eGFR [>60 mL/min] >60 mL/min 1 (01/17/1530 AM) Calcium Lvl [8.9-10.5 mg/dL] 9.6 mg/dL (01/17/15:30 AM) Albumin Lvl [3.4-4.8 gm/dL] 4.2 gm/dL (01/17/15:30 AM) Total Protein [6.2-8.1 gm/dL] 6.4 gm/dL (01/17/15 9:30 AM) Globulin [1.8-4.0 gm/dL] 2.2 gm/dL (01/17/15 9:30 AM) ALT [0-55 U/L] 45 U/L (01/17/15 9:30 AM) AST [5-34 U/L] 29 U/L (01/17/15 9:30 AM) Alk Phos [40-150 U/L] 85 U/L (01/17/15 9:30 AM) Bili Total [0.2-1.2 mg/dL] 0.4 mg/dL (01/17/15 9:30 AM) Chol [0-199 mg/dL] 269 mg/dL *HI* (01/17/15 9:30 AM) Trig [0-149 mg/dL] 332 mg/dL *HI* (01/17/15 9:30 AM) HDL [40-84 mg/dL] 42 mg/dL (01/17/15 9:30 AM) LDL [0-130 mg/dL] 161 mg/dL *HI* (01/17/15 9:30 AM) VLDL Cholesterol [0-28 mg/dL] 66 mg/dL *HI* (01/17/15 9:30 AM) Cardiac Risk [0.0-5.0] 6.4 *HI* (01/17/15 9:30 AM) TSH with Reflex Free T4 [0.35-4.94] 1.36 (01/17/15 9:30 AM) 1Result Comment: Multiply eGFR results by 1.21 for race. Urinalysis Most recent to oldest [Reference Range]: 1 UA Color Yellow (01/17/15 9:30 AM) UA Appear Clear (01/17/15 9:30 AM) UA pH [5.0-8.0] 6.0 (01/17/15 9:30 AM) UA Leuk Est [Negative] Negative (01/17/15 9:30 AM) UA Nitrite [Negative] Negative (01/17/15 9:30 AM) UA Protein [Negative] Negative (01/17/15 9:30 AM) UA Glucose [Negative] Negative (01/17/15 9:30 AM) UA Ketones [Negative] Negative (01/17/15 9:30 AM) UA Urobilinogen 0.2 mg/dL (01/17/15 9:30 AM) UA Bili [Negative] Negative (01/17/15 9:30 AM) UA Blood Negative (01/17/15 9:30 AM) UA Spec Grav [1.003-1.030] 1.020 (01/17/15 9:30 AM) Type Cl Catch (01/17/15 9:30 AM) Immunizations Vaccine Date Refusal Reason pneumococcal 13-valent conjugate vaccine 05/24/15 pneumococcal 23-polyvalent vaccine 09/16/11 zoster vaccine live 09/16/12 Procedures Procedure Date Related Diagnosis Body Site Cholecystectomy 1992 Bladder surgery H/O total hysterectomy with bilateral salpingo-oophorectomy (BSO) Hx of hernia repair Hysterectomy Shunt 1 Tonsillectomy and adenoidectomy; younger than age 12 1V-P Social History Social History Type Response Smoking Status Never smoker Assessment and Plan Extracted from: Title:Ambulatory Patient Education Author:Ari Denney DO Date:01/17/15 Family Medicine Exercise to Lose Weight Exercise and a healthy diet may help you lose weight. Your doctor may suggest specific exercises. EXERCISE IDEAS AND TIPS Choose low-cost things you enjoy doing, such as walking, bicycling, or exercising to workout videos. Take stairs instead of the elevator. Walk during your lunch break. Park your car further away from work or school. Go to a gym or an exercise class. Start with 5 to 10 minutes of exercise each day. Build up to 30 minutes of exercise 4 to 6 days a week. Wear shoes with good support and comfortable clothes. Stretch before and after working out. Work out until you breathe harder and your heart beats faster. Drink extra water when you exercise. Do not do so much that you hurt yourself, feel dizzy, or get very short of breath. Exercises that burn about 150 calories: Running 1 miles in 15 minutes. Playing volleyball for 45 to 60 minutes. Washing and waxing a car for 45 to 60 minutes. Playing touch football for 45 minutes. Walking 1 miles in 35 minutes. Pushing a stroller 1 miles in 30 minutes. Playing basketball for 30 minutes. Raking leaves for 30 minutes. Bicycling 5 miles in 30 minutes. Walking 2 miles in 30 minutes. Dancing for 30 minutes. Shoveling snow for 15 minutes. Swimming laps for 20 minutes. Walking up stairs for 15 minutes. Bicycling 4 miles in 15 minutes. Gardening for 30 to 45 minutes. Jumping rope for 15 minutes. Washing windows or floors for 45 to 60 minutes. Document Released: 10/05/2011 Document Revised: 11/24/2012 Document Reviewed: 10/05/2011 [facility]. Preventive Medicine Exercise to Stay Healthy Exercise helps you become and stay healthy. EXERCISE IDEAS AND TIPS Choose exercises that: You enjoy. Fit into your day. You do not need to exercise really hard to be healthy. You can do exercises at a slow or medium level and stay healthy. You can: Stretch before and after working out. Try yoga, Pilates, or timi chi. Lift weights. Walk fast, swim, jog, run, climb stairs, bicycle, dance, or rollerskate. Take aerobic classes. Exercises that burn about 150 calories: Running 1 miles in 15 minutes. Playing volleyball for 45 to 60 minutes. Washing and waxing a car for 45 to 60 minutes. Playing touch football for 45 minutes. Walking 1 miles in 35 minutes. Pushing a stroller 1 miles in 30 minutes. Playing basketball for 30 minutes. Raking leaves for 30 minutes. Bicycling 5 miles in 30 minutes. Walking 2 miles in 30 minutes. Dancing for 30 minutes. Shoveling snow for 15 minutes. Swimming laps for 20 minutes. Walking up stairs for 15 minutes. Bicycling 4 miles in 15 minutes. Gardening for 30 to 45 minutes. Jumping rope for 15 minutes. Washing windows or floors for 45 to 60 minutes. Document Released: 10/05/2011 Document Revised: 11/24/2012 Document Reviewed: 10/05/2011 [employer] Patient Information 2014 [employer] [facility]. No follow up information was provided. Extracted from: Title:Est. Care Author:Ari Denney DO Date:01/17/15 Assessment/Plan HTN Chronic Pain Cough DLD Historical: OA, fibromyalgia, osteoporosis, hydrocephalus, pseudotumor cerebri, small bowel obstruction Plan Pt. needs a colonoscopy, CMP, UA, TSH, Lipids, CBC. Extensive education given regarding low cholesterol diets and proper foods to eat. Education printed and given to patient. Recommend patient take zantac for her cough as it appears to be reflux. Explained our clinic policy regarding chronic pain. If patient abruptly stopped her narcotics, she would not go into withdrawal. See HPI. No narcotics. Will follow-up with chronic pain appointment if patient desires. BP was low today, will need records. No dizziness. May take off BP medication. Follow-up in 2 weeks. Pt. verbalized understanding of above plan. Discussed with Dr. Allen who agrees. I have discussed this patient with the resident and I agree with the Care Plan presented by the resident. Sukhdeep Allen MD
--- OUTSIDE RECORDS SUMMARY | 2023-05-24 11:13 | XMS REPORT | Referral Summary ---
Author Author [facility] Organization [facility] Address Unknown Phone Unavailable Care Team Providers Care Terrazzo Laborer Name Role Phone Sven Wen PCP Encounter VC Date(s): 06/09/15 - 06/09/15 [facility] [id number] [place] [id number] [place] Discharge Diagnosis: Insomnia Discharge Diagnosis: Elevated fasting glucose Discharge Diagnosis: Chronic back pain Discharge Diagnosis: Hyperlipidemia Discharge Diagnosis: Fibromyalgia Discharge Diagnosis: Hypertension Discharge Diagnosis: History of bladder cancer Discharge Diagnosis: Depression Discharge Diagnosis: Rash Discharge Diagnosis: Insomnia Discharge Diagnosis: 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 Discharge Diagnosis: Rash Discharge Diagnosis: Fibromyalgia Discharge Diagnosis: Depression Discharge Diagnosis: History of bladder cancer Discharge Diagnosis: Hypertension Discharge Diagnosis: History of colon polyps Discharge Diagnosis: Bilateral foot pain Discharge Disposition: 01-Home or Self Care Attending Physician: Sven Wen DO Admitting Physician: Sven Wen DO Vital Signs Most recent to oldest [Reference Range]: 1 Peripheral Pulse Rate [60-100 bpm] 67 bp m (06/09/15 1:23 PM) Blood Pressure [90-140/60-90 mmHg] 136/7 4mmHg (06/09/15 1:23 PM) SpO2 99 % (06/09/15 1:23 PM) Problem List Condition Effective Dates Status Health Status Inform ant Chronic back pain(Confirmed) Active Depression(Confirmed) Active Fibromyalgia(Confirmed) Active Bilateral foot pain(Confirmed) Active History of bladder cancer(Confirmed) Active History of colon polyps(Confirmed) Active Hyperlipidemia(Confirmed) Active Hypertension(Confirmed) Active Elevated fasting glucose(Confirmed) Active IGT (impaired glucose tolerance)(Confirmed) Active Insomnia(Confirmed) Active Myalgia(Confirmed) Active Nonalcoholic fatty liver disease(Confirmed) Active Obesity(Confirmed) Active patien t Osteoporosis(Confirmed) Active Allergies, Adverse Reactions, Alerts Substance Reaction Severity Status tetracycline Eczema (rash) Active Medications alendronate 5 mg oral tablet See Instructions, TAKE 1 TABLET EVERY DAY, # 60 tabs, 3 Refill(s), eRx: [facility], TAKE 1 TABLET EVERY DAY Start Date: 10/06/15 Status: Ordered Faviola Allergy 180 mg, Oral, Daily, 0 Refill(s) Start Date: 01/17/15 Status: Ordered atorvastatin 10 mg oral tablet 10 mg 1 tabs, Oral, Bedtime (once a day), # 90 tabs, 0 Refill(s), Pharmacy: [facility], 1 tabs Oral Bedtime (once a day) Start Date: 10/29/15 Status: Ordered Calcium 600+D oral tablet 1 tabs, Oral, TID, 0 Refill(s) Start Date: 01/17/15 Status: Ordered Centrum Silver oral tablet 1 tabs, Oral, BID, 0 Refill(s) Start Date: 01/17/15 Status: Ordered cinnamon 1,000 mg, Oral, BID, 0 Refill(s) Start Date: 01/17/15 Status: Ordered citalopram 20 mg oral tablet See Instructions, TAKE 1 TABLET EVERY DAY, # 90 tabs, eRx: [facility], TAKE 1 TABLET EVERY DAY Start Date: 12/13/15 Status: Ordered Colace 100 mg oral capsule 1 caps, Oral, BID, as needed for constipation, 0 Refill(s) Start Date: 01/17/15 Status: Ordered Fish Oil oral capsule 1 caps, Oral, BID, 0 Refill(s) Start Date: 01/17/15 Status: Ordered fluticasone 50 mcg/inh nasal spray See Instructions, USE 1 SPRAY NASALLY TWICE DAILY (SUBSTITUTED FOR FLONASE), # 48 g, 3 Refill(s), eRx: [facility], USE 1 SPRAY NASALLY TWICE DAILY (SUBSTITUTED FOR FLONASE) Start Date: 10/10/15 Status: Ordered gabapentin 600 mg oral tablet See Instructions, TAKE 1 TABLET THREE TIMES DAILY, # 270 tabs, eRx: [facility], TAKE 1 TABLET THREE TIMES DAILY Start Date: 12/13/15 Status: Ordered garlic oral capsule 1,000 mg, Oral, Daily, 0 Refill(s) Start Date: 01/17/15 Status: Ordered glucosamine 1,500 mg, Oral, Daily, 0 Refill(s) Start Date: 01/17/15 Status: Ordered losartan-hydrochlorothiazide 100 mg-25 mg oral tablet See Instructions, TAKE 1 TABLET EVERY DAY, # 90 tabs, eRx: [facility], TAKE 1 TABLET EVERY DAY Start Date: 12/12/15 Status: Ordered magnesium oxide 400 mg (241.3 mg elemental magnesium) oral tablet 1 tabs, Oral, Daily, 0 Refill(s) Start Date: 01/17/15 Status: Ordered oxaprozin 600 mg oral tablet 600 mg 1 tabs, Oral, BID, # 60 tabs, 0 Refill(s), Pharmacy: [id number], 1 tabs OralBID Start Date: 08/31/15 Status: Ordered PreserVision AREDS 2 caps, Oral, Daily, 0 Refill(s) Start Date: 10/17/15 Status: Ordered traZODone 100 mg oral tablet See Instructions, TAKE 1 TABLET ONE TIME DAILY AT BEDTIME, # 90 tabs, 3 Refill(s), eRx: [facility], TAKE 1 TABLET ONE TIME DAILY AT BEDTIME Start Date: 10/06/15 Status: Ordered ursodiol 300 mg oral capsule 300 mg 1 caps, Oral, TID, # 270 caps, 0 Refill(s), Pharmacy: [id number], 1 caps Oral TID Start Date: 09/19/15 Status: Ordered Vitamin C 100 mg, Oral, Daily, 0 Refill(s) Start Date: 01/17/15 Status: Ordered vitamin E 100 Intl_Units, Oral, Daily, 0 Refill(s) Start Date: 01/17/15 Status: Ordered Welchol 625 mg oral tablet See Instructions, TAKE 3 TABLETS TWICE DAILY, # 540 tabs, eRx: [facility], TAKE 3 TABLETS TWICE DAILY Start Date: 10/10/15 Status: Ordered Zetia 10 mg oral tablet See Instructions, TAKE 1 TABLET EVERY DAY, # 90 tabs, eRx: [facility], TAKE 1 TABLET EVERY DAY Start Date: 12/12/15 Status: Ordered Results No data available for this section Immunizations Vaccine Date Refusal Reason influenza virus vaccine, inactivated 09/19/15 pneumococcal 13-valent conjugate vaccine 05/24/15 pneumococcal 23-polyvalent vaccine 09/16/11 zoster vaccine live 09/16/12 Procedures Procedure Date Related Diagnosis Body Site Colonoscopy 1 12/15/15 Procedure with Anesthesia 2 12/15/15 Cholecystectomy 1992 Bladder surgery H/O total hysterectomy with bilateral salpingo-oophorectomy (BSO) Hx of hernia repair Hysterectomy Shunt 3 Tonsillectomy and adenoidect jj; younger than age 12 1auto-populated from documented surgical case 2auto-populated from documented surgical case 3V-P Social History Social History Type Response Smoking Status Never smoker Assessment and Plan Extracted from: Title:Ambulatory Patient Education Author:Sven Dolan DO Date:06/09/15 Family Medicine Cholesterol Cholesterol is a white, waxy, fat-like substance needed by your body in small amounts. The liver makes all the cholesterol you need. Cholesterol is carried from the liver by the blood through the blood vessels. Deposits of cholesterol (plaque) may build up on blood vessel triana. These make the arteries narrower and stiffer. Cholesterol plaques increase the risk for heart attack and stroke. You cannot feel your cholesterol level even if it is very high. The only way to know it is high is with a blood test. Once you know your cholesterol levels, you should keep a record of the test results. Work with your health care provider to keep your levels in the desired range. WHAT DO THE RESULTS MEAN? Total cholesterol is a rough measure of all the cholesterol in your blood. LDL is the so-called bad cholesterol. This is the type that deposits cholesterol in the triana of the arteries. You want this level to be low. HDL is the good cholesterol because it cleans the arteries and carries the LDL away. You want this level to be high. Triglycerides are fat that the body can either burn for energy or store. High levels are closely linked to heart disease. WHAT ARE THE DESIRED LEVELS OF CHOLESTEROL? Total cholesterol below 200. LDL below 100 for people at risk, below 70 for those at very high risk. HDL above 50 is good, above 60 is best. Triglycerides below 150. HOW CAN I LOWER MY CHOLESTEROL? Diet. Follow your diet programs as directed by your health care provider. Choose fish or white meat chicken and turkey, roasted or baked. Limit fatty cuts of red meat, fried foods, and processed meats, such as sausage and lunch meats. Eat lots of fresh fruits and vegetables. Choose whole grains, beans, pasta, potatoes, and cereals. Use only small amounts of olive, corn, or canola oils. Avoid butter, mayonnaise, shortening, or palm kernel oils. Avoid foods with trans fats. Drink skim or nonfat milk and eat low-fat or nonfat yogurt and cheeses. Avoid whole milk, cream, ice cream, egg yolks, and full-fat cheeses. Healthy desserts include ashley food cake, samantha snaps, animal crackers, hard candy, popsicles, and low-fat or nonfat frozen yogurt. Avoid pastries, cakes, pies, and cookies. Exercise. Follow your exercise programs as directed by your health care provider. A regular program helps decrease LDL and raise HDL. A regular program helps with weight control. Do things that increase your activity level like gardening, walking, or taking the stairs. Ask your health care provider about how you can be more active in your daily life. Medicine. Take medicine only as directed by your health care provider. Medicine may be prescribed by your health care provider to help lower cholesterol and decrease the risk for heart disease. If you have several risk factors, you may need medicine even if your levels are normal. Document Released: 05/28/2002 Document Revised: 01/17/2015 Document Reviewed: 06/16/2014 [employer] Patient Information 2015 [facility]. This information is not intended to replace advice given to you by your health care provider. Make sure you discuss any questions you have with your health care provider. No follow up information was provided. Extracted from: Title:Well Woman Exam and CDM Author:Jon Wen am DO Date:06/09/15 Impression and Plan Diagnosis Rash (ICD9 782.1, Discharge, Medical). Elevated fasting glucose (ICD9 790.21, Discharge, Medical). Insomnia (ICD9 780.52, Discharge, Medical). Hypertension (ICD9 401.9, Discharge, Medical). Hyperlipidemia (ICD9 272.4, Discharge, Medical). History of bladder cancer (ICD9 V10.51, Discharge, Medical). Fibromyalgia (ICD9 729.1, Discharge, Medical). Depression (ICD9 311, Discharge, Medical). Chronic back pain (ICD9 724.5, Discharge, Medical). Bilateral foot pain (ICD9 729.5, Discharge, Medical). Orders Orders (Selected) Outpatient Orders Future (On Hold) CMP: DEXA Axial Skeleton, BD Bone Density: Fasting Lipid Profile: Hgb A1c: MG Mammogram Routine Screening Bilat: . Repeat well woman exam in one year. Patient would like screening colonoscopy performed by myself and Dr. Alpesh Shaw and we will get this scheduled. Based on her most recent lipid profile, we will repeat this in a couple of months after she tries lysed on modifications. Significant counseling done today on left on modifications. I will also check an A1c to follow-up on the elevated fasting blood glucose. Continue current medications for the hypertension and insomnia. Continue to follow with [facility] for her pain management. If the rash worsens, I can send a prescription for steroid cream or ointment if she would like. She will contact me if she wants to do this. It sounds like she is being referred by her pain management physician to a bulldozer mechanic to examine her feet. This is fine. Outside records reviewed and I do not have her previous colonoscopy report. We will attempt to obtain this. Continue to monitor for her history of bladder cancer. Call with any questions or concerns, otherwise I will see her in a couple of months. Patient will schedule mammogram and DEXA scan today.
--- OUTSIDE RECORDS SUMMARY | 2023-05-24 11:13 | XMS REPORT | Referral Summary ---
Author Author [facility] Organization [facility] Address Unknown Phone Unavailable Care Team Providers Care Complaint Supervisor Name Role Phone Sven Wen PCP Encounter VC Date(s): 03/20/16 - 03/20/16 [facility] [id number] [address] Discharge Diagnosis: Hyperlipidemia Discharge Diagnosis: Obesity... Discharge Diagnosis: Diabetes Discharge Diagnosis: Hypertension Discharge Diagnosis: Elevated LFTs Discharge Disposition: 01-Home or Self Care Attending Physician: Sven Wen DO Admitting Physician: Sven Wen DO Vital Signs Most recent to oldest [Reference Range]: 1 Temperature Oral [35.8-37.3 degC] 36.9 d egC (03/20/16 9:20 AM) Apical Heart Rate [60-100 bpm] 65 bpm (03/20/16 9:20 AM) Blood Pressure [90-140/60-90 mmHg] 128/6 8mmHg (03/20/16 9:20 AM) SpO2 95 % (03/20/16 9:20 AM) Problem List Condition Effective Dates Status Health Status Inform ant Chronic back pain(Confirmed) Active Depression(Confirmed) Active Diabetes(Confirmed) Active Fibromyalgia(Confirmed) Active Bilateral foot pain(Confirmed) Active History of bladder cancer(Confirmed) Active History of colon polyps(Confirmed) Active Hyperlipidemia(Confirmed) Active Hypertension(Confirmed) Active Elevated fasting glucose(Confirmed) Active IGT (impaired glucose tolerance)(Confirmed) < 09/19/15 Resolved Insomnia(Confirmed) Active Myalgia(Confirmed) Active Nonalcoholic fatty liver disease(Confirmed) Active Obesity(Confirmed) Active patien t Osteoporosis(Confirmed) Active Allergies, Adverse Reactions, Alerts Substance Reaction Severity Status tetracycline Eczema (rash) Active Medications albuterol CFC free 90 mcg/inh inhalation aerosol 1 puffs, Inhalation, q4hr, as needed for wheezing, # 18 g, 0 Refill(s), Pharmacy: [facility] [id number] Start Date: 03/02/16 Status: Ordered alendronate 5 mg oral tablet See Instructions, TAKE 1 TABLET EVERY DAY, # 60 tabs, 3 Refill(s), eRx: [facility], TAKE 1 TABLET EVERY DAY Start Date: 10/06/15 Status: Ordered Faviola Allergy 180 mg, Oral, Daily, 0 Refill(s) Start Date: 01/17/15 Status: Ordered atorvastatin 10 mg oral tablet 10 mg 1 tabs, Oral, Bedtime (once a day), # 90 tabs, 1 Refill(s), Pharmacy: [facility], 1 tabs Oral Bedtime (once a day) Start Date: 03/01/16 Status: Ordered Calcium 600+D oral tablet 1 tabs, Oral, TID, 0 Refill(s) Start Date: 01/17/15 Status: Ordered Centrum Silver oral tablet 1 tabs, Oral, BID, 0 Refill(s) Start Date: 01/17/15 Status: Ordered cinnamon 1,000 mg, Oral, BID, 0 Refill(s) Start Date: 01/17/15 Status: Ordered citalopram 20 mg oral tablet See Instructions, TAKE 1 TABLET EVERY DAY, # 90 tabs, 1 Refill(s), Pharmacy: [facility], TAKE 1 TABLET EVERY DAY Start Date: 03/01/16 Status: Ordered Colace 100 mg oral capsule 1 caps, Oral, BID, as needed for constipation, 0 Refill(s) Start Date: 01/17/15 Status: Ordered Fish Oil oral capsule 1 caps, Oral, BID, 0 Refill(s) Start Date: 01/17/15 Status: Ordered fluticasone 50 mcg/inh nasal spray See Instructions, USE 1 SPRAY NASALLY TWICE DAILY (SUBSTITUTED FOR FLONASE), # 48 g, 3 Refill(s), eRx: [facility], USE 1 SPRAY NASALLY TWICE DAILY (SUBSTITUTED FOR FLONASE) Start Date: 10/10/15 Status: Ordered gabapentin 600 mg oral tablet 600 mg 1 tabs, Oral, TID, # 270 tabs, 1 Refill(s), Pharmacy: [facility], 1 tabs Oral TID Start Date: 03/01/16 Status: Ordered garlic oral capsule 1,000 mg, Oral, Daily, 0 Refill(s) Start Date: 01/17/15 Status: Ordered glucosamine 1,500 mg, Oral, Daily, 0 Refill(s) Start Date: 01/17/15 Status: Ordered losartan-hydrochlorothiazide 100 mg-25 mg oral tablet See Instructions, TAKE 1 TABLET EVERY DAY, # 90 tabs, eRx: [facility], TAKE 1 TABLET EVERY DAY Start Date: 02/10/16 Status: Ordered magnesium oxide 400 mg (241.3 mg elemental magnesium) oral tablet 1 tabs, Oral, Daily, 0 Refill(s) Start Date: 01/17/15 Status: Ordered oxaprozin 600 mg oral tablet 600 mg 1 tabs, Oral, BID, # 60 tabs, 0 Refill(s), Pharmacy: [id number], 1 tabs OralBID Start Date: 08/31/15 Status: Ordered PreserVision AREDS 2 caps, Oral, Daily, 0 Refill(s) Start Date: 10/17/15 Status: Ordered traZODone 100 mg oral tablet See Instructions, TAKE 1 TABLET ONE TIME DAILY AT BEDTIME, # 90 tabs, 3 Refill(s), eRx: [facility], TAKE 1 TABLET ONE TIME DAILY AT BEDTIME Start Date: 10/06/15 Status: Ordered ursodiol 300 mg oral capsule 300 mg 1 caps, Oral, TID, # 270 caps, 0 Refill(s), Pharmacy: [id number], 1 caps Oral TID Start Date: 09/19/15 Status: Ordered Vitamin C 100 mg, Oral, Daily, 0 Refill(s) Start Date: 01/17/15 Status: Ordered vitamin E 100 Intl_Units, Oral, Daily, 0 Refill(s) Start Date: 01/17/15 Status: Ordered Welchol 625 mg oral tablet 1,875 mg 3 tabs, Oral, BID, # 540 tabs, 4 Refill(s), Pharmacy: [facility], 3 tabs Oral BID Start Date: 03/20/16 Status: Ordered Zetia 10 mg oral tablet 10 mg 1 tabs, Oral, Daily, # 30 tabs, 1 Refill(s), [facility], 1 tabs Oral Daily Start Date: 03/01/16 Status: Ordered Results Chemistry Most recent to oldest [Reference Range]: 1 Sodium Lvl [135-144 mEq/L] 140 mEq/L (03/20/16 10:50 AM) Potassium Lvl [3.5-5.2 mEq/L] 4.0 mEq/L (03/20/16 10:50 AM) Chloride [99-111 mEq/L] 104 mEq/L (03/20/16 10:50 AM) CO2 [22-31 mEq/L] 27 mEq/L (03/20/16 10:50 AM) AGAP [3-20] 9 (03/20/16 10:50 AM) BUN [10-20 mg/dL] 13 mg/dL (03/20/16 10:50 AM) Glucose Lvl [70-99 mg/dL] 104 mg/dL *HI* (03/20/16 10:50 AM) Creatinine Lvl [0.57-1.11 mg/dL] 0.78 mg /dL (03/20/16 10:50 AM) eGFR [>60 mL/min] >60 mL/min 1 (03/20/16 10:50 AM) Calcium Lvl [8.9-10.5 mg/dL] 9.4 mg/dL (03/20/16 10:50 AM) Albumin Lvl [3.4-4.8 gm/dL] 4.0 gm/dL (03/20/16 10:50 AM) Total Protein [6.0-7.6 gm/dL] 5.8 gm/dL 2 *LOW* (03/20/16 10:50 AM) Globulin [1.8-4.0 gm/dL] 1.8 gm/dL (03/20/16 10:50 AM) ALT [0-55 U/L] 87 U/L *HI* (03/20/16 10:50 AM) AST [5-34 U/L] 46 U/L *HI* (03/20/16 10:50 AM) Alk Phos [40-150 U/L] 88 U/L (03/20/16 10:50 AM) Bili Total [0.2-1.2 mg/dL] 0.4 mg/dL (03/20/16 10:50 AM) Hgb A1c [4.1-5.6 %] 6.7 % *HI* (03/20/16 10:50 AM) eAvg Glucose 145.6 mg/dL (03/20/16 10:50 AM) 1Result Comment: Multiply eGFR results by 1.21 for race. 2Result Comment: Please note new reference range for adult Protein. Immunizations Vaccine Date Refusal Reason influenza virus [...] from: Title:Ambulatory Patient Education Author:Sven Dolan DO Date:03/20/16 Family Medicine Diabetes and Foot Care Diabetes may cause you to have problems because of poor blood supply (circulation) to your feet and legs. This may cause the skin on your feet to become thinner, break easier, and heal more slowly. Your skin may become dry, and the skin may peel and crack. You may also have nerve damage in your legs and feet causing decreased feeling in them. You may not notice minor injuries to your feet that could lead to infections or more serious problems. Taking care of your feet is one of the most important things you can do for yourself. HOME CARE INSTRUCTIONS Wear shoes at all times, even in the house. Do not go barefoot. Bare feet are easily injured. Check your feet daily for blisters, cuts, and redness. If you cannot see the bottom of your feet, use a mirror or ask someone for help. Wash your feet with warm water (do not use hot water) and mild soap. Then pat your feet and the areas between your toes until they are completely dry. Do not soak your feet as this can dry your skin. Apply a moisturizing lotion or petroleum jelly (that does not contain alcohol and is unscented) to the skin on your feet and to dry, brittle toenails. Do not apply lotion between your toes. Trim your toenails straight across. Do not dig under them or around the cuticle. File the edges of your nails with an emery board or nail file. Do not cut corns or calluses or try to remove them with medicine. Wear clean socks or stockings every day. Make sure they are not too tight. Do not wear knee-high stockings since they may decrease blood flow to your legs. Wear shoes that fit properly and have enough cushioning. To break in new shoes, wear them for just a few hours a day. This prevents you from injuring your feet. Always look in your shoes before you put them on to be sure there are no objects inside. Do not cross your legs. This may decrease the blood flow to your feet. If you find a minor scrape, cut, or break in the skin on your feet, keep it and the skin around it clean and dry. These areas may be cleansed with mild soap and water. Do not cleanse the area with peroxide, alcohol, or iodine. When you remove an adhesive bandage, be sure not to damage the skin around it. If you have a wound, look at it several times a day to make sure it is healing. Do not use heating pads or hot water bottles. They may burn your skin. If you have lost feeling in your feet or legs, you may not know it is happening until it is too late. Make sure your health care provider performs a complete foot exam at least annually or more often if you have foot problems. Report any cuts, sores, or bruises to your health care provider immediately. SEEK MEDICAL CARE IF: You have an injury that is not healing. You have cuts or breaks in the skin. You have an ingrown nail. You notice redness on your legs or feet. You feel burning or tingling in your legs or feet. You have pain or cramps in your legs and feet. Your legs or feet are numb. Your feet always feel cold. SEEK IMMEDIATE MEDICAL CARE IF: There is increasing redness, swelling, or pain in or around a wound. There is a red line that goes up your leg. Pus is coming from a wound. You develop a fever or as directed by your health care provider. You notice a bad smell coming from an ulcer or wound. This information is not intended to replace advice given to you by your health care provider. Make sure you discuss any questions you have with your health care provider. Document Released: 08/30/2001 Document Revised: 05/05/2014 Document Reviewed: 02/09/2014 ExitCare Patient Information 2016 [employer] [facility]. No follow up information was provided. Extracted from: Title:OV CDM Author:Sven Wen DO Date: Impression and Plan Diagnosis Diabetes (ILU51-GA E11.9, Discharge, Medical). Elevated LFTs (FNB52-IB R79.89, Discharge, Medical). Hyperlipidemia (RAO50-RR E78.4, Discharge, Medical). Hypertension (LTI17-VU I10, Discharge, Medical). Obesity... (LZT18-OT E66.09, Discharge, Medical). Orders Orders (Selected) Outpatient Orders Ordered CMP: Hgb A1c: eGFR: . Patient will have her blood work drawn today as above. Encourage dietary modifications. We will follow-up on her weight at the next visit as well as her blood sugars. I will tentatively plan on getting repeat lab work about a week prior to her next appointment which will be in about 4 months. Patient voices understanding to the current instructions. She had elevated LFTs on her last blood work and I will get these again to follow-up.
--- OUTSIDE RECORDS SUMMARY | 2023-05-24 11:13 | XMS REPORT | Referral Summary ---
Author Author [facility] Organization [facility] Address Unknown Phone Unavailable Care Team Providers Care Concierge Manager Name Role Phone Sven Wen PCP Encounter [facility] [phone] Date(s): 01/17/15 - 01/17/15 [facility] [address] [place] [address] Discharge Diagnosis: Hypertension Discharge Diagnosis: Fatigue Discharge [...] 10/05/2011 Document Revised: 11/24/2012 Document Reviewed: 10/05/2011 [facility]. Preventive Medicine Exercise to Stay Healthy [...] Document Reviewed: 10/05/2011 ExitCare Patient Information 2014 [employer] [facility]. No follow up information was provided. [...]
--- OUTSIDE RECORDS SUMMARY | 2023-05-24 11:13 | XMS REPORT ---
Author Author Tara Gomez Organization [employer] Address Unknown Phone Unavailable Care Team Providers Care Allergist/Md Name Role Phone Noel Gomez CP Unavailable Allergies No Known Allergies Problems Problem Type Condition ICD-9 Code Onset Dates Condition S tatus Problem Closed fracture of sternum 807.2 Active Problem Bronchitis 490 Active Problem Peripheral neuropathy 356.9 Act aimee Problem Allergic rhinitis 477.9 Active Problem Generalized osteoart hrosis, unspecified site 715.00 Active Problem Mixed hyperlipidemia 272.2 Acti ve Problem Menopausal and postm enopausal disorder 627.9 Active Problem Degeneration of lumb ar or lumbosacral intervertebral disc 722.52 Active Medications No Known Medications Results No Known Results Summary Purpose [employer] Submission
--- OUTSIDE RECORDS SUMMARY | 2023-05-24 11:14 | XMS REPORT ---
Author Author Tara Gomez [facility] Address [address] [place] [address] Care Team Providers Care Economic History Teacher Name Role Phone Noel Gomez Unavailable PROBLEMS Type Condition ICD9-CM Code [id number] Code Onset Dates Condition Status SNOMED Code Problem Mixed hyperlipidemia 272.2 Active 095204798 Problem Closed fracture of sternum 807.2 Active 08517410 Problem Allergic rhinitis 477.9 Active 615787 04 Problem Bronchitis 490 Active 71957150 Problem Degeneration of lumbar or lumbosacral intervertebral disc 722.52 Active 01788737 Problem Generalized osteoarthrosis, unspecified site 715.00 Active 309974520 Problem Peripheral neuropathy 356.9 Active 749289995 Problem Menopausal and postmenopausal disorder 627.9 Active [id number] ALLERGIES No Information SOCIAL HISTORY Never Assessed PLAN OF CARE VITAL SIGNS MEDICATIONS Unknown Medications RESULTS No Results PROCEDURES No Known procedures IMMUNIZATIONS No Known Immunizations MEDICAL (GENERAL) HISTORY Type Description Date Medical History hypertension Medical History Arthritis Medical History fibromyalgia Medical History irritable bowel syndrome Medical History hyperlipidemia Medical History fatty liver Medical History Peripheral neuropathy Surgical History PEDIATRIC REGISTERED NURSE shunt 1994 Surgical History cholecystectomy 1992 Surgical History hysterectomy, total with bilateral salpingo-oophorectomy (BSO)--fibroids/bldg 1999 Surgical History herniorrhaphy--ventral '06 & '0 7 Surgical History Colonoscopy (Dr Scales) marin 3yr s ~2008
--- OUTSIDE RECORDS SUMMARY | 2023-05-24 11:14 | XMS REPORT | Referral Summary ---
Author Author [facility] Organization [facility] Address Unknown Phone Unavailable Care Team Providers Care Business Attorney Name Role Phone Harris Perez PCP Encounter VC Date(s): 04/16/18 - 04/21/18 [facility] [address] [place] [address] Discharge Disposition: [facility] Attending Physician: Ed Castrejon MD Admitting Physician: Ed Castrejon MD Vital Signs Most recent to oldest [Reference Range]: 1 Temperature Oral [35.8-37.3 degC] 36.7 d egC (04/21/18 4:00 PM) Temperature Temporal Artery [36.3-37.8 d egC] 36.4 degC (04/16/18 1:55 PM) Peripheral Pulse Rate [60-100 bpm] 85 bp m (04/21/18 4:00 PM) Heart Rate Monitored [60-100 bpm] 70 bpm (04/19/18 3:49 AM) Respiratory Rate [14-20 br/min] 16 br/mi n (04/21/18 4:00 PM) Blood Pressure [90-140/60-90 mmHg] 154/8 1mmHg *HI* (04/21/18 4:00 PM) Mean Arterial Pressure, Cuff 82 mmHg (04/20/18 3:00 PM) SpO2 95 % (04/21/18 4:00 PM) Problem List Condition Effective Dates Status Health Status Inform ant Acute pain(Confirmed) Active At risk for activity intolerance(Confirmed) 1 Active At risk for infection(Confirmed) 2 Active Chronic back pain(Confirmed) Active Depression(Confirmed) Active Diabetes(Confirmed) Active Fibromyalgia(Confirmed) Active Bilateral foot pain(Confirmed) Active History of bladder cancer(Confirmed) Active History of colon polyps(Confirmed) Active Hyperlipidemia(Confirmed) Active Hypertension(Confirmed) Active Elevated fasting glucose(Confirmed) Active IGT (impaired glucose tolerance)(Confirmed) < 09/19/15 Resolved Impaired skin integrity(Confirmed) 3 Active Insomnia(Confirmed) Active Methicillin resistant Staphy lococcus aureus(Confirmed) 4 Active Myalgia(Confirmed) Active Nonalcoholic fatty liver disease(Confirmed) Active Obesity(Confirmed) Active patien t Osteoporosis(Confirmed) Active Chronic insomnia(Confirmed) Active 1Problem added automatically by system based on initiation of At Risk for Activity Intolerance Plan of Care 2Problem added automatically by system based on initiation of At Risk for Infection in Nutrition Plan of Care 3Problem added automatically by system based on initiation of Impaired Skin Integrity Plan of Care 4Tissue-Surgical, collected in OR from NOT FOUND collected 04/16/18 11:15:00 CDT Allergies, Adverse Reactions, Alerts Substance Reaction Severity Status tetracycline Eczema (rash) Active Medications alendronate 5 mg oral tablet 5 mg 1 tabs, Oral, Daily, 0 Refill(s) Start Date: 06/13/16 Status: Ordered Faviola Allergy 180 mg, Oral, Daily, 0 Refill(s) Start Date: 01/17/15 Status: Ordered Calcium 600+D oral tablet 1 tabs, Oral, TID, 0 Refill(s) Start Date: 01/17/15 Status: Ordered Centrum Silver oral tablet 1 tabs, Oral, BID, 0 Refill(s) Start Date: 01/17/15 Status: Ordered citalopram 40 mg oral tablet 40 mg 1 tabs, Oral, Daily, # 30 tabs, 0 Refill(s) Start Date: 10/02/17 Status: Ordered Flonase 50 mcg/inh nasal spray 2 sprays, Nasal, BID, 0 Refill(s) Start Date: 06/13/16 Status: Ordered gabapentin 600 mg, Oral, TID, 0 Refill(s) Start Date: 06/13/16 Status: Ordered glucosamine 1 tabs, Oral, BID, 1 tab, 0 Refill(s) Start Date: 01/17/15 Status: Ordered losartan-hydrochlorothiazide 100 mg-25 mg oral tablet 1 tabs, Oral, Daily, # 30 tabs, 0 Refill(s) Start Date: 10/02/17 Status: Ordered lutein 4 mg, Oral, Daily, 0 Refill(s) Start Date: 10/02/17 Status: Ordered metaxalone 800 mg oral tablet 800 mg 1 tabs, Oral, TID, Muscle Pain, 0 Refill(s) Start Date: 10/02/17 Status: Ordered metFORMIN 500 mg oral tablet 500 mg 1 tabs, Oral, Daily, with meals, # 30 tabs, 0 Refill(s) Start Date: 04/16/18 Status: Ordered metroNIDAZOLE 500 mg oral tablet 500 mg 1 tabs, Oral, BID, 0 Refill(s) Start Date: 10/03/17 Status: Ordered oxaprozin 600 mg oral tablet 600 mg 1 tabs, Oral, BID, # 30 tabs, 0 Refill(s) Start Date: 10/02/17 Status: Ordered Percocet 5/325 oral tablet 1 tabs, Oral, q4hr, Pain Moderate (4-6), 1-2 tabs PO q 4 hours PRN pain, not to exceed 6 tabs per day., # 61 tabs, 0 Refill(s) Start Date: 04/19/18 Status: Ordered traZODone 100 mg, Oral, Bedtime (once a day), 0 Refill(s) Start Date: 06/13/16 Status: Ordered Vitamin C 1,000 mg, Oral, Daily, 3 tabs, 0 Refill(s) Start Date: 01/17/15 Status: Ordered Vitamin D3 2000 intl units oral tablet 2,000 Intl_Units 1 tabs, Oral, Daily, 0 Refill(s) Start Date: 10/02/17 Status: Ordered vitamin E 400 Intl_Units, Oral, Daily, 0 Refill(s) Start Date: 01/17/15 Status: Ordered Welchol 625 mg oral tablet 1,875 mg 3 tabs, Oral, BID, 0 Refill(s) Start Date: 06/13/16 Status: Ordered Zantac 150 mg, Oral, Daily, 1 tab, 0 Refill(s) Start Date: 06/13/16 Status: Ordered Zetia 10 mg, Oral, Bedtime (once a day), 0 Refill(s) Start Date: 06/13/16 Status: Ordered Results Hematology Most recent to oldest [Reference Range]: 1 WBC [4.8-10.8 10*3/uL] 4.9 10*3/uL (04/21/18 5:14 AM) RBC [4.00-5.20] 3.73 *LOW* (04/21/18 5:14 AM) Hgb [12.0-16.0 gm/dL] 10.8 gm/dL *LOW* (04/21/18 5:14 AM) Hct [37.0-47.0 %] 32.9 % *LOW* (04/21/18 5:14 AM) MCV [82.0-99.0 fL] 88.2 fL (04/21/18 5:14 AM) MCH [27.0-32.0 pg] 29.0 pg (04/21/18 5:14 AM) MCHC [32.0-36.0 gm/dL] 32.8 gm/dL (04/21/18 5:14 AM) RDW [11.5-14.5 %] 15.9 % *HI* (04/21/18 5:14 AM) Platelet [150-400 10*3/uL] 260 10*3/uL (04/21/18 5:14 AM) MPV [9.4-12.4 fL] 10.0 fL (04/21/18 5:14 AM) Immature Granulocytes [0.0-1.0 %] 0.0 % (04/21/18 5:14 AM) Neutrophils [51-75 %] 47 % *LOW* (04/21/18 5:14 AM) Band Man [0-8 %] 3 % (04/20/18 5:39 AM) Lymphocytes [20-46 %] 41 % (04/21/18 5:14 AM) Monocytes [4-11 %] 9 % (04/21/18 5:14 AM) Eosinophils [0-4 %] 4 % (04/21/18 5:14 AM) Basophils [0-2 %] 0 % (04/21/18 5:14 AM) Neutro Absolute [1.90-7.00] 2.31 (04/21/18 5:14 AM) Lymph Absolute [0.80-3.30] 2.00 (04/21/18 5:14 AM) Barren Absolute [0.30-1.00] 0.43 (04/21/18 5:14 AM) Eos Absolute [0.00-0.50] 0.17 (04/21/18 5:14 AM) Baso Absolute [0.00-0.20] 0.01 (04/21/18 5:14 AM) Nucleated RBC Automated [0 /100 WBC] 0.0 /100 WBC (04/21/18 5:14 AM) Differential Reviewed (04/20/18 5:39 AM) Chemistry Most recent to oldest [Reference Range]: 1 Sodium Lvl [136-144 mEq/L] 139 mEq/L (04/21/18 5:14 AM) Potassium Lvl [3.6-5.1 mEq/L] 4.2 mEq/L (04/21/18 5:14 AM) Chloride [99-109 mEq/L] 109 mEq/L (04/21/18 5:14 AM) CO2 [22-32 mEq/L] 20 mEq/L *LOW* (04/21/18 5:14 AM) AGAP [3-20 mEq/L] 10 mEq/L (04/21/18 5:14 AM) BUN [4-20 mg/dL] 16 mg/dL (04/21/18 5:14 AM) Glucose Lvl [70-100 mg/dL] 106 mg/dL *HI* (04/21/18 5:14 AM) Creatinine Lvl [0.44-1.03 mg/dL] 0.88 mg /dL (04/21/18 5:14 AM) eGFR [>60 mL/min] >60 mL/min 1 (04/21/18 5:14 AM) Calcium Lvl [8.6-10.0 mg/dL] 8.6 mg/dL (04/21/18 5:14 AM) Blood Glucose, Capillary [70-100 mg/dL] 111 mg/dL *HI* (04/21/18 9:28 AM) Hgb A1c [4.1-5.6 %] 6.3 % *HI* (04/17/18 5:22 AM) eAvg Glucose 134.1 mg/dL (04/17/18 5:22 AM) 1Result Comment: Multiply eGFR results by 1.21 for race. Therapeutic Drug Monitoring Most recent to oldest [Reference Range]: 1 Vancomycin Tr [10.0-20.0 ug/mL] 8.9 ug/m L 1 *LOW* (04/20/18 8:00 AM) 1Result Comment: Trough vancomycin concentrations of 15-20 ug/mL are recommended for complicated infections such as bacteremia, osteomyelitis, endocarditis, meningitis, and hospital acquired pneumonia. Microbiology Reports TEST:Tissue Culture and Smear STATUS:Auth (Verified) BODY SITE: SOURCE:Tissue-Surgical, collected in OR COLLECTED DATE/TIME:04/16/18 11:15 AM Tissue Culture and Smear Staphylococcus aureus - Methicillin Resistant scant amount Staphylococcus, coagulase negative scant amount ORGANISM:Methicillin-Resistant Staphylococcus aureus ORGANISM:Staphylococcus coagulase negative TEST:Tissue Culture and Smear STATUS:Modified/Amended/Cor BODY SITE: SOURCE:Tissue-Surgical, collected in OR COLLECTED DATE/TIME:04/16/18 11:15 AM Tissue Culture - ORGANISM:Methicillin-Resistant Staphylococcus aureus ORGANISM:Staphylococcus coagulase negative TEST:Anaerobic Culture STATUS:Auth (Verified) BODY SITE: SOURCE:Tissue-Surgical, collected in OR COLLECTED DATE/TIME:04/16/18 11:15 AM Anaerobic Culture No anaerobes isolated TEST:Anaerobic Culture STATUS:Auth (Verified) BODY SITE: SOURCE:Tissue-Surgical, collected in OR COLLECTED DATE/TIME:04/16/18 11:15 AM Anaerobic Culture No anaerobes isolated Immunizations Given and Recorded Vaccine Date Status Refusal Reason influenza virus vaccine, inactivated 10/03/17 Give n influenza virus vaccine, inactivated 1 06/15/16 Gi lashawn influenza virus vaccine, inactivated 09/19/15 Give n pneumococcal 13-valent conjugate vaccine 05/24/15 Given zoster vaccine live 09/16/12 Recorded pneumococcal 23-polyvalent vaccine 09/16/11 Record ed 1Result Comment: 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 Procedures Procedure Date Related Diagnosis Body Site Status Insertion of peripherally in serted central venous catheter (PICC), without subcutaneous port or pump; age 5 years or older.. 04/17/18 Completed Amputation Toe 1 04/16/18 Complete d Repair Hernia Incisional Laparoscopic 2 10/02/17 Completed Open Reduction Internal Fixa tion Ankle (Right) 3 06/14/16 Completed Colonoscopy 4 12/15/15 Completed Procedure with Anesthesia 5 12/15/15 Completed Cholecystectomy 1992 Completed Bladder surgery Completed H/O total hysterectomy with bilateral salpingo-oophorectomy (BSO) Comp leted Hx of hernia repair Compl eted Hysterectomy Completed Shunt 6 Completed Tonsillectomy and adenoidect jj; younger than age 12 Completed 1auto-populated from documented surgical case 2auto-populated from documented surgical case 3auto-populated from documented surgical case 4auto-populated from documented surgical case 5auto-populated from documented surgical case 6V-P Social History Social History Type Response Smoking Status Never smoker entered on: 03/02/16
--- OUTSIDE RECORDS SUMMARY | 2023-05-24 11:14 | XMS REPORT | Referral Summary ---
Author Author [facility] Organization [facility] Address Unknown Phone Unavailable Care Team Providers Care Retail Agent Name Role Phone Sven Wen PCP Encounter VC Date(s): 06/09/15 - 06/09/15 [facility] [address] [address] Discharge Diagnosis: Insomnia Discharge Diagnosis: Elevated fasting glucose Discharge Diagnosis: Chronic back pain Discharge Diagnosis: Hyperlipidemia Discharge Diagnosis: Fibromyalgia Discharge Diagnosis: Hypertension Discharge Diagnosis: History of bladder cancer Discharge Diagnosis: Depression Discharge Diagnosis: Rash Discharge Diagnosis: Insomnia 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 Discharge Diagnosis: Rash Discharge Diagnosis: Fibromyalgia [...] request, # 270 tabs, 0 Refill(s), Pharmacy: [facility], 1 tabs Oral TID,Instr:Changed to 90 day supply per patient request Start Date: 03/28/15 Status: Ordered garlic oral capsule 1,000 mg, Oral, Daily, 0 Refill(s) Start Date: 01/17/15 Status: Ordered glucosamine 1,500 mg, Oral, Daily, 0 Refill(s) Start Date: 01/17/15 Status: Ordered losartan-hydrochlorothiazide 100 mg-25 mg oral tablet 1 tabs, Oral, Daily, # 90 tabs, 0 Refill(s), Pharmacy: [facility] Start Date: 03/25/15 Status: [...] Refill(s) Start Date: 01/18/15 Status: Ordered Results No data available for this section Immunizations Vaccine Date Refusal Reason pneumococcal 13-valent [...] Document Reviewed: 06/16/2014 ExitCare Patient Information 2015 [employer]. This information is not intended to replace [...] by her pain management physician to a research subject to examine her feet. This is fine. [...]
--- OUTSIDE RECORDS SUMMARY | 2023-05-24 11:14 | XMS REPORT | Referral Summary ---
Author Author [facility] Leighton salvador [facility] Organization [facility] Leighton salvador [facility] Address Unknown Phone Unavailable Care Team Providers Care Medication Assistant Name Role Phone Sven Wen PCP Encounter [facility] [phone] Date(s): 01/17/15 - 01/17/15 [facility] Leighton Mcbride [facility] [address] [place] [address] Discharge Diagnosis: Hypertension Discharge Diagnosis: Fatigue Discharge [...] 10/05/2011 Document Revised: 11/24/2012 Document Reviewed: 10/05/2011 [facility] 2014 [facility]. Preventive Medicine Exercise to Stay Healthy Exercise [...] Document Reviewed: 10/05/2011 ExitCare Patient Information 2014 [employer] [facility]. No follow up information was provided. Extracted [...]
--- OUTSIDE RECORDS SUMMARY | 2023-05-24 11:14 | XMS REPORT ---
Author Author [facility] ter of [facility] ter of [facility] Address Unknown Phone Unavailable Care Team Providers Care Personnel Arbitrator Name Role Phone ARTI MAO Unavailable PROBLEMS Type Condition ICD9-CM Code [id number] Code Onset Dates Condition Status W/U Status Risk SNOMED Code Notes Problem Elevated cholesterol E78.00 confirmed 639028532 Problem Incontinence of feces, unspecified fecal incontinence type R15.9 confirmed 16627349 Problem Urinary incontinence, unspecified type R32 confirmed 846019596 Problem Hypercholeste rolemia E78.00 confirmed 74528664 Problem Blindness right eye category 3, 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 confirmed 174163522 Problem Peripheral vascular disease, unspecified I73.9 confirmed 948097042 Problem Hydrocephalus , unspecified type G91.9 confirmed 228630384 Problem Benign neoplasm of brain, unspecified brain region D33.2 confirmed 94008817 Problem Other chronic pain G89.29 confirmed 45050772 Problem Bipolar 1 disorder F31.9 confirmed 517612387 Problem Mixed stress and urge urinary incontinence N39.46 confirmed 748546697 Problem Meningioma D32.9 confirmed 510562086 Problem Type 2 diabetes mellitus with other specified complication, without long-term current use of insulin E11.69 confirmed 92323426 Problem Chronic kidney disease, stage 3a N18.31 confirmed 021814709 Problem Pressure ulcer of other site, stage 3 L89.893 confirmed 8555717629 Problem 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, unspecified epilepsy type G40.909 confirmed 150870442 Problem History of amputation of left great toe Z89.412 confirmed [id number] 7803445 Problem Diabetic foot ulcer E11.621 confirmed 747470860 Problem Atrial flutter, unspecified type I48.92 confirmed 5318434 Problem Reflux esophagitis K21.0 confirmed 022520529 Problem 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 I70.245 confirmed 546072991 Problem Essential hypertension I10 confirmed 82740673 Problem Lumbago with sciatica, unspecified side M54.40 confirmed 452584666 Problem Diabetic peripheral neuropathy E11.42 confirmed 385275324 Problem 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 confirmed 687871183 Problem Pressure ulcer of left heel, stage 2 L89.622 confirmed 808183629 Problem Dementia without behavioral disturbance, psychotic disturbance, mood disturbance, or anxiety, unspecified dementia severity, unspecified dementia type F03.90 confirmed 19046326 ALLERGIES Allergen (clinical drug ingredient) Drug/Non Drug Allergy documented on EMR Reaction Allergy Type Onset Date Status Chlortetracycline HCl rash/redde jayden skin Drug Allergy 03/10/2020 Active ENCOUNTERS from 1952 to 2023-03-13 Encounter Location Date Provider Diagnosis [address] [address] 16 Mar, 2021 ARTI MAO Essential hypertension I10 ; Blindness right eye category 3, 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 ; Hypercholesterolemia E78.00 ; Lives in assisted living facility Z59.3 and Type 2 diabetes mellitus with other specified complication, without long-term current use of insulin E11.69 IMMUNIZATIONS Vaccine Route Administration Date Status PRIVATE MMR Unknown Jul 03, 2017 Administered PRIVATE MMR Unknown Jun 03, 2017 Administered zostavax (history) Unknown March 08, 2012 Administ ered pneumovax ppsv 23 (history) Unknown Sep 16, 2011 Administered prevnar pcv 13 (history) Unknown May 24, 2015 Ad ministered zostavax (history) Unknown Sep 16, 2012 Administe ammy tdap (history) Unknown Jul 16, 2018 Administered 1st Booster MODERNA Bivalent , COVID-19, 0.5mL IM Intramuscular Jun 13, 2022 Administered PRIVATE HIGH DOSE FLU 22-23 (FLUZONE HD) AGE 65YRS AND UP IM Intramuscular Jun 13, 2022 Administer ed PRIVATE FLUZONE HIGH DOSE QU AD 0.7ML (65 and UP) 2020 IM Intramuscular Jul 10, 2021 Administered COVID-19 Moderna (history) Unknown Aug 28, 2021 A dministered COVID-19 Moderna (history) Unknown November 15, 2020 Administered COVID-19 Moderna (history) Unknown Oct 18, 2020 A dministered PRIVATE FLUZONE HIGH DOSE QU AD 0.7ML (65 and UP) 2019 IM Intramuscular Jul 06, 2020 Administered SOCIAL HISTORY Sex Assigned At : Social History Observation Description Sex Assigned At Unknown Alcohol Screen (Audit-C) Question Answer Notes Did you have a drink containing alcohol in the p ast year? No Points 0 Interpretation Negative PHQ2 Question Answer Notes In the last 2 weeks, how oft en have you had little interest or pleasure in doing things? Not at all In the last 2 weeks, how oft en have you been feeling down, depressed, or hopeless? Not at all Total PHQ2 Score 0 REASON FOR REFERRAL No Information MEDICATIONS Medication SIG (Take, Route, Frequency, Duration) Notes Start Date End Date Status Cholecalciferol 25 MCG (1000 UT) 1 capsule Orally Once a day for 30 day(s) Feb, Not-Taking Vitamin C 1000 MG 1 tablet Orally Once a day for 30 day(s) Feb, Not-Taking traZODone HCl 150 MG 1 tablet at bedtime Orally Once a day for 30 days Active Accu-Chek Isidra w/Device as directed In Vitro Once a day for 50 days Feb, Not-Taking Biotin 1 MG 1 tablet Orally Once a day for 30 day(s) Feb, Not-Taking metFORMIN HCl 500 MG 1 tablet with a meal Orally 2 times a day for 30 day(s) Feb, Not-Taking Calcium + D3 600-200 MG-UNIT 1 tablet with a meal Orally Once a day for 30 day(s) Feb, Active Famotidine 20 MG 1 tablet at bedtime as needed Orally Once a day for 30 day(s) Feb, Not-Taking Neurontin 300 MG 1 capsule Orally Once a day Active Tums 500 MG 2 tablet Orally every 4 hours as needed for 30 day(s) Feb, Active Acetaminophen 500 MG 1 tablet as needed Orally every 4-6 hours for 30 days Aug, Active Multi Complete - as directed Orally 2 times a day for 30 days Feb, Active Citalopram Hydrobromide 20 MG TAKE 1 TABLET BY MOUTH ONCE A DAY for 28 Active Tessalon Perles 100 MG 1 capsule as needed Orally Three times a day for 7 days Aug, Not-Taking Tussin 100 MG/5ML 5 ml as needed Orally every 4 hrs for 30 days Feb, Active Fosamax 5 mg 1 tablet 30 minutes before the first food, beverage or medicine of the day with plain water Orally Once a day for 30 day(s) Feb, Not-Taking ALPRAZolam 0.25 MG 1 tablet as needed Orally every 8 hours for [address] Mao 01/01/22 January, Active Fish Oil 1000 MG 1 capsule Orally Once a day for 30 day(s) Feb, Active Zetia 10 MG 1 tablet Orally Once a day for 30 day(s) Feb, Active Benadryl 25 mg 1 capsule Orally every 6 hours as needed for itching for 30 day(s) Oct, Active Flax Oil Xtra - 1 capsule Orally Once a day for 30 days Feb, Not-Taking Lutein 20 MG 1 capsule with a meal Orally Once a day for 30 day(s) Feb, Active Losartan Potassium 50 MG TAKE 1 TABLET B Y MOUTH ONCE A DAY for 28 Active Lactobacillus - 2 tablets Orally Once a day for 30 days Feb, Not-Taking Metamucil - 1 packet with 8 ounces of liquid as needed Orally once daily as needed for 30 days Feb, Not-Taking hydroCHLOROthiazide 25 MG 1 tablet in morning Orally Once a day for 30 day(s) Feb, Not-Taking levETIRAcetam 750 MG 1 tablet Orally Twice a day for 30 days Not-Taking Memantine HCl 5 MG TAKE 1 TABLET BY MOUTH TWICE A DAY for 28 Not-Taking Gabapentin 400 MG 1 capsule Orally Once a day for 30 day(s) Decreased to 400mg TID per Dr. Mao 03/10. Feb, Not-Taking Macrobid 100 MG 1 capsule Orally twice a day for 7 days Nov, Not-Taking traMADol HCl 50 MG 1 tablet as needed Orally every 6 hours for [address] Mao 01/01/22 January, Active Lasix 20 mg 1 tablet Orally Once a day for 30 day(s) Not-Taking Milk of Magnesia 400 MG/5ML 30 ml at least 4 hours between doses as needed Orally once daily as needed for 30 days Feb, Not-Taking Lipitor 40 MG 1 tablet Orally Once a day for 30 day(s) Feb, Active Imodium A-D 2 MG 1 tablet as needed Orally Four times a day for 30 days Feb, Not-Taking Glucosamine Chondro Complex - 1 tablet Orally 2 times a day for 30 days Feb, Active guaiFENesin 200 MG 2 tablet as needed Orally every 4 hrs for 30 days Feb, Not-Taking Furosemide 20 MG TAKE ONE TABLET BY MOUTH IN THE MORNING for 28 days Active Acetaminophen 325 MG 2 tablet as needed Orally every 4 hrs for 30 days Feb, Not-Taking Glimepiride 2 MG TAKE 1 TABLET BY MOUTH ONCE A DAY WITH BREAKFAST OR THE FIRST MAIN MEAL OF THE DAY for 28 Active REASON FOR VISIT TX Visit (BAIRON Zavala) MEDICAL (GENERAL) HISTORY Type Description Date Medical History Hydrocephalus Medical History Dementia in other di seases classified elsewhere with behavioral disturbance Medical History Lumbago with sciatica, unspecifi ed side Medical History Recurrent major depr essive disorder, remission status unspecified Medical History Sedative, hypnotic o r anxiolytic use, unspecified with sedative, 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 Hospitalization History [facility]'s for seizure an d meningioma 08/09-08/16/2021 MENTAL STATUS No Information ASSESSMENTS Encounter Date Diagnosis Assessment Notes Treatment Notes Treatment Clinical Notes Mar, Blindness right eye category 3, blindness left eye category 4 (ICD-10 - H54.0X34) Mar, Essential hypertensi on (ICD-10 - I10) Mar, Hypercholesterolemia (ICD-10 - E78.00) Mar, Lives in assisted ving facility (ICD-10 - Z59.3) Mar, Type 2 diabetes james itus with other specified complication, without long-term current use of insulin (ICD-10 - E11.69) PLAN OF TREATMENT Next Appt Details prn Reason: Provider Name:ESCOBAR Dos Santos, 2023-03-20 11:40:00 AM, [address] [place], [address], Insurance Providers Payer Name Payer Address Payer Phone Insured Name Patient Relationship to Insured Coverage Start Date Coverage End Date Subscriber Number Group Number WPS [facility] PART A [address] [facility] [address] Tae wilton Self - patient is the insured [id number] [place] [address] [address] [facility] [address] Do Tae wilton Self - patient is the insured [id number] [facility] Missing insurance scan copy of card into pt doc Do Tae wilton Self - patient is the insured [id number] [facility] Missing insurance scan copy of card into pt doc Do pk Stronges Self - patient is the insured [id number]
--- OUTSIDE RECORDS SUMMARY | 2023-05-24 11:14 | XMS REPORT ---
Author Author Formerly [facility] ter of [facility] ter of [facility] Address Unknown Phone Unavailable Care Team Providers Care Manager Cafe Name Role Phone ARTI MAO Unavailable PROBLEMS Type Condition ICD9-CM Code BRC89-GI Code Onset Dates Condition Status W/U Status Risk SNOMED Code Notes Problem Other chronic pain G89.29 confirmed 89317799 Problem Lumbago with sciatica, unspecified side M54.40 confirmed 309685477 Problem Hypercholeste rolemia E78.00 confirmed 11059284 Problem Benign neoplasm of brain, unspecified brain region D33.2 confirmed 27814201 Problem Mixed stress and urge urinary incontinence N39.46 confirmed 101856365 Problem Blindness right eye category 3, 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 confirmed 736855015 Problem Bipolar 1 disorder F31.9 confirmed 282798315 Problem Urinary incontinence, unspecified type R32 confirmed 565414846 Problem Type 2 diabetes mellitus with other specified complication, without long-term current use of insulin E11.69 confirmed 93656177 Problem Chronic kidney disease, stage 3a N18.31 confirmed 868594259 Problem Hydrocephalus , unspecified type G91.9 confirmed 193507052 Problem Peripheral vascular disease, unspecified I73.9 confirmed 776753472 Problem 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 confirmed 786078581 Problem Pressure ulcer of other site, stage 3 L89.893 confirmed 3016730736 Problem Essential hypertension I10 confirmed 14050027 Problem Pressure ulcer of left heel, stage 2 L89.622 confirmed 093985482 Problem Meningioma D32.9 confirmed 002374540 Problem Incontinence of feces, unspecified fecal incontinence type R15.9 confirmed 61275163 Problem Reflux esophagitis K21.0 confirmed 099054933 Problem 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, unspecified epilepsy type G40.909 confirmed 687308177 Problem History of amputation of left great toe Z89.412 confirmed [id number] 7778197 Problem Diabetic foot ulcer E11.621 confirmed 482880489 Problem Diabetic peripheral neuropathy E11.42 confirmed 768639799 ALLERGIES Allergen (clinical drug ingredient) Drug/Non Drug Allergy documented on EMR Reaction Allergy Type Onset Date Status Chlortetracycline HCl rash/redde jayden skin Drug Allergy 03/10/2020 Active ENCOUNTERS from 1952 to 2023-01-17 Encounter Location Date Provider Diagnosis [address] [address] January, ARTI MAO Encounter for Medicare annual wellness exam Z00.00 ; Essential hypertension I10 ; Dementia in other diseases classified elsewhere with behavioral disturbance F02.81 ; Blindness right eye category 3, 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 ; Type 2 diabetes mellitus with other specified complication, without long-term current use of insulin E11.69 ; Urinary incontinence, unspecified type R32 and Lives in assisted living facility Z59.3 IMMUNIZATIONS Vaccine Route Administration Date Status PRIVATE HIGH DOSE FLU 22-23 (FLUZONE HD) AGE 65YRS AND UP IM Intramuscular Jun 13, 2022 Administer ed PRIVATE FLUZONE HIGH DOSE QU AD 0.7ML (65 and UP) 2020 IM Intramuscular Jul 10, 2021 Administered COVID-19 Moderna (history) Unknown November 15, 2020 Administered COVID-19 Moderna (history) Unknown Aug 28, 2021 A dministered 1st Booster MODERNA Bivalent , COVID-19, 0.5mL IM Intramuscular Jun 13, 2022 Administered PRIVATE MMR Unknown Jun 03, 2017 Administered COVID-19 Moderna (history) Unknown Oct 18, 2020 A dministered PRIVATE FLUZONE HIGH DOSE QU AD 0.7ML (65 and UP) 2019 IM Intramuscular Jul 06, 2020 Administered tdap (history) Unknown Jul 16, 2018 Administered zostavax (history) Unknown Sep 16, 2012 Administe red zostavax (history) Unknown March 08, 2012 Administ ered pneumovax ppsv 23 (history) Unknown Sep 16, 2011 Administered prevnar pcv 13 (history) Unknown May 24, 2015 Ad ministered PRIVATE MMR Unknown Jul 03, 2017 Administered SOCIAL HISTORY Sex Assigned At : Social History Observation Description Sex Assigned At Unknown Alcohol Screen (Audit-C) Question Answer Notes Did you have a drink containing alcohol in the p ast year? No Points 0 Interpretation Negative PHQ2 Question Answer Notes In the last 2 weeks, how oft en have you had little interest or pleasure in doing things? Declined to specify In the last 2 weeks, how oft en have you been feeling down, depressed, or hopeless? Declined to specify Total PHQ2 Score 0 REASON FOR REFERRAL No Information VITAL SIGNS Weight 173 lbs January, Weight-kg 78.47 kg January, Temperature 98.1 degrees Fahrenheit January, Heart Rate 74 bpm January, Oximetry 92 % January, Blood pressure systolic 100 mmHg January, Blood pressure diastolic 74 mmHg January, MEDICATIONS Medication SIG (Take, Route, Frequency, Duration) Notes Start Date End Date Status Biotin 1 MG 1 tablet Orally Once a day for 30 day(s) Feb, Not-Taking Tussin 100 MG/5ML 5 ml as needed Orally every 4 hrs for 30 days Feb, Active Neurontin 300 MG 1 capsule Orally Once a day Active Fish Oil 1000 MG 1 capsule Orally Once a day for 30 day(s) Feb, Active guaiFENesin 200 MG 2 tablet as needed Orally every 4 hrs for 30 days Feb, Active Zetia 10 MG 1 tablet Orally Once a day for 30 day(s) Feb, Active Benadryl 25 mg 1 capsule Orally every 6 hours as needed for itching for 30 day(s) Oct, Active Acetaminophen 325 MG 2 tablet as needed Orally every 4 hrs for 30 days Feb, Not-Taking Citalopram Hydrobromide 20 MG TAKE 1 TABLET BY MOUTH ONCE A DAY for 28 Active Multi Complete - as directed Orally 2 times a day for 30 days Feb, Active Glucosamine Chondro Complex - 1 tablet Orally 2 times a day for 30 days Feb, Active Tums 500 MG 2 tablet Orally every 4 hours as needed for 30 day(s) Feb, Active ALPRAZolam 0.25 MG 1 tablet as needed Orally every 8 hours for [address] Mao 01/01/22 Dec, Active Calcium + D3 600-200 MG-UNIT 1 tablet with a meal Orally Once a day for 30 day(s) Feb, Active Milk of Magnesia 400 MG/5ML 30 ml at least 4 hours between doses as needed Orally once daily as needed for 30 days Feb, Active Glimepiride 2 MG TAKE 1 TABLET BY MOUTH ONCE A DAY WITH BREAKFAST OR THE FIRST MAIN MEAL OF THE DAY for 28 Active traZODone HCl 150 MG 1 tablet at bedtime Orally Once a day for 30 days Active Acetaminophen 500 MG 1 tablet as needed Orally every 4-6 hours for 30 days Aug, Active Vitamin C 1000 MG 1 tablet Orally Once a day for 30 day(s) Feb, Not-Taking traMADol HCl 50 MG 1 tablet as needed Orally every 6 hours for [address] Mao 01/01/22 Nov, Active Metamucil - 1 packet with 8 ounces of liquid as needed Orally once daily as needed for 30 days Feb, Active Lactobacillus - 2 tablets Orally Once a day for 30 days Feb, Active Fosamax 5 mg 1 tablet 30 minutes before the first food, beverage or medicine of the day with plain water Orally Once a day for 30 day(s) Feb, Not-Taking Gabapentin 400 MG 1 capsule Orally Once a day for 30 day(s) Decreased to 400mg TID per Dr. Mao 03/10. Feb, Not-Taking Imodium A-D 2 MG 1 tablet as needed Orally Four times a day for 30 days Feb, Active Losartan Potassium 50 MG TAKE 1 TABLET B Y MOUTH ONCE A DAY for 28 Active levETIRAcetam 750 MG 1 tablet Orally Twice a day for 30 days Active Famotidine 20 MG 1 tablet at bedtime as needed Orally Once a day for 30 day(s) Feb, Not-Taking Accu-Chek Isidra w/Device as directed In Vitro Once a day for 50 days Feb, Not-Taking Furosemide 20 MG TAKE ONE TABLET BY MOUTH IN THE MORNING for 28 Active Tessalon Perles 100 MG 1 capsule as needed Orally Three times a day for 7 days Aug, Active Lipitor 40 MG 1 tablet Orally Once a day for 30 day(s) Feb, Active Cholecalciferol 25 MCG (1000 UT) 1 capsule Orally Once a day for 30 day(s) Feb, Not-Taking Lasix 20 mg 1 tablet Orally Once a day for 30 day(s) Active hydroCHLOROthiazide 25 MG 1 tablet in th e morning Orally Once a day for 30 day(s) Feb, Not-Taking Lutein 20 MG 1 capsule with a meal Orally Once a day for 30 day(s) Feb, Active Macrobid 100 MG 1 capsule Orally twice a day for 7 days Nov, Not-Taking Flax Oil Xtra - 1 capsule Orally Once a day for 30 days Feb, Active metFORMIN HCl 500 MG 1 tablet with a meal Orally 2 times a day for 30 day(s) Feb, Not-Taking Memantine HCl 5 MG TAKE 1 TABLET BY MOUTH TWICE A DAY for 28 Active REASON FOR VISIT BIANCA Busby RN MEDICAL (GENERAL) HISTORY Type Description Date Medical History Hydrocephalus Medical History Dementia in other di seases classified elsewhere with behavioral disturbance Medical History Lumbago with sciatica, unspecifi ed side Medical History Recurrent major depr essive disorder, remission status unspecified Medical History Sedative, hypnotic o r anxiolytic use, unspecified with sedative, 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 Hospitalization History [facility] for seizure an d meningioma 08/09-08/16/2021 MENTAL STATUS No Information ASSESSMENTS Encounter Date Diagnosis Assessment Notes Treatment Notes Treatment Clinical Notes January, Encounter for Medicare annual wellness exam (ICD-10 - Z00.00) January, Essential hypertension (ICD-10 - I10) January, Dementia in other diseases classified elsewhere with behavioral disturbance (ICD-10 - F02.81) January, Blindness right eye category 3, blindness left eye category 4 (ICD-10 - H54.0X34) January, Type 2 diabetes mellitus with other specified complication, without long-term current use of insulin (ICD-10 - E11.69) January, Urinary incontinence, unspecified type (ICD-10 - R32) January, Lives in assisted living facility (ICD-10 - Z59.3) PLAN OF TREATMENT Next Appt Details prn Reason: Provider Name:ESCOBAR Dos Santos, 2023-01-23 10:00:00 AM, [address] [place], [address], Provider Name:ESCOBAR Dos Santos, 2023-01-23 11:00:00 AM, [address] [place], [address], Insurance Providers Payer Name Payer Address Payer Phone Insured Name Patient Relationship to Insured Coverage Start Date Coverage End Date Subscriber Number Group Number WPS [facility] PART A [address] [facility] [phone] Do wilton Strong Self - patient is the insured 7 [id number] [place] [address] [address] [facility] [address] Do wilton Strong Self - patient is the insured [id number] RCM Missing insurance scan copy of card into pt doc Do wilton Strong Self - patient is the insured [id number] Missing insurance scan copy of card into pt doc Do wilton Strong Self - patient is the insured [id number]
--- OUTSIDE RECORDS SUMMARY | 2023-05-24 11:14 | XMS REPORT | Referral Summary ---
Author Author [facility] Organization [facility] Address Unknown Phone Unavailable Care Team Providers Care Hand Tube Bender Name Role Phone Prince Corbin PCP Encounter VC Date(s): 10/02/17 - 10/03/17 [facility] [address] [place] [address] Discharge Disposition: 01-Home or Self Care Attending Physician: Barrie Ramos MD Admitting Physician: Barrie Ramos MD Referring Physician: Barrie Ramos MD Vital Signs Most recent to oldest [Reference Range]: 1 Temperature Oral [35.8-37.3 degC] 36.8 d egC (10/03/17 3:48 PM) Temperature Skin [36-37 degC] 36.7 degC (10/02/17 2:30 PM) Peripheral Pulse Rate [60-100 bpm] 95 bp m (10/03/17 3:48 PM) Heart Rate Monitored [60-100 bpm] 105 bp m *HI* (10/02/17 8:00 PM) Respiratory Rate [14-20 br/min] 18 br/mi n (10/03/17 3:48 PM) Blood Pressure [90-140/60-90 mmHg] 138/6 6mmHg (10/03/17 3:00 PM) Mean Arterial Pressure, Cuff 92 mmHg (10/02/17 8:00 PM) SpO2 92 % (10/03/17 8:10 PM) Problem List Condition Effective Dates Status [...] Impaired skin integrity(Confirmed) 3 Active Insomnia(Confirmed) Active Myalgia(Confirmed) Active Nonalcoholic fatty [...] of Impaired Skin Integrity Plan of Care Allergies, Adverse Reactions, Alerts Substance Reaction Severity Status tetracycline Eczema (rash) Active Medications alendronate 5 mg oral tablet 5 mg 1 tabs, Oral, Daily, 0 Refill(s) Start Date: 06/13/16 Status: Ordered Faviola Allergy 180 mg, Oral, Daily, 0 Refill(s) Start Date: 01/17/15 Status: Ordered atorvastatin 20 mg oral tablet 20 mg 1 tabs, Oral, Bedtime (once a day), # 30 tabs, 0 Refill(s) Start Date: 10/02/17 Status: Ordered Calcium 600+D oral tablet 1 tabs, Oral, TID, 0 Refill(s) Start Date: 01/17/15 Status: Ordered Centrum Silver oral tablet 1 tabs, Oral, BID, 0 Refill(s) Start Date: 01/17/15 Status: Ordered ciprofloxacin 500 mg oral tablet 500 mg 1 tabs, Oral, q24hr, # 9 tabs, 0 Refill(s) Start Date: 10/03/17 Stop Date: 10/12/17 Status: Ordered ciprofloxacin 500 mg oral tablet 500 mg 1 tabs, Oral, q24hr, 0 Refill(s) Start Date: 10/03/17 Status: Ordered citalopram 40 mg oral tablet 40 mg 1 tabs, Oral, Daily, # 30 tabs, 0 Refill(s) Start Date: 10/02/17 Status: Ordered Flonase 50 mcg/inh nasal spray 1 sprays, Nasal, BID, 0 Refill(s) Start Date: [...] 0 Refill(s) Start Date: 10/02/17 Status: Ordered metroNIDAZOLE 500 mg oral tablet 500 mg 1 tabs, Oral, BID, # 18 tabs, 0 Refill(s) Start Date: 10/03/17 Stop Date: 10/04/17 Status: Ordered metroNIDAZOLE 500 mg oral tablet 500 mg 1 tabs, Oral, BID, 0 Refill(s) Start Date: 10/03/17 Status: Ordered Hudson 5 mg-325 mg oral tablet 1 tabs, Oral, q4hr, Pain Moderate (4-6), # 19 tabs, 0 Refill(s) Start Date: 10/03/17 Stop Date: 10/09/17 Status: Ordered oxaprozin 600 mg oral tablet 600 mg 1 tabs, Oral, BID, # 30 tabs, 0 Refill(s) Start Date: 10/02/17 Status: Ordered Percocet 5/325 oral tablet 1 tabs, Oral, q4hr, Pain Moderate (4-6), 0 Refill(s) Start Date: 10/03/17 Status: Ordered PreserVision AREDS 2 1 caps, Oral, BID, 0 Refill(s) Start Date: 10/17/15 Status: Ordered traZODone 100 mg, Oral, Bedtime (once a day), 0 Refill(s) Start Date: 06/13/16 Status: Ordered Vitamin C 1,000 mg, Oral, Daily, 3 tabs, 0 Refill(s) Start Date: 01/17/15 Status: Ordered Vitamin D3 2000 intl units oral tablet 4,000 Intl_Units 2 tabs, Oral, Daily, 0 Refill(s) Start Date: [...] oldest [Reference Range]: 1 WBC [4.8-10.8 10*3/uL] 9.8 10*3/uL (10/03/17 6:10 AM) RBC [4.00-5.20] 3.43 *LOW* (10/03/17 6:10 AM) Hgb [12.0-16.0 gm/dL] 10.2 gm/dL *LOW* (10/03/17 6:10 AM) Hct [37.0-47.0 %] 31.5 % *LOW* (10/03/17 6:10 AM) MCV [82.0-99.0 fL] 91.8 fL (10/03/17 6:10 AM) MCH [27.0-32.0 pg] 29.7 pg (10/03/17 6:10 AM) MCHC [32.0-36.0 gm/dL] 32.4 gm/dL (10/03/17 6:10 AM) RDW [11.5-14.5 %] 15.0 % *HI* (10/03/17 6:10 AM) Platelet [150-400 10*3/uL] 304 10*3/uL (10/03/17 6:10 AM) MPV [9.4-12.4 fL] 9.8 fL (10/03/17 6:10 AM) Immature Granulocytes [0.0-1.0 %] 0.2 % (10/03/17 6:10 AM) Neutrophils [51-75 %] 66 % (10/03/17 6:10 AM) Lymphocytes [20-46 %] 23 % (10/03/17 6:10 AM) Monocytes [4-11 %] 11 % (10/03/17 6:10 AM) Eosinophils [0-4 %] 0 % (10/03/17 6:10 AM) Basophils [0-2 %] 0 % (10/03/17 6:10 AM) Neutro Absolute [1.90-7.00] 6.48 (10/03/17 6:10 AM) Lymph Absolute [0.80-3.30] 2.29 (10/03/17 6:10 AM) Bell Absolute [0.30-1.00] 1.03 *HI* (10/03/17 6:10 AM) Eos Absolute [0.00-0.50] 0.01 (10/03/17 6:10 AM) Baso Absolute [0.00-0.20] 0.01 (10/03/17 6:10 AM) Nucleated RBC Automated [0 /100 WBC] 0.0 /100 WBC (10/03/17 6:10 AM) Chemistry Most recent to oldest [Reference Range]: 1 Sodium Lvl [136-144 mEq/L] 137 mEq/L (10/03/17 6:10 AM) Potassium Lvl [3.6-5.1 mEq/L] 3.8 mEq/L (10/03/17 6:10 AM) Chloride [99-109 mEq/L] 105 mEq/L (10/03/17 6:10 AM) CO2 [22-32 mEq/L] 25 mEq/L (10/03/17 6:10 AM) AGAP [3-20 mEq/L] 7 mEq/L (10/03/17 6:10 AM) BUN [4-20 mg/dL] 19 mg/dL (10/03/17 6:10 AM) Glucose Lvl [70-100 mg/dL] 148 mg/dL *HI* (10/03/17 6:10 AM) Creatinine Lvl [0.44-1.03 mg/dL] 1.04 mg /dL *HI* (10/03/17 6:10 AM) eGFR [>60 mL/min] 53 mL/min 1 *ABN* (10/03/17 6:10 AM) Calcium Lvl [8.6-10.0 mg/dL] 8.2 mg/dL *LOW* (10/03/17 6:10 AM) Blood Glucose, Capillary [70-100 mg/dL] 122 mg/dL *HI* (10/03/17 6:37 PM) 1Result Comment: Multiply eGFR results by 1.21 for race. Immunizations Given and Recorded Vaccine Date Status Refusal Reason influenza virus vaccine, inactivated 10/03/17 Give n influenza virus vaccine, inactivated 1 06/15/16 Gi lashawn influenza virus vaccine, inactivated 09/19/15 Give n pneumococcal 13-valent conjugate vaccine 05/24/15 Given zoster vaccine live 09/16/12 Recorded pneumococcal 23-polyvalent vaccine 09/16/11 Record ed 1Result Comment: Bottom Buffer is [employer] by that name is not included in drop box, RN spoke with [facility] pharmacist, she reports that [employer] is a company under [employer]. Procedures Procedure Date Related Diagnosis Body Site Repair Hernia Incisional Laparoscopic 1 10/02/17 Open Reduction Internal Fixation Ankle (Right) 2 Colonoscopy 3 12/15/15 Procedure with Anesthesia 4 12/15/15 Cholecystectomy 1992 Bladder surgery H/O total hysterectomy with bilateral salpingo-oophorectomy (BSO) Hx of hernia repair Hysterectomy Shunt 5 Tonsillectomy and adenoidect jj; younger than age 12 1auto-populated from documented surgical case 2auto-populated from documented surgical case 3auto-populated from documented surgical case 4auto-populated from documented surgical case 5V-P Social History Social History Type Response Smoking Status Never smoker entered on: 03/02/16
--- OUTSIDE RECORDS SUMMARY | 2023-05-24 11:14 | XMS REPORT | Referral Summary ---
Author Author [facility] Organization [facility] Address Unknown Phone Unavailable Care Team Providers Care Business Analysis Consultant Name Role Phone Sven Wen PCP Encounter [facility] [id number] Date(s): 01/17/15 - 01/17/15 [facility] [address] [place] [address] Discharge Diagnosis: Hypertension Discharge Diagnosis: Fatigue Discharge [...] 10/05/2011 Document Revised: 11/24/2012 Document Reviewed: 10/05/2011 [facility]. Preventive Medicine Exercise to Stay Healthy [...] Document Reviewed: 10/05/2011 [employer] Patient Information 2014 [employer] [facility]. No follow up information was provided. [...]
--- OUTSIDE RECORDS SUMMARY | 2023-05-24 11:14 | XMS REPORT | Referral Summary ---
Author Author [facility] Organization [facility] Address Unknown Phone Unavailable Care Team Providers Care Community Director Name Role Phone Sven Wen PCP Encounter [facility] [id number] Date(s): 02/03/15 - 02/03/15 [facility] [address] [place] [address] Discharge Diagnosis: Chronic back pain Discharge Disposition: 01-Home or Self Care Attending Physician: Cirilo Johnson MD Admitting Physician: Minesh Pierce MD Vital Signs Most recent to oldest [Reference Range]: 1 Temperature Oral [35.8-37.3 degC] 36.1 d egC (02/03/15 9:57 AM) Peripheral Pulse Rate [60-100 bpm] 60 bp m (02/03/15 9:57 AM) Blood Pressure [90-140/60-90 mmHg] 110/6 0mmHg (02/03/15 9:57 AM) Problem List Condition Effective Dates Status [...] Status: Ordered citalopram 20 mg oral tablet 20 mg 1 tabs, Oral, Daily, # 90 tabs, 0 Refill(s), Pharmacy: [facility], 1 tabs OralDaily Start Date: 08/08/15 Status: Ordered Colace 100 mg oral capsule 1 caps, Oral, BID, as needed for constipation, 0 Refill(s) Start Date: 01/17/15 Status: Ordered Fish Oil oral capsule 1 caps, Oral, BID, 0 Refill(s) Start Date: 01/17/15 Status: Ordered gabapentin 600 mg oral tablet 600 mg 1 tabs, Oral, TID, Changed to 90 day supply per patient request, # 270 tabs, 0 Refill(s), Pharmacy: [facility], 1 tabs Oral TID,Instr:Changed to 90 day supply per patient request Start Date: 08/08/15 Status: Ordered garlic oral capsule 1,000 mg, Oral, Daily, 0 Refill(s) Start Date: 01/17/15 Status: Ordered glucosamine 1,500 mg, Oral, Daily, 0 Refill(s) Start Date: 01/17/15 Status: Ordered losartan-hydrochlorothiazide 100 mg-25 mg oral tablet 1 tabs, Oral, Daily, # 90 tabs, 0 Refill(s), Pharmacy: [facility] Start Date: 08/08/15 Status: Ordered magnesium oxide 400 mg (241.3 [...] tabs, Oral, BID, # 540 tabs, 0 Refill(s), Pharmacy: [facility], 3 tabs Oral BID Start Date: 08/08/15 Status: Ordered Zetia 10 mg oral tablet 10 mg 1 tabs, Oral, Daily, # 90 tabs, 0 Refill(s), Pharmacy: [facility], 1 tabs OralDaily Start Date: 08/08/15 Status: Ordered Results Toxicology Most recent to oldest [Reference Range]: 1 Location, Toxicology [facility] (02/03/15 11:09 AM) Company [facility] (02/03/15 11:09 AM) Reason na (02/03/15 11:09 AM) SSN na (02/03/15 11:09 AM) U Amphetamine Scrn Not Detected 1 (02/03/15 11:09 AM) U Cocaine Scrn Not Detected 2 (02/03/15 11:09 AM) U Cannab Scrn Not Detected 3 (02/03/15 11:09 AM) U Opiate Scrn Not Detected (02/03/15 11:09 AM) U PCP Scrn Not Detected (02/03/15 11:09 AM) U Benzodiazepine Scrn Positive 4 *ABN* (02/03/15 11:09 AM) U Barbiturate Scrn Not Detected 5 (02/03/15 11:09 AM) Creatinine Lvl. 68 mg/dL 6 (02/03/15 11:09 AM) Methadone Lvl Not Detected 7 (02/03/15 11:09 AM) Propoxyphene Lvl Not Detected (02/03/15 11:09 AM) Oxycodone Lvl Not Detected (02/03/15 11:09 AM) Opiates (300 ng/mL cutoff) Not Detected 8 (02/03/15 11:09 AM) Buprenorphine Lvl Not Detected (02/03/15 11:09 AM) 1Result Comment: Cutoff = 500 ng/mL 2Result Comment: Cutoff = 150 ng/mL 3Result Comment: Cutoff = 50 ng/mL 4Result Comment: Cutoff = 300 ng/mL 5Result Comment: Cutoff = 300 ng/mL 6Result Comment: This drug screen was not accompanied by a chain of custody form. Under [place] guidelines, the results can be used only for medical purposes. These results should not be used for legal or employment related decisions. Urine creatinines less than 20 mg/dl are abnormally dilute. 7Result Comment: Cutoff = 300 ng/mL 8Result Comment: Cutoff = 300 ng/mL Immunizations Vaccine Date Refusal Reason pneumococcal 13-valent [...] Never smoker Assessment and Plan Extracted from: Title:Office Visit Note Author:Minesh Pierce MD Date:02/03/15 Assessment/Plan Chronic back pain Patient was not informed of pain management protocol on last visit and thought this was it. Given this misunderstanding, I explained the chronic pain policies of the clinic. Since this is her second visit and the pain packet was not explained, one month of [place] 7.5/325 was given until seen by Dr. Denney. The patient was informed of the entire packet by nursing with the understanding that Dr. Denney does not have to continue current narcotics at the next visit. UDS was performed as well. I discussed the patient with the preceptor. Dr. Johnson I discussed the patient with the Resident, reviewed the the above, and concur with the assessment(s) and plan(s) as modified.
--- OUTSIDE RECORDS SUMMARY | 2023-05-24 11:14 | XMS REPORT ---
Author Author [facility] ter of 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 confirmed 916701467 Problem Wound of left foot S91.302A confirmed 446364605 Problem Reflux esophagitis K21.0 confirmed 106417309 Problem Essential hypertension I10 confirmed 19031498 Problem Other chronic pain G89.29 confirmed 57220764 Problem Lumbago with sciatica, unspecified side M54.40 confirmed 587607334 Problem Constipation, unspecified constipation type K59.00 confirmed 04843773 Problem Dementia in other diseases classified elsewhere with behavioral disturbance F02.81 confirmed [id number] 19 103 Problem Hypercholeste rolemia E78.00 confirmed 36217477 Problem Mixed stress and urge urinary incontinence N39.46 confirmed 597924695 Problem Bipolar 1 disorder F31.9 confirmed 340270257 Problem Pressure ulcer of other site, stage 3 L89.893 confirmed 9919833970 Problem Recurrent major depressive disorder, in remission F33.40 confirmed 75765424 Problem Urinary incontinence, unspecified type R32 confirmed 109794270 Problem Chronic kidney disease, stage 3a N18.31 confirmed 257875131 Problem Benign neoplasm of brain, unspecified brain region D33.2 confirmed 84853454 Problem Incontinence of feces, unspecified fecal incontinence type R15.9 confirmed 33833672 Problem Type 2 diabetes mellitus with other specified complication, without long-term current use of insulin E11.69 confirmed 09957097 Problem Meningioma D32.9 confirmed 274668483 Problem 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, unspecified epilepsy type G40.909 confirmed 764941399 Problem Atrial flutter, unspecified type I48.92 confirmed 4437987 ALLERGIES Allergen (clinical drug ingredient) Drug/Non Drug Allergy documented on EMR Reaction Allergy Type Onset Date Status Chlortetracycline HCl rash/redde jayden skin Drug Allergy 03/10/2020 Active ENCOUNTERS from 1950 to 2022-09-25 Encounter Location Date Provider Diagnosis [address] [address] Oct, ARTI ISSA Blindness right eye category 3, 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 ; Essential hypertension I10 ; Dementia in other diseases classified elsewhere with behavioral disturbance F02.81 ; Lives in assisted living facility Z59.3 ; Incontinence of feces, unspecified fecal incontinence type R15.9 ; Urinary incontinence, unspecified type R32 ; Type 2 diabetes mellitus with other specified complication, without long-term current use of insulin E11.69 ; Bipolar 1 disorder F31.9 and Pressure injury of left foot, stage 3 L89.893 IMMUNIZATIONS Vaccine Route Administration Date Status PRIVATE MMR Unknown Jul 03, 2017 Administered PRIVATE MMR Unknown Jun 03, 2017 Administered zostavax (history) Unknown March 08, 2012 Administ ered pneumovax ppsv 23 (history) Unknown Sep 16, 2011 Administered prevnar pcv 13 (history) Unknown May 24, 2015 Ad ministered PRIVATE FLUZONE HIGH DOSE QU AD 0.7ML (65 and UP) 2019 IM Intramuscular Jul 06, 2020 Administered zostavax (history) Unknown Sep 16, 2012 Administe red tdap (history) Unknown Jul 16, 2018 Administered COVID-19 Moderna (history) Unknown Oct 18, 2020 A dministered COVID-19 Moderna (history) Unknown November 15, 2020 Administered 1st Booster MODERNA Bivalent , COVID-19, 0.5mL IM Intramuscular Jun 13, 2022 Administered PRIVATE HIGH DOSE FLU 22-23 (FLUZONE HD) AGE 65YRS AND UP IM Intramuscular Jun 13, 2022 Administer ed PRIVATE FLUZONE HIGH DOSE QU AD 0.7ML (65 and UP) 2020 IM Intramuscular Jul 10, 2021 Administered COVID-19 Moderna (history) Unknown Aug 28, 2021 A dministered SOCIAL HISTORY Sex Assigned At : Social [...] REASON FOR REFERRAL No Information VITAL SIGNS Heart Rate 68 bpm Oct, Oximetry 98 % Oct, Blood pressure systolic 147 mmHg Oct, Blood pressure diastolic 67 mmHg Oct, MEDICATIONS Medication SIG (Take, Route, Frequency, Duration) Notes Start Date End Date Status Citalopram Hydrobromide 20 MG TAKE 1 TABLET BY MOUTH ONCE A DAY for 28 Active Fosamax 5 mg 1 tablet 30 minutes before the first food, beverage or medicine of the day with plain water Orally Once a day for 30 day(s) Feb, Active Acetaminophen 500 MG 1 tablet as needed Orally every 4-6 hours for 30 days Aug, Active Glucosamine Chondro Complex - 1 tablet Orally 2 times a day for 30 days Feb, Active Milk of Magnesia 400 MG/5ML 30 ml at least 4 hours between doses as needed Orally once daily as needed for 30 days Feb, Active traZODone HCl 100 MG TAKE ONE TABLET AT BEDTIME ONCE DAILY for 28 days Active Acetaminophen 325 MG 2 tablet as needed Orally every 4 hrs for 30 days Feb, Active Famotidine 20 MG 1 tablet at bedtime as needed Orally Once a day for 30 day(s) Feb, Active Furosemide 20 MG TAKE ONE TABLET BY MOUTH IN THE MORNING for 28 Active Amoxicillin 500 MG 1 capsule Orally 3 times a day for 7 days May, Not-Taking Multi Complete - as directed Orally 2 times a day for 30 days Feb, Active Tums 500 MG 2 tablet Orally every 4 hours as needed for 30 day(s) Feb, Active ALPRAZolam 0.25 MG 1 tablet as needed Orally every 8 hours for [address] Issa 01/01/22 Aug, Active Gabapentin 400 MG 1 capsule Orally Once a day for 30 day(s) Decreased to 400mg TID per Dr. Issa 03/10. Feb, Active Vitamin C 1000 MG 1 tablet Orally Once a day for 30 day(s) Feb, Active Tessalon Perles 100 MG 1 capsule as needed Orally Three times a day for 7 days Aug, Active Tussin 100 MG/5ML 5 ml as needed Orally every 4 hrs for 30 days Feb, Active Benadryl 25 mg 1 capsule Orally every 6 hours as needed for itching for 30 day(s) Oct, Active Zetia 10 MG 1 tablet Orally Once a day for 30 day(s) Feb, Active Glimepiride 2 MG TAKE 1 TABLET BY MOUTH ONCE A DAY WITH BREAKFAST OR THE FIRST MAIN MEAL OF THE DAY for 28 Active Biotin 1 MG 1 tablet Orally Once a day for 30 day(s) Feb, Active Metamucil - 1 packet with 8 ounces of liquid as needed Orally once daily as needed for 30 days Feb, Active Macrobid 100 MG 1 capsule Orally twice a day for 7 days Nov, Active levETIRAcetam 500 MG 1 tablet Orally Twice a day for 30 day(s) Active metFORMIN HCl 500 MG 1 tablet with a meal Orally 2 times a day for 30 day(s) Feb, Active traMADol HCl 50 MG 1 tablet as needed Orally every 6 hours for [address] Issa 01/01/22 Aug, Active Losartan Potassium 50 MG TAKE 1 TABLET B Y MOUTH ONCE A DAY for 28 Active Cholecalciferol 25 MCG (1000 UT) 1 capsule Orally Once a day for 30 day(s) Feb, Active Fish Oil 1000 MG 1 capsule Orally Once a day for 30 day(s) Feb, Active Flax Oil Xtra - 1 capsule Orally Once a day for 30 days Feb, Active Accu-Chek Isidra w/Device as directed In Vitro Once a day for 50 days Feb, Active Lipitor 40 MG 1 tablet Orally Once a day for 30 day(s) Feb, Active Citalopram Hydrobromide 10 MG TAKE 3 TABLETS BY MOUTH ONCE DAILY for 28 day(s) Active Lutein 20 MG 1 capsule with a meal Orally Once a day for 30 day(s) Feb, Active Lasix 20 mg 1 tablet Orally Once a day for 30 day(s) Active Imodium A-D 2 MG 1 tablet as needed Orally Four times a day for 30 days Feb, Active Lactobacillus - 2 tablets Orally Once a day for 30 days Feb, Active Calcium + D3 600-200 MG-UNIT 1 tablet with a meal Orally Once a day for 30 day(s) Feb, Active hydroCHLOROthiazide 25 MG 1 tablet in morning Orally Once a day for 30 day(s) Feb, Active guaiFENesin 200 MG 2 tablet as needed Orally every 4 hrs for 30 days Feb, Active REASON FOR VISIT [facility] ([facility]) MEDICAL (GENERAL) HISTORY Type Description Date [...] Assessment Notes Treatment Notes Treatment Clinical Notes Oct, Blindness right eye category 3, blindness left eye category 4 (ICD-10 - H54.0X34) Oct, Essential hypertension (ICD-10 - I10) Oct, Dementia in other diseases classified elsewhere with behavioral disturbance (ICD-10 - F02.81) Oct, Lives in assisted living facility (ICD-10 - Z59.3) Oct, Incontinence of feces, unspecified fecal incontinence type (ICD-10 - R15.9) Oct, Urinary incontinence, unspecified type (ICD-10 - R32) Oct, Type 2 diabetes mellitus with other specified complication, without long-term current use of insulin (ICD-10 - E11.69) Oct, Bipolar 1 disorder (ICD-10 - F31.9) Oct, Pressure injury of left foot, stage 3 (ICD-10 - L89.893) will need home health PLAN OF TREATMENT Treatment Notes Assessment Notes Clinical Notes Pressure injury of left foot, stage 3 will need home health Next Appt Details prn Reason: Insurance Providers Payer Name Payer Address Payer Phone Insured Name Patient Relationship to Insured Coverage Start Date Coverage End Date Subscriber Number Group Number [facility] [address] [facility] [phone] Do wilton Strong Self - patient is the insured [id number] [facility] PART A [address] [facility] [phone] [phone] Do wilton Strong Self - patient is the insured [id number] [facility] Missing insurance scan copy of card into pt doc Do wilton Strong Self - patient is the insured [id number] [facility] Missing insurance scan copy of card into pt doc Do wilton Strong Self - patient is the insured [id number]
--- OUTSIDE RECORDS SUMMARY | 2023-05-24 11:14 | XMS REPORT ---
Author Author [facility] ter of [facility] ter of [facility] Address Unknown Phone Unavailable Care Team Providers Care Civil Engineer Name Role Phone ARTI ISSA Unavailable PROBLEMS Type Condition ICD9-CM Code [id number] Code Onset Dates Condition Status W/U Status Risk SNOMED Code Notes Problem Incontinence of feces, unspecified fecal incontinence type R15.9 confirmed [id number] Problem Essential hypertension I10 confirmed 02743124 Problem Urinary incontinence, unspecified type R32 confirmed 994051195 Problem Lumbago with sciatica, unspecified side M54.40 confirmed 251936117 Problem Reflux esophagitis K21.0 confirmed 999214715 Problem Hypercholeste rolemia E78.00 confirmed 09217393 Problem Benign neoplasm of brain, unspecified brain region D33.2 confirmed 03916731 Problem Mixed stress and urge urinary incontinence N39.46 confirmed 753533999 Problem Chronic kidney disease, stage 3a N18.31 confirmed 561800753 Problem Blindness right eye category 3, 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 confirmed 640255898 Problem Hydrocephalus , unspecified type G91.9 confirmed 148835859 Problem Other chronic pain G89.29 confirmed 52637683 Problem Type 2 diabetes mellitus with other specified complication, without long-term current use of insulin E11.69 confirmed 76347722 Problem Bipolar 1 disorder F31.9 confirmed 333920357 Problem Meningioma D32.9 confirmed 613244236 Problem Pressure ulcer of other site, stage 3 L89.893 confirmed [id number] ALLERGIES Allergen (clinical drug ingredient) Drug/Non Drug Allergy documented on EMR Reaction Allergy Type Onset Date Status Chlortetracycline HCl rash/redde jayden skin Drug Allergy 03/10/2020 Active ENCOUNTERS from 1950 to 2022-10-02 Encounter Location Date Provider Diagnosis [facility] [address] [id number] [address] 16 Oct, 2020 ARTI ISSA IMMUNIZATIONS Vaccine Route Administration Date Status PRIVATE HIGH DOSE FLU 22-23 (FLUZONE HD) AGE 65YRS AND UP IM Intramuscular Jun 13, 2022 Administer ed 1st Booster MODERNA Bivalent , COVID-19, 0.5mL IM Intramuscular Jun 13, 2022 Administered COVID-19 Moderna (history) Unknown November 15, 2020 Administered COVID-19 Moderna (history) Unknown Aug 28, 2021 A dministered PRIVATE FLUZONE HIGH DOSE QU AD 0.7ML (65 and UP) 2020 IM Intramuscular Jul 10, 2021 Administered PRIVATE MMR Unknown Jun 03, 2017 [...] Duration) Notes Start Date End Date Status Lasix 20 mg 1 tablet Orally Once a day for 30 day(s) Active Vitamin C 1000 MG 1 tablet Orally Once a day for 30 day(s) Feb, Active Citalopram Hydrobromide 20 MG TAKE 1 TABLET BY MOUTH ONCE A DAY for 28 Active Accu-Chek Isidra w/Device as directed In Vitro Once a day for 50 days Feb, Active Gabapentin 400 MG 1 capsule Orally Once a day for 30 day(s) Decreased to 400mg TID per Dr. Issa 03/10. Feb, Active Tessalon Perles 100 MG 1 capsule as needed Orally Three times a day for 7 days Aug, Active ALPRAZolam 0.25 MG 1 tablet as needed Orally every 8 hours for [address] Issa 01/01/22 Aug, Active Glucosamine Chondro Complex - 1 tablet Orally 2 times a day for 30 days Feb, Active Flax Oil Xtra - 1 capsule Orally Once a day for 30 days Feb, Active levETIRAcetam 750 MG 1 tablet Orally Twice a day for 30 days Active Tussin 100 MG/5ML 5 ml as needed Orally every 4 hrs for 30 days Feb, Active Multi Complete - as directed Orally 2 times a day for 30 days Feb, Active hydroCHLOROthiazide 25 MG 1 tablet in morning Orally Once a day for 30 day(s) Feb, Active Fish Oil 1000 MG 1 capsule Orally Once a day for 30 day(s) Feb, Active Acetaminophen 500 MG 1 tablet as needed Orally every 4-6 hours for 30 days Aug, Active Zetia 10 MG 1 tablet Orally Once a day for 30 day(s) Feb, Active traZODone HCl 100 MG TAKE ONE TABLET AT BEDTIME ONCE DAILY for 28 days Active Furosemide 20 MG TAKE ONE TABLET BY MOUTH IN THE MORNING for 28 Active guaiFENesin 200 MG 2 tablet as needed Orally every 4 hrs for 30 days Feb, Active traMADol HCl 50 MG 1 tablet as needed Orally every 6 hours for [address] Issa 01/01/22 Aug, Active Glimepiride 2 MG TAKE 1 TABLET BY MOUTH ONCE A DAY WITH BREAKFAST OR THE FIRST MAIN MEAL OF THE DAY for 28 Active metFORMIN HCl 500 MG 1 tablet with a meal Orally 2 times a day for 30 day(s) Feb, Active Macrobid 100 MG 1 capsule Orally twice a day for 7 days Nov, Active Imodium A-D 2 MG 1 tablet as needed Orally Four times a day for 30 days Feb, Active Benadryl 25 mg 1 capsule Orally every 6 hours as needed for itching for 30 day(s) Oct, Active Milk of Magnesia 400 MG/5ML 30 ml at least 4 hours between doses as needed Orally once daily as needed for 30 days Feb, Active Lactobacillus - 2 tablets Orally Once a day for 30 days Feb, Active Lipitor 40 MG 1 tablet Orally Once a day for 30 day(s) Feb, Active Tums 500 MG 2 tablet Orally every 4 hours as needed for 30 day(s) Feb, Active Famotidine 20 MG 1 tablet at bedtime as needed Orally Once a day for 30 day(s) Feb, Active Citalopram Hydrobromide 10 MG TAKE 3 TABLETS BY MOUTH ONCE DAILY for 28 day(s) Active Acetaminophen 325 MG 2 tablet as needed Orally every 4 hrs for 30 days Feb, Active Cholecalciferol 25 MCG (1000 UT) 1 capsule Orally Once a day for 30 day(s) Feb, Active Biotin 1 MG 1 tablet Orally Once a day for 30 day(s) Feb, Active Calcium + D3 600-200 MG-UNIT 1 tablet with a meal Orally Once a day for 30 day(s) Feb, Active Metamucil - 1 packet with 8 ounces of liquid as needed Orally once daily as needed for 30 days Feb, Active Fosamax 5 mg 1 tablet 30 minutes before the first food, beverage or medicine of the day with plain water Orally Once a day for 30 day(s) Feb, Active Losartan Potassium 50 MG TAKE 1 TABLET B Y MOUTH ONCE A DAY for 28 Active Lutein 20 MG 1 capsule with a meal Orally Once a day for 30 day(s) Feb, Active REASON FOR VISIT return call MEDICAL (GENERAL) HISTORY Type Description Date Medical History Hydrocephalus Medical History Dementia in other di seases classified elsewhere with behavioral disturbance Medical History Lumbago with sciatica, unspecifi ed side Medical History Recurrent major depr essive disorder, remission status unspecified Medical History Sedative, hypnotic o r anxiolytic use, unspecified with sedative, 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 Hospitalization History [facility] for seizure an d meningioma 08/09-08/16/2021 MENTAL STATUS No Information PLAN OF TREATMENT Medication Medication Name Sig Start Date Stop Date levETIRAcetam 750 MG 1 tablet Orally Twice a day for 3 0 days Glimepiride 2 MG TAKE 1 TABLET BY RASHAWN TH ONCE A DAY WITH BREAKFAST OR THE FIRST MAIN MEAL OF THE DAY for 28 Insurance Providers Payer Name Payer Address Payer Phone Insured Name Patient Relationship to Insured Coverage Start Date Coverage End Date Subscriber Number Group Number [facility] PART A [address] [facility] [phone] Do wilton Strong Self - patient is the insured [id number] [facility] Missing insurance scan copy of card into pt doc Do wilton Strong Self - patient is the insured [id number] [place] [address] [address] [facility] [phone] Do wilton Strong Self - patient is the insured [id number] [facility] Missing insurance scan copy of card into pt doc Do wilton Strong Self - patient is the insured [id number]
--- OUTSIDE RECORDS SUMMARY | 2023-05-24 11:14 | XMS REPORT | Referral Summary ---
Author Author [facility] Organization [facility] Address Unknown Phone Unavailable Care Team Providers Care Library Acquisitions Technician Name Role Phone Sven Wen PCP Encounter VC Date(s): 03/28/15 - 03/28/15 [facility] Sam[facility] [address] [place] [address] Discharge Diagnosis: Pain Discharge Disposition: 01-Home or Self Care Attending Physician: Ari Denney DO Admitting Physician: Ari Denney DO Vital Signs Most recent to oldest [Reference Range]: 1 Temperature Oral [35.8-37.3 degC] 36.2 d egC (03/28/15 10:59 AM) Peripheral Pulse Rate [60-100 bpm] 80 bp m (03/28/15 10:59 AM) Respiratory Rate [14-20 br/min] 14 br/mi n (03/28/15 10:59 AM) Blood Pressure [90-140/60-90 mmHg] 120/6 8mmHg (03/28/15 10:59 AM) Problem List Condition Effective Dates Status Health Status Inform ant Chronic back pain(Confirmed) Active Depression(Confirmed) Active Fibromyalgia(Confirmed) Active Bilateral foot pain(Confirmed) Active History of bladder cancer(Confirmed) Active History of colon polyps(Confirmed) Active Hyperlipidemia(Confirmed) Active Hypertension(Confirmed) Active Elevated fasting glucose(Confirmed) Active IGT (impaired glucose tolerance)(Confirmed) Active Insomnia(Confirmed) Active Nonalcoholic fatty liver disease(Confirmed) Active Obesity(Confirmed) Active patien t Osteoporosis(Confirmed) Active Allergies, Adverse Reactions, Alerts Substance Reaction Severity Status tetracycline Eczema (rash) Active Medications alendronate 5 mg oral tablet See Instructions, TAKE 1 TABLET EVERY DAY, # 60 tabs, 3 Refill(s), eRx: [facility], TAKE 1 [...] Daily, # 90 tabs, 0 Refill(s), Pharmacy: [facility], 1 tabs OralDaily Start Date: 08/08/15 Status: Ordered Colace 100 mg oral capsule 1 caps, Oral, BID, as needed for constipation, 0 Refill(s) Start Date: 01/17/15 Status: Ordered Fish Oil oral capsule 1 caps, Oral, BID, 0 Refill(s) Start Date: 01/17/15 Status: Ordered Flonase 50 mcg/inh nasal spray 1 sprays, Nasal, BID, # 16 g, 3 Refill(s), Pharmacy: [facility] Start Date: 09/06/15 Status: Ordered gabapentin 600 mg oral tablet 600 mg 1 tabs, Oral, TID, Changed to 90 day supply per patient request, # 270 tabs, 0 Refill(s), Pharmacy: [facility], 1 tabs Oral TID,Instr:Changed to 90 day supply per patient request Start Date: 08/08/15 Status: Ordered garlic oral capsule 1,000 mg, Oral, Daily, 0 Refill(s) Start Date: 01/17/15 Status: Ordered glucosamine 1,500 mg, Oral, Daily, 0 Refill(s) Start Date: 01/17/15 Status: Ordered losartan-hydrochlorothiazide 100 mg-25 mg oral tablet 1 tabs, Oral, Daily, # 90 tabs, 0 Refill(s), Pharmacy: [facility] Start Date: 08/08/15 Status: Ordered magnesium oxide 400 mg (241.3 mg elemental magnesium) oral tablet 1 tabs, Oral, Daily, 0 Refill(s) Start Date: 01/17/15 Status: Ordered oxaprozin 600 mg oral tablet 600 mg 1 tabs, Oral, BID, # 60 tabs, 0 Refill(s), Pharmacy: [id number], 1 tabs OralBID Start Date: 08/31/15 Status: Ordered traZODone 100 mg oral tablet See Instructions, TAKE 1 TABLET ONE TIME DAILY AT BEDTIME, # 90 tabs, 3 Refill(s), eRx: [facility], TAKE 1 TABLET ONE TIME DAILY AT BEDTIME Start Date: 10/06/15 Status: Ordered ursodiol 300 mg oral capsule 300 mg 1 caps, Oral, TID, # 270 caps, 0 Refill(s), Pharmacy: [id number], 1 caps Oral TID Start Date: 09/19/15 Status: Ordered Vitamin C 100 mg, Oral, Daily, 0 Refill(s) Start Date: 01/17/15 Status: Ordered vitamin E 100 Intl_Units, Oral, Daily, 0 Refill(s) Start Date: 01/17/15 Status: Ordered Welchol 625 mg oral tablet 1,875 mg 3 tabs, Oral, BID, # 540 tabs, 0 Refill(s), Pharmacy: [facility], 3 tabs Oral BID Start Date: 08/08/15 Status: Ordered Zetia 10 mg oral tablet 10 mg 1 tabs, Oral, Daily, # 90 tabs, 0 Refill(s), Pharmacy: [facility], 1 tabs OralDaily Start Date: 08/08/15 Status: Ordered Results No data available for [...] Smoking Status Never smoker Assessment and Plan No data available for this section
--- OUTSIDE RECORDS SUMMARY | 2023-05-24 11:14 | XMS REPORT ---
Author Author Tara Gomez Organization [employer] Address Unknown Phone Unavailable Care Team Providers Care [place] Department Supervisor Name Role Phone Noel Gomez CP Unavailable [...]
--- OUTSIDE RECORDS SUMMARY | 2023-05-24 11:14 | XMS REPORT | Referral Summary ---
Author Author [facility] Organization [facility] Address Unknown Phone Unavailable Care Team Providers Care Die Trimmer Name Role Phone Sven Wne PCP Encounter VC Date(s): 09/19/15 - 09/19/15 [facility] [id number] [address] Discharge Diagnosis: IGT (impaired glucose tolerance) Discharge Diagnosis: Osteoporosis Discharge Diagnosis: Hyperlipidemia Discharge Diagnosis: Abdominal pain, left upper quadrant Discharge Diagnosis: Need for influenza vaccination Discharge Diagnosis: Nonalcoholic fatty liver disease Discharge Disposition: 01-Home or Self Care Attending Physician: Sven Wen DO Admitting Physician: Sven Wen DO Referring Physician: Sven Wen DO Vital Signs Most recent to oldest [Reference Range]: 1 Peripheral Pulse Rate [60-100 bpm] 79 bp m (09/19/15 2:13 PM) Blood Pressure [90-140/60-90 mmHg] 138/6 6mmHg (09/19/15 2:13 PM) SpO2 95 % (09/19/15 2:13 PM) Problem List Condition Effective Dates Status [...] tablet 5 mg 1 tabs, Oral, Daily, # 30 tabs, 1 Refill(s), Pharmacy: [facility], 1 tabs Oral Daily Start Date: 09/19/15 Status: Ordered Faviola Allergy 180 mg, Oral, [...] Daily, # 90 tabs, 0 Refill(s), Pharmacy: [facility], 1 tabs OralDaily Start Date: 08/08/15 Status: Ordered Colace 100 mg oral capsule 1 caps, Oral, BID, as needed for constipation, 0 Refill(s) Start Date: 01/17/15 Status: Ordered Fish Oil oral capsule 1 caps, Oral, BID, 0 Refill(s) Start Date: 01/17/15 Status: Ordered Flonase 50 mcg/inh nasal spray 1 sprays, Nasal, BID, # 16 g, 3 Refill(s), Pharmacy: [facility] Start Date: 09/06/15 Status: Ordered gabapentin 600 mg oral tablet 600 mg 1 tabs, Oral, TID, Changed to 90 day supply per patient request, # 270 tabs, 0 Refill(s), Pharmacy: [facility], 1 tabs Oral TID,Instr:Changed to 90 day supply per patient request Start Date: 08/08/15 Status: Ordered garlic oral capsule 1,000 mg, Oral, Daily, 0 Refill(s) Start Date: 01/17/15 Status: Ordered glucosamine 1,500 mg, Oral, Daily, 0 Refill(s) Start Date: 01/17/15 Status: Ordered losartan-hydrochlorothiazide 100 mg-25 mg oral tablet 1 tabs, Oral, Daily, # 90 tabs, 0 Refill(s), Pharmacy: [facility] Start Date: 08/08/15 Status: Ordered magnesium oxide 400 mg (241.3 mg elemental magnesium) oral tablet 1 tabs, Oral, Daily, 0 Refill(s) Start Date: 01/17/15 Status: Ordered oxaprozin 600 mg oral tablet 600 mg 1 tabs, Oral, BID, # 60 tabs, 0 Refill(s), Pharmacy: [facility] [id number], 1 tabs OralBID Start Date: 08/31/15 Status: Ordered traZODone 100 mg oral tablet 100 mg 1 tabs, Oral, Bedtime (once a day), # 30 tabs, 3 Refill(s), Pharmacy: [facility], 1 tabs Oral Bedtime (once a day) Start Date: 09/06/15 Status: Ordered ursodiol 300 mg oral capsule 300 mg 1 caps, Oral, TID, # 270 caps, 0 Refill(s), Pharmacy: [facility] [id number], 1 caps Oral TID Start Date: 09/19/15 Status: Ordered Vitamin C 100 mg, Oral, Daily, 0 Refill(s) Start Date: 01/17/15 Status: Ordered vitamin E 100 Intl_Units, Oral, Daily, 0 Refill(s) Start Date: 01/17/15 Status: Ordered Welchol 625 mg oral tablet 1,875 mg 3 tabs, Oral, BID, # 540 tabs, 0 Refill(s), Pharmacy: [facility], 3 tabs Oral BID Start Date: 08/08/15 Status: Ordered Zetia 10 mg oral tablet 10 mg 1 tabs, Oral, Daily, # 90 tabs, 0 Refill(s), Pharmacy: [facility], 1 tabs OralDaily Start [...] from: Title:Ambulatory Patient Education Author:Sven Dolan DO Date:09/19/15 Family Medicine Cholesterol Cholesterol is a white, [...] 05/28/2002 Document Revised: 01/17/2015 Document Reviewed: 06/16/2014 [facility] Level. This information is not intended to replace advice given to you by your health care provider. Make sure you discuss any questions you have with your health care provider. No follow up information was provided. Extracted from: Title:OV multiple issues Author:Sven Wen DO Date:09/19/15 Impression and Plan Diagnosis Need for influenza vaccination ([id number] Z23, Discharge, Medical). Osteoporosis (ELO15-PH M81.0, Discharge, Medical). IGT (impaired glucose tolerance) (RYB39-SG R73.02, Discharge, Medical). Hyperlipidemia (AYD14-GR E78.4, Discharge, Medical). Abdominal pain, left upper quadrant (PEQ27-CT R10.12, Discharge, Medical). Nonalcoholic fatty liver disease (IFO46-AY K76.0, Discharge, Medical). Orders Orders (Selected) Outpatient Orders Ordered Internal Referral to Surgical: Completed influenza virus vaccine: 0.5 mL, IntraMuscular, Once Prescriptions Prescribed alendronate 5 mg oral tablet: 5 mg = 1 tabs, Oral, Daily, 30 tabs, 1 Refill(s) ursodiol 300 mg oral capsule: 300 mg = 1 caps, Oral, TID, 270 caps, 0 Refill(s). Influenza vaccine administered today. Refilled ursodiol for her nonalcoholic fatty liver disease. Patient will be referred to Dr. Foreman from general surgery for the possible left upper quadrant hernia. Advised her to participate in aerobic exercise for the IGT. I would like her to come back and get pharmacogenetics testing to see if she is at high risk of myalgias from statins. Once I get those results back, I would like her to start a low-dose atorvastatin to see if this helps with the cholesterol. Decision was made to start alendronate as above and I will see her back in a month to discuss possibly going on to the weekly regimen if she tolerates that medication. Call with any questions or concerns prior to her next visit. Referrals to Other Providers Abdominal pain, possible hernia, referred to: Clem Foreman MD Referred by: Sven Wen DO
--- OUTSIDE RECORDS SUMMARY | 2023-05-24 11:14 | XMS REPORT ---
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 confirmed 554898873 Problem Incontinence of feces, unspecified fecal incontinence type R15.9 confirmed 17913359 Problem Hydrocephalus , unspecified type G91.9 confirmed 434861083 Problem Chronic kidney disease, stage 3a N18.31 confirmed 884619469 Problem Other chronic pain G89.29 confirmed 73161447 Problem Lumbago with sciatica, unspecified side M54.40 confirmed 730978774 Problem Mixed stress and urge urinary incontinence N39.46 confirmed 410641799 Problem Benign neoplasm of brain, unspecified brain region D33.2 confirmed 51428336 Problem Bipolar 1 disorder F31.9 confirmed 993313423 Problem Type 2 diabetes mellitus with other specified complication, without long-term current use of insulin E11.69 confirmed 66799997 Problem Pressure ulcer of other site, stage 3 L89.893 confirmed 4678635283 Problem Meningioma D32.9 confirmed 485007710 Problem Peripheral vascular disease, unspecified I73.9 confirmed 238577314 Problem 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, unspecified epilepsy type G40.909 confirmed 430202029 Problem Diabetic foot ulcer E11.621 confirmed 271399466 Problem Dementia without behavioral disturbance, psychotic disturbance, mood disturbance, or anxiety, unspecified dementia severity, unspecified dementia type F03.90 confirmed 11849732 Problem Essential hypertension I10 confirmed 47648642 Problem Atrial flutter, unspecified type I48.92 confirmed 3089333 Problem Hypercholeste rolemia E78.00 confirmed 31425670 Problem Reflux esophagitis K21.0 confirmed 441856094 Problem History of amputation of left great toe Z89.412 confirmed 1661969616 0319675 Problem Diabetic peripheral neuropathy E11.42 confirmed 801492119 Problem 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 confirmed 099751340 Problem Pressure ulcer of left heel, stage 2 L89.622 confirmed 196170742 ALLERGIES Allergen (clinical drug ingredient) Drug/Non Drug Allergy documented on EMR Reaction Allergy Type Onset Date Status Chlortetracycline HCl rash/redde jayden skin Drug Allergy 03/10/2020 Active ENCOUNTERS from 1950 to 2023-02-27 Encounter Location Date Provider Diagnosis [address] [id number] [address] Mar, ARTI GUGNANI Essential hypertension I10 IMMUNIZATIONS Vaccine Route Administration Date Status COVID-19 Moderna (history) Unknown Oct 18, 2020 A dministered zostavax (history) Unknown Sep 16, 2012 Administe red 1st Booster MODERNA Bivalent , COVID-19, 0.5mL IM Intramuscular Jun 13, 2022 Administered COVID-19 Moderna (history) Unknown Aug 28, 2021 A dministered COVID-19 Moderna (history) Unknown November 15, 2020 Administered PRIVATE MMR Unknown Jun 03, 2017 Administered PRIVATE HIGH DOSE FLU 22-23 (FLUZONE HD) AGE 65YRS AND UP IM Intramuscular Jun 13, 2022 Administer ed PRIVATE FLUZONE HIGH DOSE QU AD 0.7ML (65 and UP) 2020 IM Intramuscular Jul 10, 2021 Administered PRIVATE FLUZONE HIGH DOSE QU AD 0.7ML (65 and UP) 2019 IM Intramuscular Jul 06, 2020 Administered tdap (history) Unknown Jul 16, 2018 Administered zostavax (history) Unknown March 08, 2012 [...] Duration) Notes Start Date End Date Status metFORMIN HCl 500 MG 1 tablet with a meal Orally 2 times a day for 30 day(s) Feb, Not-Taking levETIRAcetam 750 MG 1 tablet Orally Twice a day for 30 days Active guaiFENesin 200 MG 2 tablet as needed Orally every 4 hrs for 30 days Feb, Active Memantine HCl 5 MG TAKE 1 TABLET BY MOUTH TWICE A DAY for 28 Active Metamucil - 1 packet with 8 ounces of liquid as needed Orally once daily as needed for 30 days Feb, Active Gabapentin 400 MG 1 capsule Orally Once a day for 30 day(s) Decreased to 400mg TID per Dr. Issa 03/10. Feb, Not-Taking Biotin 1 MG 1 tablet Orally Once a day for 30 day(s) Feb, Not-Taking ALPRAZolam 0.25 MG 1 tablet as needed Orally every 8 hours for [address] Issa 01/01/22 January, Active Imodium A-D 2 MG 1 tablet as needed Orally Four times a day for 30 days Feb, Active Accu-Chek Isidra w/Device as directed In Vitro Once a day for 50 days Feb, Not-Taking Vitamin C 1000 MG 1 tablet Orally Once a day for 30 day(s) Feb, Not-Taking hydroCHLOROthiazide 25 MG 1 tablet in th e morning Orally Once a day for 30 day(s) Feb, Not-Taking Cholecalciferol 25 MCG (1000 UT) 1 capsule Orally Once a day for 30 day(s) Feb, Not-Taking Lactobacillus - 2 tablets Orally Once a day for 30 days Feb, Active Acetaminophen 325 MG 2 tablet as needed Orally every 4 hrs for 30 days Feb, Not-Taking Lutein 20 MG 1 capsule with a meal Orally Once a day for 30 day(s) Feb, Active Famotidine 20 MG 1 tablet at bedtime as needed Orally Once a day for 30 day(s) Feb, Not-Taking Glimepiride 2 MG TAKE 1 TABLET BY MOUTH ONCE A DAY WITH BREAKFAST OR THE FIRST MAIN MEAL OF THE DAY for 28 Active Citalopram Hydrobromide 20 MG TAKE 1 TABLET BY MOUTH ONCE A DAY for 28 Active Fosamax 5 mg 1 tablet 30 minutes before the first food, beverage or medicine of the day with plain water Orally Once a day for 30 day(s) Feb, Not-Taking Zetia 10 MG 1 tablet Orally Once a day for 30 day(s) Feb, Active Tessalon Perles 100 MG 1 capsule as needed Orally Three times a day for 7 days Aug, Active Benadryl 25 mg 1 capsule Orally every 6 hours as needed for itching for 30 day(s) Oct, Active Calcium + D3 600-200 MG-UNIT 1 tablet with a meal Orally Once a day for 30 day(s) Feb, Active Acetaminophen 500 MG 1 tablet as needed Orally every 4-6 hours for 30 days Aug, Active Macrobid 100 MG 1 capsule Orally twice a day for 7 days Nov, Not-Taking traZODone HCl 150 MG 1 tablet at bedtime Orally Once a day for 30 days Active Milk of Magnesia 400 MG/5ML 30 ml at least 4 hours between doses as needed Orally once daily as needed for 30 days Feb, Active Lipitor 40 MG 1 tablet Orally Once a day for 30 day(s) Feb, Active Lasix 20 mg 1 tablet Orally Once a day for 30 day(s) Active Glucosamine Chondro Complex - 1 tablet Orally 2 times a day for 30 days Feb, Active traMADol HCl 50 MG 1 tablet as needed Orally every 6 hours for [address] Issa 01/01/22 January, Active Multi Complete - as directed Orally 2 times a day for 30 days Feb, Active Neurontin 300 MG 1 capsule Orally Once a day Active Tussin 100 MG/5ML 5 ml as needed Orally every 4 hrs for 30 days Feb, Active Tums 500 MG 2 tablet Orally every 4 hours as needed for 30 day(s) Feb, Active Flax Oil Xtra - 1 capsule Orally Once a day for 30 days Feb, Active Losartan Potassium 50 MG TAKE 1 TABLET B Y MOUTH ONCE A DAY for 28 Active Fish Oil 1000 MG 1 capsule Orally Once a day for 30 day(s) Feb, Active Furosemide 20 MG TAKE ONE TABLET BY MOUTH IN THE MORNING for 28 days Active PROCEDURES from 1950 to 2023-02-27 Procedure Date Ordered Date Performed Result Body Sit e ROUTINE VENIPUNCTURE 2021-03-21 2021-03-21 N/A REASON FOR VISIT Guest Home MEDICAL (GENERAL) HISTORY Type Description Date Medical [...] Notes Treatment Notes Treatment Clinical Notes Mar, Essential hypertension (ICD-10 - I10) PLAN OF TREATMENT Medication Medication Name Sig Start Date Stop Date Citalopram Hydrobromide 20 MG TAKE 1 TAB LET BY MOUTH ONCE A DAY for 28 ALPRAZolam 0.25 MG 1 tablet as needed O rally every 8 hours for 14 days January, Memantine HCl 5 MG TAKE 1 TABLET BY RASHAWN TH TWICE A DAY for 28 Losartan Potassium 50 MG TAKE 1 TABLET B Y MOUTH ONCE A DAY for 28 Insurance Providers Payer Name Payer Address Payer Phone Insured Name Patient Relationship to Insured Coverage Start Date Coverage End Date Subscriber Number Group Number [facility] [address] [facility] [phone] Do wilton Strong Self - patient is the insured [id number] [facility] PART A [address] [facility] [address] Do wilton Strong Self - patient is the insured [id number] [facility] Missing insurance scan copy of card into pt doc Eliciaer,Do wilton Self - patient is the insured [id number] [facility] Missing insurance scan copy of card into pt Do wilton Bearden Self - patient is the insured [id number]
--- OUTSIDE RECORDS SUMMARY | 2023-05-24 11:14 | XMS REPORT | Referral Summary ---
Author Author [facility] Organization [facility] Address Unknown Phone Unavailable Care Team Providers Care Agile Project Manager Name Role Phone Sven Wen PCP Encounter VC Date(s): 12/15/15 - 12/15/[address] [facility] [address] [place] [address] Discharge Disposition: 01-Home or Self Care Attending Physician: Alpesh Shaw DO Admitting Physician: Alpesh Shaw DO Vital Signs Most recent to oldest [Reference Range]: 1 Temperature Tympanic [36.6-38.1 degC] 36 .9 degC (12/15/15 8:43 AM) Temperature Temporal Artery [36.3-37.8 d egC] 35.8 degC *LOW* (12/15/15 7:20 AM) Peripheral Pulse Rate [60-100 bpm] 67 bp m (12/15/15 9:15 AM) Respiratory Rate [14-20 br/min] 16 br/mi n (12/15/15 9:15 AM) Blood Pressure [90-140/60-90 mmHg] 117/5 4mmHg (12/15/15 9:15 AM) SpO2 95 % (12/15/15 9:15 AM) Problem List Condition Effective Dates Status [...] DAY, # 60 tabs, 3 Refill(s), eRx: [facility], TAKE 1 TABLET EVERY DAY Start Date: 10/06/15 Status: Ordered Faviola Allergy 180 mg, Oral, Daily, 0 Refill(s) Start Date: 01/17/15 Status: Ordered atorvastatin 10 mg oral tablet 10 mg 1 tabs, Oral, Bedtime (once a day), # 90 tabs, 0 Refill(s), Pharmacy: [facility], 1 tabs Oral Bedtime [...] TABLET EVERY DAY, # 90 tabs, eRx: [facility], TAKE 1 TABLET EVERY [...] FLONASE), # 48 g, 3 Refill(s), eRx: [facility], USE 1 SPRAY NASALLY TWICE DAILY (SUBSTITUTED FOR FLONASE) Start Date: 10/10/15 Status: Ordered gabapentin 600 mg oral tablet See Instructions, TAKE 1 TABLET THREE TIMES DAILY, # 270 tabs, eRx: [facility], TAKE 1 TABLET THREE [...] BID, # 60 tabs, 0 Refill(s), Pharmacy: [facility] [id number], 1 tabs OralBID Start Date: 08/31/15 Status: Ordered PreserVision AREDS 2 caps, Oral, Daily, 0 Refill(s) Start Date: 10/17/15 Status: Ordered traZODone 100 mg oral tablet See Instructions, TAKE 1 TABLET ONE TIME DAILY AT BEDTIME, # 90 tabs, 3 Refill(s), eRx: [facility], TAKE 1 TABLET ONE TIME DAILY AT BEDTIME Start Date: 10/06/15 Status: Ordered ursodiol 300 mg oral capsule 300 mg 1 caps, Oral, TID, # 270 caps, 0 Refill(s), Pharmacy: [id number], 1 caps Oral TID Start Date: 09/19/15 Status: Ordered Vitamin C 100 mg, Oral, Daily, 0 Refill(s) Start Date: 01/17/15 Status: Ordered vitamin E 100 Intl_Units, Oral, Daily, 0 Refill(s) Start Date: 01/17/15 Status: Ordered Welchol 625 mg oral tablet See Instructions, TAKE 3 TABLETS TWICE DAILY, # 540 tabs, eRx: [email or web address], TAKE 3 TABLETS TWICE DAILY Start Date: 10/10/15 Status: Ordered Zetia 10 mg oral tablet See Instructions, TAKE 1 TABLET EVERY DAY, # 90 tabs, eRx: [facility], TAKE 1 TABLET EVERY DAY Start Date: 12/12/15 Status: Ordered Results Chemistry Most recent to oldest [Reference Range]: 1 Sodium Venous [136-144 mEq/L] 139 mEq/L (12/15/15 7:26 AM) Potassium Venous [3.6-5.1 mEq/L] 3.8 mEq /L 1 (12/15/15 7:26 AM) Calcium Ionized Venous [1.19-1.41 mmol/L ] 1.17 mmol/L *LOW* (12/15/15 7:26 AM) Total CO2 Venous [25-29 mEq/L] 24 mEq/L *LOW* (12/15/15 7:26 AM) HGB Venous NPT [12.0-16.0 gm/dL] 14.3 gm /dL (12/15/15 7:26 AM) HCT Venous [37.0-47.0 %] 42.0 % (12/15/15 7:26 AM) Glucose Venous [70-100 mg/dL] 134 mg/dL *HI* (12/15/15 7:26 AM) BUN Venous [4-20] 13 (12/15/15 7:26 AM) Creatinine Venous [0.4-1.0 mg/dL] 0.9 mg /dL (12/15/15 7:26 AM) Venous CL [99-109 mEq/L] 103 mEq/L (12/15/15 7:26 AM) Anion Gap, Jerry [3-20] 12 (12/15/15 7:26 AM) 1Result Comment: This test was performed on a whole blood specimen. The presence or absence of hemolysis cannot be assessed. Hemolysis can falsely elevate potassium levels. Normals are for venous specimens only. Immunizations Vaccine Date Refusal Reason influenza virus [...]
--- OUTSIDE RECORDS SUMMARY | 2023-05-24 11:14 | XMS REPORT | Referral Summary ---
Author Author [facility] Organization [facility] Address Unknown Phone Unavailable Care Team Providers Care Transportation Superintendent Name Role Phone Sven Wen PCP Encounter [facility] [phone] Date(s): 10/17/15 - 10/17/15 [facility] [address] [address] Discharge Diagnosis: Myalgia Discharge Diagnosis: Obesity Discharge Diagnosis: Depression Discharge Diagnosis: Chronic back pain Discharge Diagnosis: IGT (impaired glucose tolerance) Discharge Disposition: 01-Home or Self Care Attending Physician: Sven Wen DO Admitting Physician: Sven Wen DO Vital Signs Most recent to oldest [Reference Range]: 1 Peripheral Pulse Rate [60-100 bpm] 95 bp m (10/17/15 2:24 PM) Blood Pressure [90-140/60-90 mmHg] 142/7 8mmHg *HI* (10/17/15 2:24 PM) SpO2 90 % (10/17/15 2:24 PM) Problem List Condition Effective Dates Status [...] TABLET EVERY DAY, # 90 tabs, eRx: [facility], TAKE 1 TABLET EVERY DAY Start Date: 10/10/15 Status: Ordered Colace 100 mg oral capsule 1 caps, Oral, BID, as needed for constipation, 0 Refill(s) Start Date: 01/17/15 Status: Ordered Fish Oil oral capsule 1 caps, Oral, BID, 0 Refill(s) Start Date: 01/17/15 Status: Ordered fluticasone 50 mcg/inh nasal spray See Instructions, USE 1 SPRAY NASALLY TWICE DAILY (SUBSTITUTED FOR FLONASE), # 48 g, 3 Refill(s), eRx: [facility], USE 1 SPRAY NASALLY TWICE DAILY (SUBSTITUTED FOR FLONASE) Start Date: 10/10/15 Status: Ordered gabapentin 600 mg oral tablet 600 mg 1 tabs, Oral, TID, Changed to 90 day supply per patient request, # 270 tabs, 0 Refill(s), Pharmacy: [facility], 1 tabs Oral TID,Instr:Changed to 90 day supply per patient request Start Date: 08/08/15 Status: Ordered garlic oral capsule 1,000 mg, Oral, Daily, 0 Refill(s) Start Date: 01/17/15 Status: Ordered glucosamine 1,500 mg, Oral, Daily, 0 Refill(s) Start Date: 01/17/15 Status: Ordered losartan-hydrochlorothiazide 100 mg-25 mg oral tablet See Instructions, TAKE 1 TABLET EVERY DAY, # 90 tabs, eRx: [facility], TAKE 1 TABLET EVERY DAY Start Date: 10/10/15 Status: Ordered magnesium oxide 400 mg (241.3 mg elemental magnesium) oral tablet 1 tabs, Oral, Daily, 0 Refill(s) Start Date: 01/17/15 Status: Ordered oxaprozin 600 mg oral tablet 600 mg 1 tabs, Oral, BID, # 60 tabs, 0 Refill(s), Pharmacy: [id number], 1 tabs OralBID Start Date: 08/31/15 Status: Ordered PreserVision AREDS 2 caps, Oral, Daily, 0 Refill(s) Start Date: 10/17/15 Status: Ordered traZODone 100 mg oral tablet See Instructions, TAKE 1 TABLET ONE TIME DAILY AT BEDTIME, # 90 tabs, 3 Refill(s), eRx: [email or web address], TAKE 1 TABLET ONE TIME DAILY AT BEDTIME Start Date: 10/06/15 Status: Ordered ursodiol 300 mg oral capsule 300 mg 1 caps, Oral, TID, # 270 caps, 0 Refill(s), Pharmacy: [id number], 1 caps Oral TID Start Date: 09/19/15 Status: Ordered Vitamin C 100 mg, Oral, Daily, 0 Refill(s) Start Date: 01/17/15 Status: Ordered vitamin E 100 Intl_Units, Oral, Daily, 0 Refill(s) Start Date: 01/17/15 Status: Ordered Welchol 625 mg oral tablet See Instructions, TAKE 3 TABLETS TWICE DAILY, # 540 tabs, eRx: [facility], TAKE 3 TABLETS TWICE DAILY Start Date: 10/10/15 Status: Ordered Zetia 10 mg oral tablet See Instructions, TAKE 1 TABLET EVERY DAY, # 90 tabs, eRx: [email or web address], TAKE 1 TABLET EVERY DAY Start Date: 10/10/15 Status: Ordered Results No data available for [...] from: Title:Ambulatory Patient Education Author:Sven Dolan DO Date:10/17/15 Family Medicine Chronic Back Pain When back pain lasts longer than 3 months, it is called chronic back pain.People with chronic back pain often go through certain periods that are more intense (flare-ups). CAUSES Chronic back pain can be caused by wear and tear (degeneration) on different structures in your back. These structures include: The bones of your spine (vertebrae) and the joints surrounding your spinal cord and nerve roots (facets). The strong, fibrous tissues that connect your vertebrae (ligaments). Degeneration of these structures may result in pressure on your nerves. This can lead to constant pain. HOME CARE INSTRUCTIONS Avoid bending, heavy lifting, prolonged sitting, and activities which make the problem worse. Take brief periods of rest throughout the day to reduce your pain. Lying down or standing usually is better than sitting while you are resting. Take [id number] or prescription medicines only as directed by your caregiver. SEEK IMMEDIATE MEDICAL CARE IF: You have weakness or numbness in one of your legs or feet. You have trouble controlling your bladder or bowels. You have nausea, vomiting, abdominal pain, shortness of breath, or fainting. Document Released: 10/10/2005 Document Revised: 11/24/2012 Document Reviewed: 08/16/2012 ExitCare Patient Information 2015 [employer] [facility]. This information is not intended to replace advice given to you by your health care provider. Make sure you discuss any questions you have with your health care provider. No follow up information was provided. Extracted from: Title:OV CDM Author:Sven Wen DO Date: Impression and Plan Diagnosis IGT (impaired glucose tolerance) (VSU03-BO R73.02, Discharge, Medical). Obesity (LVO96-RN E66.09, Discharge, Medical). Depression (QNT99-PP F33.8, Discharge, Medical). Chronic back pain (BGW68-OB G89.29, Discharge, Medical). Myalgia (QWC85-SW M79.1, Discharge, Medical). Orders Orders Orders reviewed.. Once again ordered pharmacogenetics testing and she will have this done today. Patient was told to try and get a hold of Dr. Keller's office and we will do the same to reschedule her appointment she forgot about. Patient will also have the pharmacogenetics testing for depression medications and pain medications. Counseling done on calorie restriction and I strongly encouraged her to avoid the sugared beverages both for weight loss efforts as well as trying to improve her blood sugars. Seems to understand the concerns, although I am not sure how motivated she has to do this. I will see her back in about 2 months and she can have repeat A1c, lipid profile, and CMP before that date. By then I should have the results of the testing and we will plan on sending out 10 mg of atorvastatin to take every Day assuming the testing comes back all right. Call if there are any questions or concerns.
--- OUTSIDE RECORDS SUMMARY | 2023-05-24 11:14 | XMS REPORT | Referral Summary ---
Author Author [facility] Organization [facility] Address Unknown Phone Unavailable Care Team Providers Care Interior Block Wirer Name Role Phone No PCP, Pt States PCP Encounter VC Date(s): 06/13/16 - 06/18/16 [facility] [address] [place] [address] Discharge Disposition: 03-Retirement Facility Attending Physician: Ricky Mora MD Admitting Physician: Ricky Mora MD Vital Signs Most recent to oldest [Reference Range]: 1 Temperature Oral [35.8-37.3 degC] 36.9 d egC (06/18/16 4:00 PM) Temperature Temporal Artery [36.3-37.8 d egC] 36.0 degC *LOW* (06/14/16 4:30 PM) Peripheral Pulse Rate [60-100 bpm] 68 bp m (06/18/16 4:00 PM) Heart Rate Monitored [60-100 bpm] 69 bpm (06/14/16 4:45 PM) Respiratory Rate [14-20 br/min] 16 br/mi n (06/18/16 4:00 PM) Blood Pressure [90-140/60-90 mmHg] 149/7 2mmHg *HI* (06/18/16 4:00 PM) Mean Arterial Pressure, Cuff 97 mmHg (06/15/16 9:03 AM) SpO2 96 % (06/18/16 4:00 PM) Problem List Condition Effective Dates Status Health Status Inform ant Acute pain(Confirmed) Active At risk for activity intolerance(Confirmed) 1 Active Chronic back pain(Confirmed) Active Depression(Confirmed) Active Diabetes(Confirmed) Active Fibromyalgia(Confirmed) Active Bilateral foot pain(Confirmed) Active History of bladder cancer(Confirmed) Active History of colon polyps(Confirmed) Active Hyperlipidemia(Confirmed) Active Hypertension(Confirmed) Active Elevated fasting glucose(Confirmed) Active IGT (impaired glucose tolerance)(Confirmed) < 09/19/15 Resolved Impaired skin integrity(Confirmed) 2 Active Insomnia(Confirmed) Active Myalgia(Confirmed) Active Nonalcoholic fatty liver disease(Confirmed) Active Obesity(Confirmed) Active patien t Osteoporosis(Confirmed) Active 1Problem added automatically by system based [...] 0 Refill(s) Start Date: 01/17/15 Status: Ordered aspirin 325 mg oral tablet 325 mg 1 tabs, Oral, q12hr, 0 Refill(s) Start Date: 06/18/16 Status: Ordered atorvastatin 10 mg, Oral, Bedtime (once a day), 0 Refill(s) Start Date: 06/13/16 Status: Ordered Calcium 600+D oral tablet 1 tabs, Oral, TID, 0 Refill(s) Start Date: 01/17/15 Status: Ordered Centrum Silver oral tablet 1 tabs, Oral, BID, 0 Refill(s) Start Date: 01/17/15 Status: Ordered citalopram 20 mg, Oral, Daily, 0 Refill(s) Start Date: 06/13/16 Status: Ordered Colace 100 mg oral capsule 100 mg 1 caps, Oral, Daily, 0 Refill(s) Start Date: 01/17/15 Status: Ordered Flonase 50 mcg/inh nasal spray 1 sprays, Nasal, BID, 0 Refill(s) Start Date: 06/13/16 Status: Ordered gabapentin 600 mg, Oral, TID, 0 Refill(s) Start Date: 06/13/16 Status: Ordered glucosamine Oral, BID, 1 tab, 0 Refill(s) Start Date: 01/17/15 Status: Ordered hydrOXYzine hydrochloride 25 mg oral tablet 25 mg 1 tabs, Oral, q8hr, as needed for itching, 0 Refill(s) Start Date: 06/13/16 Status: Ordered Losartan-HCTZ Losartan-HCTZ, See Instructions, 1 tab oral bedtime, 0 Refill(s) Start Date: 06/13/16 Status: Ordered magnesium oxide 400 mg (241.3 mg elemental magnesium) oral tablet 400 mg 1 tabs, Oral, BID, 0 Refill(s) Start Date: 01/17/15 Status: Ordered Non-Formulary Med 0 Refill(s) Start Date: 06/18/16 Status: Ordered [place] 5 mg-325 mg oral tablet 1-2 tabs, Oral, q4hr, Pain Moderate (4-6), not to exceed 8 tablets/24 hours; give with food to prevent nausea, # 30 tabs, 0 Refill(s) Start Date: 06/18/16 Stop Date: 07/19/16 Status: Ordered PreserVision AREDS 2 1 caps, Oral, BID, 0 Refill(s) Start Date: 10/17/15 Status: Ordered traZODone 100 mg, Oral, Bedtime (once a day), 0 Refill(s) Start Date: 06/13/16 Status: Ordered Vitamin C Oral, Daily, 3 tabs, 0 Refill(s) Start Date: 01/17/15 Status: Ordered vitamin E 1,200 units, Oral, Daily, 0 Refill(s) Start Date: 01/17/15 Status: Ordered Welchol 625 mg oral tablet 1,875 mg 3 tabs, Oral, BID, 0 Refill(s) Start Date: 06/13/16 Status: Ordered Zantac Oral, Daily, 1 tab, 0 Refill(s) Start Date: 06/13/16 Status: Ordered Zetia 10 mg, Oral, Bedtime (once a day), 0 Refill(s) Start Date: 06/13/16 Status: Ordered Results Hematology Most recent to oldest [Reference Range]: 1 WBC [4.8-10.8 10*3/uL] 8.2 10*3/uL (06/15/16 4:54 AM) RBC [4.00-5.20] 3.78 *LOW* (06/15/16 4:54 AM) Hgb [12.0-16.0 gm/dL] 11.7 gm/dL *LOW* (06/16/16 5:59 AM) Hct [37.0-47.0 %] 35.1 % *LOW* (06/15/16 4:54 AM) MCV [82.0-99.0 fL] 92.9 fL (06/15/16 4:54 AM) MCH [27.0-32.0 pg] 30.4 pg (06/15/16 4:54 AM) MCHC [32.0-36.0 gm/dL] 32.8 gm/dL (06/15/16 4:54 AM) RDW [11.5-14.5 %] 13.9 % (06/15/16 4:54 AM) Platelet [150-400 10*3/uL] 237 10*3/uL (06/15/16 4:54 AM) MPV [9.4-12.4 fL] 10.0 fL (06/15/16 4:54 AM) Immature Granulocytes [0.0-1.0 %] 0.2 % (06/13/16 8:30 PM) Neutrophils [51-75 %] 55 % (06/13/16 8:30 PM) Lymphocytes [20-46 %] 36 % (06/13/16 8:30 PM) Monocytes [4-11 %] 8 % (06/13/16 8:30 PM) Eosinophils [0-4 %] 1 % (06/13/16 8:30 PM) Basophils [0-2 %] 0 % (06/13/16 8:30 PM) Neutro Absolute [1.90-7.00 10*3] 5.04 10 *3 (06/13/16 8:30 PM) Lymph Absolute [0.80-3.30 10*3] 3.34 10* 3 *HI* (06/13/16 8:30 PM) [place] Absolute [0.30-1.00 10*3] 0.76 10*3 (06/13/16 8:30 PM) Eos Absolute [0.00-0.50 10*3] 0.08 10*3 (06/13/16 8:30 PM) Baso Absolute [0.00-0.20 10*3] 0.01 10*3 (06/13/16 8:30 PM) Nucleated RBC Automated [0 /100 WBC] 0.0 /100 WBC (06/13/16 8:30 PM) Coagulation Most recent to oldest [Reference Range]: 1 INR [0.9-1.2] 1.0 (06/14/16 5:32 AM) PTT [25.0-35.0 seconds] 26.2 seconds (06/14/16 5:32 AM) Chemistry Most recent to oldest [Reference Range]: 1 Sodium Lvl [136-144 mEq/L] 140 mEq/L (06/16/16 5:59 AM) Potassium Lvl [3.6-5.1 mEq/L] 4.7 mEq/L (06/16/16 5:59 AM) Chloride [99-109 mEq/L] 108 mEq/L (06/16/16 5:59 AM) CO2 [22-32 mEq/L] 26 mEq/L (06/16/16 5:59 AM) AGAP [3-20] 6 (06/16/16 5:59 AM) BUN [4-20 mg/dL] 10 mg/dL (06/16/16 5:59 AM) Glucose Lvl [70-100 mg/dL] 123 mg/dL *HI* (06/16/16 5:59 AM) Creatinine Lvl [0.44-1.03 mg/dL] 0.82 mg /dL (06/16/16 5:59 AM) eGFR [>60] >60 1 (06/16/16 5:59 AM) Calcium Lvl [8.6-10.0 mg/dL] 8.5 mg/dL *LOW* (06/16/16 5:59 AM) Albumin Lvl [3.5-4.8 gm/dL] 2.9 gm/dL *LOW* (06/15/16 4:55 AM) Total Protein [6.1-7.9 gm/dL] 5.1 gm/dL *LOW* (06/15/16 4:55 AM) Globulin [1.9-4.3 gm/dL] 2.2 gm/dL (06/15/16 4:55 AM) ALT [14-54 U/L] 53 U/L (06/15/16 4:55 AM) AST [15-41 U/L] 38 U/L (06/15/16 4:55 AM) Alk Phos [26-104 U/L] 71 U/L (06/15/16 4:55 AM) Bili Total [0.2-1.2 mg/dL] 0.8 mg/dL 2 (06/15/16 4:55 AM) Magnesium Lvl [1.8-2.5 mg/dL] 2.1 mg/dL (06/16/16 5:59 AM) Blood Glucose, Capillary [70-100 mg/dL] 92 mg/dL (06/14/16 5:15 PM) Hgb A1c [4.1-5.6 %] 6.4 % *HI* (06/15/16 4:55 AM) eAvg Glucose 137.0 mg/dL (06/15/16 4:55 AM) 1Result Comment: Multiply eGFR results by 1.21 for race. 2Result Comment: Naproxen, specifically the metabolite O-desmethylnaproxen, may cause spurious elevation in Total Bilirubin levels. Urinalysis Most recent to oldest [Reference Range]: 1 UA Color Straw (06/15/16 2:46 AM) UA Appear Clear (06/15/16 2:46 AM) UA pH [5.0-8.0] 6.0 (06/15/16 2:46 AM) UA Leuk Est [Negative] Trace *ABN* (06/15/16 2:46 AM) UA Nitrite [Negative] Negative (06/15/16 2:46 AM) UA Protein [Negative] Negative (06/15/16 2:46 AM) UA Glucose [Negative] Negative (06/15/16 2:46 AM) UA Ketones [Negative] Negative (06/15/16 2:46 AM) UA Urobilinogen [<1.0] Negative (06/15/16 2:46 AM) UA Bili [Negative] Negative (06/15/16 2:46 AM) UA Blood [Negative] Negative (06/15/16 2:46 AM) UA Spec Grav [1.003-1.030] 1.005 (06/15/16 2:46 AM) Type Clean Catch (06/15/16 2:46 AM) UA WBC [0-4] 5-10 *ABN* (06/15/16 2:46 AM) UA RBC [0-2] 0-2 (06/15/16 2:46 AM) Epithelial Cells 0-2 (06/15/16 2:46 AM) UA Mucous Present (06/15/16 2:46 AM) Immunizations Vaccine Date Refusal Reason influenza virus vaccine, inactivated 1 06/15/16 influenza virus vaccine, inactivated 09/19/15 pneumococcal 13-valent conjugate vaccine 05/24/15 pneumococcal 23-polyvalent vaccine 09/16/11 zoster vaccine live 09/16/12 1Result Comment: Senior [employer] is [employer] by that name is not included in drop box, RN spoke with [facility] pharmacist, she reports that [employer] is a company under [employer]. Procedures Procedure Date Related Diagnosis Body Site Open Reduction Internal Fixation Ankle (Right) 1 Closed treatment of fracture of weight bearing articular portion of distal tibia (eg, pilon or tibial plafond), with or without anesthesia; with skeletal traction and/or requiring manipulation 06/13/16 Closed treatment of fracture of weight bearing articular portion of distal tibia (eg, pilon or tibial plafond), with or without anesthesia; with skeletal traction and/or requiring manipulation 06/13/16 Closed treatment of fracture of weight bearing articular portion of distal tibia (eg, pilon or tibial plafond), with or without anesthesia; with skeletal traction and/or requiring manipulation 06/13/16 Colonoscopy 2 12/15/15 Procedure with Anesthesia 3 12/15/15 Cholecystectomy 1992 Bladder surgery H/O total hysterectomy with bilateral salpingo-oophorectomy (BSO) Hx of hernia repair Hysterectomy Shunt 4 Tonsillectomy and adenoidect jj; younger than age 12 1auto-populated from documented surgical case 2auto-populated from documented surgical case 3auto-populated from documented surgical case 4V-P Social History Social History Type Response Smoking Status Never smoker Assessment and Plan No data available for this section
--- OUTSIDE RECORDS SUMMARY | 2023-05-24 11:14 | XMS REPORT | Referral Summary ---
Author Author [facility] Organization [facility] Address Unknown Phone Unavailable Care Team Providers Care Mycology Teacher Name Role Phone Sven Wen PCP Encounter VC Date(s): 04/19/15 - 04/19/15 [facility], [facility] [id number] [id number] Discharge Diagnosis: High risk medication use Discharge Diagnosis: Hyperlipidemia Discharge Diagnosis: Chronic back pain Discharge Diagnosis: Fibromyalgia Discharge Diagnosis: Insomnia Discharge Diagnosis: Bilateral foot pain Discharge Diagnosis: Hypertension Discharge Diagnosis: Depression Discharge Disposition: 01-Home or Self Care Attending Physician: Sven Wen DO Admitting Physician: Sven Wen DO Vital Signs Most recent to oldest [Reference Range]: 1 Peripheral Pulse Rate [60-100 bpm] 76 bp m (04/19/15 1:40 PM) Blood Pressure [90-140/60-90 mmHg] 120/6 0mmHg (04/19/15 1:40 PM) SpO2 98 % (04/19/15 1:40 PM) Problem List Condition Effective Dates Status [...] day), # 90 tabs, 0 Refill(s), Pharmacy: [facility], 1 tabs Oral Bedtime [...] TABLET EVERY DAY, # 90 tabs, eRx: [facility], TAKE 1 TABLET EVERY [...] FLONASE), # 48 g, 3 Refill(s), eRx: [facility], USE 1 SPRAY NASALLY TWICE DAILY (SUBSTITUTED FOR FLONASE) Start Date: 10/10/15 Status: Ordered gabapentin 600 mg oral tablet 600 mg 1 tabs, Oral, TID, Changed to 90 day supply per patient request, # 270 tabs, 0 Refill(s), Pharmacy: [facility], 1 tabs Oral TID,Instr:Changed [...] BID, # 60 tabs, 0 Refill(s), Pharmacy: [id number], 1 tabs OralBID Start Date: 08/31/15 Status: Ordered PreserVision AREDS 2 caps, Oral, Daily, 0 Refill(s) Start Date: 10/17/15 Status: Ordered traZODone 100 mg oral tablet See Instructions, TAKE 1 TABLET ONE TIME DAILY AT BEDTIME, # 90 tabs, 3 Refill(s), eRx: [facility], TAKE 1 TABLET ONE TIME DAILY AT BEDTIME Start Date: 10/06/15 Status: Ordered ursodiol 300 mg oral capsule 300 mg 1 caps, Oral, TID, # 270 caps, 0 Refill(s), Pharmacy: [facility] [id number], 1 caps Oral TID Start Date: 09/19/15 Status: Ordered Vitamin C 100 mg, Oral, Daily, 0 Refill(s) Start Date: 01/17/15 Status: Ordered vitamin E 100 Intl_Units, Oral, Daily, 0 Refill(s) Start Date: 01/17/15 Status: Ordered Welchol 625 mg oral tablet See Instructions, TAKE 3 TABLETS TWICE DAILY, # 540 tabs, eRx: [facility], TAKE 3 TABLETS TWICE DAILY Start Date: 10/10/15 Status: Ordered Zetia 10 mg oral tablet See Instructions, TAKE 1 TABLET EVERY DAY, # 90 tabs, eRx: [facility], TAKE 1 TABLET EVERY [...] from: Title:Ambulatory Patient Education Author:Sven Dolan DO Date:04/19/15 Family Medicine Back Exercises Back exercises help treat and prevent back injuries. The goal of back exercises is to increase the strength of your abdominal and back muscles and the flexibility of your back. These exercises should be started when you no longer have back pain. Back exercises include: Pelvic Tilt. Lie on your back with your knees bent. Tilt your pelvis until the lower part of your back is against the floor. Hold this position 5 to 10 sec and repeat 5 to 10 times. Knee to Chest. Pull first 1 knee up against your chest and hold for 20 to 30 seconds, repeat this with the other knee, and then both knees. This may be done with the other leg straight or bent, whichever feels better. Sit-Ups or Curl-Ups. Bend your knees 90 degrees. Start with tilting your pelvis, and do a partial, slow sit-up, lifting your trunk only 30 to 45 degrees off the floor. Take at least 2 to 3 seconds for each sit-up. Do not do sit-ups with your knees out straight. If partial sit-ups are difficult, simply do the above but with only tightening your abdominal muscles and holding it as directed. Hip-Lift. Lie on your back with your knees flexed 90 degrees. Push down with your feet and shoulders as you raise your hips a couple inches off the floor; hold for 10 seconds, repeat 5 to 10 times. Back arches. Lie on your stomach, propping yourself up on bent elbows. Slowly press on your hands, causing an arch in your low back. Repeat 3 to 5 times. Any initial stiffness and discomfort should lessen with repetition over time. Shoulder-Lifts. Lie face down with arms beside your body. Keep hips and torso pressed to floor as you slowly lift your head and shoulders off the floor. Do not overdo your exercises, especially in the beginning. Exercises may cause you some mild back discomfort which lasts for a few minutes; however, if the pain is more severe, or lasts for more than 15 minutes, do not continue exercises until you see your caregiver. Improvement with exercise therapy for back problems is slow. See your caregivers for assistance with developing a proper back exercise program. Document Released: 10/10/2005 Document Revised: 11/24/2012 Document Reviewed: 07/03/2012 ExitCare Patient Information 2015 [facility]. This information is not intended to replace advice given to you by your health care provider. Make sure you discuss any questions you have with your health care provider. No follow up information was provided. Extracted from: Title:OV DENTAL SERVICES DIRECTOR CDM Author:Sven Wen DO Date: Impression and Plan Diagnosis Bilateral foot pain (ICD9 729.5, Discharge, Medical). Chronic back pain (ICD9 724.5, Discharge, Medical). Depression (ICD9 311, Discharge, Medical). Fibromyalgia (ICD9 729.1, Discharge, Medical). Hyperlipidemia (ICD9 272.4, Discharge, Medical). Hypertension (ICD9 401.9, Discharge, Medical). Insomnia (ICD9 780.52, Discharge, Medical). Orders Orders (Selected) Outpatient Orders Future (On Hold) CBC w/ Differential: CMP: Fasting Lipid Profile: . Continue current medication regimen. I did discuss with her different treatment options for fibromyalgia including Lyrica, however patient really does not want to be on Lyrica because of the potential side effects. I did discuss with her that this likely will have fewer side effects than a lot of the medications she is already on including the gabapentin. In further discussion, it sounds like there is a cost concern. I did inform her that I do not prescribe controlled substances for chronic pain and patient requests referral to pain management. I did give her the names of some individuals in town, and she would like to be referred to Dr. Keller's group. Continue current medications for the hyperlipidemia. Patient will return fasting for blood work and see Medicare RN for wellness visit prior to her follow-up appointment with me. We will go over blood work at that time. More than 25 minutes were spent with the patient with greater than 50 percent of the time spent in counseling and/or coordination of care.
--- OUTSIDE RECORDS SUMMARY | 2023-05-24 11:14 | XMS REPORT ---
Author Author Tara Gomez Organization [employer] Address Unknown Phone Unavailable Care Team Providers Care Jack Tamp Operator Name Role Phone Noel Gomez CP Unavailable Allergies No Known Allergies Problems Problem Type Condition Code Onset Dates Condition S tatus Problem [...]
--- OUTSIDE RECORDS SUMMARY | 2023-05-24 11:14 | XMS REPORT | Referral Summary ---
Author Author [facility] Organization [facility] Address Unknown Phone Unavailable Care Team Providers Care Gas Tester Name Role Phone Sven Wen PCP Encounter [facility] [phone] Date(s): 05/24/15 - 05/24/15 [facility] [address] [place] [address] Discharge Diagnosis: Need for pneumococcal vaccine Discharge Diagnosis: Encounter for Medicare annual wellness exam Discharge Diagnosis: Visit for screening mammogram Discharge Diagnosis: Screening for osteoporosis Discharge Disposition: 01-Home or Self Care Attending Physician: Sven Wen DO Admitting Physician: Sven Wen DO Vital Signs Most recent to oldest [Reference Range]: 1 Blood Pressure [90-140/60-90 mmHg] 124/6 2mmHg (05/24/15 12:56 PM) Problem List Condition Effective Dates Status [...] day), # 90 tabs, 0 Refill(s), Pharmacy: [facility], 1 tabs Oral Bedtime [...] TABLET EVERY DAY, # 90 tabs, eRx: [facility], TAKE 1 TABLET EVERY [...] FLONASE), # 48 g, 3 Refill(s), eRx: [facility], USE 1 SPRAY NASALLY TWICE DAILY (SUBSTITUTED FOR FLONASE) Start Date: 10/10/15 Status: Ordered gabapentin 600 mg oral tablet 600 mg 1 tabs, Oral, TID, Changed to 90 day supply per patient request, # 270 tabs, 0 Refill(s), Pharmacy: [facility], 1 tabs Oral TID,Instr:Changed to 90 day supply per patient request Start Date: 08/08/15 Status: Ordered garlic oral capsule 1,000 mg, Oral, Daily, 0 Refill(s) Start Date: 01/17/15 Status: Ordered glucosamine 1,500 mg, Oral, Daily, 0 Refill(s) Start Date: 01/17/15 Status: Ordered losartan-hydrochlorothiazide 100 mg-25 mg oral tablet See Instructions, TAKE 1 TABLET EVERY DAY, # 90 tabs, eRx: [facility], TAKE 1 TABLET EVERY DAY Start Date: 10/10/15 Status: Ordered magnesium oxide 400 mg (241.3 mg elemental magnesium) oral tablet 1 tabs, Oral, Daily, 0 Refill(s) Start Date: 01/17/15 Status: Ordered oxaprozin 600 mg oral tablet 600 mg 1 tabs, Oral, BID, # 60 tabs, 0 Refill(s), Pharmacy: [id number], 1 tabs OralBID Start Date: 08/31/15 Status: Ordered PreserVision AREDS 2 caps, Oral, Daily, 0 Refill(s) Start Date: 10/17/15 Status: Ordered traZODone 100 mg oral tablet See Instructions, TAKE 1 TABLET ONE TIME DAILY AT BEDTIME, # 90 tabs, 3 Refill(s), eRx: [facility], TAKE 1 TABLET ONE TIME DAILY AT BEDTIME Start Date: 10/06/15 Status: Ordered ursodiol 300 mg oral capsule 300 mg 1 caps, Oral, TID, # 270 caps, 0 Refill(s), Pharmacy: [id number], 1 caps Oral TID Start Date: 09/19/15 Status: Ordered Vitamin C 100 mg, Oral, Daily, 0 Refill(s) Start Date: 01/17/15 Status: Ordered vitamin E 100 Intl_Units, Oral, Daily, 0 Refill(s) Start Date: 01/17/15 Status: Ordered Welchol 625 mg oral tablet See Instructions, TAKE 3 TABLETS TWICE DAILY, # 540 tabs, eRx: [facility], TAKE 3 TABLETS TWICE DAILY Start Date: 10/10/15 Status: Ordered Zetia 10 mg oral tablet See Instructions, TAKE 1 TABLET EVERY DAY, # 90 tabs, eRx: [facility], TAKE 1 TABLET EVERY [...]
--- OUTSIDE RECORDS SUMMARY | 2023-05-24 11:14 | XMS REPORT ---
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 confirmed 640053425 Problem Wound of left foot S91.302A confirmed 329124149 Problem Reflux esophagitis K21.0 confirmed 090020371 Problem Essential hypertension I10 confirmed 42988509 Problem Other chronic pain G89.29 confirmed 74645185 Problem Lumbago with sciatica, unspecified side M54.40 confirmed 833747182 Problem Constipation, unspecified constipation type K59.00 confirmed 58409334 Problem Dementia in other diseases classified elsewhere with behavioral disturbance F02.81 confirmed 80291782 19 103 Problem Hypercholeste rolemia E78.00 confirmed 92581812 Problem Mixed stress and urge urinary incontinence N39.46 confirmed 717364547 Problem Bipolar 1 disorder F31.9 confirmed 137254668 Problem Pressure ulcer of other site, stage 3 L89.893 confirmed 8574646409 Problem Recurrent major depressive disorder, in remission F33.40 confirmed 79064922 Problem Urinary incontinence, unspecified type R32 confirmed 044074751 Problem Chronic kidney disease, stage 3a N18.31 confirmed 424107904 Problem Benign neoplasm of brain, unspecified brain region D33.2 confirmed 71628824 Problem Incontinence of feces, unspecified fecal incontinence type R15.9 confirmed 04141757 Problem Type 2 diabetes mellitus with other specified complication, without long-term current use of insulin E11.69 confirmed 85626219 Problem Meningioma D32.9 confirmed 389512651 Problem 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, unspecified epilepsy type G40.909 confirmed 917653606 Problem Atrial flutter, unspecified type I48.92 confirmed 7511657 ALLERGIES Allergen (clinical drug ingredient) Drug/Non Drug Allergy documented on EMR Reaction Allergy Type Onset Date Status Chlortetracycline HCl rash/redde jayden skin Drug Allergy 03/10/2020 Active ENCOUNTERS from 1950 to 2022-09-24 Encounter Location Date Provider Diagnosis [facility] [id number] [place] [address] 08 Oct, 2020 ARTI ISSA IMMUNIZATIONS Vaccine Route [...] 30 days Feb, Active REASON FOR VISIT HH referral MEDICAL (GENERAL) HISTORY Type Description Date Medical [...] MENTAL STATUS No Information PLAN OF TREATMENT No Information Insurance Providers Payer Name Payer Address Payer Phone Insured Name Patient Relationship to Insured Coverage Start Date Coverage End Date Subscriber Number Group Number [place] [id number] [address] [facility] [address] Do wilton Strong Self - patient is the insured [id number] RCM Missing insurance scan copy of card into pt doc Do wilton Strong Self - patient is the insured [id number] [facility] PART A [address] [facility] [address] EliciaDo wilton hwang Self - patient is the insured [id number] RCM Missing insurance scan copy of card into pt doc Do wilton Strong Self - patient is the insured [id number]
--- OUTSIDE RECORDS SUMMARY | 2023-05-24 11:14 | XMS REPORT | Referral Summary ---
Author Author [facility] Organization [facility] Address Unknown Phone Unavailable Care Team Providers Care Magician/Illusionist Name Role Phone Sven Wen PCP Encounter [facility] Date(s): 02/15/16 - 02/15/16 [facility] [address] [place] [address] Discharge Diagnosis: Bilateral impacted cerumen Discharge Disposition: 01-Home or Self Care Attending Physician: Shayla Hernandez APRN Admitting Physician: Shayla Hernandez APRN Vital Signs Most recent to oldest [Reference Range]: 1 Temperature Oral [35.8-37.3 degC] 36.1 d egC (02/15/16 2:24 PM) Peripheral Pulse Rate [60-100 bpm] 86 bp m (02/15/16 2:24 PM) Respiratory Rate [14-20 br/min] 30 br/mi n *HI* (02/15/16 2:24 PM) Blood Pressure [90-140/60-90 mmHg] 120/5 8mmHg (02/15/16 2:24 PM) SpO2 93 % (02/15/16 2:24 PM) Problem List Condition Effective Dates [...] DAY, # 60 tabs, 3 Refill(s), eRx: [facility], TAKE 1 TABLET EVERY DAY Start Date: 10/06/15 Status: Ordered Faviola Allergy 180 mg, Oral, Daily, 0 Refill(s) Start Date: 01/17/15 Status: Ordered atorvastatin 10 mg oral tablet See Instructions, TAKE 1 TABLET EVERY DAY AT BEDTIME, # 90 tabs, eRx: [facility], TAKE 1 TABLET EVERY DAY AT BEDTIME Start Date: 12/28/15 Status: Ordered Calcium 600+D oral tablet 1 tabs, Oral, TID, 0 Refill(s) Start Date: 01/17/15 Status: Ordered Centrum Silver oral tablet 1 tabs, Oral, BID, 0 Refill(s) Start Date: 01/17/15 Status: Ordered cinnamon 1,000 mg, Oral, BID, 0 Refill(s) Start Date: 01/17/15 Status: Ordered citalopram 20 mg oral tablet See Instructions, TAKE 1 TABLET EVERY DAY, # 90 tabs, eRx: [facility], TAKE 1 TABLET EVERY DAY Start Date: 12/28/15 Status: Ordered Colace 100 mg oral capsule 1 caps, Oral, BID, as needed for constipation, 0 Refill(s) Start Date: 01/17/15 Status: Ordered Fish Oil oral capsule 1 caps, Oral, BID, 0 Refill(s) Start Date: 01/17/15 Status: Ordered fluticasone 50 mcg/inh nasal spray See Instructions, USE 1 SPRAY NASALLY TWICE DAILY (SUBSTITUTED FOR FLONASE), # 48 g, 3 Refill(s), eRx: [facility], USE 1 SPRAY NASALLY TWICE DAILY (SUBSTITUTED FOR FLONASE) Start Date: 10/10/15 Status: Ordered gabapentin 600 mg oral tablet See Instructions, TAKE 1 TABLET THREE TIMES DAILY, # 270 tabs, 1 Refill(s), Pharmacy: [facility], TAKE 1 TABLET THREE TIMES DAILY Start Date: 01/09/16 Status: Ordered garlic oral capsule 1,000 mg, [...] BID, # 60 tabs, 0 Refill(s), Pharmacy: [id number], 1 tabs OralBID Start Date: 08/31/15 Status: Ordered PreserVision AREDS 2 caps, Oral, Daily, 0 Refill(s) Start Date: 10/17/15 Status: Ordered traZODone 100 mg oral tablet See Instructions, TAKE 1 TABLET ONE TIME DAILY AT BEDTIME, # 90 tabs, 3 Refill(s), eRx: [facility], TAKE 1 TABLET ONE TIME DAILY AT BEDTIME Start Date: 10/06/15 Status: Ordered ursodiol 300 mg oral capsule 300 mg 1 caps, Oral, TID, # 270 caps, 0 Refill(s), Pharmacy: [facility] [id number], 1 caps Oral TID Start Date: 09/19/15 Status: Ordered Vitamin C 100 mg, Oral, Daily, 0 Refill(s) Start Date: 01/17/15 Status: Ordered vitamin E 100 Intl_Units, Oral, Daily, 0 Refill(s) Start Date: 01/17/15 Status: Ordered Welchol 625 mg oral tablet See Instructions, TAKE 3 TABLETS TWICE DAILY, # 540 tabs, eRx: [facility], TAKE 3 TABLETS TWICE DAILY Start Date: 10/10/15 Status: Ordered Zetia 10 mg oral tablet See Instructions, TAKE 1 TABLET EVERY DAY, # 90 tabs, eRx: [facility], TAKE 1 TABLET EVERY DAY Start Date: 02/10/16 Status: Ordered Results No data available for [...] and Plan Extracted from: Title:Office Visit Note Author:Shayla Hernandez RATE CLERK Date:02/15/16 Assessment/Plan 1.Bilateral impacted cerumen Bilateral ear lavage with clearing of canals, TM's intact, pt reports relief. Follow up as needed.
--- OUTSIDE RECORDS SUMMARY | 2023-05-24 11:14 | XMS REPORT ---
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 confirmed [id number] Problem Wound of left foot S91.302A confirmed 052224612 Problem Reflux esophagitis K21.0 confirmed 513666279 Problem Essential hypertension I10 confirmed 19616191 Problem Other chronic pain G89.29 confirmed 73189595 Problem Lumbago with sciatica, unspecified side M54.40 confirmed 695683308 Problem Constipation, unspecified constipation type K59.00 confirmed 75597412 Problem Dementia in other diseases classified elsewhere with behavioral disturbance F02.81 confirmed 87062284 19 103 Problem Hypercholeste rolemia E78.00 confirmed 04222587 Problem Mixed stress and urge urinary incontinence N39.46 confirmed 243554734 Problem Bipolar 1 disorder F31.9 confirmed 293225506 Problem Pressure ulcer of other site, stage 3 L89.893 confirmed 8697273594 Problem Recurrent major depressive disorder, in remission F33.40 confirmed 78274693 Problem Urinary incontinence, unspecified type R32 confirmed 551833914 Problem Chronic kidney disease, stage 3a N18.31 confirmed 427854153 Problem Benign neoplasm of brain, unspecified brain region D33.2 confirmed 67828699 Problem Incontinence of feces, unspecified fecal incontinence type R15.9 confirmed 82285177 Problem Type 2 diabetes mellitus with other specified complication, without long-term current use of insulin E11.69 confirmed 57606162 Problem Meningioma D32.9 confirmed 299344569 Problem 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, unspecified epilepsy type G40.909 confirmed 278702875 Problem Atrial flutter, unspecified type I48.92 confirmed 3328282 ALLERGIES Allergen (clinical drug ingredient) Drug/Non Drug Allergy documented on EMR Reaction Allergy Type Onset Date Status Chlortetracycline HCl rash/redde jayden skin Drug Allergy 03/10/2020 Active ENCOUNTERS from 1950 to 2022-09-25 Encounter Location Date Provider Diagnosis [facility] [address] [id number] [address] Oct, ARTIRAMONA ISSA Type 2 diabetes mellitus without complication, without long-term current use of insulin E11.9 and Hypercholesterolemia E78.00 IMMUNIZATIONS Vaccine Route Administration Date Status PRIVATE MMR Unknown Jun 03, 2017 Administered PRIVATE HIGH DOSE FLU 22-23 (FLUZONE HD) AGE 65YRS AND UP IM Intramuscular Jun 13, 2022 Administer ed pneumovax ppsv 23 (history) Unknown Sep 16, 2011 Administered prevnar pcv 13 (history) Unknown May 24, 2015 Ad ministered PRIVATE MMR Unknown Jul 03, 2017 Administered COVID-19 Moderna (history) Unknown Aug 28, 2021 A dministered zostavax (history) Unknown March 08, 2012 Administ ered zostavax (history) Unknown Sep 16, 2012 Administe red tdap (history) Unknown Jul 16, 2018 Administered PRIVATE FLUZONE HIGH DOSE QU AD 0.7ML (65 and UP) 2019 IM Intramuscular Jul 06, 2020 Administered COVID-19 Moderna (history) Unknown Oct 18, 2020 A dministered COVID-19 Moderna (history) Unknown November 15, 2020 Administered 1st Booster MODERNA Bivalent , COVID-19, 0.5mL IM Intramuscular Jun 13, 2022 Administered PRIVATE FLUZONE HIGH DOSE QU AD 0.7ML (65 and UP) 2020 IM Intramuscular Jul 10, 2021 Administered SOCIAL HISTORY Sex Assigned At : [...] 4 hrs for 30 days Feb, Active PROCEDURES from 1950 to 2022-09-25 Procedure Date Ordered Date Performed Result Body Sit e ROUTINE VENIPUNCTURE 2020-10-25 N/A REASON FOR VISIT Guest Home MEDICAL [...] Notes Treatment Notes Treatment Clinical Notes Oct, Type 2 diabetes james itus without complication, without long-term current use of insulin (ICD-10 - E11.9) Oct, Hypercholesterolemia (ICD-10 - E78.00) PLAN OF TREATMENT No Information Insurance Providers Payer Name Payer Address Payer Phone Insured Name Patient Relationship to Insured Coverage Start Date Coverage End Date Subscriber Number Group Number RCM Missing insurance scan copy of card into pt doc Do wilton Strong Self - patient is the insured [id number] [place] [address] [address] [facility] [address] EliciaDo wilton hwang Self - patient is the insured [id number] RCM Missing insurance scan copy of card into pt doc Do wilton Strong Self - patient is the insured [id number] [facility] PART A [address] [facility] [address] [phone] EliciaDo eri wilton Self - patient is the insured [id number]
--- OUTSIDE RECORDS SUMMARY | 2023-05-24 11:14 | XMS REPORT ---
Author Author Tara Gomez Organization [employer] Address Unknown Phone Unavailable Care Team Providers Care Driller And Reamer Name Role Phone Noel Gomez CP Unavailable [...]
--- OUTSIDE RECORDS SUMMARY | 2023-05-24 11:14 | XMS REPORT | Referral Summary ---
Author Author [facility] Organization [facility] Address Unknown Phone Unavailable Care Team Providers Care Career Services Assistant Name Role Phone Prince Corbin PCP No PCP, Pt States PCP Prince Corbin PCP No PCP, Pt States PCP Sven Wen PCP Marine Combs PCP Sven Wen PCP Ari Denney PCP Noel Gomez PCP Encounter [facility] [phone] Date(s): 10/25/17 - 10/25/17 [facility] [address] [place], [place] [address] Discharge Disposition: 01-Home or Self Care Attending Physician: Kimberley Mead APRN Problem List Condition Effective Dates Status Health [...] 0 Refill(s) Start Date: 06/13/16 Status: Ordered Immunizations Given and Recorded Vaccine Date Status Refusal Reason influenza virus vaccine, inactivated 10/03/17 Give n influenza virus vaccine, inactivated 1 06/15/16 Gi lashawn influenza virus vaccine, inactivated 09/19/15 Give n pneumococcal 13-valent conjugate vaccine 05/24/15 Given zoster vaccine live 09/16/12 Recorded pneumococcal 23-polyvalent vaccine 09/16/11 Record ed 1Result Comment: 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 Procedures Procedure Date Related Diagnosis Body Site Status Repair Hernia Incisional Laparoscopic 1 10/02/17 Completed Open Reduction Internal Fixa tion Ankle (Right) 2 06/14/16 Completed Colonoscopy 3 12/15/15 Completed Procedure with Anesthesia 4 12/15/15 Completed Cholecystectomy 1992 Completed Bladder surgery Completed H/O total hysterectomy with bilateral salpingo-oophorectomy (BSO) Comp leted Hx of hernia repair Compl eted Hysterectomy Completed Shunt 5 Completed Tonsillectomy and adenoidect jj; younger than age 12 Completed 1auto-populated from documented surgical case 2auto-populated from documented surgical case 3auto-populated from documented surgical case 4auto-populated from documented surgical case 5V-P Social History Social History Type Response Smoking Status Never smoker entered on: 03/02/16
--- OUTSIDE RECORDS SUMMARY | 2023-05-24 11:14 | XMS REPORT | Referral Summary ---
Author [facility], [facility] Address Unknown Phone Unavailable Care Team Providers Care Testing Manager Name Role Phone Prince Corbin PCP Encounter [facility] Date(s): 11/15/16 - 11/15/16 [facility], [facility], [place] [address] [address] [place], [place] [phone] Discharge Diagnosis: Chronic insomnia Discharge Diagnosis: Insomnia secondary to chronic pain Discharge Disposition: 01-Home or Self Care Attending Physician: Eliezer Hyatt MD Admitting Physician: Eliezer Hyatt MD Referring Physician: Caryl Colorado MD Vital Signs Most recent to oldest [Reference Range]: 1 Apical Heart Rate [60-100 bpm] 91 bpm (11/15/16 3:53 PM) Blood Pressure [90-140/60-90 mmHg] 112/6 0mmHg (11/15/16 3:53 PM) SpO2 96 % (11/15/16 3:53 PM) Problem List Condition Effective Dates Status [...] 0 Refill(s) Start Date: 06/18/16 Status: Ordered PreserVision AREDS 2 1 caps, [...] Refill(s) Start Date: 06/13/16 Status: Ordered Results No data available for this section Immunizations Given and Recorded Vaccine Date Status Refusal Reason influenza virus vaccine, inactivated 1 06/15/16 Gi lashawn influenza virus vaccine, inactivated 09/19/15 Give n pneumococcal 13-valent conjugate vaccine 05/24/15 Given pneumococcal 23-polyvalent vaccine 09/16/11 Record ed zoster vaccine live 09/16/12 Recorded 1Result Comment: 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 Procedures Procedure Date Related Diagnosis Body Site Open Reduction Internal Fixation Ankle (Right) 1 Colonoscopy 2 12/15/15 Procedure with Anesthesia 3 [...]
--- OUTSIDE RECORDS SUMMARY | 2023-05-24 11:14 | XMS REPORT | Referral Summary ---
Author Author [facility] Organization [facility] Address Unknown Phone Unavailable Care Team Providers Care Case Liner Name Role Phone Sven Wen PCP Encounter VC Date(s): 12/19/15 - 12/19/15 [facility] [id number] [id number] Discharge Diagnosis: Obesity... Discharge Diagnosis: Nonalcoholic fatty liver disease Discharge Diagnosis: Hyperlipidemia Discharge Diagnosis: IGT (impaired glucose tolerance) Discharge Disposition: 01-Home or Self Care Attending Physician: Sven Wen DO Admitting Physician: Sven Wen DO Vital Signs Most recent to oldest [Reference Range]: 1 Temperature Oral [35.8-37.3 degC] 36.2 d egC (12/19/15 1:51 PM) Peripheral Pulse Rate [60-100 bpm] 81 bp m (12/19/15 1:51 PM) Blood Pressure [90-140/60-90 mmHg] 138/6 8mmHg (12/19/15 1:51 PM) SpO2 95 % (12/19/15 1:51 PM) Problem List Condition Effective Dates Status [...] DAY, # 60 tabs, 3 Refill(s), eRx: [facility], TAKE 1 TABLET EVERY DAY Start Date: 10/06/15 Status: Ordered Faviola Allergy 180 mg, Oral, Daily, 0 Refill(s) Start Date: 01/17/15 Status: Ordered atorvastatin 10 mg oral tablet 10 mg 1 tabs, Oral, Bedtime (once a day), # 90 tabs, 0 Refill(s), Pharmacy: [facility], 1 tabs Oral Bedtime [...] TABLET EVERY DAY, # 90 tabs, eRx: [facility], TAKE 1 TABLET EVERY [...] FLONASE), # 48 g, 3 Refill(s), eRx: [facility], USE 1 SPRAY NASALLY TWICE DAILY (SUBSTITUTED FOR FLONASE) Start Date: 10/10/15 Status: Ordered gabapentin 600 mg oral tablet See Instructions, TAKE 1 TABLET THREE TIMES DAILY, # 270 tabs, eRx: [facility], TAKE 1 TABLET THREE [...] BID, # 60 tabs, 0 Refill(s), Pharmacy: [id number], 1 tabs OralBID Start Date: 08/31/15 Status: Ordered PreserVision AREDS 2 caps, Oral, Daily, 0 Refill(s) Start Date: 10/17/15 Status: Ordered traZODone 100 mg oral tablet See Instructions, TAKE 1 TABLET ONE TIME DAILY AT BEDTIME, # 90 tabs, 3 Refill(s), eRx: [facility], TAKE 1 TABLET ONE TIME DAILY AT BEDTIME Start Date: 10/06/15 Status: Ordered ursodiol 300 mg oral capsule 300 mg 1 caps, Oral, TID, # 270 caps, 0 Refill(s), Pharmacy: [facility] [id number], 1 caps Oral TID Start Date: 09/19/15 Status: Ordered Vitamin C 100 mg, Oral, Daily, 0 Refill(s) Start Date: 01/17/15 Status: Ordered vitamin E 100 Intl_Units, Oral, Daily, 0 Refill(s) Start Date: 01/17/15 Status: Ordered Welchol 625 mg oral tablet See Instructions, TAKE 3 TABLETS TWICE DAILY, # 540 tabs, eRx: [facility], TAKE 3 TABLETS TWICE DAILY Start Date: 10/10/15 Status: Ordered Zetia 10 mg oral tablet See Instructions, TAKE 1 TABLET EVERY DAY, # 90 tabs, eRx: [facility], TAKE 1 TABLET EVERY [...] from: Title:Ambulatory Patient Education Author:Sven Dolan DO Date:12/19/15 Family Medicine Cholesterol Cholesterol is a white, [...] medicine even if your levels are normal. This information is not intended to replace advice given to you by your health care provider. Make sure you discuss any questions you have with your health care provider. Document Released: 05/28/2002 Document Revised: 01/17/2015 Document Reviewed: 06/16/2014 ExitCare Patient Information 2015 [employer]. No follow up information was provided. Extracted from: Title:OV CDM Author:Sven Wen DO Date: Impression and Plan Diagnosis Hyperlipidemia (YFD46-ES E78.4, Discharge, Medical). IGT (impaired glucose tolerance) (XPH58-VH R73.02, Discharge, Medical). Nonalcoholic fatty liver disease (KXZ69-RF K76.0, Discharge, Medical). Obesity... (UGM95-WR E66.09, Discharge, Medical). Orders Orders Orders reviewed.. We will make medication adjustments based on the lab work when he comes back. I will see her back in 3 months to follow-up on her chronic medical conditions or sooner if needed. Strongly encouraged her to purchase patient in the 150 minutes of aerobic exercise per week divided into at least 3 days. Also strongly encouraged her to limit the amount of sugared soft drinks that she seems as well as other sources of sugar and carbohydrates. Also encouraged weight loss efforts. Call with any additional questions or concerns.
--- OUTSIDE RECORDS SUMMARY | 2023-05-24 11:15 | XMS REPORT ---
Author Author [facility] Address Unknown Phone Unavailable Care Team Providers Care Hardware Engineering Manager Name Role Phone ARTI ISSA Unavailable PROBLEMS Type Condition ICD9-CM Code ZFV46-PW Code Onset Dates Condition Status W/U Status Risk SNOMED Code Notes Problem Elevated cholesterol E78.00 confirmed 833734174 Problem Incontinence of feces, unspecified fecal incontinence type R15.9 confirmed 47512378 Problem Urinary incontinence, unspecified type R32 confirmed 343894041 Problem Hypercholeste rolemia E78.00 confirmed 76474520 Problem Blindness right eye category 3, 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 confirmed 779891346 Problem Peripheral vascular disease, unspecified I73.9 confirmed 485945603 Problem Hydrocephalus , unspecified type G91.9 confirmed 929888741 Problem Benign neoplasm of brain, unspecified brain region D33.2 confirmed 16374348 Problem Other chronic pain G89.29 confirmed 12556340 Problem Bipolar 1 disorder F31.9 confirmed 147081440 Problem Mixed stress and urge urinary incontinence N39.46 confirmed 026832368 Problem Meningioma D32.9 confirmed 191574309 Problem Type 2 diabetes mellitus with other specified complication, without long-term current use of insulin E11.69 confirmed 80678897 Problem Chronic kidney disease, stage 3a N18.31 confirmed 964197360 Problem Pressure ulcer of other site, stage 3 L89.893 confirmed 1228390024 Problem 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, unspecified epilepsy type G40.909 confirmed 149467236 Problem History of amputation of left great toe Z89.412 confirmed [id number] 1124150 Problem Diabetic foot ulcer E11.621 confirmed 921784809 Problem Atrial flutter, unspecified type I48.92 confirmed 6523750 Problem Reflux esophagitis K21.0 confirmed 693485572 Problem 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 I70.245 confirmed 879996401 Problem Essential hypertension I10 confirmed 23610266 Problem Lumbago with sciatica, unspecified side M54.40 confirmed 143491343 Problem Diabetic peripheral neuropathy E11.42 confirmed 126807776 Problem 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 confirmed 659128323 Problem Pressure ulcer of left heel, stage 2 L89.622 confirmed 787225906 Problem Dementia without behavioral disturbance, psychotic disturbance, mood disturbance, or anxiety, unspecified dementia severity, unspecified dementia type F03.90 confirmed 31722319 ALLERGIES Allergen (clinical drug ingredient) Drug/Non Drug Allergy documented on EMR Reaction Allergy Type Onset Date Status Chlortetracycline HCl rash/redde jayden skin Drug Allergy 03/10/2020 Active ENCOUNTERS from 1950 to 2023-04-11 Encounter Location Date Provider [facility] [id number] [place] [address] 17 Apr, 2021 ARTI ISSA Type 2 diabetes mellitus with other specified [...] 16, 2018 Administered COVID-19 Moderna (history) Unknown Aug 28, 2021 A dministered 1st Booster MODERNA Bivalent , COVID-19, 0.5mL IM Intramuscular Jun 13, 2022 Administered PRIVATE HIGH DOSE FLU 22-23 (FLUZONE HD) AGE 65YRS AND UP IM Intramuscular Jun 13, 2022 Administer ed PRIVATE FLUZONE HIGH DOSE QU AD 0.7ML (65 and UP) 2021 IM Intramuscular Jul 10, 2021 Administered COVID-19 [...] Duration) Notes Start Date End Date Status Vitamin C 1000 MG 1 tablet Orally Once a day for 30 day(s) Feb, Not-Taking Metamucil - 1 packet with 8 ounces of liquid as needed Orally once daily as needed for 30 days Feb, Not-Taking Lactobacillus - 2 tablets Orally Once a day for 30 days Feb, Not-Taking Fosamax 5 mg 1 tablet 30 minutes before the first food, beverage or medicine of the day with plain water Orally Once a day for 30 day(s) Feb, Not-Taking Tums 500 MG 2 tablet Orally every 4 hours as needed for 30 day(s) Feb, Active Multi Complete - as directed Orally 2 times a day for 30 days Feb, Active levETIRAcetam 750 MG TAKE 1 TABLET BY MOUTH 2 TIMES A DAY. for 28 Active Tessalon Perles 100 MG 1 capsule as needed Orally Three times a day for 7 days Aug, Not-Taking Memantine HCl 5 MG TAKE 1 TABLET BY MOUTH TWICE A DAY for 28 Not-Taking Imodium A-D 2 MG 1 tablet as needed Orally Four times a day for 30 days Feb, Not-Taking traZODone HCl 150 MG TAKE 1 TABLET BY MOUTH ONCE A DAY AT BEDTIME for 28 Active Lutein 20 MG 1 capsule with a meal Orally Once a day for 30 day(s) Feb, Active Glucosamine Chondro Complex - 1 tablet Orally 2 times a day for 30 days Feb, Active Macrobid 100 MG 1 capsule Orally twice a day for 7 days Nov, Not-Taking hydroCHLOROthiazide 25 MG 1 tablet in morning Orally Once a day for 30 day(s) Feb, Not-Taking Milk of Magnesia 400 MG/5ML 30 ml at least 4 hours between doses as needed Orally once daily as needed for 30 days Feb, Not-Taking Losartan Potassium 50 MG TAKE 1 TABLET B Y MOUTH ONCE A DAY for 28 Active Glimepiride 2 MG TAKE 1 TABLET BY MOUTH ONCE A DAY WITH BREAKFAST OR THE FIRST MAIN MEAL OF THE DAY for 28 Active guaiFENesin 200 MG 2 tablet as needed Orally every 4 hrs for 30 days Feb, Not-Taking Lipitor 40 MG 1 tablet Orally Once a day for 30 day(s) Feb, Active Furosemide 20 MG TAKE ONE TABLET BY MOUTH IN THE MORNING for 28 days Active Acetaminophen 325 MG 2 tablet as needed Orally every 4 hrs for 30 days Feb, Not-Taking Biotin 1 MG 1 tablet Orally Once a day for 30 day(s) Feb, Not-Taking Famotidine 20 MG 1 tablet at bedtime as needed Orally Once a day for 30 day(s) Feb, Not-Taking Zetia 10 MG 1 tablet Orally Once a day for 30 day(s) Feb, Active traMADol HCl 50 MG 1 tablet as needed Orally every 6 hours for [address] Issa 01/01/22 Mar, Active Cholecalciferol 25 MCG (1000 UT) 1 capsule Orally Once a day for 30 day(s) Feb, Not-Taking Accu-Chek Isidra w/Device as directed In Vitro Once a day for 50 days Feb, Not-Taking metFORMIN HCl 500 MG 1 tablet with a meal Orally 2 times a day for 30 day(s) Feb, Not-Taking Neurontin 300 MG 1 capsule Orally Once a day Active Lasix 20 mg 1 tablet Orally Once a day for 30 day(s) Not-Taking ALPRAZolam 0.25 MG 1 tablet as needed Orally every 8 hours for [address] Issa 01/01/22 Mar, Active Tussin 100 MG/5ML 5 ml as needed Orally every 4 hrs for 30 days Feb, Active Acetaminophen 500 MG 1 tablet as needed Orally every 4-6 hours for 30 days Aug, Active Benadryl 25 mg 1 capsule Orally every 6 hours as needed for itching for 30 day(s) Oct, Active Calcium + D3 600-200 MG-UNIT 1 tablet with a meal Orally Once a day for 30 day(s) Feb, Active Flax Oil Xtra - 1 capsule Orally Once a day for 30 days Feb, Not-Taking Gabapentin 400 MG 1 capsule Orally Once a day for 30 day(s) Decreased to 400mg TID per Dr. Issa 03/10. Feb, Not-Taking Citalopram Hydrobromide 20 MG TAKE 1 TABLET BY MOUTH ONCE A DAY for 28 Active Fish Oil 1000 MG 1 capsule Orally Once a day for 30 day(s) Feb, Active PROCEDURES from 1950 to 2023-04-11 Procedure Date Ordered Date Performed Result Body Sit e ROUTINE VENIPUNCTURE 2021-05-02 2021-05-02 N/A REASON FOR VISIT No Information MEDICAL (GENERAL) HISTORY Type Description Date Medical History Hydrocephalus Medical History Dementia in other di seases classified elsewhere with behavioral disturbance Medical History Lumbago with sciatica, unspecifi ed side Medical History Recurrent major depr essive disorder, remission status unspecified Medical History Sedative, hypnotic o r anxiolytic use, unspecified with sedative, 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 Medical History cataract surgery Surgical History cataract surgery on left eye [address] [facility] for seizure an d meningioma 08/09-08/16/2021 MENTAL STATUS No Information ASSESSMENTS Encounter Date Diagnosis Assessment Notes Treatment Notes Treatment Clinical Notes Apr, Type 2 diabetes mellitus with other specified complication, without long-term current use of insulin (ICD-10 - E11.69) PLAN OF TREATMENT Next Appt Details Provider Name:ESCOBAR Dos Santos, 2023-04-17 11:20:00 AM, [address] [place], [address], Insurance Providers Payer Name Payer Address Payer Phone Insured Name Patient Relationship to Insured Coverage Start Date Coverage End Date Subscriber Number Group Number [facility] PART [facility] [id number] [facility] [address] Do wilton Strong Self - patient is the insured 7 [id number] RCM Missing insurance scan copy of card into pt doc Do wilton Strong Self - patient is the insured [id number] [place] [address] [facility] [address] Do wilton Strong Self - patient is the insured [id number] RCM Missing insurance scan copy of card into pt doc Do wilton Strong Self - patient is the insured [id number]
--- OUTSIDE RECORDS SUMMARY | 2023-05-24 11:15 | XMS REPORT ---
Author Author [facility] ter of [facility] ter of [facility] Address Unknown Phone Unavailable Care Team Providers Care Playground Worker Name Role Phone ARTI ISSA Unavailable PROBLEMS Type Condition ICD9-CM Code [id number] Code Onset Dates Condition Status W/U Status Risk SNOMED Code Notes Problem Other chronic pain G89.29 confirmed [id number] Problem Lumbago with sciatica, unspecified side M54.40 confirmed 956932162 Problem Hypercholeste rolemia E78.00 confirmed 97496107 Problem Benign neoplasm of brain, unspecified brain region D33.2 confirmed 25219292 Problem Mixed stress and urge urinary incontinence N39.46 confirmed 878527122 Problem Blindness right eye category 3, 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 confirmed 444485135 Problem Bipolar 1 disorder F31.9 confirmed 964305530 Problem Incontinence of feces, unspecified fecal incontinence type R15.9 confirmed 02243944 Problem Type 2 diabetes mellitus with other specified complication, without long-term current use of insulin E11.69 confirmed 00435746 Problem Elevated cholesterol E78.00 confirmed 370783392 Problem Chronic kidney disease, stage 3a N18.31 confirmed 221424853 Problem Hydrocephalus , unspecified type G91.9 confirmed 226359643 Problem Peripheral vascular disease, unspecified I73.9 confirmed 077894823 Problem 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 confirmed 038932922 Problem Pressure ulcer of other site, stage 3 L89.893 confirmed 8753755205 Problem Essential hypertension I10 confirmed 34653954 Problem Pressure ulcer of left heel, stage 2 L89.622 confirmed 326366946 Problem Meningioma D32.9 confirmed 579876941 Problem Urinary incontinence, unspecified type R32 confirmed 353393736 Problem Reflux esophagitis K21.0 confirmed 437296859 Problem 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, unspecified epilepsy type G40.909 confirmed 832578802 Problem History of amputation of left great toe Z89.412 confirmed [id number] 6603116 Problem Diabetic foot ulcer E11.621 confirmed 793120710 Problem Diabetic peripheral neuropathy E11.42 confirmed 520222277 ALLERGIES Allergen (clinical drug ingredient) Drug/Non Drug Allergy documented on EMR Reaction Allergy Type Onset Date Status Chlortetracycline HCl rash/redde jayden skin Drug Allergy 03/10/2020 Active ENCOUNTERS from 1950 to 2023-02-03 Encounter Location Date Provider [facility] [id number] [place] [address] Feb, ARTI GUGNANI Lumbago with sciatica, unspecified side M54.40 IMMUNIZATIONS Vaccine Route Administration Date Status COVID-19 [...] Duration) Notes Start Date End Date Status Multi Complete - as directed Orally 2 [...] a day for 7 days Nov, Not-Taking Lactobacillus - 2 tablets Orally Once a day for 30 days Feb, Active Metamucil - 1 packet with [...] MOUTH TWICE A DAY for 28 Active Lasix 20 mg 1 tablet Orally Once a day for 30 day(s) Active Glucosamine Chondro Complex - 1 tablet Orally 2 times a day for 30 days Feb, Active hydroCHLOROthiazide 25 MG 1 tablet in th morning Orally Once a day for 30 [...] 4 hrs for 30 days Feb, Active Glimepiride 2 MG TAKE 1 TABLET BY MOUTH ONCE A DAY WITH BREAKFAST OR THE FIRST MAIN MEAL OF THE DAY for 28 Active Imodium A-D 2 MG 1 tablet as needed Orally Four times a day for 30 days Feb, Active Accu-Chek Isidra w/Device as directed In Vitro Once a day for 50 days Feb, Not-Taking Neurontin 300 MG 1 capsule Orally Once a day Active ALPRAZolam 0.25 MG 1 tablet as needed Orally every 8 hours for [address] Issa 01/01/22 Dec, Active Calcium + D3 600-200 MG-UNIT 1 tablet with a meal Orally Once a day for 30 day(s) Feb, Active Tessalon Perles 100 MG 1 capsule as needed Orally Three times a day for 7 days Aug, Active Lutein 20 MG 1 capsule with a meal Orally Once a day for 30 day(s) Feb, Active Citalopram Hydrobromide 20 MG TAKE 1 TABLET BY MOUTH ONCE A DAY for 28 Active Benadryl 25 mg 1 capsule Orally every 6 hours as needed for itching for 30 day(s) Oct, Active Vitamin C 1000 MG 1 tablet Orally Once a day for 30 day(s) Feb, Not-Taking Lipitor 40 MG 1 tablet Orally Once a day for 30 day(s) Feb, Active Famotidine 20 MG 1 tablet at bedtime as needed Orally Once a day for 30 day(s) Feb, Not-Taking traMADol HCl 50 MG 1 tablet as needed Orally every 6 hours for [address] Issa 01/01/22 January, Active Milk of Magnesia 400 MG/5ML 30 ml at least 4 hours between doses as needed Orally once daily as needed for 30 days Feb, Active traZODone HCl 150 MG 1 tablet at bedtime Orally Once a day for 30 days Active Tussin [...] 4 hrs for 30 days Feb, Not-Taking Fish Oil 1000 MG 1 capsule Orally Once a day for 30 day(s) Feb, Active Furosemide 20 MG TAKE ONE TABLET BY MOUTH IN THE MORNING for 28 days Active REASON FOR VISIT Pharmacy Call MEDICAL (GENERAL) HISTORY Type Description Date Medical [...] Assessment Notes Treatment Notes Treatment Clinical Notes Feb, Lumbago with sciatica, unspecified side (ICD-10 - M54.40) PLAN OF TREATMENT No Information Insurance Providers Payer Name Payer Address Payer Phone Insured Name Patient Relationship to Insured Coverage Start Date Coverage End Date Subscriber Number Group Number RCM Missing insurance scan copy of card into pt doc Do wilton Strong Self - patient is the insured [id number] [facility] PART A [address] [facility] [address] Do wilton Strong Self - patient is the insured 7 [id number] RCM Missing insurance scan copy of card into pt doc Do wilton Strong Self - patient is the insured [id number] [place] [address] [address] [facility] [address] Do wilton Strong Self - patient is the insured [id number]
[2023-05-24] MEDS ORDERED: HYPOCHLOROUS ACID/NaCl WOUND SOLN 250 ML IR PRN (11:30)
[2023-05-24] MEDS: ENOXAPARIN 40 MG/0.4 ML SYRINGE SC SCH (13:02)
[2023-05-24] MEDS: GABAPENTIN 300 MG CAPSULE PO SCH ×2 (13:02→16:47)
--- NOTE | 2023-05-24 14:20 | Physical Therapy Evaluation ---
PT Evaluation-General Medical Diagnosis Admission Date May 24, 2023 at 10:50 Medical Diagnosis: COVID, Sepsis Onset Date: May 20, 2023 Therapy Diagnosis Therapy Diagnosis: Gait deficit Precautions Precautions/Isolations: Airborne Isolation, Droplet Isolation, Fall Prevention Weight Bear Status Right Lower Extremity: Right Full Weight Bearing Left Lower Extremity: Left Full Weight Bearing Referral Physician: Dr. Sanders Reason for Referral: Evaluation/Treatment Medical History Reviewed History: Yes Social History Home: Assisted Living Current Living Status: Alone Entry Into Home: Level Entry Prior Prior Level of Function SCALE: Activities may be completed with or without assistive devices. 6-Jpegvmyriz-itvqwql completes the activity by him/herself with no assistance from a helper. 5-Set-up or Clean-up Assistance-helper sets up or cleans up; patient completes activity. [place] assists only prior to or following the activity. 4-Supervision or Touching Assistance-helper provides verbal cues and/or touching/steadying and/or contact guard assistance as patient completes activity. Assistance may be provided throughout the activity or intermittently. 3-Partial/Moderate Assistance-helper does LESS THAN HALF the effort. [place] lifts, holds or supports trunk or limbs, but provides less than half the effort. 2-Substantial/Maximal Assistance-helper does MORE THAN HALF the effort. [place] lifts or holds trunk or limbs and provides more than half the effort. 1-Rbwguagvc-uuzzdh does ALL the effort. Patient does none of the effort to complete the activity. Or, the assistance of 2 or more helpers is required for the patient to complete the activity. If activity was not attempted, code reason: 7-Patient Refused. 9-Not Applicable-not attempted and the patient did not perform the activity before the current illness, exacerbation or injury. 10-Not Attempted due to Environmental Limitations-(lack of equipment, weather restraints, etc.). 88-Not Attempted due to Medical Conditions or Safety Concerns. Bed Mobility: 6 Transfers (B,C,W/C): 6 Gait: 6 Stairs: 9 Indoor Mobility (Ambulation): Independent Stairs: Not Applicalbe Prior Devices Use: Walker PT Evaluation-Current Subjective Patient sitting in her chair upon PT arrival, agreeable to treatment. Patient rates pain at 0/10 currently. She reports at times the staff will help her with bathing and dressing, but she ambulates and takes herself to the bathroom. Pain Section J - Health Conditions 1. Rarely or not at all 2. Occasionally 3. Frequently 4. Almost constantly 8. Unable to answer Pain Effect on Sleep: 1 Pain Interference with Therapy: 1 Pain Interference w/Day-to-Day: 1 Objective Patient Orientation: Person, Place, Time, Situation ROM/Strength ROM Lower Extremities WFLs BLEs all planes Strength Lower Extremities 5/5 BLEs all planes Sensory Vision: Blind Totally Hearing: Functional Sensation Right Lower Extremit: Intact Sensation Left Lower Extremity: Intact Transfers Roll Left & Right (QC): 6 Sit to Lying (QC): 6 Lying to Sitting/Side of Bed(Q: 6 Sit to Stand (QC): 4 Chair/Wut-aq-Zwwkv Xfer(QC): 4 Toilet Transfer (QC): 4 Car Transfer (QC): 88 Gait Does the Patient Walk?: Yes Mode of Locomotion: Walk Anticipated Mode of Locomotion: Walk Walk 10 feet (QC): 4 Walk 50 ft with 2 Turns(QC): 4 Walk 150 ft (QC): 88 Walking 10ft/uneven surface-QC: 88 Gait Assistive Device: FWW Wheelchair Training Does the Pt Use a Wheelchair?: No Wheel 50 ft with 2 turns (QC): 9 Wheel 150 ft (QC): 9 Stairs #of Steps: 0 1 Step (curb) (QC): 88 4 Steps (QC): 88 12 Steps (QC): 88 Balance Sitting Static: Normal Sitting Dynamic: Normal Standing Static: Fair Standing Dynamic: Fair Picking up an Object (QC): 88 Assessment/Needs Patient requires min A for objects around the room, however is otherwise at baseline for mobility, transfers and gait. She is able to maneuver around her room at the AL facility independently with her FWW. Patient does not require SKilled PT at this time. Rehab Potential: Good PT Assisted Goals Assisted Goals PT Urologist Physician Goals Time Frame: May 24, 2023 Roll Left to Right (QC): 88 Sit to Lying (QC): 88 Lying-Sitting on Side/Bed(QC): 88 Sit to Stand (QC): 88 Chair/Rgc-vo-Mlbyv Xfer(QC): 88 Toilet/Commode Transfer (QC): 88 Car Transfer (QC): 88 Walk 10 feet (QC): 88 Walk 10ft-Uneven Surface(QC): 88 Walk 50ft with 2 Turns (QC): 88 Walk 150 ft (QC): 88 Wheel 50 feet with 2 turns (QC: 88 Wheel 150 feet: 88 1 Step (curb) (QC): 88 4 Steps (QC): 88 12 Steps (QC): 88 Picking up an Object (QC): 88 PT Plan Treatment/Plan Treatment Plan: Discontinue PT Treatment Duration: May 24, 2023 Frequency: Patient and/or Family Agrees t: Yes Time Time In: 1350 Time Out: 1410 DATE: May 24, 2023 Total Billed Treatment Time: 20 Total Billed Treatment Visit, YOEL JOHNSON PT May 24, 2023 14:20
--- NOTE | 2023-05-24 14:31 | Occupational Therapy Eval ---
OT Evaluation-General/PLF Medical Diagnosis Admission Date May 24, 2023 at 10:50 Medical Diagnosis: COVID, Sepsis Onset Date: May 20, 2023 Therapy Diagnosis Therapy Diagnosis: visual impaired Precautions Precautions/Isolations: Airborne Isolation, Droplet Isolation, Fall Prevention Weight Bear Status Weight Bearing Restriction: Full Weight Bearing Referral Physician: Dr. Sanders Referral Reason: Evaluation/Treatment Medical History Additional Medical History Lives at [facility] w/ assist for all I/ADLs and mobility w/ ADs d/t blindness.Patient has a walker but does not recall if the walker has wheels. It does not have a seat. Reviewed History: Yes Social History Home: Assisted Living Current Living Status: Alone Entry Into Home: Level Entry ADL-Prior Level of Function SCALE: Activities may be completed with or without assistive devices. 3-Kdefbqpijh-kcxwspv completes the activity by him/herself with no assistance from a helper. 5-Set-up or Clean-up Assistance-helper sets up or cleans up; patient completes activity. [place] assists only prior to or following the activity. 4-Supervision or Touching Assistance-helper provides verbal cues and/or touching/steadying and/or contact guard assistance as patient completes activity. Assistance may be provided throughout the activity or intermittently. 3-Partial/Moderate Assistance-helper does LESS THAN HALF the effort. [place] lifts, holds or supports trunk or limbs, but provides less than half the effort. 2-Substantial/Maximal Assistance-helper does MORE THAN HALF the effort. [place] lifts or holds trunk or limbs and provides more than half the effort. 7-Gbifibmie-vuichi does ALL the effort. Patient does none of the effort to complete the activity. Or, the assistance of 2 or more helpers is required for the patient to complete the activity. If activity was not attempted, code reason: 7-Patient Refused. 9-Not Applicable-not attempted and the patient did not perform the activity before the current illness, exacerbation or injury. 10-Not Attempted due to Environmental Limitations-(lack of equipment, weather restraints, etc.). 88-Not Attempted due to Medical Conditions or Safety Concerns. ADL PLOF Comments Required assistance w/ environmental navigation especially in unfamiliar environment. Required set up of clothing w/ VCs for organization and sequences Self Care: Needed Some Help Functional Cognition: Needed Some Help DME/Equipment: Grab Bars, Shower Hose Chief [address] Drive Self: No OT Current Status Subjective Up in recliner self feeding fruit. Agreeable to participate Pain Numeric Pain Scale: 0-No Pain Mental Status/Objective Patient Orientation: Person, Place (hospital), Situation Current Glasses/Contacts: No Hearing Aids: No Dentures/Partials: No Hand Dominance: Right Upper Extremity ROM BUE ROM WFLs Upper Extremity Coordination impaired d/t vision loss Upper Extremity Sensation intact Upper Extremity Strength -4/5 grossly ADL-Treatment ADL-Current Patient required tactile and verbal cues to complete ADL tasks. Assistance w/ FWW navigation d/t blindness Eating (QC): 5 Oral Hygiene (QC): 5 Shower/Bathe Self (QC): 7 Upper Body Dressing (QC): 4 Lower Body Dressing (QC): 3 On/Off Footwear (QC): 4 Toileting Hygiene (QC): 3 Education OT Patient Education: Correct positioning, Modified ADL techniques, Progress toward Goal/Update tx plan, Purpose of tx/functional activities, Reviewed precautions, Rehab process, Safety issues, Transfer techniques, Use of adapted equipment Teaching Recipient: Patient Teaching Methods: Demonstration, Discussion Response to Teaching: Verbalize Understanding BIMS CAM BIMS Expression of Ideas and Wants: Without Difficulty Understanding Verbal Content: Usually Understands Brief Interview/Mental Status: Yes IRF ARIELA BIMS: IRF ARIELA BIMS Response (Comments) Value Repitition of Three Words Three 3 Recalls Socks Yes, No Cue Required 2 Recalls Blue Yes, No Cue Required 2 Recalls Bed Yes, No Cue Required 2 Year Missed by 5 Yrs/No Answer 0 Month Missed by 1 Mo/No Answer 0 Day Incorrect or No Answer 0 Total 9 Patient Normally Able to Recal: That he/she in a hsp Should Staff Asses. Mental St.: No CAM Mental Status Change/Baseline: 0 Inattention: 0 Disorganized thinkin Altered level of consciousness: 0 OT Manager Crisis Goals Manager Crisis Goals 1=Demonstrate adherence to instructed precautions during ADL tasks. 2=Patient will verbalize/demonstrate understanding of assistive devices/modifications for ADL. 3=Patient will improve strength/tolerance for activity to enable patient to perform ADL's. OT Education/Plan Problem List/Assessment Assessment: No Skilled OT Needs ID'd Discharge Recommendations Plan/Recommendations: Discontinue OT Therapy Discharge Recommendati: Assisted Living Treatment Plan/Plan of Care Patient would benefit from OT for education, treatment and training to promote independence in ADL's, mobility, safety and/or upper extremity function for ADL's. Plan of Care: OTHER (EVAL ONLY) Treatment Duration: May 24, 2023 Frequency: 1 time per week Estimated Hrs Per Day: .25 hour per day Rehab Potential: Good Time Start Time: 12:50 Stop Time: 13:10 DATE: May 24, 2023 Total Time Billed (hr/min): 20 Billed Treatment Time EVM 20 min MAIRA TANG OT May 24, 2023 14:31
[2023-05-24] MEDS: LevETIRAcetam 500 MG TABLET PO SCH (16:47)
[2023-05-24 19:52] VITALS: BP 142/87
[2023-05-24] MEDS: MEMANTINE 5 MG TABLET PO SCH (21:05)
[2023-05-24] MEDS: traZODone 150 MG (DESYREL) TABLET PO SCH (21:05)
[2023-05-24] MEDS: DOCUSATE SODIUM 100 MG CAPSULE PO SCH (21:05)
[2023-05-25] MEDS: THERAPEUTIC MULTIVITAMIN W/MINERALS TABLET PO SCH (06:42)
[2023-05-25] MEDS: MEMANTINE 5 MG TABLET PO SCH ×2 (08:18→20:33)
[2023-05-25] MEDS: LevETIRAcetam 500 MG TABLET PO SCH ×2 (08:18→17:16)
[2023-05-25] MEDS: ASPIRIN enteric coated 81MG TABLET PO SCH (08:18)
[2023-05-25] MEDS: GABAPENTIN 300 MG CAPSULE PO SCH ×3 (08:18→17:16)
[2023-05-25] MEDS: CITALOPRAM 20 MG TABLET PO SCH (08:18)
[2023-05-25] MEDS: DOCUSATE SODIUM 100 MG CAPSULE PO SCH ×2 (08:18→20:33)
[2023-05-25] MEDS: CLOPIDOGREL 75 MG TABLET PO SCH (08:18)
[2023-05-25] MEDS: FUROSEMIDE 20 MG TABLET PO SCH (08:18)
[2023-05-25] MEDS: CALCIUM CARBONATE 600 MG +VITAMIN D TABLET PO SCH (08:18)
[2023-05-25 08:23] VITALS: BP 138/63
--- NOTE | 2023-05-25 08:34 | Progress Note - Hospitalist ---
Subjective HPI/CC On Admission Date Seen by Provider: May 25, 2023 Time Seen by Provider: 11:00 Objective Exam Vital Signs Vital Signs Date Time Temp Pulse Resp B/P (MAP) Pulse Ox O2 Delivery O2 Flow Rate FiO2 05/25/23 09:25 Room Air 05/25/23 08:23 36.3 55 18 138/63 (88) 99 Capillary Refill : Results/Procedures Lab Patient resulted labs reviewed. JANIA RUSSELL DO May 25, 2023 08:34
[2023-05-25] MEDS ORDERED: NON-FORMULARY MEDICATION 1 EA EA (Lutein 20 MG) PO SCH (09:00)
[2023-05-25] MEDS: LevoFLOXacin 750 MG TABLET PO SCH (11:26)
[2023-05-25] MEDS: ENOXAPARIN 40 MG/0.4 ML SYRINGE SC SCH (14:15)
[2023-05-25 19:35] VITALS: BP 118/57
[2023-05-25] MEDS: traZODone 150 MG (DESYREL) TABLET PO SCH (20:33)
[2023-05-26 08:00] VITALS: BP 148/78
[2023-05-26] MEDS: MEMANTINE 5 MG TABLET PO SCH ×2 (08:26→21:41)
[2023-05-26] MEDS: GABAPENTIN 300 MG CAPSULE PO SCH ×3 (08:26→17:41)
[2023-05-26] MEDS: DOCUSATE SODIUM 100 MG CAPSULE PO SCH ×2 (08:26→21:29)
[2023-05-26] MEDS: CALCIUM CARBONATE 600 MG +VITAMIN D TABLET PO SCH (08:26)
[2023-05-26] MEDS: ASPIRIN enteric coated 81MG TABLET PO SCH (08:26)
[2023-05-26] MEDS: CLOPIDOGREL 75 MG TABLET PO SCH (08:26)
[2023-05-26] MEDS: THERAPEUTIC MULTIVITAMIN W/MINERALS TABLET PO SCH (08:26)
[2023-05-26] MEDS: CITALOPRAM 20 MG TABLET PO SCH (08:26)
[2023-05-26] MEDS: FUROSEMIDE 20 MG TABLET PO SCH (08:27)
[2023-05-26] MEDS: LevETIRAcetam 500 MG TABLET PO SCH ×2 (08:27→17:41)
[2023-05-26] MEDS: ENOXAPARIN 40 MG/0.4 ML SYRINGE SC SCH (12:47)
[2023-05-26 20:24] VITALS: BP 126/62
[2023-05-26] MEDS: traZODone 150 MG (DESYREL) TABLET PO SCH (21:41)
[2023-05-27] MEDS: THERAPEUTIC MULTIVITAMIN W/MINERALS TABLET PO SCH (06:45)
[2023-05-27 08:45] VITALS: BP 114/56
[2023-05-27] MEDS: CALCIUM CARBONATE 600 MG +VITAMIN D TABLET PO SCH (09:08)
[2023-05-27] MEDS: DOCUSATE SODIUM 100 MG CAPSULE PO SCH ×2 (09:08→20:07)
[2023-05-27] MEDS: ASPIRIN enteric coated 81MG TABLET PO SCH (09:08)
[2023-05-27] MEDS: CLOPIDOGREL 75 MG TABLET PO SCH (09:08)
[2023-05-27] MEDS: GABAPENTIN 300 MG CAPSULE PO SCH ×3 (09:08→17:35)
[2023-05-27] MEDS: FUROSEMIDE 20 MG TABLET PO SCH (09:08)
[2023-05-27] MEDS: CITALOPRAM 20 MG TABLET PO SCH (09:08)
[2023-05-27] MEDS: MEMANTINE 5 MG TABLET PO SCH ×2 (09:08→20:51)
[2023-05-27] MEDS: LevoFLOXacin 750 MG TABLET PO SCH (09:08)
[2023-05-27] MEDS: LevETIRAcetam 500 MG TABLET PO SCH ×2 (09:08→17:35)
--- NOTE | 2023-05-27 11:12 | Progress Note ---
Subjective Subjective/Events-last exam Pt states she his feeling fine, wants to go home. Objective Exam Last Set of Vital Signs Vital Signs Date Time Temp Pulse Resp B/P (MAP) Pulse Ox O2 Delivery O2 Flow Rate FiO2 05/27/23 09:00 Room Air 05/27/23 08:45 37.0 71 17 114/56 (75) 92 Capillary Refill : I&O Intake and Output 05/27/23 00:00 Intake Total 2265 ml Balance 2265 ml Intake Oral 2265 ml # Voids 6 # Bowel Movements 1 General: Alert Neuro: Other (oriented to self, knows she is in hospital but not which one, knows it is Saturday but not the date, knows she is in the hospital due to covid) Psych/Mental Status: Mood NL Assessment/Plan Assessment/Plan (1) COVID-19 Onset Date: ~ 05/20/2023 Status: Acute Assessment & Plan: Cannot return to facility until off isolation, which will be 05/29 at midnight. Currently doing well on room air. (2) Hypertension Status: Chronic (3) Hyperlipidemia Status: Chronic (4) Diabetes Status: Chronic Qualifiers: (5) CKD (chronic kidney disease) Status: Chronic (6) Peripheral neuropathy Status: Chronic (7) Peripheral arterial disease Status: Chronic (8) Diabetic foot ulcer Status: Chronic Assessment & Plan: On last admit she underwent left ray amputation for left first metatarsal obestomyelitis and abscess, wound vac in place. On levofloxac in. Qualifiers: (9) Dementia Status: Chronic (10) [facility] resident Status: Chronic OLEGARIO SWEENEY MD May 27, 2023 11:12
[2023-05-27] MEDS: ENOXAPARIN 40 MG/0.4 ML SYRINGE SC SCH (13:07)
[2023-05-27 19:39] VITALS: BP 105/64
[2023-05-27] MEDS: traZODone 150 MG (DESYREL) TABLET PO SCH (20:51)
[2023-05-28] MEDS: THERAPEUTIC MULTIVITAMIN W/MINERALS TABLET PO SCH (06:12)
[2023-05-28 07:13] VITALS: BP 130/60
[2023-05-28] MEDS: MEMANTINE 5 MG TABLET PO SCH ×2 (09:28→20:56)
[2023-05-28] MEDS: CLOPIDOGREL 75 MG TABLET PO SCH (09:28)
[2023-05-28] MEDS: GABAPENTIN 300 MG CAPSULE PO SCH ×3 (09:28→16:31)
[2023-05-28] MEDS: CITALOPRAM 20 MG TABLET PO SCH (09:28)
[2023-05-28] MEDS: DOCUSATE SODIUM 100 MG CAPSULE PO SCH ×2 (09:28→20:55)
[2023-05-28] MEDS: ASPIRIN enteric coated 81MG TABLET PO SCH (09:28)
[2023-05-28] MEDS: CALCIUM CARBONATE 600 MG +VITAMIN D TABLET PO SCH (09:28)
[2023-05-28] MEDS: LevETIRAcetam 500 MG TABLET PO SCH ×2 (09:29→16:31)
[2023-05-28] MEDS: FUROSEMIDE 20 MG TABLET PO SCH (09:29)
--- NOTE | 2023-05-28 11:38 | Wound Care Assessment ---
Wound Care Assessment Date Seen by Provider: May 28, 2023 Time Seen by Provider: 11:32 Chief Complaint Diabetic foor ulcer s/p amputation HPI This 73 year old patient was admitted to the hospital with sepsis symptoms. She was found to have E.Coli bacteremia as well as Osteomyelitis of stump site. She does have a remote h/o osteomyelitis to her 1 toe/MT. She had surgery (L. 1 ray amputation) per Dr. Boyd on 05-08-23. She was readmitted last week with COV[facility]. Maria Elena is blind, ambulatory and with poor insight (possible intellectual disabi lity). She has a h/o difficulty with compliance in follow up and wound care. She is tolerating wound vac while she is admitted and plan for home health dressing changes 3 times weekly upon d/c home with follow up at wound care in [facility]. Her healing will be complicated by underlying DM2, difficulty with off loading, PEM, neuropathy, obesity, anemia and her mental status issues. She is doing well today with changes in size and minimal bone exposed on exam. Past Medical History: Admits Diabetes Type II, Admits Peripheral Artery Disease Recreational Drug Use: No Alcohol Use: Denies Use Review of Systems General: Fatigue Neurological: Weakness Other systems Limited due to mental status Exam Vital Signs Date Time Temp Pulse Resp B/P (MAP) Pulse Ox O2 Delivery O2 Flow Rate FiO2 05/28/23 09:30 Room Air 05/28/23 07:13 36.7 68 18 130/60 (83) 97 Capillary Refill : General Appearance: WD/WN, no apparent distress HEENT: other (Blind, normal hearing) Neck: full range of motion Cardiovascular: no edema Respiratory: no respiratory distress, no accessory muscle use Extremities: non-tender, normal inspection, no pedal edema Neurologic/Psychiatric: alert, normal mood/affect, other (moderate intellectual disability) Skin: normal color, warm/dry Skin Problem Location: lower extremities Wound assessment: 5.5x0.9x1.8 cm. The epithelialization is small. There is no tunneling or undermining. Drainage is large and serosanguinous. Granulation is medium and pink. Necrotic is medium and slough. Margins flat. Assessment/Plan/Dx Assessment: 1. 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 foot 2. DM2 3. Moderate PEM 4. Obesity (BMI 34.7) 5. PAD with h/o recent stenting 6. Anemia 7. Moderate intellectual disability with compliance concerns 8. Recent h/o E.Coli bacteremia/sepsis 9. COVID-19 Plan: 1. Wound vac therapy to be continued while inpatient. Reasonable for outpatient as well if arranged prior to d/c home 2. Good glycemic control advised (defer to primary team) 3. Good appetite 4. Defer to primary team. Weight loss efforts will be limited by cognition and compliance 5. Defer to primary team 6. Defer to primary team 7. Defer to primary team 8. Remains on levaquin. Plan for total of 6 weeks 9. Defer to primary team. MORENO ROSENTHAL MD May 28, 2023 11:38
[2023-05-28] MEDS: ENOXAPARIN 40 MG/0.4 ML SYRINGE SC SCH (14:09)
[2023-05-28 18:39] VITALS: BP 131/78
[2023-05-28 19:04] VITALS: BP 131/78
[2023-05-28] MEDS: traZODone 150 MG (DESYREL) TABLET PO SCH (20:55)
[2023-05-28] MEDS: ALPRAZolam 0.25 MG TABLET PO PRN (20:55)
[2023-05-28] MEDS: MELATONIN 3 MG TABLET PO PRN (20:56)
[2023-05-29] MEDS: THERAPEUTIC MULTIVITAMIN W/MINERALS TABLET PO SCH (06:08)
[2023-05-29 08:00] VITALS: BP 147/93
[2023-05-29] MEDS: ASPIRIN enteric coated 81MG TABLET PO SCH (09:01)
[2023-05-29] MEDS: GABAPENTIN 300 MG CAPSULE PO SCH ×3 (09:01→17:03)
[2023-05-29] MEDS: DOCUSATE SODIUM 100 MG CAPSULE PO SCH ×2 (09:01→20:03)
[2023-05-29] MEDS: CLOPIDOGREL 75 MG TABLET PO SCH (09:01)
[2023-05-29] MEDS: CITALOPRAM 20 MG TABLET PO SCH (09:01)
[2023-05-29] MEDS: FUROSEMIDE 20 MG TABLET PO SCH (09:01)
[2023-05-29] MEDS: CALCIUM CARBONATE 600 MG +VITAMIN D TABLET PO SCH (09:03)
[2023-05-29] MEDS: LevETIRAcetam 500 MG TABLET PO SCH ×2 (09:03→17:03)
[2023-05-29] MEDS: MEMANTINE 5 MG TABLET PO SCH ×2 (09:06→20:03)
[2023-05-29] MEDS: LevoFLOXacin 750 MG TABLET PO SCH (11:00)
[2023-05-29] MEDS: ENOXAPARIN 40 MG/0.4 ML SYRINGE SC SCH (13:53)
[2023-05-29 15:38] VITALS: BP 128/63
[2023-05-29 19:50] VITALS: BP 132/66
[2023-05-29] MEDS: ALPRAZolam 0.25 MG TABLET PO PRN (20:03)
[2023-05-29] MEDS: MELATONIN 3 MG TABLET PO PRN (20:03)
[2023-05-29] MEDS: traZODone 150 MG (DESYREL) TABLET PO SCH (20:03)
[2023-05-30] MEDS: THERAPEUTIC MULTIVITAMIN W/MINERALS TABLET PO SCH (06:36)
[2023-05-30 07:32] VITALS: BP 133/70
[2023-05-30] MEDS: CALCIUM CARBONATE 600 MG +VITAMIN D TABLET PO SCH (08:18)
[2023-05-30] MEDS: DOCUSATE SODIUM 100 MG CAPSULE PO SCH (08:18)
[2023-05-30] MEDS: ASPIRIN enteric coated 81MG TABLET PO SCH (08:18)
[2023-05-30] MEDS: FUROSEMIDE 20 MG TABLET PO SCH (08:18)
[2023-05-30] MEDS: GABAPENTIN 300 MG CAPSULE PO SCH ×2 (08:18→12:28)
[2023-05-30] MEDS: CLOPIDOGREL 75 MG TABLET PO SCH (08:19)
[2023-05-30] MEDS: LevETIRAcetam 500 MG TABLET PO SCH (08:19)
[2023-05-30] MEDS: MEMANTINE 5 MG TABLET PO SCH (08:19)
[2023-05-30] MEDS: CITALOPRAM 20 MG TABLET PO SCH (08:21)
[2023-05-30] MEDS ORDERED: LEVO750T PO (08:58)
--- NOTE | 2023-05-30 09:02 | D/C HH Face to Face Order ---
D/C Face to Face Orders Instructions for Patient Patient Instructions/FollowUp: Follow up with primary doctor within one to two weeks of discharge. Follow up with wound care within one week. Physician to follow Patient: [facility] Discharge Diet for Home: Cardiac Diet Patient Data-Allergies,Ht & Wt Patient Allergies: Coded Allergies: Tetracyclines (Verified Allergy, Unknown, 05/20/23) Home Health Need/Face to Face Date of Face to Face: May 30, 2023 Clinical Findings: Wound infection, Non-healing wound I have seen Pt [id number]: Yes Discharged To: Home Diagnosis/Conditions: Chronic foot wound Osteomyelitis Patient is Homebound due to: Amadeo fall risk due to instabilty Homebound Status Due to the above stated illness, injury or surgical procedure (medical condition or diagnosis) and associated clinical findings, the patient is home bound because of his/her inability to leave home except with aid of a supportive device and/or person AND leaving the home requires a considerable and taxing effort or is medically contraindicated. Pt req the following assistanc: Aid of another person Home Health Nursing Orders Home Health Services Order: Nursing Services, Physical Therapy-Evaluate & Treat, Wound Care-Eval/Treat Wound vac dressing change three times weekly. Certify Stmt I certify that this patient is under my care and that I, a nurse practitioner or a physician; a hospital aides and assistants teacher working with me, had a face to face encounter that - meets the physician face to face encounter requirements with this patient as dated. OLEGARIO SWEENEY MD May 30, 2023 09:02
[2023-05-30] MEDS: ENOXAPARIN 40 MG/0.4 ML SYRINGE SC SCH (14:06)
--- NOTE | 2023-05-30 17:31 | Discharge Summary ---
Discharge Summary Hospital Course Problems/Diagnosis: (1) COVID-19 Onset Date: ~ 05/20/2023 Status: Acute Assessment & Plan: Off isolation 05/29 at midnight. Doing well on room air at d/c. (2) Hypertension Status: Chronic (3) Hyperlipidemia Status: Chronic (4) Diabetes Status: Chronic Qualifiers: (5) CKD (chronic kidney disease) Status: Chronic (6) Peripheral neuropathy Status: Chronic (7) Peripheral arterial disease Status: Chronic (8) Diabetic foot ulcer Status: Chronic Assessment & Plan: On last admit she underwent left ray amputation for left first metatarsal obestomyelitis and abscess, wound vac in place. On levofloxa parmjit. Qualifiers: (9) Dementia Status: Chronic (10) [facility] resident Status: Chronic Hospital Course Date of Admission: May 24, 2023 at 10:50 Admission Diagnosis : Family Physician/Provider: Timi Issa MD Date of Discharge: 05/30/23 Discharge Diagnosis: See problem list Hospital Course: See problem list Labs and Pending Lab Test: Home Meds Active Levofloxacin 750 Mg Tablet 750 Mg PO Q48H 28 Days FILLED 05-14-2023 #03/29 DAY SUPPLY Reported Aspirin EC (Aspirin) 81 Mg Tablet.dr 81 Mg PO DAILY Clopidogrel (Clopidogrel Bisulfate) 75 Mg Tablet 75 Mg PO DAILY Benadryl Allergy (Diphenhydramine HCl) 25 Mg Tablet 25 Mg PO Q6H PRN Benzonatate 100 Mg Capsule 100 Mg PO Q8H PRN ALPRAZolam 0.25 Mg Tablet 0.25-0.5 Mg PO Q8H PRN TAKES 1 TO 2 (0.25MG) TABS Tramadol HCl 50 Mg Tablet 50 Mg PO Q6H PRN Imodium A-D (Loperamide HCl) 2 Mg Capsule 2 Mg PO Q6H PRN Famotidine 20 Mg Tablet 20 Mg PO DAILY PRN Tylenol Extra Strength (Acetaminophen) 500 Mg Tablet 500 Mg PO Q4- 6H PRN Guaifenesin 100 Mg/5 Ml Liquid 5 Ml PO Q4H PRN Guaifenesin 400 Mg Tablet 400 Mg PO Q4H PRN Tums (Calcium Carbonate) 300 Mg Calcium (750 Mg) Tab.chew 2 Ea PO Q4H PRN Milk of Magnesia (Magnesium Hydroxide) 400 Mg/5 Ml Oral.susp 30 Ml PO DAILY PRN Metamucil Fiber Singles Packet (Psyllium Husk/Aspartame) 3.4 Gram Powd.pack 3.4 Gm PO DAILY PRN Memantine HCl 5 Mg Tablet 5 Mg PO BID Atorvastatin Calcium 40 Mg Tablet 40 Mg PO HS Lutein 20 Mg Tablet 20 Mg PO DAILY Furosemide 20 Mg Tablet 20 Mg PO DAILY Ezetimibe 10 Mg Tablet 10 Mg PO HS Citalopram HBr (Citalopram Hydrobromide) 20 Mg Tablet 20 Mg PO DAILY Calcium 600 + Vit D 400 Softgl (Calcium Carbonate/Vitamin D3) 600 Mg Calcium-10 Mcg (400 Unit) Capsule 1 Each PO DAILY Levetiracetam 750 Mg Tablet 750 Mg PO 0800,1700 Trazodone HCl 150 Mg Tablet 150 Mg PO HS Neurontin (Gabapentin) 300 Mg Capsule 300 Mg PO 0800,1200,1700 Preservision Areds Tablet (Vit A/Vit C/Vit E/Zinc/Copper) 2,148-113 Tablet 1 Each PO DAILY Assessment/Pt DC Instructions Follow up with primary doctor within a week of discharge. Follow up with Dr. Restrepo for wound care. Discharge Diet: ADA Diet Discharge Physical Examination Allergies: Coded Allergies: Tetracyclines (Verified Allergy, Unknown, 05/20/23) General Appearance: No Apparent Distress Respiratory: Lungs Clear, Normal Breath Sounds Cardiovascular: Regular Rate, Rhythm, No Murmur Gastrointestinal: Normal Bowel Sounds, Non Tender, Soft Skin: Warm/Dry, Other (wound vac in place to medial foot) Neurologic/Psychiatric: Alert, Normal Mood/Affect OLEGARIO SWEENEY MD May 30, 2023 17:30
== END 2023-05-30 16:30 | disposition home health service (06) | DRG 178 ==
LOC: 4TH 10:50
PROVIDERS: ADMIT Internal Medicine; ATTEND Family Medicine
PROC: 8E0ZXY6 Isolation (ICD-10-PCS; principal; 2023-05-24)
DX: U07.1 COVID-19 (principal); E44.0 Moderate protein-calorie malnutrition; L97.526 Non-pressure chronic ulcer of other part of left foot with bone involvement without evidence of necrosis; I12.9 Hypertensive chronic kidney disease with stage 1 through stage 4 chronic kidney disease, or unspecified chronic kidney disease; E11.22 Type 2 diabetes mellitus with diabetic chronic kidney disease; N18.9 Chronic kidney disease, unspecified; E11.42 Type 2 diabetes mellitus with diabetic polyneuropathy; E11.621 Type 2 diabetes mellitus with foot ulcer; E66.9 Obesity, unspecified; D63.1 Anemia in chronic kidney disease; E11.51 Type 2 diabetes mellitus with diabetic peripheral angiopathy without gangrene; F71 Moderate intellectual disabilities; E78.00 Pure hypercholesterolemia, unspecified; H54.3 Unqualified visual loss, both eyes; Z68.34 Body mass index [BMI] 34.0-34.9, adult; Z89.412 Acquired absence of left great toe; Z79.899 Other long term (current) drug therapy